=== PATIENT | female | born 1995 | race Caucasian/White ===

== ENCOUNTER 2022-12-23 14:49 | Outpatient (REF) | payer BC, SELFPAY ==
[2022-12-23 15:28] LABS: Internal Control Within Normal Limits; Strep A Antigen Screen Negative
== END 2022-12-23 14:50 | disposition home or self-care (01) ==
LOC: LAB 14:49
PROVIDERS: PCP Family Medicine; Visit Provider Nurse Practitioner Family
DX: J02.9 Acute pharyngitis, unspecified (principal)
CPT/HCPCS: 87070; 87880

== ENCOUNTER 2023-01-12 14:10 | Outpatient (OUT) | payer BC, SELFPAY ==
--- NOTE | 2023-01-12 14:11 | US_ITS ---
[address] [address] Patient Name: PATRICIA FLORES MRN: [id number] date: 1995 Sex: F Assigned Patient Location: [place] Current Patient Location: US Accession/Order Number: [id number] Exam Date: 01/12/2023 14:11 Report Date: 01/12/2023 15:44 At the request of: VIOLETA VILCHIS Procedure: US OB transvaginal EXAMINATION: US OB transvaginal HISTORY: MISSED MENSES COMPARISON: No relevant comparison available. FINDINGS: Devries intrauterine gestation Gestational sac: 3.0 cm, 7 weeks 6 days CRL: 2.2 cm, 9 weeks 4 days Yolk sac: 4.5 mm Heart rate: 182 bpm Cervix: Closed, 4.4 cm The uterus is normal, anteverted, anteflexed The ovaries are normal. Right corpus luteal cyst. Clinical age: 9 weeks 4 days Clinical JORDON: 08/13/2023 Ultrasound age: 9 weeks 4 days Ultrasound JORDON: 08/13/2023 US/US OB transvaginal IMPRESSION: Viable devries intrauterine gestation measuring 9 weeks 4 days Electronically authenticated by: JAMESON MCGUIRE Date: 01/12/2023 15:44
--- OUTSIDE RECORDS SUMMARY | 2023-01-25 03:32 | XMS_ITS | CCD ---
Author Name Unknown Address [address] [place] [address] Organization [facility] Care Team Providers Care Board Hammer Operator Name Role Phone GAYR ZAMORA Attending Unavailjas guo Physician, PCP Unknown Primary Care Unavailab Grecia Abdullahi Primary Care Provider [phone] SUM[address] STEEN Attending Unavailable GRECIA MARROQUIN Primary Care Unavailable GRECIA MARROQUIN Primary Care Unavailable REMBERTO COELHO Attending UnavailREMBERTO Reinoso Attending UnavailREMBERTO Reinoso Referring UnavailGRECIA Goodson Primary Care Unavailable DR GRECIA MARROQUIN Attending Unavailable DR GRECIA MARROQUIN Consulting Unavailable DR GRECIA MARROQUIN Primary Care Unavailable DR GRECIA MARROQUIN Admitting Unavailable GRECIA MARROQUIN Primary Care Unavailable VALENTINA JOHNS Attending Un available Radha Copeland Unavailable VIOLETA VILCHIS Attending Unavailable Allergies Allergy Classification Reported Allergen(s) Allergy Type Date of Onset Reaction(s) Facility diphenhydrAMINE (1 source) diphenhydrAMINE Drug Allergy 4 [facility] Repository (4 sources) diphenhydrAMINE; Translations: [Unknown] Drug Allergy 0 Other (See Comments) [facility] Medications Current Medications Medication Drug Class(es) Dates Sig (Normalized) Sig (Original) benzonatate 100 mg oral capsule (2 sources) Non-narcotic Antitussive Start: 02-15-2019 End: 02-22-2019 take 1 capsule by mouth three times daily as needed for cough benzonatate (TESSALON) 100 MG capsule Indications: Bronchitis Take 1 (one) capsule (100 mg total) by mouth 3 (three) times a day as needed for cough . 20 capsule 0 02/15/2019 02/22/2019 Active brompheniramine maleate 0.4 mg/ml / dextromethorphan hydrobromide 2 mg/ml / pseudoephedrine hydrochloride 6 mg/ml oral solution (1 source) alpha-Adrenergic Agonist, Uncompetitive G-zbkebz-E-aspartat e Receptor Antagonist, Sigma-1 Agonist Start: 02-17-2019 End: 02-27-2019 take 5-10 mL by mouth three times daily as needed brompheniramine- pseudoePHEDrine- DM 2-30-10 mg/5 mL syrup Indications: Cough Take 5-10 mL by mouth 3 (three) times a day as needed . 150 mL 0 02/17/2019 02/27/2019 Active Ethinyl Estradiol / Ferrous fumarate / Norethindrone (2 sources) Estrogen take 1 tablet by mouth once daily, then take 0.05 tablet by mouth once norethindrone-et hinyl estradiol (02/25) 1 mg-20 mcg (21)/75 mg (7) per tablet Take 1 tablet by mouth daily . 0 Active oseltamivir 75 mg oral capsule (1 source) Neuraminidase Inhibitor Start: 02-17-2019 End: 02-22-2019 take 1 capsule by mouth twice daily oseltamivir (Tamiflu) 75 MG capsule Indications: Influenza Take 1 (one) capsule (75 mg total) by mouth 2 (two) times a day for 5 days . 10 capsule 0 02/17/2019 02/22/2019 Active predniSONE 50 mg oral tablet (2 sources) Start: 02-15-2019 End: 02-20-2019 take 1 tablet by mouth once daily predniSONE (DELTASONE) 50 MG tablet Indications: Bronchitis Take 1 (one) tablet (50 mg total) by mouth daily for 5 days . 5 tablet 0 02/15/2019 02/20/2019 Active Problems Active Problems Problem Classification Problem Date Documented Da te Episodic/Chronic Chronic obstructive pulmonary disease and bronchiectasis (1 source) Bronchitis; Translations: [Bronchitis] Episodic Unclassified (2 sources) A74.9 Onset: 05-15-2018 Unclassified (1 source) Past or Other Problems Problem Classification Problem Date Documented Da te Episodic/Chronic Unclassified (1 source) Exposure to COVID-19 virus Z20.822 Onset: 09-30-2021 Resolved: 09-30-2021 Results Test Name Value Interpretation Reference Range Facil ity SARS-CoV-2 (COVID-19) RNA NA A+probe Ql (Resp)on 09-30-2021 SARS-CoV-2 (COVID-19) RNA NA A+probe Ql (Unsp spec) Negative [facility] Other INSULINon 08-11-2020 Insulin 10.7 uIU/mL Normal 2.6-24.9 [facility] Comment on above: Performed By: #### I NSULIN #### [facility] [address] [place], [place] [id number] Maribell Johanna CBC AUTO DIFFon 08-08-2020 BASO # 0.1 103/ul Normal 0.0-0.1 [facility] Comment on above: Performed By: #### C BC #### [facility] [address] [place], [place] [id number] Maribell Johanna Basophils/100 WBC (Bld) 1.1 % Normal 0.2-2.0 [facility] Comment on above: Performed By: #### C BC #### [facility] [address] [place] [address] Maribell Johanna EO # 0.2 103/ul Normal 0.0-0.7 [facility] Comment on above: Performed By: #### C BC #### [facility] [address] [place] [address] Maribell Johanna Eosinophils/100 WBC (Bld) 2.5 % Normal 0.9-7.0 [facility] Comment on above: Performed By: #### C BC #### [facility] [address] [place], [place] [id number] Maribell Johanna Erythrocyte distribution wid th (RBC) [Ratio] 13.6 % Normal 11.0-15.[address] [facility] Comment on above: Performed By: #### C BC #### [facility] [address] [place], [place] [id number] Maribell Johanna Hematocrit (Bld) [Volume fraction] 41.1 % Normal 3 6.0-48.0 [facility] Comment on above: Performed By: #### C BC #### [facility] [address] [id number] Maribell Johanna Hemoglobin (Bld) [Mass/Vol] 13.9 g/dL Normal 12.0-16. 0 [facility] Comment on above: Performed By: #### C BC #### [facility] [address] [id number] Maribell Johanna IG # 0.02 10e3/ul Normal 0.00-0.03 [facility] Comment on above: Performed By: #### C BC #### [facility] [address] [id number] Maribell Johanna IG % 0.3 % Normal 0.0-0.5 [facility] Comment on above: Performed By: #### C BC #### [facility] [address] [place] [address] Maribell Johanna LYMPH # 2.1 103/ul Normal 1.2-3.8 [facility] Comment on above: Performed By: #### C BC #### [facility] [address] [place], [place] [id number] Maribell Johanna Lymphocytes/100 WBC (Bld) 32.4 % Normal 20.5-60.0 [facility] Comment on above: Performed By: #### C BC #### [facility] [address] [place], [place] [id number] Maribell Johanna MANUAL DIFF REQ NO Normal [facility] Comment on above: Performed By: #### C BC #### [facility] [address] [place], [place] [id number] Maribell Johanna MCH (RBC) [Entitic mass] 29.5 pg Normal 26.7-34.0 [facility] Comment on above: Performed By: #### C BC #### [facility] [address] [place], [place] [id number] Maribell Johanna MCHC (RBC) [Mass/Vol] 33.8 g/dL Normal 29.9-35.2 [facility] Comment on above: Performed By: #### C BC #### [facility] [address] [place], [place] [id number] Maribell Johanna MCV (RBC) [Entitic vol] 87.3 fL Normal 81.0-99.0 [facility] Comment on above: Performed By: #### C BC #### [facility] [address] [place], [place] [address] Maribellkhadijah Spencer MONO # 0.4 103/ul Normal 0.3-0.8 [facility] Comment on above: Performed By: #### C BC #### [facility] [address] [place] [address] Maribellkhadijah Millsen Monocytes/100 WBC (Bld) 6.9 % Normal 1.7-12.0 [facility] Comment on above: Performed By: #### C BC #### [facility] [address] [place] [address] Maribellkhadijah Millsen NEUT # 3.6 103/ul Normal 1.4-6.5 [facility] Comment on above: Performed By: #### C BC #### [facility] [address] [place] [address] Maribell Spencer Neutrophils/100 WBC (Bld) 56.8 % Normal 43.0-75.0 [facility] Comment on above: Performed By: #### C BC #### [facility] [address] [place], [place] [id number] Maribellkhadijah Spencer Platelet mean volume (Bld) [Entitic vol] 9.9 fL Normal 9.5-13.5 [facility] Comment on above: Performed By: #### C BC #### [facility] [address] [place] [address] Maribell Johanna PLT 180 103/ul Normal 150-450 [facility] Comment on above: Performed By: #### C BC #### [facility] [address] [place], [place] [address] Maribell Johanna RBC 4.71 106/ul Normal 4.20-5.40 [facility] Comment on above: Performed By: #### C BC #### [facility] [address] [place] [address] Maribell Johanna WBC 6.4 103/ul Normal 4.0-11.0 [facility] Comment on above: Performed By: #### C BC #### [facility] [address] [place], [place] [id number] Maribell Spencer FREE THYROXINE INDEX T7on FTI 3.39 Normal [facility] Comment on above: Performed By: #### L IPID, CMP, T7, TSH #### [facility] [address] [place], [place] [address] Maribell Spencer T3U 28.0 % Normal 23.5-40.5 [facility] Comment on above: Performed By: #### L IPID, CMP, T7, TSH #### [facility] [address] [place] [address] Maribellkhadijah Spencer T4 [Mass/Vol] 12.10 ug/dL Critically high 5.53-11.00 [facility] Comment on above: Performed By: #### L IPID, CMP, T7, TSH #### [facility] [address] [place], [place] [address] Maribell Spencer GLYCOHEMOGLOBIN A1Con 2020 ADA RECOMMENDATION ADA THERAPEUTIC TARG ET 6.0 - 7.0 ACTION SUGGESTED > 7.0 Normal [facility] Comment on above: Performed By: #### A 1C #### [facility] [address] [place], [place] [address] Maribell Johanna Glucose [Mass/Vol] 123 mg/dL Normal [facility] Comment on above: Performed By: #### A 1C #### [facility] [address] [place], [place] [id number] Maribell Spencer HbA1c (Bld) [Mass fraction] 5.9 % Normal <=6.0 [facility] Comment on above: Performed By: #### A 1C #### [facility] [address] [place], [place] [address] Maribell Johanna IRONon 08-08-2020 Iron [Mass/Vol] 66.0 ug/dL Normal 37.0-170.0 [facility] Comment on above: Performed By: #### I DUNIA #### [facility] [address] [place], [place] [address] Maribell Johanna LIPID PROFILEon 08-08-2020 CHOL-HDL RATIO NORM SEE BELOW Normal [facility] Comment on above: Result Comment: 3.3 - 4.4 LOW RISK 4.4 - 7.1 AVERAGE RISK 7.1 - 11.0 MODERATE RISK >11.0 HIGH RISK Performed By: #### L IPID, CMP, T7, TSH #### [facility] [address] [place], [place] [address] Maribell Johanna Cholesterol [Mass/Vol] 215 mg/dL Critically high <=200 [facility] Comment on above: Performed By: #### L IPID, CMP, T7, TSH #### [facility] [address] [id number] Maribell Johanna Cholesterol in HDL [Mass/Vol] 37 mg/dL Normal [facility] Comment on above: Performed By: #### L IPID, CMP, T7, TSH #### [facility] [address] [id number] Maribell Johanna Cholesterol in LDL [Mass/Vol] 142.4 mg/dL Normal [facility] Comment on above: Performed By: #### L IPID, CMP, T7, TSH #### [facility] [address] [place], [place] [address] Maribell Johanna Cholesterol.total/Cholestero l in HDL [Mass ratio] 5.8 {ratio} Normal The [facility] Comment on above: Performed By: #### L IPID, CMP, T7, TSH #### [facility] [address] [place], [place] [address] Maribell Johanna HDL NORMAL > or = 60 mg/dl - LO W CARDIOVASCULAR RISK <40 mg/dl - HIGH CARDIOVASCULAR RISK Normal [facility] Comment on above: Performed By: #### L IPID, CMP, T7, TSH #### [facility] [address] [place], [place] [address] Maribell Johanna LDL CALC NORMAL SEE BELOW Normal [facility] Comment on above: Result Comment: <100 mg/dl OPTIMAL 100 - 129 mg/dl NEAR OR ABOVE OPTIMAL 130 - 159 mg/dl BORDERLINE HIGH 160 - 189 mg/dl HIGH >190 mg/dl VERY HIGH Performed By: #### L IPID, CMP, T7, TSH #### [facility] [address] [id number] Maribell Johanna Triglyceride [Mass/Vol] 178 mg/dL Critically high <=150 [facility] Comment on above: Performed By: #### L IPID, CMP, T7, TSH #### [facility] [address] [id number] Maribell Johanna VLDL CALC 35.6 mg/dL Normal [facility] Comment on above: Performed By: #### L IPID, CMP, T7, TSH #### [facility] [address] [place], [place] [address] Maribell Spencer PROF 14(COMP METB)on 021 Albumin [Mass/Vol] 3.5 g/dL Normal 3.5-5.0 [facility] Comment on above: Performed By: #### L IPID, CMP, T7, TSH #### [facility] [address] [place], [place] [address] Maribell Johanna Albumin/Globulin [Mass ratio] 0.8 {ratio} Normal [facility] Comment on above: Performed By: #### L IPID, CMP, T7, TSH #### [facility] [address] [place], [place] [address] Maribell Johanna ALP [Catalytic activity/Vol] 62 U/L Normal 38-126 [facility] Comment on above: Performed By: #### L IPID, CMP, T7, TSH #### [facility] [address] [place] [address] Maribell Johanna ALT [Catalytic activity/Vol] 50 U/L Normal 9-52 [facility] Comment on above: Performed By: #### L IPID, CMP, T7, TSH #### [facility] [address] [place], [place] [address] Maribell Johanna Anion gap [Moles/Vol] 14.5 mmol/L Normal [facility] Comment on above: Performed By: #### L IPID, CMP, T7, TSH #### [facility] [address] [address] Maribell Johanna AST [Catalytic activity/Vol] 36 U/L Normal 14-36 [facility] Comment on above: Performed By: #### L IPID, CMP, T7, TSH #### [facility] [address] [address] Maribell Johanna Bilirubin [Mass/Vol] 0.5 mg/dL Normal 0.2-1.3 [facility] Comment on above: Performed By: #### L IPID, CMP, T7, TSH #### [facility] [address] [address] Maribell Johanna Calcium [Mass/Vol] 9.0 mg/dL Normal 8.4-10.2 [facility] Comment on above: Performed By: #### L IPID, CMP, T7, TSH #### [facility] [address] [place] [address] Maribell Johanna Chloride [Moles/Vol] 103 mmol/L Normal 98-107 [facility] Comment on above: Performed By: #### L IPID, CMP, T7, TSH #### [facility] [address] [place] [address] Maribell Johanna CO2 [Moles/Vol] 25.6 mmol/L Normal 22.0-30.0 [facility] Comment on above: Performed By: #### L IPID, CMP, T7, TSH #### [facility] [address] [address] Maribell Johanna Creatinine [Mass/Vol] 0.80 mg/dL Normal 0.52-1.04 [facility] Comment on above: Performed By: #### L IPID, CMP, T7, TSH #### [facility] [address] [place] [address] Maribell Johanna EGFR-AF EAST [place] >60 Normal >=60 [facility] Comment on above: Performed By: #### L IPID, CMP, T7, TSH #### [facility] [address] [id number] Maribell Johanna EGFR-NON AF EAST [place] >60 Normal >=60 [facility] Comment on above: Performed By: #### L IPID, CMP, T7, TSH #### [facility] [address] [address] Maribell Johanna Globulin (S) [Mass/Vol] 4.6 g/dL Normal [facility] Comment on above: Performed By: #### L IPID, CMP, T7, TSH #### [facility] [address] [place] [address] Maribell Johanna Glucose [Mass/Vol] 115 mg/dL Critically high 74-106 [facility] Comment on above: Performed By: #### L IPID, CMP, T7, TSH #### [facility] [address] [place] [address] Maribell Johanna Potassium [Moles/Vol] 4.1 mmol/L Normal 3.4-5.0 [facility] Comment on above: Performed By: #### L IPID, CMP, T7, TSH #### [facility] [address] [place] [address] Maribell Johanna Protein [Mass/Vol] 8.1 g/dL Normal 6.1-8.2 [facility] Comment on above: Performed By: #### L IPID, CMP, T7, TSH #### [facility] [address] [place] [address] Maribell Johanna Sodium [Moles/Vol] 139 mmol/L Normal 137-145 [facility] Comment on above: Performed By: #### L IPID, CMP, T7, TSH #### [facility] [address] [place] [address] Maribell Johanna Urea nitrogen [Mass/Vol] 9.0 mg/dL Normal 7.0-17.0 [facility] Comment on above: Performed By: #### L IPID, CMP, T7, TSH #### [facility] [address] [place] [address] Maribell Johanna Urea nitrogen/Creatinine [Mass ratio] 11.2 mg/mg Normal [facility] Comment on above: Performed By: #### L IPID, CMP, T7, TSH #### [facility] [address] [place], [place] [address] Maribell Spencer TSHon 08-08-2020 TSH 1.632 uIU/mL Normal 0.470-4.680 [facility] Comment on above: Performed By: #### L IPID, CMP, T7, TSH #### [facility] [address] [place], [place] [address] Maribell Spencer TSH RANGE SEE BELOW Normal [facility] Comment on above: Result Comment: <0.3 4 UIU/ml HYPERTHYROID 0.34-5.60 UIU/ml EUTHYROID >5.60 UIU/ml HYPOTHYROID Performed By: #### L IPID, CMP, T7, TSH #### [facility] [address] [place], [place] [address] Maribell Spencer XR CHEST AP/PA AND LATon XR CHEST AP/PA AND LAT EXAMINATION: XR CHEST AP/PA AND LAT 02/17/2019 9:47 AM HISTORY: ORDERING SYSTEM PROVIDED HISTORY: h/o pneumonia/cough/fever, TECHNOLOGIST PROVIDED HISTORY: Illness/Other Reason for exam: cough Cancer History: no Surgery, RadiationHistory: unk Encounter Type: Initial Additional signs and symptoms: Treated for pneumonia around [place]. Started having cough, fever again about 2 days ago. ORDERING SYSTEM PROVIDED DIAGNOSIS CODES: R05 Cough COMPARISON: None. FINDINGS: Cardiomediastinal silhouette is within normal limits. Lungs are clear. No significant pleural or osseous abnormalities are identified. IMPRESSION: No acute process identified. MA/trw Workstation ID: [id number] Dictated by: ISHMAEL KEYS on MonFeb 17, 2019 10:05:42 AM EST Transcribed by: LEXII HUTCHINSON on MonFeb 17, 2019 10:06:52 AM EST Finalized by: ISHMAEL KEYS on MonFeb 17, 2019 10:59:38 AM EST Normal [facility] Comment on above: Order Comment: Injur y/Trauma or Illness?:Illness/Other How long have you had these symptoms (acute/chronic)?:Acute Reason for exam?:cough History of cancer?:no Surgeries, chemotherapy, or radiation?:unk Type of Exam?:Initial Additional signs and symptoms?:Treated for pneumonia around [place]. Started having cough, fever again about 2 days ago. No acute process identified. [employer] Workstation ID: [id number] [facility] EXAMINATION: XR CHES T AP/PA AND LAT 02/17/2019 9:47 AM HISTORY: ORDERING SYSTEM PROVIDED HISTORY: h/o pneumonia/cough/fever, TECHNOLOGIST PROVIDED HISTORY: Illness/Other Reason for exam: cough Cancer History: no Surgery, RadiationHistory: unk Encounter Type: Initial Additional signs and symptoms: Treated for pneumonia around [place]. Started having cough, fever again about 2 days ago. ORDERING SYSTEM PROVIDED DIAGNOSIS CODES: R05 Cough COMPARISON: None. FINDINGS: Cardiomediastinal silhouette is within normal limits. Lungs are clear. No significant pleural or osseous abnormalities are identified. [facility] Interface, Rad In Fu ji Speechq - 02/17/2019 11:02 AM EST EXAMINATION: XR CHEST AP/PA AND LAT 02/17/2019 9:47 AM HISTORY: ORDERING SYSTEM PROVIDED HISTORY: h/o pneumonia/cough/fever, TECHNOLOGIST PROVIDED HISTORY: Illness/Other Reason for exam: cough Cancer History: no Surgery, RadiationHistory: unk Encounter Type: Initial Additional signs and symptoms: Treated for pneumonia around [place]. Started having cough, fever again about 2 days ago. ORDERING SYSTEM PROVIDED DIAGNOSIS CODES: R05 Cough COMPARISON: None. FINDINGS: Cardiomediastinal silhouette is within normal limits. Lungs are clear. No significant pleural or osseous abnormalities are identified. IMPRESSION: No acute process identified. [employer] Workstation ID: [id number] [facility] Chlamydia Detection by NAATo yannick 05-15-2018 Protein mass conc [facility] Microbiology PROCEDURE: Chlamydia Detection by NAAT SOURCE: Vagina BODY SITE: COLLECTED DATE/TIME: 05/15/2018 09:43 EDT RECEIVED DATE/TIME: 05/15/2018 09:43 EDT START DATE/TIME: 05/15/2018 09:43 EDT FREE TEXT SOURCE: VAGINA-VAG INTERFACED REPORTS Final Report [] Verified Date/Time/Personnel: 05/16/2018 14:04 EDT CONTRIBUTOR_SYSTEM, CO_PN NEGATIVE * C TRACHOMATIS NUCLEIC ACID NOT DETECTED CONTACT LABORATORY FOR RECOMMENDED ADDITIONAL TESTING IF RESULTS ARE INCONSISTENT WITH CLINICAL FINDINGS Normal [facility] Comment on above: Performed By: #### C [id number] #### [facility] [address] [place], [place] Vital Signs Date Time Vital Sign Value Performing Clinician Tana lara 02-15-2019 13:17-0500 BMI (Body Mass Index) 27.25 kg/m2 [facility] 02-15-2019 13:17-0500 Body Temperature 99.61 [degF] [facility] 02-15-2019 13:17-0500 Body weight 81.28 kg [facility] 02-15-2019 13:17-0500 BP Diastolic 82 mm[Hg] [facility] 02-15-2019 13:17-0500 BP Systolic 131 mm[Hg] [facility] 02-15-2019 13:170500 Height 172.7 cm [facility] 02-15-2019 13:17-0500 Pulse (Heart Rate) 89 /min [facility] 02-15-2019 13:17-0500 Pulse Oximetry 96 % [facility] 02-15-2019 13:17-0500 Respiratory Rate 16 /min [facility] Encounters Encounter Date Encounter Type Care Provider Facility Start: 01-12-2023 End: 01-12-2023 ambulatory VIOLETA VILCHIS Not Available Start: 09-30-2021 End: 09-30-2021 ambulatory Radha Copeland Other [facility] Other Start: 09-30-2021 Nursing evaluation o f patient and report Radha Copeland [facility] Start: 09-21-2020 End: 09-25-2020 ambulatory GRECIA MARROQUIN [facility] Start: 08-18-2020 Encounter for genera l adult medical examination without abnormal findings DR GRECIA MARROQUIN [facility] Start: 08-08-2020 End: 08-09-[address] GRECIA MARROQUIN Facility:[facility] Start: 08-08-2020 End: 08-09-2020 Encounter for general adult medical examination without abnormal findings DR GRECIA MARROQUIN Facility:[facility] Start: 02-17-2019 End: 02-18-2019 Patient encounter procedure REMBERTO COELHO [facility] Start: 02-17-2019 End: 02-17-2019 Subsequent hospital visit by physician Remberto Coelho Work Phone: [facility]gent [facility] Comment on above: Arrived Start: 02-15-2019 End: 02-15-2019 Patient encounter procedure SUMMER MICHELLE STEEN [facility] Start: 02-15-2019 End: 02-15-2019 Office outpatient visit 15 minutes Summer Steen Work Phone: [facility] [place] Comment on above: Bronchitis (Primary Dx) Start: 05-16-2018 End: 05-16-2018 Patient encounter procedure GARY ZAMORA Facility:[facility] Procedures Date Procedure Procedure Detail Performing Clinician Start: 02-17-2019 Standard chest X-ray An john Coelho Work Phone: Start: 04-20-2018 Microscopic observat ion [Identifier] in Cervix by Cyto stain Remberto Coelho Start: 03-24-2016 Microscopic observat ion [Identifier] in Cervix by Cyto stain Summer Steen Plan of Treatment Date Care Activity Detail Author Start: 04-20-2021 Screening for malign ant neoplasm of cervix PAP SMEAR [facility] Start: 04-21-2019 Screening for Chlamy luis fernando trachomatis Chlamydia Screening [facility] Start: 03-24-2019 Screening for malign ant neoplasm of cervix PAP SMEAR [facility] Start: 10-07-2018 Influenza vaccination given SE QUENTIAL INFLUENZA VACCINE (#1) [facility] Start: 2006 Vaccination for sharri n papillomavirus HPV VACCINES (1 - Female 2-dose series) [facility] Start: 1998 History and physical examination, annual for health maintenance Wellness Visit [facility] Start: 1995 Screening for Chlamy luis fernando trachomatis Chlamydia Screening [facility] Start: 1995 Tetanus vaccination TETANUS EVERY 10 YR [facility] Payers Date Payer Category Payer Unknown [id number] 2018 Unknown NADYA HOWARD/SANTIAGO/HMO/PPO xxxxxxxxxxxx 2018-Present [id number] 1995 Unknown [id number] 1995 Unknown [id number] 1995 Unknown [id number] 1995 Unknown [id number] 1995 Unknown [id number] 1995 Unknown [id number] 9 1959 Unknown [id number] Social History Date Type Detail Facility Start: 02-15-2019 End: 02-17-2019 Tobacco smoking status NHIS Never smoker [facility] on file [facility] Other Evaluation note 09-30-2021 Note Date & Type Note Facility 09-30-2021 Evaluation note Encounter Date Diagnosis Assessment Notes Sep, Exposure to COVID-19 virus (ICD-10 - Z20.822) [facility] Other Summary Purpose Family History No Family History Records FoundNo Family History Records FoundNo Family History Records FoundNo Family History Records FoundNo Family History Records Found Advance Directives No Advanced Directives Records FoundDocuments on File Type Date Recorded Patient Certified Nursing Assistant Expl anation Advance Directives and Living Will Instructions * Patient Instructions* Summer Steen, - 02/15/2019 1:39 PM EST Symptoms are likely viral in nature with bronchitis. Discussed with patient. No need for antibiotics at this time. Start Tessalon Perles for cough as needed. Take prednisone as scheduled. Return for new, worsening or changing symptoms. Bronchitis: Care Instructions Your Care Instructions Bronchitis is inflammation of the bronchial tubes, which carry air to the lungs. The tubes swell and produce mucus, or phlegm. The mucus and inflamed bronchial tubes make you cough. You may have trouble breathing. Most cases of bronchitis are caused by viruses like those that cause colds. Antibiotics usually do not help and they may be harmful. Bronchitis usually develops rapidly and lasts about 2 to 3 weeks in otherwise healthy people. Follow-up care is a ramirez part of your treatment and safety. Be sure to make and go to all appointments, and call your doctor if you are having problems. It's also a good idea to know your test resultsand keep a list of the medicines you take. How can you care for yourself at home? Take all medicines exactly as prescribed. Call your doctor if you think you are having a problem with your medicine. Get some extra rest. Take an bjgm-xlp-ukotalh pain medicine, such as acetaminophen (Tylenol), ibuprofen (Advil, Motrin),or naproxen (Aleve) to reduce fever and relieve body aches. Read and follow all instructions on thelabel. Do not take two or more pain medicines at the same time unless the doctor told you to. Many pain medicines have acetaminophen, which is Tylenol. Too much acetaminophen (Tylenol) can be harmful. Take an acpz-kob-wyllszq cough medicine that contains dextromethorphan to help quiet a dry, hackingcough so that you can sleep. Avoid cough medicines that have more than one active ingredient. Read and follow all instructions on the label. Breathe moist air from a humidifier, hot shower, or sink filled with hot water. The heat and moisture will thin mucus so you can cough it out. Do not smoke. Smoking can make bronchitis worse. If you need help quitting, talk to your doctor about stop-smoking programs and medicines. These can increase your chances of quitting for good. When should you call for help? Call 911 anytime you think you may need emergency care. For example, call if: You have severe trouble breathing. Call your doctor now or seek immediate medical care if: You have new or worse trouble breathing. You cough up dark brown or bloody mucus (sputum). You have a new or higher fever. You have a new rash. Watch closely for changes in your health, and be sure to contact your doctor if: You cough more deeply or more often, especially if you notice more mucus or a change in the color of your mucus. You are not getting better as expected. Where can you learn more? Log into your personal health record on [email or web address] and enter H333 in the Education box to learn more about Bronchitis: Care Instructions. Current as of: July 15, 2018 Content Version: 12.3 [employer]. Care instructions adapted under license by your healthcare professional. If you have questions about a medical condition or this instruction, always ask your healthcare professional. [employer] disclaims any warranty or liability for your use of this information. documented in this encounter History of Present Illness * Summer Steen DO - 02/15/2019 1:22 PM EST PATIENT NAME: Meron Darling [facility] [address] [place] [address] : 1995 DATE OF VISIT: 02/15/2019 SS#: [id number] PROVIDER: Summer Steen DO Chief Complaint Patient presents with Shortness of Breath Started againthis morning. Pt was treated for pneumonia around 01/30/2019 and finished tx however today she feelslike it is coming back SUBJECTIVE 24 y.o. female presents Shortness of Breath (Started againthis morning. Pt was treated for pneumonia around 01/30/2019 and finished tx however today she feelslike it is coming back ) Patient is a 24-year-old female who presents with a nonproductive cough that started yesterday slightly. Patient states that a week before Jhonathan, approximately 2 to 3 weeks ago patient was treated with an antibiotic. She said he took it for 10 days and twice a day. Likely Augmentin but patient does not remember. Symptoms resolved. Patient is concerned she is got pneumonia again. [place] warm butno objective fevers. Took Tylenol prior to arrival. States she feels fine now but wanted to get evaluated for potential pneumonia. Patient is not short of breath at this moment. Does complain of somechest congestion. Does not take an inhaler usually. MEDICAL ISSUES History reviewed. No pertinent past medical history. There is no problem list on file for this patient. SOCIAL HISTORY Social History Socioeconomic History Marital status: Single Spouse name: Not on file Number of children: Not on file Years of education: Not on file Highest education level: Not on file Occupational History Not on file Social Needs Financial resource strain: Not on file Food insecurity Worry: Not on file Inability: Not on file Transportation needs Medical: Not on file Non-medical: Not on file Tobacco Use Smoking status: Never Smoker Smokeless tobacco: Never Used Substance and Sexual Activity Alcohol use: Not on file Drug use: Not on file Sexual activity: Not on file Lifestyle Physical activity Days per week: Not on file Minutes per session: Not on file Stress: Not on file Relationships Social connections Talks on phone: Not on file Gets together: Not on file Attends confucianism service: Not on file Active member of club or organization: Not on file Attends meetings of clubs or organizations: Not on file Relationship status: Not on file Other Topics Concern Not on file Social History Narrative Not on file FAMILY HISTORY No family history on file. REVIEW OF SYSTEMS Review of Systems Constitutional: Positive for fatigue. Negative for activity change, appetite change, chills, diaphoresis, fever and unexpected weight change. HENT: Negative for congestion, ear pain, mouth sores, postnasal drip, rhinorrhea, sinus pressure and sneezing. Eyes: Negative. Respiratory: Positive for cough, chest tightness and wheezing. Negative for choking. Cardiovascular: Negative. Gastrointestinal: Negative. All other systems reviewed and are negative. MEDICATIONS PRIOR TO VISIT Current Outpatient Medications on File Prior to Visit Medication Sig Dispense Refill norethindrone-ethinyl estradiol (02/25) 1 mg-20 mcg (21)/75 mg (7) per tablet Take 1 tabletby mouth daily . No current facility-administered medications on file prior to visit. ALLERGIES/INTOLERANCES Allergies Allergen Reactions Benadryl [Diphenhydramine Hcl] Other (See Comments) Agitated OBJECTIVE BP 131/82 Pulse 89 Temp 99.6 F (37.6 C) (Tympanic) Resp 16 Ht 5' 8 Wt 81.3 kg (179 lb 3.2 oz) SpO2 96% BMI 27.25 kg/m Physical Exam Constitutional: She is oriented to person, place, and time. She appears well- developed and well-nourished. HENT: Head: Normocephalic and atraumatic. Right Ear: External ear normal. Left Ear: External ear normal. Nose: Nose normal. Mouth/Throat: Oropharynx is clear and moist. Eyes: Pupils are equal, round, and reactive to light. Conjunctivae and EOM are normal. Right eye exhibits no discharge. Left eye exhibits no discharge. Neck: Normal range of motion. Neck supple. No JVD present. No thyromegaly present. Cardiovascular: Normal rate, regular rhythm, normal heart sounds and intact distal pulses. Exam reveals no gallop and no friction rub. No murmur heard. Pulmonary/Chest: Effort normal. No stridor. No respiratory distress. She has wheezes. She has no rales. She exhibits no tenderness. Musculoskeletal: Normal range of motion. Lymphadenopathy: She has no cervical adenopathy. Neurological: She is alert and oriented to person, place, and time. No cranial nerve deficit. Skin: Skin is warm and dry. Psychiatric: She has a normal mood and affect. Her behavior is normal. Nursing note and vitals reviewed. PROCEDURE Procedures Results No results found for this or any previous visit (from the past 168 hour(s)). ASSESSMENT/PLAN (expressed as patient instructions): 1. Bronchitis predniSONE (DELTASONE) 50 MG tablet benzonatate (TESSALON) 100 MG capsule No follow-ups on file. MDM Section ORDERS PLACED THIS VISIT No orders of the defined types were placed in this encounter. MEDICATION LIST AT END OF VISIT Current Outpatient Medications Medication Sig Dispense Refill norethindrone-ethinyl estradiol (02/25) 1 mg-20 mcg (21)/75 mg (7) per tablet Take 1 tabletby mouth daily . benzonatate (TESSALON) 100 MG capsule Take 1 (one) capsule (100 mg total) by mouth 3 (three) times a day as needed for cough . 20 capsule 0 predniSONE (DELTASONE) 50 MG tablet Take 1 (one) tablet (50 mg total) by mouth daily for 5 days . 5tablet 0 No current facility-administered medications for this visit. documented in this encounter Assessments Diagnosis Bronchitis Bronchitis, not specified as acute or chronic Additional Source Comments INFORMATION SOURCE (unrecogn ized section and content) DATE CREATED AUTHOR 05/17/2018 [facility] DATE CREATED AUTHOR 'S CHANDRAKANT ATBRANDO 02/17/[address] [facility] DATE CREATED AUTHOR AUTHOR'S ORGANIZ ATION 08/19/[address] [facility] DATE CREATED AUTHOR AUTHOR'S ORGANIZ ATION 10/04/2020 [facility] DATE CREATED AUTHOR AUTHOR'S ORGANIZ ATION 01/15/2023 [facility] EPIC Reason for Visit (unrecogniz ed section and content) Reason Comments Shortness of Breath Started againtrevor aguero. Pt was treated for pneumonia around 01/30/2019 and finished tx however today she feelslike it is coming back FOR RECORDS PERTAINING TO PATIENTS WHO ARE OR HAVE BEEN ENROLLED IN A CHEMICAL DEPENDENCY/SUBSTANCEABUSE PROGRAM, SOME INFORMATION MAY BE OMITTED. This clinical summary was aggregated from multiple sources. Caution should be exercised in using it in the provision of clinical care. This summary normalizes information from multiple sources, and as a consequence, information in this document may materially change the coding, format and clinical context of patient data. In addition, data may be omitted in some cases. CLINICAL DECISIONS SHOULD BE BASED ON THE PRIMARY CLINICAL RECORDS. [facility] [employer] [facility]. provides no warranty or guarantee of the accuracy or completeness of information in this document.
== END 2023-01-12 14:11 | disposition home or self-care (01) ==
LOC: US 14:10
PROVIDERS: PCP Family Medicine; Visit Provider Obstetrics & Gynecology
DX: Z34.91 Encounter for supervision of normal pregnancy, unspecified, first trimester (principal); Z3A.09 9 weeks gestation of pregnancy; N92.6 Irregular menstruation, unspecified
CPT/HCPCS: 76817

== ENCOUNTER 2023-01-16 07:34 | Outpatient (OUT) | payer BC, SELFPAY ==
[2023-01-16 07:53] LABS: Basophils Percent Auto 0.5 % (0.2-2.0); Eosinophils Absolute Auto 0.1 10^3/uL (0.0-0.7); Eosinophils Percent Auto 1.6 % (0.9-7.0); Hematocrit 38.5 % (36.0-48.0); Immature Granulocytes Abs Auto 0.01 10^3/uL (0.00-0.03); Immature Granulocytes Pct Auto 0.2 % (0.0-0.5); Lymphocytes Absolute Auto 2.2 10^3/uL (1.2-3.8); Mean Corpuscular HGB Conc 33.8 g/dL (29.9-35.2); Mean Corpuscular Hemoglobin 30.5 pg (26.7-34.0); Mean Corpuscular Volume 90.4 fL (81.0-99.0); Mean Platelet Volume 9.8 fL (9.5-13.5); Monocytes Absolute Auto 0.5 10^3/uL (0.3-0.8); Monocytes Percent Auto 7.4 % (1.7-12.0); Neutrophils Absolute Auto 3.6 10^3/uL (1.4-6.5); Neutrophils Percent Auto 56.3 % (43.0-75.0); Platelet Count 237 10^3/uL (150-450); Red Blood Count 4.26 10^6/uL (4.20-5.40); Red Cell Distribution Width 12.5 % (11.0-15.0); White Blood Count 6.4 10^3/uL (4.0-11.0)
[2023-01-16 08:07] LABS: Estimated Average Glucose 111 mg/dL; Glycohemoglobin A1C 5.5 % (4.5-6.2)
[2023-01-16 08:30] LABS: BOX Test Sent Out Y
[2023-01-16 08:57] LABS: Thyroid Stimulating Hormone 0.818 uIU/mL (0.358-3.740)
[2023-01-17 08:13] LABS: HBsAg Screen Negative (Negative); HCV Ab Non Reactive (Non Reactive); HIV Ab/p24 Ag Screen Non Reactive (Non Reactive)
[2023-01-17 13:08] LABS: Rapid Plasma Reagin, Quant Non Reactive titer (NonRea<1:1)
== END 2023-01-16 07:35 | disposition home or self-care (01) ==
LOC: LAB 07:34
PROVIDERS: PCP Family Medicine; Visit Provider Obstetrics & Gynecology
DX: N92.6 Irregular menstruation, unspecified (principal); Z36.0 Encounter for antenatal screening for chromosomal anomalies
CPT/HCPCS: 36415; 83036; 84443; 85025; 86592; 86762; 86803; 86850; 86900; 86901; 87086; 87340; 87389

== ENCOUNTER 2023-02-21 08:02 | Outpatient (OUT) | payer BC, SELFPAY ==
--- OUTSIDE RECORDS SUMMARY | 2023-02-21 08:06 | XMS_ITS | CCD ---
Author Name Unknown Address [facility] [place] [address] Organization [facility] Care Team Providers Care Wax Pot Tender Name Role Phone GARY ZAMORA Attending Unavailjas guo Physician, PCP Unknown Primary Care Unavailab Grecia Abdullahi Primary Care Provider SUMMER STEEN Attending Unavailable GRECIA MARROQUIN Primary Care Unavailable GRECIA MARROQUIN Primary Care Unavailable REMBERTO COELHO Attending UnavailREMBERTO Reinoso Attending UnavailREMBERTO Reinoso Referring UnavailGRECIA Goodson Primary Care Unavailable DR GRECIA MARROQUIN Attending Unavailable DR GRECIA MARROQUIN Consulting Unavailable DR GRECIA MARROQUIN Primary Care Unavailable DR GRECIA MARROQUIN Admitting Unavailable GRECIA MARROQUIN Primary Care Unavailable VALENTINA JOHNS Attending Un available Radha Copeland Unavailable NONE, NONE Primary Care Unavailable RADHAMES VICTORIA Referring Unavailable RADHAMES VICTORIA Referring Unavailable NONE, NONE Primary Care Unavailable VIOLETA VILCHIS Attending Unavailable VIOLETA VILCHIS Attending Unavailable Allergies Allergy Classification Reported Allergen(s) Allergy Type Date of Onset Reaction(s) Facility diphenhydrAMINE (1 source) diphenhydrAMINE Drug Allergy 4 [facility] Repository (4 sources) diphenhydrAMINE; Translations: [Unknown] Drug Allergy 0 Other (See Comments) [facility] Medications Current Medications Medication Drug Class(es) [...] oral solution (1 source) alpha-Adrenergic Agonist, Uncompetitive K-pitulf-G-aspartat e Receptor Antagonist, Sigma-1 Agonist Start: 02-17-2019 [...] bronchiectasis (1 source) Bronchitis; Translations: [Bronchitis] Episodic Other complications of (2 sources) Supervision of other high risk pregnancies, second trimester; Translations: [Supervision of other high risk pregnancies, second trimester] Onset: 02-08-2023 Episodic Other screening for suspected conditions (not mental disorders or infectious disease) (4 sources) Encounter for screening for nuchal translucency; Translations: [Encounter for screening, unspecified] Onset: 02-02-2023 Episodic Residual codes; unclassified (2 sources) Genetic carrier of other disease; Translations: [Genetic carrier of other disease] Onset: 02-08-2023 Episodic Unclassified (2 sources) A74.9 Onset: 05-15-2018 Unclassified (1 source) Past or Other Problems Problem Classification Problem Date Documented Da te Episodic/Chronic Unclassified (1 source) Exposure to COVID-19 virus Z20.822 Onset: 09-30-2021 Resolved: 09-30-2021 Results Test Name Value Interpretation Reference Range Facility [facility] 02-09-2023 Send Out Report FORWARD TO [facility] Comment on above: Result Comment: [id number] Performed By: #### C MIS #### [address] [address] Statistical Reporting Analyst: Isidro Aguirre MD [facility] 02-08-2023 Test Name [facility] Comment on above: Performed By: #### C MIS #### [address] [address] Statistical Reporting Analyst: Isidro Aguirre MD Maternal Ser 1st [place] 02-03 Cr Rump Lngt, Twin B Not Applicable [facility] Comment on above: Performed By: #### A MSFT #### [address] [address] Statistical Reporting Analyst: Isidro Aguirre MD [facility] [employer] [address] [place] [address] Statistical Reporting Analyst: Rojas Simpson MD [place] Rump Length 57.2 mm [facility] Comment on above: Performed By: #### A MSFT #### [address] [address] Statistical Reporting Analyst: Isidro Aguirre MD [facility] [employer] [address] [place] [address] Statistical Reporting Analyst: Rojas Simpson MD Gestat Age (exact) 12 wks, 1 days Normal [facility] Comment on above: Performed By: #### A MSFT #### [address] [address] Statistical Reporting Analyst: Isidro Aguirre MD [address] [phone] Statistical Reporting Analyst: Rojas Simpson MD Hx Aneuploidy Unknown Normal [facility] Comment on above: Performed By: #### A MSFT #### [address] [address] Statistical Reporting Analyst: Isidro Aguirre MD [address] [phone] Statistical Reporting Analyst: Rojas Simpson MD Interpretation Screen Neg Normal [facility] Comment on above: Result Comment: (NOT E) INTERPRETATION: SCREEN NEGATIVE for Down Syndrome and Trisomy 18 Down syndrome (DS) Negative Trisomy 18 (T18) Negative Pre-Test Post-Test Cutoff Down Syndrome Risks 1:649 1:2070 1:230 Trisomy 18 Risks 1:3190 1:6950 1:100 Comments: The risk of Down syndrome is less than the screening cut-off. The risk of trisomy 18 is less than the screening cut-off. This test was developed and its performance characteristics determined by [employer]. It has not been cleared or approved by the [place] Food and Drug Administration. This test was performed in a CLIA certified laboratory and is intended for clinical purposes. Performed By: #### A MSFT #### [address] [address] Statistical Reporting Analyst: Isidro Aguirre MD [address] [phone] Statistical Reporting Analyst: Rojas Simpson MD [age] [facility] Comment on above: Performed By: #### A MSFT #### [address] [address] Statistical Reporting Analyst: Isidro Aguirre MD [facility] [employer] [address] [place] [phone] Statistical Reporting Analyst: Rojas Simpson MD Maternal Race Nonblack [facility] Comment on above: Performed By: #### A MSFT #### [address] [address] Statistical Reporting Analyst: Isidro Aguirre MD [address] [phone] Statistical Reporting Analyst: Rojas Simpson MD Maternal Screen, EER See Note [facility] Comment on above: Result Comment: (NOT E) Authorized individuals can access the [facility] Enhanced Report using the following link: [email or web address] Performed By: [employer] [address] [place] [address] Configurator: Rex Moreau MD, PhD CLIA Number: [id number] Performed By: #### A MSFT #### [address] [address] Statistical Reporting Analyst: Isidro Aguirre MD [address] [phone] Statistical Reporting Analyst: Rojas Simpson MD Maternal Weight 191.0 lbs. [facility] Comment on above: Performed By: #### A MSFT #### [address] [address] Statistical Reporting Analyst: Isidro Aguirre MD [facility] [employer] [address] [place] [id number] Statistical Reporting Analyst: Rojas Simpson MD MoM for HCG 0.70 [facility] Comment on above: Performed By: #### A MSFT #### [address] [address] Statistical Reporting Analyst: Isidro Aguirre MD [facility] [address] [place] [address] Statistical Reporting Analyst: Rojas Simpson MD MoM for NT 1.60 Normal [facility] Comment on above: Performed By: #### A MSFT #### [address] [address] Statistical Reporting Analyst: Isidro Aguirre MD [address] [address] Statistical Reporting Analyst: Rojas Simpson MD MoM for [place], Twin B Not Applicable [facility] Comment on above: Performed By: #### A MSFT #### [address] [address] Statistical Reporting Analyst: Isidro Aguirre MD [address] [address] Statistical Reporting Analyst: Rojas Simpson MD MoM for SHONDA-A 0.82 [facility] Comment on above: Performed By: #### A MSFT #### [address] [address] Statistical Reporting Analyst: Isidro Aguirre MD [address] [address] Statistical Reporting Analyst: Rojas Simpson MD Nuchal Trans, Twin B Not Applicable [facility] Comment on above: Performed By: #### A MSFT #### [address] [address] Statistical Reporting Analyst: Isidro Aguirre MD [facility] [address] [place] [address] Statistical Reporting Analyst: Rojas Simpson MD Nuchal Translucency 2.30 mm [facility] Comment on above: Performed By: #### A MSFT #### [address] [address] Statistical Reporting Analyst: Isidro Aguirre MD [address] [address] Statistical Reporting Analyst: Rojas Simpson MD Number of Fetuses [place] Normal [facility] Comment on above: Performed By: #### A MSFT #### [address] [address] Statistical Reporting Analyst: Isidro Aguirre MD [address] [address] Statistical Reporting Analyst: Rojas Simpson MD SHONDA-A Maternal 479.0 ng/mL [facility] Comment on above: Result Comment: (NOT E) This test was developed and its performance characteristics determined by [employer]. It has not been cleared or approved by the [place] Food and Drug Administration. This test was performed in a CLIA certified laboratory and is intended for clinical purposes. Performed By: #### A MSFT #### [address] [address] Statistical Reporting Analyst: Isidro Aguirre MD [address] [address] Statistical Reporting Analyst: Rojas Simpson MD Patient's HCG 40616 IU/L [facility] Comment on above: Performed By: #### A MSFT #### [address] [address] Statistical Reporting Analyst: Isidro Aguirre MD [address] [phone] Statistical Reporting Analyst: Rojas Simpson MD Smoking Unknown [facility] Comment on above: Performed By: #### A MSFT #### [address] [address] Statistical Reporting Analyst: Isidro Aguirre MD [address] [address] Statistical Reporting Analyst: Rojas Simpson MD Sales Clerk Food Cert No [id number] [facility] Comment on above: Performed By: #### A MSFT #### [address] [address] Statistical Reporting Analyst: Isidro Aguirre MD [facility] [address] [place], [place] [phone] Statistical Reporting Analyst: Rojas Simpson MD Sales Clerk Food [facility]isha [facility] Comment on above: Performed By: #### A MSFT #### [address] [address] Statistical Reporting Analyst: Isidro Aguirre MD [address] [address] Statistical Reporting Analyst: Rojas Simpson MD Specimen See Note [facility] Comment on above: Result Comment: Init ial sample Performed By: #### A MSFT #### [address] [address] Statistical Reporting Analyst: Isidro Aguirre MD [address] [address] Statistical Reporting Analyst: Rojas Simpson MD Ultrasound Date SEE NOTE [facility] Comment on above: Result Comment: Resu lts for Ultrasound Date: 02 02 23 Performed By: #### A MSFT #### [address] [address] Statistical Reporting Analyst: Isidro Aguirre MD [address] [phone] Statistical Reporting Analyst: Rojas Simpson MD Maternal Ser 1st [place] 02-02 [place] Rump Length 57.2 [facility] Comment on above: Performed By: #### A MSFT #### [address] [address] Statistical Reporting Analyst: Isidro Aguirre MD [facility] [address] [place], [place] [phone] Statistical Reporting Analyst: Rojas Simpson MD Current Smoking INFORMATION NOT PROVIDED [facility] Comment on above: Performed By: #### A MSFT #### [address] [address] Statistical Reporting Analyst: Isidro Aguirre MD [facility] [address] [place] [address] Statistical Reporting Analyst: Rojas Simpson MD Date of Ultrasound [id number] [facility] Comment on above: Performed By: #### A MSFT #### [address] [address] Statistical Reporting Analyst: Isidro Aguirre MD [address] [address] Statistical Reporting Analyst: Rojas Simpson MD Donor Egg INFORMATION NOT PROVIDED [facility] Comment on above: Performed By: #### A MSFT #### [address] [address] Statistical Reporting Analyst: Isidro Aguirre MD [facility] [address] [place] [address] Statistical Reporting Analyst: Rojas Simpson MD In Vitro Fertalizat INFORMATION NOT PROVIDED [facility] Comment on above: Performed By: #### A MSFT #### [address] [address] Statistical Reporting Analyst: Isidro Aguirre MD [facility] [address] [place] [address] Statistical Reporting Analyst: Rojas Simpson MD Maternal date [phone] [facility] Comment on above: Performed By: #### A MSFT #### [address] [address] Statistical Reporting Analyst: Isidro Aguirre MD [facility] [address] [place] [address] Statistical Reporting Analyst: Rojas Simpson MD Maternal Weight 191 [facility] Comment on above: Performed By: #### A MSFT #### [address] [address] Statistical Reporting Analyst: Isidro Aguirre MD [address] [address] Statistical Reporting Analyst: Rojas Simpson MD Monochorionic Twins INFORMATION NOT PROVIDED [facility] Comment on above: Performed By: #### A MSFT #### [address] [address] Statistical Reporting Analyst: Isidro Aguirre MD [address] [address] Statistical Reporting Analyst: Rojas Simpson MD Nuchal Transluc (NT) 2.3 [facility] Comment on above: Performed By: #### A MSFT #### [address] [address] Statistical Reporting Analyst: Isidro Aguirre MD [address] [address] Statistical Reporting Analyst: Rojas Simpson MD Number of fetuses 1 Normal [facility] Comment on above: Performed By: #### A MSFT #### [address] [address] Statistical Reporting Analyst: Isidro Aguirre MD [address] [address] Statistical Reporting Analyst: Rojas Simpson MD Patient Weight Units LB [facility] Comment on above: Performed By: #### A MSFT #### [address] [address] Statistical Reporting Analyst: Isidro Aguirre MD [address] [address] Statistical Reporting Analyst: Rojas Simpson MD Prev Trisomy Preg INFORMATION NOT PROVIDED [facility] Comment on above: Performed By: #### A MSFT #### [address] [address] Statistical Reporting Analyst: Isidro Aguirre MD [facility] [address] [place] [address] Statistical Reporting Analyst: Rojas Simpson MD Race (Maternal) WHITE [facility] Comment on above: Performed By: #### A MSFT #### [address] [address] Statistical Reporting Analyst: Isidro Aguirre MD [facility] [address] [place] [address] Statistical Reporting Analyst: MD Shayne Siddiqui [place] Cert Num [id number] [facility] Comment on above: Performed By: #### A MSFT #### [address] [address] Statistical Reporting Analyst: Isidro Aguirre MD [address] [address] Statistical Reporting Analyst: MD Shayne Siddiqui MDBERYL VICTORIA [facility] Comment on above: Performed By: #### A MSFT #### [address] [address] Statistical Reporting Analyst: Isidro Aguirre MD [address] [address] Statistical Reporting Analyst: Rojas Simpson MD Repeat Specimen INFORMATION NOT PROVIDED [facility] Comment on above: Performed By: #### A MSFT #### [address] [address] Statistical Reporting Analyst: Isidro Aguirre MD [facility] [address] [place] [address] Statistical Reporting Analyst: Rojas Simpson MD Sonograph Cert Num [id number] [facility] Comment on above: Performed By: #### A MSFT #### [address] [address] Statistical Reporting Analyst: Isidro Aguirre MD [facility] [address] [place] [address] Statistical Reporting Analyst: Rojas Simpson MD Sales Clerk Food Name CINDY Shultz [facility] Comment on above: Performed By: #### A MS #### [address] [place] [address] Statistical Reporting Analyst: Isidro Aguirre MD [facility] [address] [place] [address] Statistical Reporting Analyst: Rojas Simpson MD SARS-CoV-2 (COVID-19) RNA NA A+probe Ql (Resp)on 09-30-2021 SARS-CoV-2 (COVID-19) RNA CRISTIAN+probe Ql (Unsp spec) Negative [employer] Other INSULINon 08-11-2020 Insulin 10.7 uIU/mL Normal 2.6-24.9 [facility] Comment on above: Performed By: #### I NSULIN #### [facility] [address] [place] [address] Maribell Johanna CBC AUTO DIFFon 08-08-2020 BASO # 0.1 103/ul Normal 0.0-0.1 [facility] Comment on above: Performed By: #### C BC #### [facility] [address] [place] [address] Maribell Johanna Basophils/100 WBC (Bld) 1.1 % Normal 0.2-2.0 [facility] Comment on above: Performed By: #### C BC #### [facility] [address] [place] [address] Maribell Johanna EO # 0.2 103/ul Normal 0.0-0.7 [facility] Comment on above: Performed By: #### C BC #### [facility] [address] [place] [address] Maribell Johanna Eosinophils/100 WBC (Bld) 2.5 % Normal 0.9-7.0 [facility] Comment on above: Performed By: #### C BC #### [facility] [address] [place] [address] Maribell Johanna Erythrocyte distribution width (RBC) [Ratio] 13.6 % Normal 11.0-15.0 [facility] Comment on above: Performed By: #### C BC #### [facility] [address] [place] [address] Maribell Johanna Hematocrit (Bld) [Volume fraction] 41.1 % Normal 36.0-48.0 [facility] Comment on above: Performed By: #### C BC #### [facility] [address] [place] [address] Maribell Johanna Hemoglobin (Bld) [Mass/Vol] 13.9 g/dL Normal 12.0-16.0 [facility] Comment on above: Performed By: #### C BC #### [facility] [address] [place] [address] Maribell Johanna IG # 0.02 10e3/ul Normal 0.00-0.03 [facility] Comment on above: Performed By: #### C BC #### [facility] [address] [place] [address] Maribell Johanna IG % 0.3 % Normal 0.0-0.5 [facility] Comment on above: Performed By: #### C BC #### [facility] [address] [place] [address] Maribell Johanna LYMPH # 2.1 103/ul Normal 1.2-3.8 [facility] Comment on above: Performed By: #### C BC #### [facility] [address] [place], [place] [phone] Maribell Johanna Lymphocytes/100 WBC (Bld) 32.4 % Normal 20.5-60.0 [facility] Comment on above: Performed By: #### C BC #### [facility] [address] [place], [place] [phone] Maribell Johanna MANUAL DIFF REQ NO Normal [facility] Comment on above: Performed By: #### C BC #### [facility] [address] [place] [address] Maribell Johanna MCH (RBC) [Entitic mass] 29.5 pg Normal 26.7-34.0 [facility] Comment on above: Performed By: #### C BC #### [facility] [address] [place], [place] [phone] Maribellkhadijah Spencer MCHC (RBC) [Mass/Vol] 33.8 g/dL Normal 29.9-35.2 [facility] Comment on above: Performed By: #### C BC #### [facility] [address] [place] [address] Maribellkhadijah Spencer MCV (RBC) [Entitic vol] 87.3 fL Normal 81.0-99.0 [facility] Comment on above: Performed By: #### C BC #### [facility] [address] [place] [address] Maribell Millsen MONO # 0.4 103/ul Normal 0.3-0.8 [facility] Comment on above: Performed By: #### C BC #### [facility] [address] [place] [address] Maribell Johanna Monocytes/100 WBC (Bld) 6.9 % Normal 1.7-12.0 [facility] Comment on above: Performed By: #### C BC #### [facility] [address] [place] [address] Maribellkhadijah Millsen NEUT # 3.6 103/ul Normal 1.4-6.5 [facility] Comment on above: Performed By: #### C BC #### [facility] [address] [place] [address] Maribell Johanna Neutrophils/100 WBC (Bld) 56.8 % Normal 43.0-75.0 [facility] Comment on above: Performed By: #### C BC #### [facility] [address] [place], [place] [phone] Maribell Johanna Platelet mean volume (Bld) [Entitic vol] 9.9 fL Normal 9.5-13.5 [facility] Comment on above: Performed By: #### C BC #### [facility] [address] [place], [place] [phone] Maribell Johanna PLT 180 103/ul Normal 150-450 [facility] Comment on above: Performed By: #### C BC #### [facility] [address] [place] [address] Maribellkhadijah Millsen RBC 4.71 106/ul Normal 4.20-5.40 [facility] Comment on above: Performed By: #### C BC #### [facility] [address] [phone] Maribellkhadijah Millsen WBC 6.4 103/ul Normal 4.0-11.0 [facility] Comment on above: Performed By: #### C BC #### [facility] [address] [place], [place] [phone] Maribell Spencer FREE THYROXINE INDEX T7on FTI 3.39 Normal [facility] Comment on above: Performed By: #### L IPID, CMP, T7, TSH #### [facility] [address] [place] [address] Maribell Spencer T3U 28.0 % Normal 23.5-40.5 [facility] Comment on above: Performed By: #### L IPID, CMP, T7, TSH #### [facility] [address] [place], [place] [phone] Maribellkhadijah Spencer T4 [Mass/Vol] 12.10 ug/dL Critically high 5.53-11.00 [facility] Comment on above: Performed By: #### L IPID, CMP, T7, TSH #### [facility] [address] [place], [place] [phone] Maribell Spencer GLYCOHEMOGLOBIN A1Con 2020 ADA RECOMMENDATION ADA THERAPEUTIC TARGET 6.0 - 7.0 ACTION SUGGESTED > 7.0 Normal [facility] Comment on above: Performed By: #### A 1C #### [facility] [address] [place], [place] [phone] Maribell Johanna Glucose [Mass/Vol] 123 mg/dL Normal [facility] Comment on above: Performed By: #### A 1C #### [facility] [address] [place], [place] [phone] Maribell Johanna HbA1c (Bld) [Mass fraction] 5.9 % Normal <=6.0 [facility] Comment on above: Performed By: #### A 1C #### [facility] [address] [place], [place] [address] Maribell Spencer IRONon 08-08-2020 Iron [Mass/Vol] 66.0 ug/dL Normal 37.0-170.0 [facility] Comment on above: Performed By: #### I DUNIA #### [facility] [facility] [address], [place] [address] Maribell Spencer LIPID PROFILEon 08-08-2020 CHOL-HDL RATIO NORM SEE BELOW Normal [facility] Comment on above: Result Comment: 3.3 - 4.4 LOW RISK 4.4 - 7.1 AVERAGE RISK 7.1 - 11.0 MODERATE RISK >11.0 HIGH RISK Performed By: #### L IPID, CMP, T7, TSH #### [facility] [address], [place] [address] Maribell Johanna Cholesterol [Mass/Vol] 215 mg/dL Critically high <=200 [facility] Comment on above: Performed By: #### L IPID, CMP, T7, TSH #### [facility] [address], [place] [address] Maribell Johanna Cholesterol in HDL [Mass/Vol] 37 mg/dL Normal [facility] Comment on above: Performed By: #### L IPID, CMP, T7, TSH #### [facility] [address], [place] [address] Maribell Johanna Cholesterol in LDL [Mass/Vol] 142.4 mg/dL Normal [facility] Comment on above: Performed By: #### L IPID, CMP, T7, TSH #### [facility] [address], [place] [address] Maribell Johanna Cholesterol.total/C holesterol in HDL [Mass ratio] 5.8 {ratio} Normal [facility] Comment on above: Performed By: #### L IPID, CMP, T7, TSH #### [facility] [address], [place] [address] Maribell Johanna HDL NORMAL > or = 60 mg/dl - LO W CARDIOVASCULAR RISK <40 mg/dl - HIGH CARDIOVASCULAR RISK Normal [facility] Comment on above: Performed By: #### L IPID, CMP, T7, TSH #### [facility] [address] [phone] Maribell Johanna LDL CALC NORMAL SEE BELOW Normal [facility] Comment on above: Result Comment: <100 mg/dl OPTIMAL 100 - 129 mg/dl NEAR OR ABOVE OPTIMAL 130 - 159 mg/dl BORDERLINE HIGH 160 - 189 mg/dl HIGH >190 mg/dl VERY HIGH Performed By: #### L IPID, CMP, T7, TSH #### [facility] [address] [phone] Maribell Johanna Triglyceride [Mass/Vol] 178 mg/dL Critically high <=150 [facility] Comment on above: Performed By: #### L IPID, CMP, T7, TSH #### [facility] [address] [phone] Maribell Johanna VLDL CALC 35.6 mg/dL Normal [facility] Comment on above: Performed By: #### L IPID, CMP, T7, TSH #### [facility] [address] [phone] Maribell Spencer PROF 14(COMP METB)on 021 Albumin [Mass/Vol] 3.5 g/dL Normal 3.5-5.0 [facility] Comment on above: Performed By: #### L IPID, CMP, T7, TSH #### [facility] [address] [phone] Maribell Johanna Albumin/Globulin [Mass ratio] 0.8 {ratio} Normal [facility] Comment on above: Performed By: #### L IPID, CMP, T7, TSH #### [facility] [address] [phone] Maribell Johanna ALP [Catalytic activity/Vol] 62 U/L Normal 38-126 [facility] Comment on above: Performed By: #### L IPID, CMP, T7, TSH #### [facility] [address] [phone] Maribell Johanna ALT [Catalytic activity/Vol] 50 U/L Normal 9-52 [facility] Comment on above: Performed By: #### L IPID, CMP, T7, TSH #### [facility] [address] [address] Maribell Johanna Anion gap [Moles/Vol] 14.5 mmol/L Normal [facility] Comment on above: Performed By: #### L IPID, CMP, T7, TSH #### [facility] [address] [address] Maribell Johanna AST [Catalytic activity/Vol] 36 U/L Normal 14-36 [facility] Comment on above: Performed By: #### L IPID, CMP, T7, TSH #### [facility] [address] [place] [address] Maribell Johanna Bilirubin [Mass/Vol] 0.5 mg/dL Normal 0.2-1.3 [facility] Comment on above: Performed By: #### L IPID, CMP, T7, TSH #### [facility] [address] [place] [address] Maribell Johanna Calcium [Mass/Vol] 9.0 mg/dL Normal 8.4-10.2 [facility] Comment on above: Performed By: #### L IPID, CMP, T7, TSH #### [facility] [address] [place] [address] Maribell Johanna Chloride [Moles/Vol] 103 mmol/L Normal 98-107 [facility] Comment on above: Performed By: #### L IPID, CMP, T7, TSH #### [facility] [address] [place] [address] Maribell Johanna CO2 [Moles/Vol] 25.6 mmol/L Normal 22.0-30.0 [facility] Comment on above: Performed By: #### L IPID, CMP, T7, TSH #### [facility] [address] [place] [address] Maribell Johanna Creatinine [Mass/Vol] 0.80 mg/dL Normal 0.52-1.04 [facility] Comment on above: Performed By: #### L IPID, CMP, T7, TSH #### [facility] [address], [place] [address] Maribell Johanna EGFR-AF MALDIVIAN >60 Normal >=60 [facility] Comment on above: Performed By: #### L IPID, CMP, T7, TSH #### [facility] [address] [phone] Maribell Johanna EGFR-NON AF MALDIVIAN >60 Normal >=60 [facility] Comment on above: Performed By: #### L IPID, CMP, T7, TSH #### [facility] [address] [phone] Maribell Johanna Globulin (S) [Mass/Vol] 4.6 g/dL Normal [facility] Comment on above: Performed By: #### L IPID, CMP, T7, TSH #### [facility] [address] [address] Maribell Johanna Glucose [Mass/Vol] 115 mg/dL Critically high 74-106 [facility] Comment on above: Performed By: #### L IPID, CMP, T7, TSH #### [facility] [address] [address] Maribell Johanna Potassium [Moles/Vol] 4.1 mmol/L Normal 3.4-5.0 [facility] Comment on above: Performed By: #### L IPID, CMP, T7, TSH #### [facility] [address] [phone] Maribell Johanna Protein [Mass/Vol] 8.1 g/dL Normal 6.1-8.2 [facility] Comment on above: Performed By: #### L IPID, CMP, T7, TSH #### [facility] [address] [phone] Maribell Johanna Sodium [Moles/Vol] 139 mmol/L Normal 137-145 [facility] Comment on above: Performed By: #### L IPID, CMP, T7, TSH #### [facility] [address] [phone] Maribell Johanna Urea nitrogen [Mass/Vol] 9.0 mg/dL Normal 7.0-17.0 [facility] Comment on above: Performed By: #### L IPID, CMP, T7, TSH #### [facility] [address] [address] Maribell Spencer Urea nitrogen/Creatinine [Mass ratio] 11.2 mg/mg Normal [facility] Comment on above: Performed By: #### L IPID, CMP, T7, TSH #### [facility] [address] [address] Maribell Spencer TSHon 08-08-2020 TSH 1.632 uIU/mL Normal 0.470-4.680 [facility] Comment on above: Performed By: #### L IPID, CMP, T7, TSH #### [facility] [address] [place] [address] Maribell Spencer TSH RANGE SEE BELOW Normal [facility] Comment on above: Result Comment: <0.3 4 UIU/ml HYPERTHYROID 0.34-5.60 UIU/ml EUTHYROID >5.60 UIU/ml HYPOTHYROID Performed By: #### L IPID, CMP, T7, TSH #### [facility] [address] [place] [address] Maribell Spencer XR CHEST AP/PA AND LATon XR CHEST AP/PA AND LAT EXAMINATION: XR CHEST AP/PA AND LAT 02/17/2019 9:47 AM HISTORY: ORDERING SYSTEM PROVIDED HISTORY: h/o pneumonia/cough/fever , TECHNOLOGIST PROVIDED HISTORY: Illness/Other Reason for exam: cough Cancer History: no Surgery, RadiationHistory: unk Encounter Type: Initial Additional signs and symptoms: Treated for pneumonia around [place]. Started having cough, fever again about 2 days ago. ORDERING SYSTEM PROVIDED DIAGNOSIS CODES: R05 Cough COMPARISON: None. FINDINGS: Cardiomediastinal silhouette is within normal limits. Lungs are clear. No significant pleural or osseous abnormalities are identified. IMPRESSION: No acute process identified. MA/kaitlinw Workstation ID: [id number] Dictated by: ISHMAEL KEYS on MonFeb 17, 2019 10:05:42 AM EST Transcribed by: LEXII HUTCHINSON on MonFeb 17, 2019 10:06:52 AM EST Finalized by: ISHMAEL KEYS on Sun Feb 17, 2019 10:59:38 AM EST Normal [facility] Comment on above: Order Comment: Injur y/Trauma or Illness?:Illness/Other How long have you had these symptoms (acute/chronic)?:Acute Reason for exam?:cough History of cancer?:no Surgeries, chemotherapy, or radiation?:unk Type of Exam?:Initial Additional signs and symptoms?:Treated for pneumonia around [place]. Started having cough, fever again about 2 days ago. No acute process identified. MA/trw Workstation ID: [id number] [facility] EXAMINATION: XR CHES T AP/PA AND LAT 02/17/2019 9:47 AM HISTORY: ORDERING SYSTEM PROVIDED HISTORY: h/o pneumonia/cough/fever , TECHNOLOGIST PROVIDED HISTORY: Illness/Other Reason for exam: cough Cancer History: no Surgery, RadiationHistory: unk Encounter Type: Initial Additional signs and symptoms: Treated for pneumonia around [place]. Started having cough, fever again about 2 days ago. ORDERING SYSTEM PROVIDED DIAGNOSIS CODES: R05 Cough COMPARISON: None. FINDINGS: Cardiomediastinal silhouette is within normal limits. Lungs are clear. No significant pleural or osseous abnormalities are identified. [facility] Interface, Rad In Fuji Speechq - 02/17/2019 11:02 AM EST EXAMINATION: XR CHEST AP/PA AND LAT 02/17/2019 9:47 AM HISTORY: ORDERING SYSTEM PROVIDED HISTORY: h/o pneumonia/cough/fever , TECHNOLOGIST PROVIDED HISTORY: Illness/Other Reason for exam: cough Cancer History: no Surgery, RadiationHistory: unk Encounter Type: Initial Additional signs and symptoms: Treated for pneumonia around [place]. Started having cough, fever again about 2 days ago. ORDERING SYSTEM PROVIDED DIAGNOSIS CODES: R05 Cough COMPARISON: None. FINDINGS: Cardiomediastinal silhouette is within normal limits. Lungs are clear. No significant pleural or osseous abnormalities are identified. IMPRESSION: No acute process identified. MA/trXtraice Workstation ID: [id number] [facility] Chlamydia Detection by NAATo yannick 05-15-2018 Protein mass conc [facility] PROCEDURE: Chlamydia Detection by NAAT SOURCE: Vagina BODY SITE: COLLECTED DATE/TIME: 05/15/2018 09:43 EDT RECEIVED DATE/TIME: 05/15/2018 09:43 EDT START DATE/TIME: 05/15/2018 09:43 EDT FREE TEXT SOURCE: VAGINA-VAG INTERFACED REPORTS Final Report [] Verified Date/Time/Personnel: 05/16/2018 14:04 EDT CONTRIBUTOR_SYSTEM, CO_PN NEGATIVE * C TRACHOMATIS NUCLEIC ACID NOT DETECTED CONTACT LABORATORY FOR RECOMMENDED ADDITIONAL TESTING IF RESULTS ARE INCONSISTENT WITH CLINICAL FINDINGS Normal [facility] Comment on above: Performed By: #### C [id number] #### [facility] [address], [place] Vital Signs Date Time Vital Sign Value Performing Clinician Tana [facility] 02-15-2019 13:17-0500 BMI (Body Mass Index) 27.25 kg/m2 [facility] 02-15-2019 13:17-0500 Body Temperature 99.61 [degF] [facility] 02-15-2019 13:17-0500 Body weight 81.28 kg [facility] 02-15-2019 13:17-0500 BP Diastolic 82 mm[Hg] [facility] 02-15-2019 13:17-0500 BP Systolic 131 mm[Hg] [facility] 02-15-2019 13:17-0500 Height 172.7 cm [facility] 02-15-2019 13:17-0500 Pulse (Heart Rate) 89 /min [facility] 02-15-2019 13:17-0500 Pulse Oximetry 96 % [facility] 02-15-2019 13:17-0500 Respiratory Rate 16 /min [facility] Encounters Encounter Date Encounter Type Care Provider Facility Start: 02-14-2023 End: 02-14-2023 ambulatory VIOLETA MAME Not Available Start: 02-08-2023 End: 02-09-2023 ambulatory RADHAMES C JUAN ANI [facility] Start: 02-02-2023 End: 2023 ambulatory NONE NONE [facility] Start: 01-12-2023 End: 01-12-2023 ambulatory VIOLETA MAME Not Available Start: 09-30-2021 End: 09-30-2021 ambulatory Radha Copeland Other [employer] Other Start: 09-30-2021 Nursing evaluation o f patient and report Radha Copeland [facility] Start: 09-21-2020 End: 09-25-2020 ambulatory GRECIA MARROQUIN [facility] Start: 08-18-2020 Encounter for genera l adult medical examination without abnormal findings DR GRECIA MARROQUIN [facility] Start: 08-08-2020 End: 08-09-[address] GRECIA MARROQUIN Facility:[facility] Start: 08-08-2020 End: 08-09-2020 Encounter for general adult medical examination without abnormal findings DR GRECIA MARROQUIN Facility:[facility] Start: 02-17-2019 End: 02-18-2019 Patient encounter procedure REMBERTO COELHO [facility] Start: 02-17-2019 End: 02-17-2019 Subsequent hospital visit by physician Remberto Coelho Work Phone: [facility] Comment on above: Arrived Start: 02-15-2019 End: 02-15-2019 Patient encounter procedure SUMMER STEEN [facility] Start: 02-15-2019 End: 02-15-2019 Office outpatient visit 15 minutes Summer Steen Work Phone: [facility] Comment on above: Bronchitis (Primary Dx) Start: 05-16-2018 End: 05-16-2018 Patient encounter procedure GARY ZAMORA Facility:[facility] Procedures Date Procedure Procedure Detail Performing Clinician Start: 02-17-2019 Standard chest X-ray An john Coelho Work Phone: Start: 04-20-2018 Microscopic observat ion [Identifier] in Cervix by Cyto stain Remberto Coelho Start: 03-24-2016 Microscopic observat ion [Identifier] in Cervix by Cyto stain Summer Steen Plan of Treatment Date Care Activity Detail Author Start: 04-20-2021 Screening for malign ant neoplasm of cervix PAP SMEAR [facility] Start: 04-21-2019 Screening for Chlamy luis fernando trachomatis Chlamydia Screening [facility] Start: 03-24-2019 Screening for malign ant neoplasm of cervix PAP SMEAR [facility] Start: 10-07-2018 Influenza vaccination given SE QUENTIAL INFLUENZA VACCINE (#1) [facility] Start: 2006 Vaccination for sharri n papillomavirus HPV VACCINES (1 - Female 2-dose series) [facility] Start: 1998 History and physical examination, annual for health maintenance Wellness Visit [facility] Start: 1995 Screening for Chlamy luis fernando trachomatis Chlamydia Screening [facility] Start: 1995 Tetanus vaccination TETANUS EVERY 10 YR [facility] Payers Date Payer Category Payer Unknown [id number] 2018 Unknown NADYA HOWARD/PREF/HMO/PPO xxxxxxxxxxxx 2018-Present xxxxxxxxxxxx [id number] 1995 Unknown [id number] 1995 Unknown [id number] 1995 Unknown [id number] 1995 Unknown [id number] 1995 Unknown [id number] 1995 Unknown [id number] 1995 Unknown [id number] 1995 Unknown [id number] 9 1995 Unknown [id number] 9 1959 Unknown [id number] Social History Date Type Detail Facility Start: 02-15-2019 End: 02-17-2019 Tobacco smoking status NMIS Never smoker [facility] Sex Assigned At Not on file [facility] Sex Assigned At Sex Assigned At [facility] [employer] Other Evaluation note 09-30-2021 Note Date & Type Note Facility 09-30-2021 Evaluation note Encounter Date Diagnosis Assessment Notes Sep, Exposure to COVID-19 virus (ICD-10 - Z20.822) [employer] Other Summary Purpose Family History No Family History Records FoundNo Family History Records FoundNo Family History Records FoundNo Family History Records FoundNo Family History Records FoundNo Family History Records Found Advance Directives No Advanced Directives Records FoundDocuments on File Type Date Recorded Patient Cook Jelly Expl anation Advance Directives and Living Will Instructions * Patient Instructions* KillianSummern, DO - 02/15/2019 1:39 PM EST Symptoms are [...] medicine. Get some extra rest. Take an rbbt-ecb-lisuzki pain medicine, such as acetaminophen (Tylenol), ibuprofen (Advil, Motrin),or naproxen (Aleve) to reduce fever and relieve body aches. Read and follow all instructions on thelabel. Do not take two or more pain medicines at the same time unless the doctor told you to. Many pain medicines have acetaminophen, which is Tylenol. Too much acetaminophen (Tylenol) can be harmful. Take an ybli-hrg-flktrdk cough medicine that contains dextromethorphan to help [...] Log into your personal health record on [email or web address] and enter H333 in the Education box to learn more about Bronchitis: Care Instructions. Current as of: July 15, 2018 Content Version: 12.3 8044-2636 [employer]. Care instructions adapted under license by your healthcare professional. If you have questions about a medical condition or this instruction, always ask your healthcare professional. [employer] disclaims any warranty or liability for your use of this information. documented in this encounter History of Present Illness * Summer Steen DO - 02/15/2019 1:22 PM EST PATIENT NAME: Meron Darling [facility] [address] [place] [address] [address] [facility] [id number] : 1995 DATE OF VISIT: 02/15/2019 #: [id number] PROVIDER: Summer Steen DO Chief Complaint [...] slightly. Patient states that a week before [place], approximately 2 to 3 weeks ago patient was treated with an antibiotic. She said he took it for 10 days and twice a day. Likely Augmentin but patient does not remember. Symptoms resolved. Patient is concerned she is got pneumonia again. [place] warm butno objective fevers. Took Tylenol prior [...] file Gets together: Not on file Attends cheondoism service: Not on file Active member of [...] section and content) DATE CREATED AUTHOR 05/17/2018 [facility] DATE CREATED AUTHOR AUTHOR'S ORGANIZ ATION 02/17/2019 [facility] DATE CREATED AUTHOR AUTHOR'S ORGANIZ ATION 08/19/2020 [facility] DATE CREATED AUTHOR AUTHOR'S ORGANIZ ATION 10/04/2020 [facility] DATE CREATED AUTHOR AUTHOR'S ORGANIZ ATION 02/09/2023 [facility] DATE CREATED AUTHOR AUTHOR'S ORGANIZ ATION 02/15/2023 [facility] Reason for Visit (unrecogniz ed section and content) Reason Comments Shortness of Breath Started againtrevor jenkins rning. Pt was treated for pneumonia around 01/30/2019 [...] BE BASED ON THE PRIMARY CLINICAL RECORDS. [facility], [facility]. provides no warranty or guarantee of the accuracy or completeness of information in this document.
--- NOTE | 2023-02-21 08:08 | US_ITS ---
[address] [address] Patient Name: PATRICIA FLORES MRN: [id number] date: 1995 Sex: F Assigned Patient Location: US Current Patient Location: Accession/Order Number: [id number] Exam Date: 02/21/2023 08:08 Report Date: 02/21/2023 08:49 At the request of: VIOLETA VILCHIS Procedure: US OB cervical length EXAMINATION: US OB cervical length HISTORY: HISTORY OF LEEP COMPARISON: 01/12/2023 FINDINGS: Heart rate: 154 bpm Cervix: 5.8 cm, closed Clinical age: 15 weeks 2 days US/US OB cervical length IMPRESSION: Closed cervix measuring 5.8 cm in length Electronically authenticated by: JAMESON MCGUIRE Date: 02/21/2023 08:49
== END 2023-02-21 08:03 | disposition home or self-care (01) ==
LOC: US 08:03
PROVIDERS: PCP Family Medicine; Visit Provider Obstetrics & Gynecology
DX: Z36.86 Encounter for antenatal screening for cervical length (principal); Z3A.15 15 weeks gestation of pregnancy
CPT/HCPCS: 76817

== ENCOUNTER 2023-04-13 07:59 | Outpatient (OUT) | payer BC, SELFPAY ==
--- OUTSIDE RECORDS SUMMARY | 2023-04-13 08:02 | XMS_ITS | CCD ---
Author Name Unknown Address [id number] [place] [address] Organization [facility] Care Team Providers [employer] Specialist Name Role Phone GARY ZAMORA Attending Unavailjas guo Physician, PCP Unknown Primary Care Unavailab Grecia Abdullahi Primary Care Provider [phone] [address] Attending Unavailable GRECIA ARRIAZA Primary Care Unavailable GRECIA ARRIAZA Primary Care Unavailable REMBERTO COELHO Attending UnavailREMBERTO Reinoso Attending UnavailREMBERTO Reinoso Referring UnavailGRECIA Goodson Primary Care Unavailable DR GRECIA ARRIAZA Attending Unavailable DR GRECIA ARRIAZA Consulting Unavailable DR GRECIA ARRIAZA Primary Care Unavailable DR GRECIA ARRIAZA Admitting Unavailable GRECIA ARRIAZA Primary Care Unavailable VALENTINA JOHNS Attending Un available Radha Copeland Unavailable Grecia Arriaza MD Primary Care Provider VIOLETA VILCHIS Attending Unavailable MEREDITH VASQUEZ Attending Unavailable VIOLETA VILCHIS Attending Unavailable RADHAMES VICTORIA Referring Unavailable NONE, NONE Primary Care Unavailable RADHAMES VICTORIA Referring Unavailable NONE, NONE Primary Care Unavailable Allergies Allergy Classification Reported Allergen(s) Allergy Type Date of Onset Reaction(s) Facility diphenhydrAMINE (1 source) diphenhydrAMINE Drug Allergy 4 [facility] Repository (5 sources) diphenhydrAMINE; Translations: [Unknown] Drug Allergy 0 Other (See Comments) [facility] (1 source) Sulfonamides (Antibiotic) Drug Allergy 4 [facility] Medications Current Medications Medication Drug Class(es) Dates [...] oral solution (1 source) alpha-Adrenergic Agonist, Uncompetitive F-ujgkaz-N-aspartat e Receptor Antagonist, Sigma-1 Agonist Start: 02-17-2019 End: 02-27-2019 take 5-10 mL by mouth three times daily as needed brompheniramine- pseudoePHEDrine- DM 2-30-10 mg/5 mL syrup Indications: Cough Take 5-10 mL by mouth 3 (three) times a day as needed . 150 mL 0 02/17/2019 02/27/2019 Active Choline (1 source) take 1 dose by mouth in the morning CHOLINE PO Take 1 each by mouth in the morning. 0 Active Ethinyl Estradiol / Ferrous fumarate / [...] . 5 tablet 0 02/15/2019 02/20/2019 Active MV-Min-Fe Fum-FA-DHA ( 1 PO) (1 source) MV-Min-Fe Fum-FA-DHA ( 1 PO) Take 1 each by mouth in the morning. 0 Active Problems Active Problems Problem Classification Problem [...] sources) A74.9 Onset: 05-15-2018 Unclassified (1 source) Unclassified (1 source) OB Reminders Onset: 01-16-2023 01-16-2023 Past or Other Problems Problem Classification Problem Date Documented Da te Episodic/Chronic Unclassified (1 source) Exposure to COVID-19 virus Z20.822 Onset: 09-30-2021 Resolved: 09-30-2021 Results Test Name Value Interpretation Reference Range Facility Miscellaneouson 02-09-2023 Send Out Report FORWARD TO [facility] Comment on above: Result Comment: [id number] Performed By: #### C MIS #### [employer] [facility] [address] [place], [place] [id number] Graphite Disk Assembler: Isidro Aguirre MD [facility] 02-08-2023 Test Name [facility] Comment on above: Performed By: #### C MIS #### [employer] [facility] [address] [place], [place] [id number] Graphite Disk Assembler: Isidro Aguirre MD Maternal Ser 1st [place] 02-03 Cr Rump Lngt, Twin B Not Applicable [facility] Comment on above: Performed By: #### A MSFT #### [address] [address] Graphite Disk Assembler: Isidro Aguirre MD [address] [address] Graphite Disk Assembler: Rojas Simpson MD [place] Rump Length 57.2 mm Normal [facility] Comment on above: Performed By: #### A MSFT #### [address] [address] Graphite Disk Assembler: Isidro Aguirre MD [address] [address] Graphite Disk Assembler: Rojas Simpson MD Gestat Age (exact) 12 wks, 1 days Normal [facility] Comment on above: Performed By: #### A MSFT #### [address] [address] Graphite Disk Assembler: Isidro Aguirre MD [address] [address] Graphite Disk Assembler: Rojas Simpson MD Hx Aneuploidy Unknown Normal [facility] Comment on above: Performed By: #### A MSFT #### [address] [address] Graphite Disk Assembler: Isidro Aguirre MD [address] [address] Graphite Disk Assembler: Rojas Simpson MD Interpretation Screen Neg Normal [facility] Comment on above: Result Comment: [...] developed and its performance characteristics determined by [employer]. It has not been cleared or approved by the US Food and Drug Administration. This test was performed in a CLIA certified laboratory and is intended for clinical purposes. Performed By: #### A MSFT #### [address] [address] Graphite Disk Assembler: Isidro Aguirre MD [address] [phone] Graphite Disk Assembler: Rojas Simpson MD [age] [facility] Comment on above: Performed By: #### A MSFT #### [address] [address] Graphite Disk Assembler: Isidro Aguirre MD [address] [address] Graphite Disk Assembler: Rojas Simpson MD Maternal Race Nonblack [facility] Comment on above: Performed By: #### A MSFT #### [address] [address] Graphite Disk Assembler: Isidro Aguirre MD [address] [id number] Graphite Disk Assembler: Rojas Simpson MD Maternal Screen, EER See Note [facility] Comment on above: Result Comment: (NOT E) Authorized individuals can access the [facility] Enhanced Report using the following link: [email or web address] Performed By: [employer] [address] [place] [address] Railroad Maintenance Clerk: Rex Moreau MD, PhD CLIA Number: [id number] Performed By: #### A MSFT #### [address] [address] Graphite Disk Assembler: Isidro Aguirre MD [address] [id number] Graphite Disk Assembler: Rojas Simpson MD Maternal Weight 191.0 lbs. Normal [facility] Comment on above: Performed By: #### A MSFT #### [address] [address] Graphite Disk Assembler: Isidro Aguirre MD [facility] [address] [place] [address] Graphite Disk Assembler: Rojas Simpson MD MoM for HCG 0.70 [facility] Comment on above: Performed By: #### A MSFT #### [address] [address] Graphite Disk Assembler: Isidro Aguirre MD [facility] [address] [place] [id number] Graphite Disk Assembler: Rojas Simpson MD MoM for NT 1.60 [facility] Comment on above: Performed By: #### A MSFT #### [address] [address] Graphite Disk Assembler: Isidro Aguirre MD [address] [address] Graphite Disk Assembler: Rojas Simpson MD MoM for [place], Twin B Not Applicable [facility] Comment on above: Performed By: #### A MSFT #### [address] [address] Graphite Disk Assembler: Isidro Aguirre MD [facility] [address] [place] [address] Graphite Disk Assembler: Rojas Simpson MD MoM for SHONDA-A 0.82 [facility] Comment on above: Performed By: #### A MSFT #### [address] [address] Graphite Disk Assembler: sIidro Aguirre MD [facility] [address] [place] [address] Graphite Disk Assembler: Rojas Simpson MD Nuchal Trans, Twin B Not Applicable [facility] Comment on above: Performed By: #### A MSFT #### [address] [address] Graphite Disk Assembler: Isidro Aguirre MD [address] [id number] Graphite Disk Assembler: Rojas Simpson MD Nuchal Translucency 2.30 mm Normal [facility] Comment on above: Performed By: #### A MSFT #### [address] [address] Graphite Disk Assembler: Isidro Aguirre MD [address] [address] Graphite Disk Assembler: Rojas Simpson MD Number of Fetuses Burton Normal [facility] Comment on above: Performed By: #### A MSFT #### [address] [address] Graphite Disk Assembler: Isidro Aguirre MD [address] [id number] Graphite Disk Assembler: Rojas Simpson MD SHONDA-A Maternal 479.0 ng/mL Normal [facility] Comment on above: Result Comment: (NOT E) This test was developed and its performance characteristics determined by [employer]. It has not been cleared or approved by the US Food and Drug Administration. This test was performed in a CLIA certified laboratory and is intended for clinical purposes. Performed By: #### A MSFT #### [address] [address] Graphite Disk Assembler: Isidro Aguirre MD [address] [address] Graphite Disk Assembler: Rojas Simpson MD Patient's HCG [address] IU/L Normal [facility] Comment on above: Performed By: #### A MSFT #### [address] [address] Graphite Disk Assembler: Isidro Aguirre MD [facility] [address] [place] [address] Graphite Disk Assembler: Rojas Simpson MD Smoking [facility] Comment on above: Performed By: #### A MSFT #### [address] [address] Graphite Disk Assembler: Isidro Aguirre MD [facility] [address] [place] [address] Graphite Disk Assembler: Rojas Simpson MD Business Liaison Officer Cert No [id number] [facility] Comment on above: Performed By: #### A MSFT #### [address] [address] Graphite Disk Assembler: Isidro Aguirre MD [address] [address] Graphite Disk Assembler: Rojas Simpson MD Business Liaison Officer Name [facility] Comment on above: Performed By: #### A MSFT #### [address] [address] Graphite Disk Assembler: Isidro Aguirre MD [address] [id number] Graphite Disk Assembler: Rojas Simpson MD Specimen See Note [facility] Comment on above: Result Comment: Init ial sample Performed By: #### A MSFT #### [address] [address] Graphite Disk Assembler: Isidro Aguirre MD [address] [id number] Graphite Disk Assembler: Rojas Simpson MD Ultrasound Date SEE NOTE [facility] Comment on above: Result Comment: Resu lts for Ultrasound Date: 02 02 23 Performed By: #### A MSFT #### [address] [address] Graphite Disk Assembler: Isidro Aguirre MD [facility] [address] [place] [address] Graphite Disk Assembler: Rojas Simpson MD Maternal Ser 1st [place] 02-02 [place] Rump Length 57.2 [facility] Comment on above: Performed By: #### A MSFT #### [address] [address] Graphite Disk Assembler: Isidro Aguirre MD [facility] [address] [place] [address] Graphite Disk Assembler: Rojas Simpson MD Current Smoking INFORMATION NOT PROVIDED [facility] Comment on above: Performed By: #### A MSFT #### [address] [address] Graphite Disk Assembler: Isidro Aguirre MD [address] [id number] Graphite Disk Assembler: Rojas Simpson MD Date of Ultrasound [id number] [facility] Comment on above: Performed By: #### A MSFT #### [address] [address] Graphite Disk Assembler: Isidro Aguirre MD [address] [phone] Graphite Disk Assembler: Rojas Simpson MD Donor Egg INFORMATION NOT PROVIDED [facility] Comment on above: Performed By: #### A MSFT #### [address] [address] Graphite Disk Assembler: Isidro Aguirre MD [facility] [address] [place] [id number] Graphite Disk Assembler: oRjas Simpson MD In Vitro Fertalizat INFORMATION NOT PROVIDED [facility] Comment on above: Performed By: #### A MSFT #### [address] [address] Graphite Disk Assembler: Isidro Aguirre MD [facility] [address] [place] [address] Graphite Disk Assembler: Rojas Simpson MD Maternal date [id number] [facility] Comment on above: Performed By: #### A MSFT #### [address] [address] Graphite Disk Assembler: Isidro Aguirre MD [facility] [address] [place] [address] Graphite Disk Assembler: Rojas Simpson MD Maternal Weight 191 [facility] Comment on above: Performed By: #### A MSFT #### [address] [address] Graphite Disk Assembler: Isidro gAuirre MD [address] [address] Graphite Disk Assembler: Rojas Simpson MD Monochorionic Twins INFORMATION NOT PROVIDED [facility] Comment on above: Performed By: #### A MSFT #### [address] [address] Graphite Disk Assembler: Isidro Aguirre MD [facility] [address] [place] [address] Graphite Disk Assembler: Rojas Simpson MD Nuchal Transluc (NT) 2.3 [facility] Comment on above: Performed By: #### A MSFT #### [address] [address] Graphite Disk Assembler: Isidro Aguirre MD [facility] [address] [place] [address] Graphite Disk Assembler: Rojas Simpson MD Number of fetuses 1 Normal [facility] Comment on above: Performed By: #### A MSFT #### [address] [address] Graphite Disk Assembler: Isidro Aguirre MD [facility] [address] [place] [address] Graphite Disk Assembler: Rojas Simpson MD Patient Weight Units LB [facility] Comment on above: Performed By: #### A MSFT #### [address] [address] Graphite Disk Assembler: Isidro Aguirre MD [facility] [address] [place] [address] Graphite Disk Assembler: Rojas Simpson MD Prev Trisomy Preg INFORMATION NOT PROVIDED [facility] Comment on above: Performed By: #### A MSFT #### [address] [address] Graphite Disk Assembler: Isidro Aguirre MD [address] [address] Graphite Disk Assembler: Rojas Simpson MD Race (Maternal) WHITE [facility] Comment on above: Performed By: #### A MSFT #### [address] [address] Graphite Disk Assembler: Isidro Aguirre MD [address] [address] Graphite Disk Assembler: MD Shayne Siddiqui MD [facility] [address] [facility] Comment on above: Performed By: #### A MSFT #### [address] [address] Graphite Disk Assembler: Isidro Aguirre MD [facility] [address] [place] [address] Graphite Disk Assembler: MD Shayne Siddiqui MD Name RADHAMES VICTORIA [facility] Comment on above: Performed By: #### A MSFT #### [address] [address] Graphite Disk Assembler: Isidro Aguirre MD [facility] [address] [place] [address] Graphite Disk Assembler: Rojas Simpson MD Repeat Specimen INFORMATION NOT PROVIDED [facility] Comment on above: Performed By: #### A MSFT #### [address] [address] Graphite Disk Assembler: Isidro Aguirre MD [address] [id number] Graphite Disk Assembler: Rojas Simpson MD Sonograph Cert Num [id number] [facility] Comment on above: Performed By: #### A MSFT #### [address] [address] Graphite Disk Assembler: Isidro Aguirre MD [address] [address] Graphite Disk Assembler: Rojas Simpson MD Business Liaison Officer Name [facility] Comment on above: Performed By: #### A MSFT #### [address] [address] Graphite Disk Assembler: Isidro Aguirre MD [address] [address] Graphite Disk Assembler: Rojas Simpson MD SARS-CoV-2 (COVID-19) RNA NA A+probe Ql (Resp)on 09-30-2021 SARS-CoV-2 (COVID-19) RNA CRISTIAN+probe Ql (Unsp spec) Negative [employer] Other INSULINon 08-11-2020 Insulin 10.7 uIU/mL Normal 2.6-24.9 [facility] Comment on above: Performed By: #### I NSULIN #### [facility] [address] [place] [address] Maribell Spencer CBC AUTO DIFFon 08-08-2020 BASO # 0.1 103/ul Normal 0.0-0.1 [facility] Comment on above: Performed By: #### C BC #### [facility] [address] [place] [address] Maribell Johanna Basophils/100 WBC (Bld) 1.1 % Normal 0.2-2.0 [facility] Comment on above: Performed By: #### C BC #### [facility] [address] [place], [place] [address] Maribell Johanna EO # 0.2 103/ul Normal 0.0-0.7 [facility] Comment on above: Performed By: #### C BC #### [facility] [address] [place], [place] [address] Maribell Johanna Eosinophils/100 WBC (Bld) 2.5 % Normal 0.9-7.0 [facility] Comment on above: Performed By: #### C BC #### [facility] [address] [place] [address] Maribell Johanna Erythrocyte distribution width (RBC) [Ratio] 13.6 % Normal 11.0-15.0 [facility] Comment on above: Performed By: #### C BC #### [facility] [address] [place] [address] Maribell Johanna Hematocrit (Bld) [Volume fraction] 41.1 % Normal 36.0-48.0 [facility] Comment on above: Performed By: #### C BC #### [facility] [address] [place], [place] [id number] Maribell Johanna Hemoglobin (Bld) [Mass/Vol] 13.9 g/dL Normal 12.0-16.0 [facility] Comment on above: Performed By: #### C BC #### [facility] [address] [place] [address] Maribell Johanna IG # 0.02 10e3/ul Normal 0.00-0.03 [facility] Comment on above: Performed By: #### C BC #### [facility] [address] [place] [address] Maribell Johanna IG % 0.3 % Normal 0.0-0.5 [facility] Comment on above: Performed By: #### C BC #### [facility] [address] [place] [address] Maribell Johanna LYMPH # 2.1 103/ul Normal 1.2-3.8 [facility] Comment on above: Performed By: #### C BC #### [facility] [address] [place], [place] [id number] Maribell Johanna Lymphocytes/100 WBC (Bld) 32.4 % Normal 20.5-60.0 [facility] Comment on above: Performed By: #### C BC #### [facility] [address] [place], [place] [address] Maribell Johanna MANUAL DIFF REQ NO Normal [facility] Comment on above: Performed By: #### C BC #### [facility] [address] [place], [place] [address] Maribell Johanna MCH (RBC) [Entitic mass] 29.5 pg Normal 26.7-34.0 [facility] Comment on above: Performed By: #### C BC #### [facility] [address] [place] [address] Maribell Johanna MCHC (RBC) [Mass/Vol] 33.8 g/dL Normal 29.9-35.2 [facility] Comment on above: Performed By: #### C BC #### [facility] [address] [place], [place] [address] Maribell Johanna MCV (RBC) [Entitic vol] 87.3 fL Normal 81.0-99.0 [facility] Comment on above: Performed By: #### C BC #### [facility] [address] [place], [place] [address] Maribell Johanna MONO # 0.4 103/ul Normal 0.3-0.8 [facility] Comment on above: Performed By: #### C BC #### [facility] [address] [place], [place] [address] Maribell Johanna Monocytes/100 WBC (Bld) 6.9 % Normal 1.7-12.0 [facility] Comment on above: Performed By: #### C BC #### [facility] [address] [place], [place] [address] Maribell Johanna NEUT # 3.6 103/ul Normal 1.4-6.5 [facility] Comment on above: Performed By: #### C BC #### [facility] [address] [place], [place] [address] Maribell Spencer Neutrophils/100 WBC (Bld) 56.8 % Normal 43.0-75.0 [facility] Comment on above: Performed By: #### C BC #### [facility] [address] [place] [address] Maribellkhadijah Spencer Platelet mean volume (Bld) [Entitic vol] 9.9 fL Normal 9.5-13.5 [facility] Comment on above: Performed By: #### C BC #### [facility] [address] [place], [place] [address] Maribell Johanna PLT 180 103/ul Normal 150-450 [facility] Comment on above: Performed By: #### C BC #### [facility] [address] [place] [address] Maribell Johanna RBC 4.71 106/ul Normal 4.20-5.40 [facility] Comment on above: Performed By: #### C BC #### [facility] [address] [place] [address] Maribell Johanna WBC 6.4 103/ul Normal 4.0-11.0 [facility] Comment on above: Performed By: #### C BC #### [facility] [address] [place], [place] [address] Maribell Spencer FREE THYROXINE INDEX T7on FTI 3.39 Normal [facility] Comment on above: Performed By: #### L IPID, CMP, T7, TSH #### [facility] [address] [place], [place] [address] Maribell Spenecr T3U 28.0 % Normal 23.5-40.5 [facility] Comment on above: Performed By: #### L IPID, CMP, T7, TSH #### [facility] [address] [place], [place] [address] Maribell Johanna T4 [Mass/Vol] 12.10 ug/dL Critically high 5.53-11.00 [facility] Comment on above: Performed By: #### L IPID, CMP, T7, TSH #### [facility] [address] [place], [place] [address] Maribell Johanna GLYCOHEMOGLOBIN A1Con 2020 ADA RECOMMENDATION ADA THERAPEUTIC TARGET 6.0 - 7.0 ACTION SUGGESTED > 7.0 Normal [facility] Comment on above: Performed By: #### A 1C #### [facility] [address] [place], [place] [address] Maribell Johanna Glucose [Mass/Vol] 123 mg/dL Normal [facility] Comment on above: Performed By: #### A 1C #### [facility] [address] [place] [phone] Maribell Johanna HbA1c (Bld) [Mass fraction] 5.9 % Normal <=6.0 [facility] Comment on above: Performed By: #### A 1C #### [facility] [address] [place] [address] Maribell Johanna IRONon 08-08-2020 Iron [Mass/Vol] 66.0 ug/dL Normal 37.0-170.0 [facility] Comment on above: Performed By: #### I DUNIA #### [facility] [address] [place] [address] Maribell Johanna LIPID PROFILEon 08-08-2020 CHOL-HDL RATIO NORM SEE BELOW Normal [facility] Comment on above: Result Comment: 3.3 - 4.4 LOW RISK 4.4 - 7.1 AVERAGE RISK 7.1 - 11.0 MODERATE RISK >11.0 HIGH RISK Performed By: #### L IPID, CMP, T7, TSH #### [facility] [address] [place] [id number] Maribell Johanna Cholesterol [Mass/Vol] 215 mg/dL Critically high <=200 [facility] Comment on above: Performed By: #### L IPID, CMP, T7, TSH #### [facility] [address] [place] [phone] Maribell Johanna Cholesterol in HDL [Mass/Vol] 37 mg/dL Normal [facility] Comment on above: Performed By: #### L IPID, CMP, T7, TSH #### [facility] [address] [place] [address] Maribellkhadijah Millsen Cholesterol in LDL [Mass/Vol] 142.4 mg/dL Normal [facility] Comment on above: Performed By: #### L IPID, CMP, T7, TSH #### [facility] [address] [place] [phone] Maribell Johanna Cholesterol.total/C holesterol in HDL [Mass ratio] 5.8 {ratio} Normal [facility] Comment on above: Performed By: #### L IPID, CMP, T7, TSH #### [facility] [address] [place] [phone] Maribell Johanna HDL NORMAL > or = 60 mg/dl - LO W CARDIOVASCULAR RISK <40 mg/dl - HIGH CARDIOVASCULAR RISK Normal [facility] [facility] Comment on above: Performed By: #### L IPID, CMP, T7, TSH #### [facility] [address] [address] Maribell Johanna LDL CALC NORMAL SEE BELOW Normal [facility] Comment on above: Result Comment: <100 mg/dl OPTIMAL 100 - 129 mg/dl NEAR OR ABOVE OPTIMAL 130 - 159 mg/dl BORDERLINE HIGH 160 - 189 mg/dl HIGH >190 mg/dl VERY HIGH Performed By: #### L IPID, CMP, T7, TSH #### [facility] [address] [address] Maribell Johanna Triglyceride [Mass/Vol] 178 mg/dL Critically high <=150 [facility] Comment on above: Performed By: #### L IPID, CMP, T7, TSH #### [facility] [address] [id number] Maribell Johanna VLDL CALC 35.6 mg/dL Normal [facility] Comment on above: Performed By: #### L IPID, CMP, T7, TSH #### [facility] [address] [id number] Maribellkhadijah Millsen PROF 14(COMP METB)on 021 Albumin [Mass/Vol] 3.5 g/dL Normal 3.5-5.0 [facility] Comment on above: Performed By: #### L IPID, CMP, T7, TSH #### [facility] [address] [place], [place] [id number] Maribell Johanna Albumin/Globulin [Mass ratio] 0.8 {ratio} Normal [facility] Comment on above: Performed By: #### L IPID, CMP, T7, TSH #### [facility] [address] [address] Maribell Johanna ALP [Catalytic activity/Vol] 62 U/L Normal 38-126 [facility] Comment on above: Performed By: #### L IPID, CMP, T7, TSH #### [facility] [address] [place] [address] Maribell Johanna ALT [Catalytic activity/Vol] 50 U/L Normal 9-52 [facility] Comment on above: Performed By: #### L IPID, CMP, T7, TSH #### [facility] [address] [place] [address] Maribell Johanna Anion gap [Moles/Vol] 14.5 mmol/L Normal [facility] Comment on above: Performed By: #### L IPID, CMP, T7, TSH #### [facility] [address] [place] [address] Maribell Johanna AST [Catalytic activity/Vol] 36 U/L Normal 14-36 [facility] Comment on above: Performed By: #### L IPID, CMP, T7, TSH #### [facility] [address] [place] [address] Maribell Johanna Bilirubin [Mass/Vol] 0.5 mg/dL Normal 0.2-1.3 [facility] Comment on above: Performed By: #### L IPID, CMP, T7, TSH #### [facility] [address] [place] [address] Maribell Johanna Calcium [Mass/Vol] 9.0 mg/dL Normal 8.4-10.2 [facility] Comment on above: Performed By: #### L IPID, CMP, T7, TSH #### [facility] [address] [place] [address] Maribell Johanna Chloride [Moles/Vol] 103 mmol/L Normal 98-107 [facility] Comment on above: Performed By: #### L IPID, CMP, T7, TSH #### [facility] [address] [address] Maribell Johanna CO2 [Moles/Vol] 25.6 mmol/L Normal 22.0-30.0 [facility] Comment on above: Performed By: #### L IPID, CMP, T7, TSH #### [facility] [address] [place] [address] Maribell Johanna Creatinine [Mass/Vol] 0.80 mg/dL Normal 0.52-1.04 [facility] Comment on above: Performed By: #### L IPID, CMP, T7, TSH #### [facility] [address] [place] [address] Maribell Johanna EGFR-AF ECUADOREAN >60 Normal >=60 [facility] Comment on above: Performed By: #### L IPID, CMP, T7, TSH #### [facility] [address] [place] [address] Maribell Johanna EGFR-NON AF ECUADOREAN >60 Normal >=60 [facility] Comment on above: Performed By: #### L IPID, CMP, T7, TSH #### [facility] [address] [place] [address] Maribell Johanna Globulin (S) [Mass/Vol] 4.6 g/dL Normal [facility] Comment on above: Performed By: #### L IPID, CMP, T7, TSH #### [facility] [address] [place] [address] Maribell Johanna Glucose [Mass/Vol] 115 mg/dL Critically high 74-106 [facility] [place] Comment on above: Performed By: #### L IPID, CMP, T7, TSH #### [facility] [address] [place] [address] Maribell Johanna Potassium [Moles/Vol] 4.1 mmol/L Normal 3.4-5.0 [facility] Comment on above: Performed By: #### L IPID, CMP, T7, TSH #### [facility] [address] [place] [address] Maribell Johanna Protein [Mass/Vol] 8.1 g/dL Normal 6.1-8.2 [facility] Comment on above: Performed By: #### L IPID, CMP, T7, TSH #### [facility] [address] [place] [address] Maribell Johanna Sodium [Moles/Vol] 139 mmol/L Normal 137-145 [facility] Comment on above: Performed By: #### L IPID, CMP, T7, TSH #### [facility] [address] [place] [address] Maribell Johanna Urea nitrogen [Mass/Vol] 9.0 mg/dL Normal 7.0-17.0 [facility] Comment on above: Performed By: #### L IPID, CMP, T7, TSH #### [facility] [address] [place] [address] Maribell Johanna Urea nitrogen/Creatinine [Mass ratio] 11.2 mg/mg Normal [facility] Comment on above: Performed By: #### L IPID, CMP, T7, TSH #### [facility] [address] [place] [address] Maribell Johanna TSHon 08-08-2020 TSH 1.632 uIU/mL Normal 0.470-4.680 [facility] Comment on above: Performed By: #### L IPID, CMP, T7, TSH #### [facility] [address] [place] [address] Maribell Johanna TSH RANGE SEE BELOW Normal [facility] Comment on above: Result Comment: <0.3 4 UIU/ml HYPERTHYROID 0.34-5.60 UIU/ml EUTHYROID >5.60 UIU/ml HYPOTHYROID Performed By: #### L IPID, CMP, T7, TSH #### [facility] [address] [place], [place] [id number] Maribell Johanna XR CHEST AP/PA AND LATon XR CHEST [...] are identified. IMPRESSION: No acute process identified. [employer] Workstation ID: [id number] Dictated by: ISHMAEL KEYS on [place] Feb 17, 2019 10:05:42 AM EST Transcribed by: LEXII HUTCHINSON on [place] Feb 17, 2019 10:06:52 AM EST Finalized by: ISHMAEL KEYS on [place] Feb 17, 2019 10:59:38 AM EST Normal [facility] Comment on above: Order Comment: Injur y/Trauma or Illness?:Illness/Other How long have you had these symptoms (acute/chronic)?:Acute Reason for exam?:cough History of cancer?:no Surgeries, chemotherapy, or radiation?:unk Type of Exam?:Initial Additional signs and symptoms?:Treated for pneumonia around [place]. Started having cough, fever again about 2 days ago. No acute process identified. [employer] Workstation ID: [id number] [facility] EXAMINATION: XR CHES T AP/PA [...] significant pleural or osseous abnormalities are identified. [facility] Interface, Rad In Fuji Speechq - [...] acute process identified. MA/[employer]w Workstation ID: [id number] [facility] Chlamydia Detection by NAATo n 05-15-2018 Protein mass conc [facility] Microbiology PROCEDURE: Chlamydia Detection by NAAT SOURCE: Vagina BODY SITE: COLLECTED DATE/TIME: 05/15/2018 09:43 EDT RECEIVED DATE/TIME: 05/15/2018 09:43 EDT START DATE/TIME: 05/15/2018 09:43 EDT FREE TEXT SOURCE: VAGINA-VAG INTERFACED REPORTS Final Report [] Verified Date/Time/Personnel: 05/16/2018 14:04 EDT CONTRIBUTOR_SYSTEM, CO_PN NEGATIVE * C TRACHOMATIS NUCLEIC ACID NOT DETECTED CONTACT LABORATORY FOR RECOMMENDED ADDITIONAL TESTING IF RESULTS ARE INCONSISTENT WITH CLINICAL FINDINGS Normal [facility] Comment on above: Performed By: #### C [id number] #### [facility] [address], [place] Vital Signs Date Time Vital Sign Value Performing Clinician Tana lara 02-15-2019 13:17-0500 BMI (Body Mass Index) 27.25 kg/m2 [facility] 02-15-2019 13:17-0500 Body Temperature 99.61 [degF] [facility] 02-15-2019 13:17-0500 Body weight 81.28 kg [facility] 02-15-2019 13:17-0500 BP Diastolic 82 mm[Hg] [facility] 02-15-2019 13:17-0500 BP Systolic 131 mm[Hg] [facility] 02-15-2019 13:17-0500 Height 172.7 cm [facility] 02-15-2019 13:17-0500 Pulse (Heart Rate) 89 /min [facility] 02-15-2019 13:17-0500 Pulse Oximetry 96 % [facility] 02-15-2019 13:17-0500 Respiratory Rate 16 /min [facility] Encounters Encounter Date Encounter Type Care Provider Facility Start: 03-14-2023 End: 03-14-2023 ambulatory MEREDITH VASQUEZ Not Available Start: 03-10-2023 Chart abstracting Meredith VINCENT Work Phone: [facility] Start: 02-14-2023 End: 02-14-2023 ambulatory VIOLETA MAME Not Available Start: 02-08-2023 End: 02-09-2023 ambulatory [facility] Start: 02-02-2023 End: 2023 ambulatory RADHAMES C [facility] Start: 01-12-2023 End: 01-12-2023 ambulatory VIOLETA MAME Not Available Start: 09-30-2021 End: 09-30-2021 ambulatory Radha Copeland Other [facility] Start: 09-30-2021 Nursing evaluation o f patient and report Radha Copeland [facility] Start: 09-21-2020 End: 09-25-2020 ambulatory GRECIA ARRIAZA [facility] Start: 08-18-2020 Encounter for genera l adult medical examination without abnormal findings DR GRECIA ARRIAZA [facility] Start: 08-08-2020 End: 08-09-[address] GRECIA ARRIAZA Facility:[facility] Start: 08-08-2020 End: 08-09-2020 Encounter for general adult medical examination without abnormal findings DR GRECIA ARRIAZA Facility:[facility] Start: 02-17-2019 End: 02-18-2019 Patient encounter procedure REMBERTO COELHO [facility] Start: 02-17-2019 End: 02-17-2019 Subsequent hospital visit by physician Remberto Coelho Work Phone: [facility] Comment on above: Arrived Start: 02-15-2019 End: 02-15-2019 Patient encounter procedure SUMMER STEEN [facility] Start: 02-15-2019 End: 02-15-2019 Office outpatient visit 15 minutes Summer Steen Work Phone: [facility] Comment on above: Bronchitis (Primary Dx) Start: 05-16-2018 End: 05-16-2018 Patient encounter procedure GARY ZAMORA Facility:[facility] Procedures Date Procedure Procedure Detail Performing Clinician Start: 02-17-2019 Standard chest X-ray An johnkingsley Coelho Work Phone: Start: 04-20-2018 Microscopic observat ion [Identifier] in Cervix by Cyto stain Remberto Coelho Start: 03-24-2016 Microscopic observat ion [Identifier] in Cervix by Cyto stain Summer Steen Plan of Treatment Date Care Activity Detail Author Start: 05-23-2023 End: 05-23-2023 Patient encounter procedure 05/23/2023 9:00 AM EDT Office Visit [facility] [address] [place] [address] Meron Muniz MD [address] [place] [address] [facility] Start: 03-14-2023 End: 03-14-2023 Patient encounter procedure 03/14/2023 8:30 AM EST Routine [facility] [address] [place] [id number] Meredith Vasquez PA [address] [place], [place] [id number] Second trimester [facility] Comment on above: Second trimester pre gnancy Start: 04-20-2021 Screening for malign ant neoplasm of cervix PAP SMEAR [facility] Start: 04-21-2019 Screening for Chlamy luis fernando trachomatis Chlamydia Screening [facility] Start: 03-24-2019 Screening for malign ant neoplasm of cervix PAP SMEAR [facility] Start: 10-07-2018 Influenza vaccination given SE QUENTIAL INFLUENZA VACCINE (#1) [facility] Start: 2006 Vaccination for sharri n papillomavirus HPV VACCINES (1 - Female 2-dose series) [facility] Start: 1998 History and physical examination, annual for health maintenance Wellness [facility] Start: 1995 Screening for Chlamy luis fernando trachomatis Chlamydia Screening [facility] Start: 1995 Tetanus vaccination TETANUS EVERY 10 YR [facility] Payers Date Payer Category Payer Unknown BCBS BCBS xxxxxx [id number] 2022-Present [phone] [address] [place] [address] [id number] 2022 Unknown [id number] 2018 Unknown ANTHEM ANTHEM BLUE/PREF/HMO/PPO xxxxxxxxxxxx 2018-Present xxxxxxxxxxxx [id number] 1995 Unknown [id number] 1995 Unknown [id number] 1995 Unknown [id number] 1995 Unknown [id number] 1995 Unknown [id number] 1995 Unknown [id number] 9 1995 Unknown [id number] 9 1995 Unknown [id number] 9 1995 Unknown [id number] 1995 Unknown [id number] 1959 Unknown [id number] Social History Date Type Detail Facility Start: 02-15-2019 End: 01-19-2023 Tobacco smoking status NHIS Never smoker [facility] Sex Assigned At Not on file Malaika luz Start: 01-19-2023 Sex Assigned At [facility] Start: 03-10-2023 Alcohol intake Current drinker of alcohol (finding) [facility] Start: 01-19-2023 History of Social function [facility] How often to you hav e a drink containing alcohol? Monthly or less [facility] How many standard drinks containing alcohol do you have on a typical day? 3 or 4 [facility] Frequency of Binge Drinking Not on file [facility] Start: 01-19-2023 Alcohol Comment caffeine: 1-2 cups per day [facility] Start: 11-20-2022 [facility] Start: 1995 Sex Assigned At Female [facility] Start: 01-05-2023 Gender identity Identifies as female gender (finding) [facility] Start: 01-05-2023 Sexual orientation Heterosexual (finding) [facility] Goals Date Patient Goal Desired Activity /State Personal health goal Evaluation note 09-30-2021 Note Date & Type Note Facility 09-30-2021 Evaluation note Encounter Date Diagnosis Assessment Notes Sep, Exposure to COVID-19 virus (ICD-10 - Z20.822) [facility] Other Summary Purpose Family History No Family History Records FoundNo Family History Records FoundNo Family History Records FoundNo Family History Records FoundNo Family History Records FoundNo Family History Records Found Advance Directives No Advanced Directives Records FoundDocuments on File Type Date Recorded Patient Project Planner Expl anation Advance Directives and Living Will [...] medicine. Get some extra rest. Take an bcxp-lqa-nrjuvaw pain medicine, such as acetaminophen (Tylenol), ibuprofen (Advil, Motrin),or naproxen (Aleve) to reduce fever and relieve body aches. Read and follow all instructions on thelabel. Do not take two or more pain medicines at the same time unless the doctor told you to. Many pain medicines have acetaminophen, which is Tylenol. Too much acetaminophen (Tylenol) can be harmful. Take an xhgq-mkw-jxvivla cough medicine that contains dextromethorphan to help [...] Log into your personal health record on [email or web address] and enter H333 in the Education box to learn more about Bronchitis: Care Instructions. Current as of: July 15, 2018 Content Version: 12.3 [employer]. Care instructions adapted under license by your healthcare professional. If you have questions about a medical condition or this instruction, always ask your healthcare professional. [employer] disclaims any warranty or liability for your use of this information. documented in this encounter History of Present Illness * Summer Steen DO - 02/15/2019 1:22 PM EST PATIENT NAME: Meron Darling [facility] [address] [place] [address] : 1995 DATE OF VISIT: 02/15/2019 SS#: [...] slightly. Patient states that a week before [place], approximately 2 to 3 weeks ago patient was treated with an antibiotic. She said he took it for 10 days and twice a day. Likely Augmentin but patient does not remember. Symptoms resolved. Patient is concerned she is got pneumonia again. [facility] warm butno objective fevers. Took Tylenol prior [...] file Gets together: Not on file Attends [employer] service: Not on file Active member of [...] section and content) DATE CREATED AUTHOR 05/17/2018 [facility] DATE CREATED AUTHOR AUTHOR'S ORGANIZ ATION 02/17/2019 [facility] DATE CREATED AUTHOR AUTHOR'S ORGANIZ ATION 08/19/2020 [facility] DATE CREATED AUTHOR AUTHOR'S ORGANIZ ATION 10/04/2020 [facility] DATE CREATED AUTHOR AUTHOR'S ORGANIZ ATION 03/14/2023 [facility] DATE CREATED AUTHOR AUTHOR'S ORGANIZ ATION 04/07/2023 [facility] Reason for Visit (unrecogniz ed section and content) Reason Comments Shortness of Breath Started againthis gregory abrahaming. Pt was treated for pneumonia around 01/30/2019 and finished tx however today she feelslike it is coming back Care Teams (unrecognized sec tion and content) [employer] Specialist Relationship Specialty Start Date End Date Grecia Arriaza MD [address] [place] [address] PCP - General Family Medicine 01/12/23 FOR RECORDS PERTAINING TO PATIENTS WHO ARE [...] BE BASED ON THE PRIMARY CLINICAL RECORDS. [employer] provides no warranty or guarantee of the accuracy or completeness of information in this document.
[2023-04-15 04:00] LABS: AFP Value 42.4 ng/mL (.); Gest. Age on Collection Date 22.6 weeks (.); Gestat. Age Based On Ultrasound (.); Insulin Dep Diabetes No (.); Maternal Age At EDD 28.5 yr (.); OSBR Risk 1 IN 10000 (.); Results Report (.)
== END 2023-04-13 08:00 | disposition home or self-care (01) ==
LOC: LAB 08:00
PROVIDERS: PCP Family Medicine; Visit Provider Obstetrics & Gynecology
DX: Z34.92 Encounter for supervision of normal pregnancy, unspecified, second trimester (principal)
CPT/HCPCS: 36415; 82105

== ENCOUNTER 2023-04-29 08:22 | Outpatient (OUT) | payer BC, SELFPAY ==
--- OUTSIDE RECORDS SUMMARY | 2023-04-29 08:24 | XMS_ITS | CCD ---
Author Organization [facility] Care Team Providers Care Communications Engineer Name Role Phone GARY ZAMORA Attending Unavailabl e Physician, PCP Unknown Primary Care Unavailab Grecia Abdullahi Primary Care Provider SUMMER STEEN Attending Unavailable GRECIA ARRIAZA Primary Care Unavailable GRECIA ARRIAZA Primary Care Unavailable REMBERTO COELHO Attending Unavailabl e REMBERTO COELHO Attending UnavailREMBERTO Reinoso Referring UnavailGRECIA Goodson Primary Care Unavailable LOPEZ, DR PAIGE Attending Unavailable LOPEZ, DR PAIGE Consulting Unavailable DR GRECIA ARRIAZA Primary Care Unavailable DR GRECIA ARRIAZA Admitting Unavailable GRECIA ARRIAZA Primary Care Unavailable VALENTINA JOHNS Attending Un available Radha Copeland Unavailable Grecia Arriaza MD Primary Care Provider [phone] VIOLETA VILCHIS Attending Unavailable MEREDITH VASQUEZ Attending Unavailable VIOLETA VILCHIS Attending Unavailable VIOLETA VILCHIS Attending Unavailable RADHAMES VICTORIA Referring Unavailable NONE, NONE Primary Care Unavailable RADHAMES VICTORIA Referring Unavailable NONE, NONE Primary Care Unavailable Allergies Allergy Classification Reported Allergen(s) Allergy Type Date of Onset Reaction(s) Facility diphenhydrAMINE (1 source) diphenhydrAMINE Drug Allergy 4 [facility] (5 sources) diphenhydrAMINE; Translations: [Unknown] Drug Allergy 0 Other (See Comments) [facility] (1 source) Sulfonamides (Antibiotic) Drug Allergy 4 [...] oral solution (1 source) alpha-Adrenergic Agonist, Uncompetitive U-jbmgla-Y-aspartat e Receptor Antagonist, Sigma-1 Agonist Start: 02-17-2019 [...] tablet by mouth once norethindrone-et hinyl estradiol (JUNEL FE 02/25) 1 mg-20 mcg (21)/75 mg (7) per [...] Miscellaneouson 02-09-2023 Send Out Report FORWARD TO [facility] Comment on above: Result Comment: [phone] Performed By: #### C MIS #### [facility] [address] [place] [address] [phone] [employer] Administrator: Isidro Aguirre MD Miscellaneouson 02-08-2023 Test Name [facility] Comment on above: Performed By: #### C MIS #### [facility] [address] [place] [address] [phone] [employer] Administrator: Isidro Aguirre MD Maternal Ser 1st [place] 02-03 Cr Rump Lngt, Twin B Not Applicable [facility] Comment on above: Performed By: #### A MSFT #### [address] [address] [employer] Administrator: Isidro Aguirre MD [address] [address] [employer] Administrator: Rojas Simpson MD Cobalt Rump Length 57.2 mm Normal [facility] Comment on above: Performed By: #### A MSFT #### [address] [address] [employer] Administrator: Isidro Aguirre MD [address] [address] [employer] Administrator: Rojas Simpson MD Gestat Age (exact) 12 wks, 1 days Normal [facility] Comment on above: Performed By: #### A MSFT #### [address] [address] [employer] Administrator: Isidro Aguirre MD [address] [address] [employer] Administrator: Rojas Simpson MD Hx Aneuploidy Unknown Normal [facility] Comment on above: Performed By: #### A MSFT #### [address] [address] [employer] Administrator: Isidro Aguirre MD [address] [address] [employer] Administrator: Rojsa Simpson MD Interpretation Screen Neg Normal [facility] Comment on above: Result Comment: (NOT [...] developed and its performance characteristics determined by [facility]. It has not been cleared or approved by the [place] Food and Drug Administration. This test was performed in a CLIA certified laboratory and is intended for clinical purposes. Performed By: #### A MSFT #### [address] [address] [employer] Administrator: Isidro Aguirre MD [address] [phone] [employer] Administrator: Rojas Simpson MD [age] [facility] Comment on above: Performed By: #### A MSFT #### [address] [address] [employer] Administrator: Isidro Aguirre MD [address] [phone] [employer] Administrator: Rojas Simpson MD Maternal Race Nonblack [facility] Comment on above: Performed By: #### A MSFT #### [address] [address] [employer] Administrator: Isidro Aguirre MD [address] [phone] [employer] Administrator: Rojas Simpson MD Maternal Screen, EER See Note [facility] Comment on above: Result Comment: (NOT E) Authorized individuals can access the [facility] Enhanced Report using the following link: [email or web address] Performed By: [facility] [address] [place] [id number] Order Entry Clerk: Rex Moreau MD, PhD CLIA Number: [id number] Performed By: #### A MSFT #### [address] [address] [employer] Administrator: Isidro Aguirre MD [address] [phone] [employer] Administrator: Rojas Simpson MD Maternal Weight 191.0 lbs. [facility] Comment on above: Performed By: #### A MSFT #### [address] [address] [employer] Administrator: Isidro Aguirre MD [facility] [address] [place] [address] [employer] Administrator: Rojas Simpson MD MoM for HCG 0.70 [facility] Comment on above: Performed By: #### A MSFT #### [address] [address] [employer] Administrator: Isidro Aguirre MD [facility] [address] [place] [address] [employer] Administrator: Rojas Simpson MD MoM for NT 1.60 Normal [facility] Comment on above: Performed By: #### A MSFT #### [address] [address] [employer] Administrator: Isidro Aguirre MD [address] [address] [employer] Administrator: Rojas Simpson MD MoM for [place], Twin B Not Applicable [facility] Comment on above: Performed By: #### A MSFT #### [address] [address] [employer] Administrator: Isidro Aguirre MD [address] [address] [employer] Administrator: Rojas Simpson MD MoM for SHONDA-A 0.82 Normal [facility] Comment on above: Performed By: #### A MSFT #### [address] [address] [employer] Administrator: Isidro Aguirre MD [facility] [address] [place] [address] [employer] Administrator: Rojas Simpson MD Nuchal Trans, Twin B Not Applicable [facility] Comment on above: Performed By: #### A MSFT #### [address] [address] [employer] Administrator: Isidro Aguirre MD [address] [phone] [employer] Administrator: Rojas Simpson MD Nuchal Translucency 2.30 mm Normal [facility] Comment on above: Performed By: #### A MSFT #### [address] [address] [employer] Administrator: Isidro Aguirre MD [address] [phone] [employer] Administrator: Rojas Simpson MD Number of Fetuses Burton Normal [facility] Comment on above: Performed By: #### A MSFT #### [address] [address] [employer] Administrator: Isidro Aguirre MD [address] [phone] [employer] Administrator: Rojas Simpson MD SHONDA-A Maternal 479.0 ng/mL [facility] Comment on above: Result Comment: (NOT E) This test was developed and its performance characteristics determined by [employer]. It has not been cleared or approved by the US Food and Drug Administration. This test was performed in a CLIA certified laboratory and is intended for clinical purposes. Performed By: #### A MSFT #### [address] [address] [employer] Administrator: Isidro Aguirre MD [address] [phone] [employer] Administrator: Rojas Simpson MD Patient's HCG 20907 IU/L Normal [facility] Comment on above: Performed By: #### A MSFT #### [address] [address] [employer] Administrator: Isidro Aguirre MD [address] [address] [employer] Administrator: Rojas Simpson MD Smoking Unknown [facility] Comment on above: Performed By: #### A MSFT #### [address] [address] [employer] Administrator: Isidro Aguirre MD [facility] [address] [place] [address] [employer] Administrator: Rojas Simpson MD Coat Cutter Cert No [id number] [facility] Comment on above: Performed By: #### A MSFT #### [address] [address] [employer] Administrator: Isidro Aguirre MD [address] [phone] [employer] Administrator: Rojas Simpson MD Coat Cutter Name Trisha Saleh [facility] Comment on above: Performed By: #### A MSFT #### [address] [address] [employer] Administrator: Isidro Aguirre MD [address] [phone] [employer] Administrator: Rojas Simpson MD Specimen See Note [facility] Comment on above: Result Comment: Init ial sample Performed By: #### A MSFT #### [address] [address] [employer] Administrator: Isidro Aguirre MD [address] [address] [employer] Administrator: Rojas Simpson MD Ultrasound Date SEE NOTE [facility] Comment on above: Result Comment: Resu lts for Ultrasound Date: 02 02 23 Performed By: #### A MSFT #### [address] [address] [employer] Administrator: Isidro Aguirre MD [address] [address] [employer] Administrator: Rojas Simpson MD Maternal Ser 1st [place] 02-02 Cobalt Rump Length 57.2 [facility] Comment on above: Performed By: #### A MSFT #### [address] [address] [employer] Administrator: Isidro Aguirre MD [address] [address] [employer] Administrator: Rojas Simpson MD Current Smoking INFORMATION NOT PROVIDED [facility] Comment on above: Performed By: #### A MSFT #### [address] [address] [employer] Administrator: Isidro Aguirre MD [address] [phone] [employer] Administrator: Rojas Simpson MD Date of Ultrasound [id number] [facility] Comment on above: Performed By: #### A MSFT #### [address] [address] [employer] Administrator: Isidro Aguirre MD [address] [phone] [employer] Administrator: Rojas Simpson MD Donor Egg INFORMATION NOT PROVIDED [facility] Comment on above: Performed By: #### A MSFT #### [address] [address] [employer] Administrator: Isidro Aguirre MD [address] [phone] [employer] Administrator: Rojas Simpson MD In Vitro Fertalizat INFORMATION NOT PROVIDED [facility] Comment on above: Performed By: #### A MSFT #### [address] [address] [employer] Administrator: Isidro Aguirre MD [address] [address] [employer] Administrator: Rojas Simpson MD Maternal date [id number] [facility] Comment on above: Performed By: #### A MSFT #### [address] [address] [employer] Administrator: Isidro Aguirre MD [facility] [address] [place] [address] [employer] Administrator: Rojas Simpson MD Maternal Weight 191 [facility] Comment on above: Performed By: #### A MSFT #### [address] [address] [employer] Administrator: Isidro Aguirre MD [facility] [address] [place] [address] [employer] Administrator: Rojas Simpson MD Monochorionic Twins INFORMATION NOT PROVIDED [facility] Comment on above: Performed By: #### A MSFT #### [address] [address] [employer] Administrator: Isidro Aguirre MD [facility] [address] [place] [address] [employer] Administrator: Rojas Simpson MD Nuchal Transluc (NT) 2.3 [facility] Comment on above: Performed By: #### A MSFT #### [address] [address] [employer] Administrator: Isidro Aguirre MD [facility] [address] [place] [address] [employer] Administrator: Rojas Simpson MD Number of fetuses 1 Normal [facility] Comment on above: Performed By: #### A MSFT #### [address] [address] [employer] Administrator: Isidro Aguirre MD [facility] [address] [place] [address] [employer] Administrator: Rojas Simpson MD Patient Weight Units LB [facility] Comment on above: Performed By: #### A MSFT #### [address] [address] [employer] Administrator: Isidro Aguirre MD [facility] [address] [place] [address] [employer] Administrator: Rojas Simpson MD Prev Trisomy Preg INFORMATION NOT PROVIDED [facility] Comment on above: Performed By: #### A MSFT #### [address] [address] [employer] Administrator: Isidro Aguirre MD [address] [phone] [employer] Administrator: Rojas Simpson MD Race (Maternal) WHITE [facility] Comment on above: Performed By: #### A MSFT #### [address] [address] [employer] Administrator: Isidro Aguirre MD [address] [phone] [employer] Administrator: MD Shayne Siddiqui MD [facility] [address] [facility] Comment on above: Performed By: #### A MSFT #### [address] [address] [employer] Administrator: Isidro Aguirre MD [facility] [address] [place] [address] [employer] Administrator: MD Shayne Siddiqui MD Name RADHAMESBERYL VICTORIA [facility] Comment on above: Performed By: #### A MSFT #### [address] [address] [employer] Administrator: Isidro Aguirre MD [facility] [address] [place] [address] [employer] Administrator: Rojas Simpson MD Repeat Specimen INFORMATION NOT PROVIDED [facility] Comment on above: Performed By: #### A MSFT #### [address] [address] [employer] Administrator: Isidro Aguirre MD [address] [phone] [employer] Administrator: Rojas Simpson MD Sonograph Cert Num [id number] [facility] Comment on above: Performed By: #### A MSFT #### [address] [address] [employer] Administrator: Isidro Aguirre MD [address] [address] [employer] Administrator: Rojas Simpson MD Coat Cutter Name [facility] Comment on above: Performed By: #### A MSFT #### [address] [address] [employer] Administrator: Isidro Aguirre MD [address] [phone] [employer] Administrator: Rojas Simpson MD SARS-CoV-2 (COVID-19) RNA NA A+probe Ql (Resp)on 09-30-2021 SARS-CoV-2 (COVID-19) RNA CRISTIAN+probe Ql (Unsp spec) Negative [employer] Other INSULINon 08-11-2020 Insulin 10.7 uIU/mL Normal 2.6-24.9 [facility] Comment on above: Performed By: #### I NSULIN #### [facility] [address] [place], [place] [address] Maribell Spencer CBC AUTO DIFFon 08-08-2020 BASO # 0.1 103/ul Normal 0.0-0.1 [facility] Comment on above: Performed By: #### C BC #### [facility] [address] [place], [place] [address] Maribell Spencer Basophils/100 WBC (Bld) 1.1 % Normal 0.2-2.0 [facility] Comment on above: Performed By: #### C BC #### [facility] [address] [place] [address] Maribell Johanna EO # 0.2 103/ul Normal 0.0-0.7 [facility] Comment on above: Performed By: #### C BC #### [facility] [address] [place], [place] [address] Maribell Johanna Eosinophils/100 WBC (Bld) 2.5 % Normal 0.9-7.0 [facility] Comment on above: Performed By: #### C BC #### [facility] [address] [place] [address] Maribell Johanna Erythrocyte distribution width (RBC) [Ratio] 13.6 % Normal 11.0-15.0 [facility] Comment on above: Performed By: #### C BC #### [facility] [address] [place] [address] Maribell Johanna Hematocrit (Bld) [Volume fraction] 41.1 % Normal 36.0-48.0 [facility] Comment on above: Performed By: #### C BC #### [facility] [address] [place] [address] Maribell Johanna Hemoglobin (Bld) [Mass/Vol] 13.9 g/dL Normal 12.0-16.0 [facility] Comment on above: Performed By: #### C BC #### [facility] [address] [place] [address] Marbiell Johanna IG # 0.02 10e3/ul Normal 0.00-0.03 [facility] Comment on above: Performed By: #### C BC #### [facility] [address] [place] [address] Maribell Johanna IG % 0.3 % Normal 0.0-0.5 [facility] Comment on above: Performed By: #### C BC #### [facility] [address] [place] [address] Maribell Johanna LYMPH # 2.1 103/ul Normal 1.2-3.8 [facility] Comment on above: Performed By: #### C BC #### [facility] [address] [place] [address] Maribell Johanna Lymphocytes/100 WBC (Bld) 32.4 % Normal 20.5-60.0 [facility] Comment on above: Performed By: #### C BC #### [facility] [address] [place] [address] Maribell Johanna MANUAL DIFF REQ NO Normal [facility] Comment on above: Performed By: #### C BC #### [facility] [address] [place], [place] [address] Maribell Johanna MCH (RBC) [Entitic mass] 29.5 pg Normal 26.7-34.0 [facility] Comment on above: Performed By: #### C BC #### [facility] [address] [place], [place] [address] Maribell Johanna MCHC (RBC) [Mass/Vol] 33.8 g/dL Normal 29.9-35.2 [facility] Comment on above: Performed By: #### C BC #### [facility] [address] [place], [place] [address] Maribell Johanna MCV (RBC) [Entitic vol] 87.3 fL Normal 81.0-99.0 [facility] Comment on above: Performed By: #### C BC #### [facility] [address] [place], [place] [address] Maribell Johanna MONO # 0.4 103/ul Normal 0.3-0.8 [facility] Comment on above: Performed By: #### C BC #### [facility] [address] [place], [place] [address] Maribell Johanna Monocytes/100 WBC (Bld) 6.9 % Normal 1.7-12.0 [facility] Comment on above: Performed By: #### C BC #### [facility] [address] [place], [place] [address] Maribell Johanna NEUT # 3.6 103/ul Normal 1.4-6.5 [facility] Comment on above: Performed By: #### C BC #### [facility] [address] [place] [address] Maribell Spencer Neutrophils/100 WBC (Bld) 56.8 % Normal 43.0-75.0 [facility] Comment on above: Performed By: #### C BC #### [facility] [address] [place], [place] [address] Maribell Spencer Platelet mean volume (Bld) [Entitic vol] 9.9 fL Normal 9.5-13.5 [facility] Comment on above: Performed By: #### C BC #### [facility] [address] [place], [place] [address] Maribell Spencer PLT 180 103/ul Normal 150-450 [facility] Comment on above: Performed By: #### C BC #### [facility] [address] [place] [address] Maribell Spencer RBC 4.71 106/ul Normal 4.20-5.40 [facility] Comment on above: Performed By: #### C BC #### [facility] [address] [place] [address] Maribell Spencer WBC 6.4 103/ul Normal 4.0-11.0 [facility] Comment on above: Performed By: #### C BC #### [facility] [address] [place], [place] [address] Maribell pSencer FREE THYROXINE INDEX T7on FTI 3.39 Normal [facility] Comment on above: Performed By: #### L IPID, CMP, T7, TSH #### [facility] [address] [place], [place] [address] Maribell Spencer T3U 28.0 % Normal 23.5-40.5 [facility] Comment on above: Performed By: #### L IPID, CMP, T7, TSH #### [facility] [address] [place], [place] [address] Maribell Spencer T4 [Mass/Vol] 12.10 ug/dL Critically high 5.53-11.00 [facility] Comment on above: Performed By: #### L IPID, CMP, T7, TSH #### [facility] [address] [place], [place] [address] Maribell Johanna GLYCOHEMOGLOBIN A1Con 2020 ADA RECOMMENDATION ADA THERAPEUTIC TARGET 6.0 - 7.0 ACTION SUGGESTED > 7.0 Normal [facility] Comment on above: Performed By: #### A 1C #### [facility] [address] [place], [place] [address] Maribell Johanna Glucose [Mass/Vol] 123 mg/dL Normal [facility] Comment on above: Performed By: #### A 1C #### [facility] [address] [place], [place] [address] Maribell Johanna HbA1c (Bld) [Mass fraction] 5.9 % Normal <=6.0 [facility] Comment on above: Performed By: #### A 1C #### [facility] [address] [place] [address] Maribell Johanna IRONon 08-08-2020 Iron [Mass/Vol] 66.0 ug/dL Normal 37.0-170.0 [facility] Comment on above: Performed By: #### I DUNIA #### [facility] [address] [place], [place] [address] Maribell Johanna LIPID PROFILEon 08-08-2020 CHOL-HDL RATIO NORM SEE BELOW Normal [facility] Comment on above: Result Comment: 3.3 - 4.4 LOW RISK 4.4 - 7.1 AVERAGE RISK 7.1 - 11.0 MODERATE RISK >11.0 HIGH RISK Performed By: #### L IPID, CMP, T7, TSH #### [facility] [address] [place], [place] [address] Maribell Johanna Cholesterol [Mass/Vol] 215 mg/dL Critically high <=200 [facility] Comment on above: Performed By: #### L IPID, CMP, T7, TSH #### [facility] [address] [place], [place] [address] Maribell Johanna Cholesterol in HDL [Mass/Vol] 37 mg/dL Normal [facility] Comment on above: Performed By: #### L IPID, CMP, T7, TSH #### [facility] [address] [place], [place] [address] Maribell Johanna Cholesterol in LDL [Mass/Vol] 142.4 mg/dL Normal [facility] Comment on above: Performed By: #### L IPID, CMP, T7, TSH #### [facility] [address] [place] [phone] Maribell Johanna Cholesterol.total/C holesterol in HDL [Mass ratio] 5.8 {ratio} Normal [facility] Comment on above: Performed By: #### L IPID, CMP, T7, TSH #### [facility] [address] [place] [phone] Maribell Johanna HDL NORMAL > or = 60 mg/dl - LO W CARDIOVASCULAR RISK <40 mg/dl - HIGH CARDIOVASCULAR RISK Normal [facility] Comment on above: Performed By: #### L IPID, CMP, T7, TSH #### [facility] [address] [place] [address] Maribell Johanna LDL CALC NORMAL SEE BELOW Normal [facility] Comment on above: Result Comment: <100 mg/dl OPTIMAL 100 - 129 mg/dl NEAR OR ABOVE OPTIMAL 130 - 159 mg/dl BORDERLINE HIGH 160 - 189 mg/dl HIGH >190 mg/dl VERY HIGH Performed By: #### L IPID, CMP, T7, TSH #### [facility] [address] [place] [address] Maribell Johanna Triglyceride [Mass/Vol] 178 mg/dL Critically high <=150 [facility] Comment on above: Performed By: #### L IPID, CMP, T7, TSH #### [facility] [address] [place] [phone] Maribell Johanna VLDL CALC 35.6 mg/dL Normal [facility] Comment on above: Performed By: #### L IPID, CMP, T7, TSH #### [facility] [address] [place] [phone] Maribellkhadijah Spencer PROF 14(COMP METB)on 021 Albumin [Mass/Vol] 3.5 g/dL Normal 3.5-5.0 [facility] Comment on above: Performed By: #### L IPID, CMP, T7, TSH #### [facility] [address] [place] [phone] Maribell Johanna Albumin/Globulin [Mass ratio] 0.8 {ratio} Normal [facility] Comment on above: Performed By: #### L IPID, CMP, T7, TSH #### [facility] [address] [place] [address] Maribell Johanna ALP [Catalytic activity/Vol] 62 U/L Normal 38-126 [facility] Comment on above: Performed By: #### L IPID, CMP, T7, TSH #### [facility] [address] [place] [address] Maribell Johanna ALT [Catalytic activity/Vol] 50 U/L Normal 9-52 [facility] Comment on above: Performed By: #### L IPID, CMP, T7, TSH #### [facility] [address] [place] [address] Maribell Johanna Anion gap [Moles/Vol] 14.5 mmol/L Normal [facility] Comment on above: Performed By: #### L IPID, CMP, T7, TSH #### [facility] [address] [place] [address] Maribell Johanna AST [Catalytic activity/Vol] 36 U/L Normal 14-36 [facility] Comment on above: Performed By: #### L IPID, CMP, T7, TSH #### [facility] [address] [place] [address] Maribell Johanna Bilirubin [Mass/Vol] 0.5 mg/dL Normal 0.2-1.3 [facility] Comment on above: Performed By: #### L IPID, CMP, T7, TSH #### [facility] [address] [place] [address] Maribell Johanna Calcium [Mass/Vol] 9.0 mg/dL Normal 8.4-10.2 [facility] Comment on above: Performed By: #### L IPID, CMP, T7, TSH #### [facility] [address] [place] [address] Maribell Johanna Chloride [Moles/Vol] 103 mmol/L Normal 98-107 [facility] Comment on above: Performed By: #### L IPID, CMP, T7, TSH #### [facility] [address] [place], [place] [address] Maribell Johanna CO2 [Moles/Vol] 25.6 mmol/L Normal 22.0-30.0 [facility] Comment on above: Performed By: #### L IPID, CMP, T7, TSH #### [facility] [address] [place] [address] Maribell Johanna Creatinine [Mass/Vol] 0.80 mg/dL Normal 0.52-1.04 [facility] Comment on above: Performed By: #### L IPID, CMP, T7, TSH #### [facility] [address] [place] [id number] Maribell Johanna EGFR-AF UKRAINIAN >60 Normal >=60 [facility] Comment on above: Performed By: #### L IPID, CMP, T7, TSH #### [facility] [address] [place] [address] Maribell Johanna EGFR-NON AF UKRAINIAN >60 Normal >=60 [facility] Comment on above: Performed By: #### L IPID, CMP, T7, TSH #### [facility] [address] [place] [id number] Maribell Johanna Globulin (S) [Mass/Vol] 4.6 g/dL Normal [facility] Comment on above: Performed By: #### L IPID, CMP, T7, TSH #### [facility] [address] [place] [id number] Maribell Johanna Glucose [Mass/Vol] 115 mg/dL Critically high 74-106 T [facility] Comment on above: Performed By: #### L IPID, CMP, T7, TSH #### [facility] [address] [place] [id number] Maribell Johanna Potassium [Moles/Vol] 4.1 mmol/L Normal 3.4-5.0 [facility] Comment on above: Performed By: #### L IPID, CMP, T7, TSH #### [facility] [address] [place] [id number] Maribell Johanna Protein [Mass/Vol] 8.1 g/dL Normal 6.1-8.2 [facility] Comment on above: Performed By: #### L IPID, CMP, T7, TSH #### [facility] [address] [place] [id number] Maribell Johanna Sodium [Moles/Vol] 139 mmol/L Normal 137-145 The [facility] Comment on above: Performed By: #### L IPID, CMP, T7, TSH #### [facility] [address] [place], [place] [id number] Maribell Johanna Urea nitrogen [Mass/Vol] 9.0 mg/dL Normal 7.0-17.0 [facility] Comment on above: Performed By: #### L IPID, CMP, T7, TSH #### [facility] [address] [place] [address] Maribell Johanna Urea nitrogen/Creatinine [Mass ratio] 11.2 mg/mg Normal [facility] Comment on above: Performed By: #### L IPID, CMP, T7, TSH #### [facility] [address] [place] [address] Maribell Johanna TSHon 08-08-2020 TSH 1.632 uIU/mL Normal 0.470-4.680 [facility] Comment on above: Performed By: #### L IPID, CMP, T7, TSH #### [facility] [address] [place], [place] [id number] Maribell Johanna TSH RANGE SEE BELOW Normal [facility] Comment on above: Result Comment: <0.3 4 UIU/ml HYPERTHYROID 0.34-5.60 UIU/ml EUTHYROID >5.60 UIU/ml HYPOTHYROID Performed By: #### L IPID, CMP, T7, TSH #### [facility] [address] [place] [id number] Maribell Johanna XR CHEST AP/PA AND LATon [...] are identified. IMPRESSION: No acute process identified. [employer] Workstation ID: [id number] Dictated by: ISHMAEL KEYS on [place] Feb 17, 2019 10:05:42 AM EST Transcribed by: LEXII HUTCHINSON on MonFeb 17, 2019 10:06:52 AM EST Finalized by: ISHMAEL KEYS on [employer] Feb 17, 2019 10:59:38 AM EST Normal [facility] Comment on above: Order Comment: Injur y/Trauma or Illness?:Illness/Other How long have you had these symptoms (acute/chronic)?:Acute Reason for exam?:cough History of cancer?:no Surgeries, chemotherapy, or radiation?:unk Type of Exam?:Initial Additional signs and symptoms?:Treated for pneumonia around [place]. Started having cough, fever again about 2 days ago. No acute process identified. [employer] Workstation ID: [id number] [facility] EXAMINATION: XR CHES T AP/PA AND LAT 02/17/2019 9:47 AM HISTORY: ORDERING SYSTEM PROVIDED HISTORY: h/o pneumonia/cough/fever , TECHNOLOGIST PROVIDED HISTORY: Illness/Other Reason for exam: cough Cancer History: no Surgery, RadiationHistory: unk Encounter Type: Initial Additional signs and symptoms: Treated for pneumonia around [place]. Started having cough, fever again about 2 days ago. ORDERING SYSTEM PROVIDED DIAGNOSIS CODES: R05 Cough COMPARISON: None. FINDINGS: Cardiomediastinal silhouette is within normal limits. Lungs are clear. No significant pleural or osseous abnormalities are identified. [facility] Interface, Rad In Fuji Speechq - 02/17/2019 11:02 AM EST EXAMINATION: XR CHEST AP/PA AND LAT 02/17/2019 9:47 AM HISTORY: ORDERING SYSTEM PROVIDED HISTORY: h/o pneumonia/cough/fever , TECHNOLOGIST PROVIDED HISTORY: Illness/Other Reason for exam: cough Cancer History: no Surgery, RadiationHistory: unk Encounter Type: Initial Additional signs and symptoms: Treated for pneumonia around [place]. Started having cough, fever again about 2 days ago. ORDERING SYSTEM PROVIDED DIAGNOSIS CODES: R05 Cough COMPARISON: None. FINDINGS: Cardiomediastinal silhouette is within normal limits. Lungs are clear. No significant pleural or osseous abnormalities are identified. IMPRESSION: No acute process identified. MA/trw Workstation ID: [id number] [facility] Chlamydia Detection by NAAGonzalo lanier 05-15-2018 Protein mass conc [facility] Microbiology PROCEDURE: Chlamydia Detection by NAAT [...] RESULTS ARE INCONSISTENT WITH CLINICAL FINDINGS Normal [facility] Comment on above: Performed By: #### C [id number] #### [facility] [address], [place] Vital Signs Date Time Vital Sign Value Performing Clinician Faci lity 02-15-2019 13:17-0500 BMI (Body Mass Index) 27.25 kg/m2 [facility] 02-15-2019 13:17-0500 Body Temperature 99.61 [degF] [facility] 02-15-2019 13:17-0500 Body weight 81.28 kg [facility] 02-15-2019 13:17-0500 BP Diastolic 82 mm[Hg] [facility] 02-15-2019 13:17-0500 BP Systolic 131 mm[Hg] [facility] 02-15-2019 13:17-0500 Height 172.7 cm [facility] 02-15-2019 13:17-0500 Pulse (Heart Rate) 89 /min [facility] 02-15-2019 13:17-0500 Pulse Oximetry 96 % [facility] 02-15-2019 13:17-0500 Respiratory Rate 16 /min [facility] Encounters Encounter Date Encounter Type Care Provider Facility Start: 04-13-2023 End: 04-13-2023 ambulatory VIOLETA MAME Not Available Start: 03-14-2023 End: 03-14-2023 ambulatory MEREDITH VASQUEZ Not Available Start: 03-10-2023 Chart abstracting Meredith VINCENT Work Phone: [facility] Start: 02-14-2023 End: 02-14-2023 ambulatory VIOLETA MAME Not Available Start: 02-08-2023 End: 02-09-2023 ambulatory [facility] Start: 02-02-2023 End: 2023 ambulatory RADHAMES C [facility] Start: 01-12-2023 End: 01-12-2023 ambulatory VIOLETA MAME Not Available Start: 09-30-2021 End: 09-30-2021 ambulatory Radha Copeland Other [facility] Other Start: 09-30-2021 Nursing evaluation o f patient and report Radha Copeland [facility] Start: 09-21-2020 End: 09-25-2020 ambulatory GRECIA ARRIAZA [facility] Start: 08-18-2020 Encounter for genera l adult medical examination without abnormal findings DR GRECIA ARRIAZA [facility] Start: 08-08-2020 End: 08-09-[address] GRECIA ARRIAZA Facility:[facility] Start: 08-08-2020 End: 08-09-2020 Encounter for general adult medical examination without abnormal findings DR GRECIA ARRIAZA Facility:[facility] Start: 02-17-2019 End: 02-18-2019 Patient encounter procedure REMBERTO COELHO [facility] Start: 02-17-2019 End: 02-17-2019 Subsequent hospital visit by physician Remberto Coelho Work Phone: [facility] Comment on above: Arrived Start: 02-15-2019 End: 02-15-2019 Patient encounter procedure SUMMER STEEN [facility] Start: 02-15-2019 End: 02-15-2019 Office outpatient visit 15 minutes Summer Steen Work Phone: [facility] Comment on above: Bronchitis (Primary Dx) Start: 05-16-2018 End: 05-16-2018 Patient encounter procedure GARY ZAMORA Facility:[facility] Procedures Date Procedure Procedure Detail Performing Clinician Start: 02-17-2019 Standard chest X-ray An johnkingsley Darnell Laquita Work Phone: Start: 04-20-2018 Microscopic observat ion [Identifier] in Cervix by Cyto stain Remberto Laquita Start: 03-24-2016 Microscopic observat ion [Identifier] in Cervix by Cyto stain Summer Steen Plan of Treatment Date Care Activity Detail Author Start: 05-23-2023 End: 05-23-2023 Patient encounter procedure 05/23/2023 9:00 AM EDT Office Visit [facility] [address] [place] [id number] Meron Muniz MD [address] [place] [address] [facility] Start: 03-14-2023 End: 03-14-2023 Patient encounter procedure 03/14/2023 8:30 AM EST Routine [facility] [address] [place] [id number] Meredith Vasquez PA [address] [place] [address] Second trimester [facility] Comment on above: Second trimester pre gnancy Start: 04-20-2021 Screening for malign ant neoplasm of cervix PAP SMEAR [facility] Start: 04-21-2019 Screening for Chlamy luis fernando trachomatis Chlamydia Screening [facility] Start: 03-24-2019 Screening for malign ant neoplasm of cervix PAP SMEAR [facility] Start: 10-07-2018 Influenza vaccination given SE QUENTIAL INFLUENZA VACCINE (#1) [facility] Start: 2006 Vaccination for sharri n papillomavirus HPV VACCINES (1 - Female 2-dose series) [facility] Start: 1998 History and physical examination, annual for health maintenance Wellness Visit [facility] Start: 1995 Screening for Chlamy luis fernando trachomatis Chlamydia Screening [facility] Start: 1995 Tetanus vaccination TETANUS EVERY 10 YR [facility] Payers Date Payer Category Payer Unknown BCBS BCBS xxxxxx [id number] 2022-Present [phone] [address] [place] [address] [id number] 2022 Unknown [id number] 2018 Unknown ANTHEM ANTHEM BLUE/PREF/HMO/PPO xxxxxxxxxxxx 2018-Present xxxxxxxxxxxx [id number] 1995 Unknown [id number] 1995 Unknown [id number] [id number] 1995 Unknown [id number] [id number] 1995 Unknown [id number] [id number] 1995 Unknown [id number] [id number] 1995 Unknown [id number] [id number] 9 1995 Unknown [id number] [id number] 9 1995 Unknown [id number] [id number] 9 1995 Unknown [id number] [id number] 9 1995 Unknown [id number] [id number] 1995 Unknown [id number] 1959 Unknown [id number] Social History Date Type Detail Facility Start: 02-15-2019 End: 01-19-2023 Tobacco smoking status NHIS Never smoker [facility] Sex Assigned At Not on file Malaika luz Start: 01-19-2023 Sex Assigned At Chef Other Start: 03-10-2023 Alcohol intake Current drinker [...] Exposure to COVID-19 virus (ICD-10 - Z20.822) [facility] Other Summary Purpose Family History No Family History Records FoundNo Family History Records FoundNo Family History Records FoundNo Family History Records FoundNo Family History Records FoundNo Family History Records Found Advance Directives No Advanced Directives Records FoundDocuments on File Type Date Recorded 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 Get some extra rest. Take an xkmf-nwm-isuregu pain medicine, such as acetaminophen (Tylenol), ibuprofen (Advil, Motrin),or naproxen (Aleve) to reduce fever and relieve body aches. Read and follow all instructions on thelabel. Do not take two or more pain medicines at the same time unless the doctor told you to. Many pain medicines have acetaminophen, which is Tylenol. Too much acetaminophen (Tylenol) can be harmful. Take an vnxn-hge-hrvrwfu cough medicine that contains dextromethorphan to help [...] Log into your personal health record on [email or web address] and enter H333 in the Education box to learn more about Bronchitis: Care Instructions. Current as of: July 15, 2018 Content Version: 12.3 [employer]. Care instructions adapted under license by your healthcare professional. If you have questions about a medical condition or this instruction, always ask your healthcare professional. [employer] disclaims any warranty or liability for your use of this information. documented in this encounter History of Present Illness * Summer Steen DO - 02/15/2019 1:22 PM EST PATIENT NAME: Meron Darling [facility] [address] [facility] [id number] : 1995 DATE OF VISIT: 02/15/2019 SS#: [...] is concerned she is got pneumonia again. [place] warm butno objective fevers. Took Tylenol prior [...] file Gets together: Not on file Attends tenriism service: Not on file Active member of [...] section and content) DATE CREATED AUTHOR 05/17/2018 [facility] DATE CREATED AUTHOR AUTHOR'S PAXTONIZ ATION 02/17/2019 [facility] DATE CREATED AUTHOR AUTHOR'S ORGANIZ ATION 08/19/2020 [facility] DATE CREATED AUTHOR AUTHOR'S ORGANIZ ATION 10/04/2020 [facility] DATE CREATED AUTHOR AUTHOR'S ORGANIZ ATION 04/14/2023 [facility] EPIC DATE CREATED AUTHOR AUTHOR'S ORGANIZ ATION 04/17/2023 [facility] Reason for Visit (unrecogniz ed section and content) Reason Comments Shortness of Breath Started againthis gregory rning. Pt was treated for pneumonia around 01/30/2019 and finished tx however today she feelslike it is coming back Care Teams (unrecognized sec tion and content) Communications Engineer Relationship Specialty Start Date End Date Grecia Arriaza MD [address] [place] [address] PCP - General Family Medicine 01/12/23 FOR [...] BE BASED ON THE PRIMARY CLINICAL RECORDS. [email or web address] provides no warranty or guarantee of the accuracy or completeness of information in this document.
[2023-04-29 09:20] LABS: Basophils Percent Auto 0.4 % (0.2-2.0); Eosinophils Absolute Auto 0.1 10^3/uL (0.0-0.7); Eosinophils Percent Auto 1.5 % (0.9-7.0); Hematocrit 36.7 % (36.0-48.0); Immature Granulocytes Abs Auto 0.03 10^3/uL (0.00-0.03); Immature Granulocytes Pct Auto 0.4 % (0.0-0.5); Lymphocytes Absolute Auto 1.5 10^3/uL (1.2-3.8); Lymphocytes Percent Auto 18.4 % (20.5-60.0); Mean Corpuscular HGB Conc 32.7 g/dL (29.9-35.2); Mean Corpuscular Hemoglobin 30.2 pg (26.7-34.0); Mean Corpuscular Volume 92.4 fL (81.0-99.0); Monocytes Absolute Auto 0.4 10^3/uL (0.3-0.8); Neutrophils Absolute Auto 6.1 10^3/uL (1.4-6.5); Neutrophils Percent Auto 74.3 % (43.0-75.0); Platelet Count 239 10^3/uL (150-450); Red Blood Count 3.97 10^6/uL (4.20-5.40); Red Cell Distribution Width 13.3 % (11.0-15.0); White Blood Count 8.2 10^3/uL (4.0-11.0)
[2023-04-29 10:06] LABS: Glucose 1 Hour 142 mg/dL (<130)
== END 2023-04-29 08:23 | disposition home or self-care (01) ==
LOC: LAB 08:22
PROVIDERS: PCP Family Medicine; Visit Provider Obstetrics & Gynecology
DX: Z13.1 Encounter for screening for diabetes mellitus (principal)
CPT/HCPCS: 36415; 82950; 85025

== ENCOUNTER 2023-05-06 07:28 | Outpatient (OUT) | payer BC, SELFPAY ==
--- OUTSIDE RECORDS SUMMARY | 2023-05-06 07:31 | XMS_ITS | CCD ---
Author Organization [facility] Care Team Providers Care Clinical Pharmacy Specialist Name Role Phone GARY ZAMORA Attending Unavailabl e Physician, PCP Unknown Primary Care Unavailab Grecia Abdullahi Primary Care Provider SUMMER STEEN Attending Unavailable GRECIA ARRIAZA Primary Care Unavailable GRECIA ARRIAZA Primary Care Unavailable REMBERTO COELHO Attending Unavailabl e REMBERTO COELHO Attending Unavailabl REMBERTO Stauffer Referring UnavailGRECIA Goodson Primary Care Unavailable LOPEZ, [...] (1 source) diphenhydrAMINE Drug Allergy [address] [facility] Repository (5 sources) diphenhydrAMINE; Translations: [Unknown] Drug Allergy 0 Other (See Comments) [facility] (1 source) Sulfonamides (Antibiotic) Drug Allergy [...] oral solution (1 source) alpha-Adrenergic Agonist, Uncompetitive B-ownsir-P-aspartat e Receptor Antagonist, Sigma-1 Agonist Start: 02-17-2019 [...] Miscellaneouson 02-09-2023 Send Out Report FORWARD TO [facility] Comment on above: Result Comment: [phone] Performed By: #### C MIS #### [facility] [address] [place] [address] [phone] Complaint Adjuster: Isidro Aguirre MD Miscellaneouson 02-08-2023 Test Name [facility] Comment on above: Performed By: #### C MIS #### [facility] [address] [place] [address] [phone] Complaint Adjuster: Isidro Aguirre MD Maternal Ser 1st Epes 02-03 Cr Rump Lngt, Twin B Not Applicable [facility] Comment on above: Performed By: #### A MSFT #### [address] [address] Complaint Adjuster: Isidro Aguirre MD [address] [address] Complaint Adjuster: Rojas Simpson MD [place] Rump Length 57.2 mm Normal [facility] Comment on above: Performed By: #### A MSFT #### [address] [address] Complaint Adjuster: Isidro Aguirre MD [address] [address] Complaint Adjuster: Rojas Simpson MD Gestat Age (exact) 12 wks, 1 days Normal [facility] Comment on above: Performed By: #### A MSFT #### [address] [address] Complaint Adjuster: Isidro Aguirre MD [address] [address] Complaint Adjuster: Rojas Simpson MD Hx Aneuploidy Unknown Normal [facility] Comment on above: Performed By: #### A MSFT #### [address] [address] Complaint Adjuster: Isidro Aguirre MD [address] [address] Complaint Adjuster: Rojas Simpson MD Interpretation Screen Neg Normal [facility] Comment on above: Result Comment: (NOT [...] developed and its performance characteristics determined by [facility]. It has not been cleared or approved by the [place] Food and Drug Administration. This test was performed in a CLIA certified laboratory and is intended for clinical purposes. Performed By: #### A MSFT #### [address] [address] Complaint Adjuster: Isidro Aguirre MD [address] [phone] Complaint Adjuster: Rojas Simpson MD [age] [facility] Comment on above: Performed By: #### A MSFT #### [address] [address] Complaint Adjuster: Isidro Aguirre MD [address] [phone] Complaint Adjuster: Rojas Simpson MD Maternal Race Nonblack [facility] Comment on above: Performed By: #### A MSFT #### [address] [address] Complaint Adjuster: Isidro Aguirre MD [address] [phone] Complaint Adjuster: Rojas Simpson MD Maternal Screen, EER See Note [facility] Comment on above: Result Comment: (NOT E) Authorized individuals can access the [facility] Enhanced Report using the following link: [email or web address] Performed By: [facility] [address] [place] [id number] Clinical Laboratory Scientist: Rex Moreau MD, PhD CLIA Number: [id number] Performed By: #### A MSFT #### [address] [address] Complaint Adjuster: Isidro Aguirre MD [address] [phone] Complaint Adjuster: Rojas Simpson MD Maternal Weight 191.0 lbs. [facility] Comment on above: Performed By: #### A MSFT #### [address] [address] Complaint Adjuster: Isidro Aguirre MD [facility] [address] [place] [address] Complaint Adjuster: Rojas Simpson MD MoM for HCG 0.70 [facility] Comment on above: Performed By: #### A MSFT #### [address] [address] Complaint Adjuster: Isidro Aguirre MD [facility] [address] [place] [address] Complaint Adjuster: Rojas Simpson MD MoM for NT 1.60 Normal [facility] Comment on above: Performed By: #### A MSFT #### [address] [address] Complaint Adjuster: Isidro Aguirre MD [address] [address] Complaint Adjuster: Rojas Simpson MD MoM for [place], Twin B Not Applicable [facility] Comment on above: Performed By: #### A MSFT #### [address] [address] Complaint Adjuster: Isidro Aguirre MD [address] [address] Complaint Adjuster: Rojas Simpson MD MoM for SHONDA-A 0.82 Normal [facility] Comment on above: Performed By: #### A MSFT #### [address] [address] Complaint Adjuster: Isidro Aguirre MD [facility] [address] [place] [address] Complaint Adjuster: Rojas Simpson MD Nuchal Trans, Twin B Not Applicable [facility] Comment on above: Performed By: #### A MSFT #### [address] [address] Complaint Adjuster: Isidro Aguirre MD [address] [phone] Complaint Adjuster: Rojas Simpson MD Nuchal Translucency 2.30 mm Normal [facility] Comment on above: Performed By: #### A MSFT #### [address] [address] Complaint Adjuster: Isidro Aguirre MD [address] [phone] Complaint Adjuster: Rojas Simpson MD Number of Fetuses Burton Normal [facility] Comment on above: Performed By: #### A MSFT #### [address] [address] Complaint Adjuster: Isidro Aguirre MD [address] [phone] Complaint Adjuster: Rojas Simpson MD SHONDA-A Maternal 479.0 ng/mL [facility] Comment on above: Result Comment: (NOT E) This test was developed and its performance characteristics determined by [facility]. It has not been cleared or approved by the [place] Food and Drug Administration. This test was performed in a CLIA certified laboratory and is intended for clinical purposes. Performed By: #### A MSFT #### [address] [address] Complaint Adjuster: Isidro Aguirre MD [address] [phone] Complaint Adjuster: Rojas Simpson MD Patient's HCG 02439 IU/L Normal [facility] Comment on above: Performed By: #### A MSFT #### [address] [address] Complaint Adjuster: Isidro Aguirre MD [address] [address] Complaint Adjuster: Rojas Simpson MD Smoking Unknown [facility] Comment on above: Performed By: #### A MSFT #### [address] [address] Complaint Adjuster: Isidro Aguirre MD [facility] [address] [place] [address] Complaint Adjuster: Rojas Simpson MD Fur Polisher Cert No [id number] [facility] Comment on above: Performed By: #### A MSFT #### [address] [address] Complaint Adjuster: Isidro Aguirre MD [address] [phone] Complaint Adjuster: Rojas Simpson MD Fur Polisher Name Trisha Saleh [facility] Comment on above: Performed By: #### A MSFT #### [address] [address] Complaint Adjuster: Isidro Aguirre MD [address] [phone] Complaint Adjuster: Rojas Simpson MD Specimen See Note [facility] Comment on above: Result Comment: Init ial sample Performed By: #### A MSFT #### [address] [address] Complaint Adjuster: Isidro Aguirre MD [address] [address] Complaint Adjuster: Rojas Simpson MD Ultrasound Date SEE NOTE [facility] Comment on above: Result Comment: Resu lts for Ultrasound Date: 02 02 23 Performed By: #### A MSFT #### [address] [address] Complaint Adjuster: Isidro Aguirre MD [address] [address] Complaint Adjuster: Rojas Simpson MD Maternal Ser 1st Epes 02-02 [place] Rump Length 57.2 [facility] Comment on above: Performed By: #### A MSFT #### [address] [address] Complaint Adjuster: Isidro Aguirre MD [address] [address] Complaint Adjuster: Rojas Simpson MD Current Smoking INFORMATION NOT PROVIDED [facility] Comment on above: Performed By: #### A MSFT #### [address] [address] Complaint Adjuster: Isidro Aguirre MD [address] [phone] Complaint Adjuster: Rojas Simpson MD Date of Ultrasound [id number] [facility] Comment on above: Performed By: #### A MSFT #### [address] [address] Complaint Adjuster: Isidro Aguirre MD [address] [phone] Complaint Adjuster: Rojas Simpson MD Donor Egg INFORMATION NOT PROVIDED [facility] Comment on above: Performed By: #### A MSFT #### [address] [address] Complaint Adjuster: Isidro Aguirre MD [address] [phone] Complaint Adjuster: Rojas Simpson MD In Vitro Fertalizat INFORMATION NOT PROVIDED [facility] Comment on above: Performed By: #### A MSFT #### [address] [address] Complaint Adjuster: Isidro Aguirre MD [address] [address] Complaint Adjuster: Rojas Simpson MD Maternal date [id number] [facility] Comment on above: Performed By: #### A MSFT #### [address] [address] Complaint Adjuster: Isidro Aguirre MD [facility] [address] [place] [address] Complaint Adjuster: Rojas Simpson MD Maternal Weight 191 [facility] Comment on above: Performed By: #### A MSFT #### [address] [address] Complaint Adjuster: Isidro Aguirre MD [facility] [address] [place] [address] Complaint Adjuster: Rojas Simpson MD Monochorionic Twins INFORMATION NOT PROVIDED [facility] Comment on above: Performed By: #### A MSFT #### [address] [address] Complaint Adjuster: Isidro Aguirre MD [facility] [address] [place] [address] Complaint Adjuster: Rojas Simpson MD Nuchal Transluc (NT) 2.3 [facility] Comment on above: Performed By: #### A MSFT #### [address] [address] Complaint Adjuster: Isidro Aguirre MD [facility] [address] [place] [address] Complaint Adjuster: Rojas Simpson MD Number of fetuses 1 Normal [facility] Comment on above: Performed By: #### A MSFT #### [address] [address] Complaint Adjuster: Isidro Aguirre MD [facility] [address] [place] [address] Complaint Adjuster: Rojas Simpson MD Patient Weight Units LB [facility] Comment on above: Performed By: #### A MSFT #### [address] [address] Complaint Adjuster: Isidro Aguirre MD [facility] [address] [place] [address] Complaint Adjuster: Rojas Simpson MD Prev Trisomy Preg INFORMATION NOT PROVIDED [facility] Comment on above: Performed By: #### A MSFT #### [address] [address] Complaint Adjuster: Isidro Aguirre MD [address] [phone] Complaint Adjuster: Rojas Simpson MD Race (Maternal) WHITE [facility] Comment on above: Performed By: #### A MSFT #### [address] [address] Complaint Adjuster: Isidro Aguirre MD [address] [phone] Complaint Adjuster: MD Shayne Siddiqui MD [facility] [address] [facility] Comment on above: Performed By: #### A MSFT #### [address] [address] Complaint Adjuster: Isidro Aguirre MD [facility] [address] [place] [address] Complaint Adjuster: MD Shayne Siddiqui MD Name RADHAMESBERYL VICTORIA [facility] Comment on above: Performed By: #### A MSFT #### [address] [address] Complaint Adjuster: Isidro Aguirre MD [facility] [address] [place] [address] Complaint Adjuster: Rojas Simpson MD Repeat Specimen INFORMATION NOT PROVIDED [facility] Comment on above: Performed By: #### A MSFT #### [address] [address] Complaint Adjuster: Isirdo Aguirre MD [address] [phone] Complaint Adjuster: Rojas Simpson MD Sonograph Cert Num [id number] [facility] Comment on above: Performed By: #### A MSFT #### [address] [address] Complaint Adjuster: Isidro Aguirre MD [address] [address] Complaint Adjuster: Rojas Simpson MD Fur Polisher Name [facility] Comment on above: Performed By: #### A MSFT #### [address] [address] Complaint Adjuster: Isidro Aguirre MD [address] [phone] Complaint Adjuster: Rojas Simpson MD SARS-CoV-2 (COVID-19) RNA NA A+probe Ql (Resp)on 09-30-2021 SARS-CoV-2 (COVID-19) RNA CRISTIAN+probe Ql (Unsp spec) Negative [employer] Other INSULINon 08-11-2020 Insulin 10.7 uIU/mL Normal 2.6-24.9 [facility] Comment on above: Performed By: #### I NSULIN #### [facility] [address] [place], [place] [address] Maribell Spencer CBC AUTO DIFFon 08-08-2020 BASO # 0.1 103/ul Normal 0.0-0.1 [facility] Comment on above: Performed By: #### C BC #### [facility] [address] [place], [place] [address] Maribell Spencer Basophils/100 WBC (Bld) 1.1 % Normal 0.2-2.0 [facility] Comment on above: Performed By: #### C BC #### [facility] [address] [place] [address] Maribell Johanna EO # 0.2 103/ul Normal 0.0-0.7 [facility] Comment on above: Performed By: #### C BC #### [facility] [address] [place], [place] [address] Maribell Johanna Eosinophils/100 WBC (Bld) 2.5 % Normal 0.9-7.0 [facility] Comment on above: Performed By: #### C BC #### [facility] [address] [place] [address] Maribell Johanna Erythrocyte distribution width (RBC) [Ratio] 13.6 % Normal 11.0-15.0 [facility] Comment on above: Performed By: #### C BC #### [facility] [address] [place] [address] Maribell Johanna Hematocrit (Bld) [Volume fraction] 41.1 % Normal 36.0-48.0 [facility] Comment on above: Performed By: #### C BC #### [facility] [address] [place] [address] Maribell Johanna Hemoglobin (Bld) [Mass/Vol] 13.9 g/dL Normal 12.0-16.0 [facility] Comment on above: Performed By: #### C BC #### [facility] [address] [place] [address] Maribell Johanna IG # 0.02 10e3/ul Normal 0.00-0.03 [facility] Comment on above: Performed By: #### C BC #### [facility] [address] [place] [address] Maribell Johanna IG % 0.3 % Normal 0.0-0.[address] [facility] Comment on above: Performed By: #### C BC #### [facility] [address] [place] [address] Maribell Johanna LYMPH # 2.1 103/ul Normal 1.2-3.[address] [facility] Comment on above: Performed By: #### C BC #### [facility] [address] [place] [address] Maribell Johanna Lymphocytes/100 WBC (Bld) 32.4 % Normal 20.5-60.[address] [facility] Comment on above: Performed By: #### C BC #### [facility] [address] [place] [address] Maribell Johanna MANUAL DIFF REQ NO Normal [facility] Comment on above: Performed By: #### C BC #### [facility] [address] [place], [place] [address] Maribell Johanna MCH (RBC) [Entitic mass] 29.5 pg Normal 26.7-34.[address] [facility] Comment on above: Performed By: #### C BC #### [facility] [address] [place], [place] [address] Maribell Johanna MCHC (RBC) [Mass/Vol] 33.8 g/dL Normal 29.9-35.[address] [facility] Comment on above: Performed By: #### C BC #### [facility] [address] [place], [place] [address] Maribell Johanna MCV (RBC) [Entitic vol] 87.3 fL Normal 81.0-99.[address] [facility] Comment on above: Performed By: #### C BC #### [facility] [address] [place], [place] [address] Maribell Johanna MONO # 0.4 103/ul Normal 0.3-0.[address] [facility] Comment on above: Performed By: #### C BC #### [facility] [address] [place], [place] [address] Maribell Johanna Monocytes/100 WBC (Bld) 6.9 % Normal 1.7-12.[address] [facility] Comment on above: Performed By: #### C BC #### [facility] [address] [place], [place] [address] Maribell Johanna NEUT # 3.6 103/ul Normal 1.4-6.[address] [facility] Comment on above: Performed By: #### C BC #### [facility] [address] [place] [address] Maribell Spencer Neutrophils/100 WBC (Bld) 56.8 % Normal 43.0-75.0 [facility] Comment on above: Performed By: #### C BC #### [facility] [address] [place], [place] [address] Maribell Spencer Platelet mean volume (Bld) [Entitic vol] 9.9 fL Normal 9.5-13.[address] [facility] Comment on above: Performed By: #### C BC #### [facility] [address] [place], [place] [address] Maribell Spencer PLT 180 103/ul Normal 150-[address] [facility] Comment on above: Performed By: #### C BC #### [facility] [address] [place] [address] Maribell Spencer RBC 4.71 106/ul Normal 4.20-5.40 [facility] Comment on above: Performed By: #### C BC #### [facility] [address] [place] [address] Maribell Spencer WBC 6.4 103/ul Normal 4.0-11.0 [facility] Comment on above: Performed By: #### C BC #### [facility] [address] [place], [place] [address] Maribell Spencer FREE THYROXINE INDEX T7on FTI 3.39 Normal [facility] Comment on above: Performed By: #### L IPID, CMP, T7, TSH #### [facility] [address] [place], [place] [address] Maribell Spencer T3U 28.0 % Normal 23.5-40.5 [facility] Comment on above: Performed By: #### L IPID, CMP, T7, TSH #### [facility] [address] [place], [place] [address] Maribell Spencer T4 [Mass/Vol] 12.10 ug/dL Critically high 5.53-11.00 [facility] Comment on above: Performed By: #### L IPID, CMP, T7, TSH #### [facility] [address] [place], [place] [address] Maribell Johanna GLYCOHEMOGLOBIN A1Con 2020 ADA RECOMMENDATION ADA THERAPEUTIC TARGET 6.0 - 7.0 ACTION SUGGESTED > 7.0 Normal [facility] Comment on above: Performed By: #### A 1C #### [facility] [address] [place], [place] [address] Maribell Johanna Glucose [Mass/Vol] 123 mg/dL Normal [facility] Comment on above: Performed By: #### A 1C #### [facility] [address] [place], [place] [address] Maribell Johanna HbA1c (Bld) [Mass fraction] 5.9 % Normal <=6.[address] [facility] Comment on above: Performed By: #### A 1C #### [facility] [address] [place] [address] Maribell Johanna IRONon 08-08-2020 Iron [Mass/Vol] 66.0 ug/dL Normal 37.0-170.0 [facility] Comment on above: Performed By: #### I DUNIA #### [facility] [address] [place], [place] [address] Maribell Johanna LIPID PROFILEon 08-08-2020 CHOL-HDL RATIO NORM SEE BELOW Normal [facility] Comment on above: Result Comment: 3.3 - 4.4 LOW RISK 4.4 - 7.1 AVERAGE RISK 7.1 - 11.0 MODERATE RISK >11.0 HIGH RISK Performed By: #### L IPID, CMP, T7, TSH #### [facility] [address] [place], [place] [address] Maribell Johanna Cholesterol [Mass/Vol] 215 mg/dL Critically high <=[address] [facility] Comment on above: Performed By: #### L IPID, CMP, T7, TSH #### [facility] [address] [place], [place] [address] Maribell Johanna Cholesterol in HDL [Mass/Vol] 37 mg/dL Normal [facility] Comment on above: Performed By: #### L IPID, CMP, T7, TSH #### [facility] [address] [place], [place] [address] Maribell Johanna Cholesterol in LDL [Mass/Vol] 142.4 mg/dL Normal [facility] Comment on above: Performed By: #### L IPID, CMP, T7, TSH #### [facility] [address] [place] [phone] Maribell Johanna Cholesterol.total/C holesterol in HDL [Mass ratio] 5.8 {ratio} Normal [facility] Comment on above: Performed By: #### L IPID, CMP, T7, TSH #### [facility] [address] [place] [phone] Maribell Johanna HDL NORMAL > or = 60 mg/dl - LO W CARDIOVASCULAR RISK <40 mg/dl - HIGH CARDIOVASCULAR RISK Normal [facility] Comment on above: Performed By: #### L IPID, CMP, T7, TSH #### [facility] [address] [place] [address] Maribell Johanna LDL CALC NORMAL SEE BELOW Normal [facility] Comment on above: Result Comment: <100 mg/dl OPTIMAL 100 - 129 mg/dl NEAR OR ABOVE OPTIMAL 130 - 159 mg/dl BORDERLINE HIGH 160 - 189 mg/dl HIGH >190 mg/dl VERY HIGH Performed By: #### L IPID, CMP, T7, TSH #### [facility] [address] [place] [address] Maribell Johanna Triglyceride [Mass/Vol] 178 mg/dL Critically high <=[address] [facility] Comment on above: Performed By: #### L IPID, CMP, T7, TSH #### [facility] [address] [place] [id number] Maribell Johanna VLDL CALC 35.6 mg/dL Normal [facility] Comment on above: Performed By: #### L IPID, CMP, T7, TSH #### [facility] [address] [place] [phone] Maribellkhadijah Spencer PROF 14(COMP METB)on 021 Albumin [Mass/Vol] 3.5 g/dL Normal 3.5-5.0 [facility] Comment on above: Performed By: #### L IPID, CMP, T7, TSH #### [facility] [address] [place] [id number] Maribell Johanna Albumin/Globulin [Mass ratio] 0.8 {ratio} Normal [facility] Comment on above: Performed By: #### L IPID, CMP, T7, TSH #### [facility] [address] [place] [address] Maribell Johanna ALP [Catalytic activity/Vol] 62 U/L Normal 38-126 [facility] Comment on above: Performed By: #### L IPID, CMP, T7, TSH #### [facility] [address] [place] [address] Maribell Johanna ALT [Catalytic activity/Vol] 50 U/L Normal 9-[address] [facility] Comment on above: Performed By: #### L IPID, CMP, T7, TSH #### [facility] [address] [place] [address] Maribell Johanna Anion gap [Moles/Vol] 14.5 mmol/L Normal [facility] Comment on above: Performed By: #### L IPID, CMP, T7, TSH #### [facility] [address] [place] [address] Maribell Johanna AST [Catalytic activity/Vol] 36 U/L Normal 14-36 [facility] Comment on above: Performed By: #### L IPID, CMP, T7, TSH #### [facility] [address] [place] [address] Maribell Johanna Bilirubin [Mass/Vol] 0.5 mg/dL Normal 0.2-1.3 [facility] Comment on above: Performed By: #### L IPID, CMP, T7, TSH #### [facility] [address] [place] [address] Maribell Johanna Calcium [Mass/Vol] 9.0 mg/dL Normal 8.4-10.2 [facility] Comment on above: Performed By: #### L IPID, CMP, T7, TSH #### [facility] [address] [place] [address] Maribell Johanna Chloride [Moles/Vol] 103 mmol/L Normal 98-[address] [facility] Comment on above: Performed By: #### L IPID, CMP, T7, TSH #### [facility] [address] [place], [place] [address] Maribell Johanna CO2 [Moles/Vol] 25.6 mmol/L Normal 22.0-30.[address] [facility] Comment on above: Performed By: #### L IPID, CMP, T7, TSH #### [facility] [address] [place] [address] Maribell Johanna Creatinine [Mass/Vol] 0.80 mg/dL Normal 0.52-1.[address] [facility] Comment on above: Performed By: #### L IPID, CMP, T7, TSH #### [facility] [address] [place] [id number] Maribell Johanna EGFR-AF HONG KONGER >60 Normal >=[address] [facility] Comment on above: Performed By: #### L IPID, CMP, T7, TSH #### [facility] [address] [place] [address] Maribell Johanna EGFR-NON AF [place]ONG KONGER >60 Normal >=[address] [facility] Comment on above: Performed By: #### L IPID, CMP, T7, TSH #### [facility] [address] [place] [id number] Maribell Johanna Globulin (S) [Mass/Vol] 4.6 g/dL Normal [facility] Comment on above: Performed By: #### L IPID, CMP, T7, TSH #### [facility] [address] [place] [id number] Maribell Johanna Glucose [Mass/Vol] 115 mg/dL Critically high 74-106 T [facility] Comment on above: Performed By: #### L IPID, CMP, T7, TSH #### [facility] [address] [place] [id number] Maribell Johanna Potassium [Moles/Vol] 4.1 mmol/L Normal 3.4-5.[address] [facility] Comment on above: Performed By: #### L IPID, CMP, T7, TSH #### [facility] [address] [place] [id number] Maribell Johanna Protein [Mass/Vol] 8.1 g/dL Normal 6.1-8.2 [facility] Comment on above: Performed By: #### L IPID, CMP, T7, TSH #### [facility] [address] [place] [id number] Maribell Johanna Sodium [Moles/Vol] 139 mmol/L Normal 137-145 The [facility] Comment on above: Performed By: #### L IPID, CMP, T7, TSH #### [facility] [address] [place], [place] [id number] Maribell Johanna Urea nitrogen [Mass/Vol] 9.0 mg/dL Normal 7.0-17.0 [facility] Comment on above: Performed By: #### L IPID, CMP, T7, TSH #### [facility] [address] [place] [address] Maribell Johanna Urea nitrogen/Creatinine [Mass ratio] 11.2 mg/mg Normal [facility] Comment on above: Performed By: #### L IPID, CMP, T7, TSH #### [facility] [address] [place] [address] Maribell Johanna TSHon 08-08-2020 TSH 1.632 uIU/mL Normal 0.470-4.680 The [facility] Comment on above: Performed By: #### L IPID, CMP, T7, TSH #### [facility] [address] [place], [place] [id number] Maribell Johanna TSH RANGE SEE BELOW Normal [facility] Comment on above: Result Comment: <0.3 4 UIU/ml HYPERTHYROID 0.34-5.60 UIU/ml EUTHYROID >5.60 UIU/ml HYPOTHYROID Performed By: #### L IPID, CMP, T7, TSH #### [facility] [address] [place] [id number] Maribell Johanna XR CHEST AP/PA AND LATon [...] are identified. IMPRESSION: No acute process identified. [employer] Workstation ID: [id number] Dictated by: ISHMAEL KEYS on [place] Feb 17, 2019 10:05:42 AM EST Transcribed by: LEXII HUTCHINSON on MonFeb 17, 2019 10:06:52 AM EST Finalized by: ISHMAEL KEYS on [place] Feb 17, 2019 10:59:38 AM EST Normal [facility] Comment on above: Order Comment: Injur y/Trauma or Illness?:Illness/Other How long have you had these symptoms (acute/chronic)?:Acute Reason for exam?:cough History of cancer?:no Surgeries, chemotherapy, or radiation?:unk Type of Exam?:Initial Additional signs and symptoms?:Treated for pneumonia around Jhonathan. Started having cough, fever again about 2 days ago. No acute process identified. [employer] Workstation ID: [id number] [facility] EXAMINATION: XR CHES T AP/PA AND LAT 02/17/2019 9:47 AM HISTORY: ORDERING SYSTEM PROVIDED HISTORY: h/o pneumonia/cough/fever , TECHNOLOGIST PROVIDED HISTORY: Illness/Other Reason for exam: cough Cancer History: no Surgery, RadiationHistory: unk Encounter Type: Initial Additional signs and symptoms: Treated for pneumonia around Victor. Started having cough, fever again about 2 days ago. ORDERING SYSTEM PROVIDED DIAGNOSIS CODES: R05 Cough COMPARISON: None. FINDINGS: Cardiomediastinal silhouette is within normal limits. Lungs are clear. No significant pleural or osseous abnormalities are identified. [facility] Interface, Rad In [employer] Speech[employer] - 02/17/2019 11:02 AM EST EXAMINATION: XR CHEST AP/PA AND LAT 02/17/2019 9:47 AM HISTORY: ORDERING SYSTEM PROVIDED HISTORY: h/o pneumonia/cough/fever , TECHNOLOGIST PROVIDED HISTORY: Illness/Other Reason for exam: cough Cancer History: no Surgery, RadiationHistory: unk Encounter Type: Initial Additional signs and symptoms: Treated for pneumonia around Victor. Started having cough, fever again about 2 days ago. ORDERING SYSTEM PROVIDED DIAGNOSIS CODES: R05 Cough COMPARISON: None. FINDINGS: Cardiomediastinal silhouette is within normal limits. Lungs are clear. No significant pleural or osseous abnormalities are identified. IMPRESSION: No acute process identified. MA/trw Workstation ID: [id number] [facility] Chlamydia Detection by NAAGonzalo lanier 05-15-2018 Protein mass conc [facility] Micro[facility] PROCEDURE: Chlamydia Detection by NAAT [...] RESULTS ARE INCONSISTENT WITH CLINICAL FINDINGS Normal [facility] Comment on above: Performed By: #### C [id number] #### [facility] [address] [place], [place] Vital Signs Date Time Vital Sign Value Performing Clinician Faci lity 02-15-2019 13:17-0500 BMI (Body Mass Index) 27.25 kg/m2 [facility] 02-15-2019 13:17-0500 Body Temperature 99.61 [degF] [facility] 02-15-2019 13:17-0500 Body weight 81.28 kg [facility] 02-15-2019 13:17-0500 BP Diastolic 82 mm[Hg] [facility] 02-15-2019 13:17-0500 BP Systolic 131 mm[Hg] [facility] 02-15-2019 13:17-0500 Height 172.7 cm [facility] 02-15-2019 13:17-0500 Pulse (Heart Rate) 89 /min [facility] 02-15-2019 13:17-0500 Pulse Oximetry 96 % [facility] 02-15-2019 13:17-0500 Respiratory Rate 16 /min [facility] Encounters Encounter Date Encounter Type Care Provider Facility Start: 04-13-2023 End: 04-13-2023 ambulatory VIOLETA MAME Not Available Start: 03-14-2023 End: 03-14-2023 ambulatory MEREDITH VASQUEZ Not Available Start: 03-10-2023 Chart abstracting Meredith VINECNT Work Phone: [facility] Start: 02-14-2023 End: 02-14-2023 ambulatory VIOLETA MAME Not Available Start: 02-08-2023 End: 02-09-2023 ambulatory [facility] Start: 02-02-2023 End: 2023 ambulatory RADHAMES C [facility] Start: 01-12-2023 End: 01-12-2023 ambulatory VIOLETA MAME Not Available Start: 09-30-2021 End: 09-30-2021 ambulatory Radha Copeland Other [facility] Other Start: 09-30-2021 Nursing evaluation o f patient and report Radha Copeland [facility] Start: 09-21-2020 End: 09-25-2020 ambulatory GRECIA ARRIAZA [facility] Start: 08-18-2020 Encounter for genera l adult medical examination without abnormal findings DR GRECIA ARRIAZA [facility] Start: 08-08-2020 End: 08-09-[address] GRECIA ARRIAZA Facility:[facility] Start: 08-08-2020 End: 08-09-2020 Encounter for general adult medical examination without abnormal findings DR GRECIA ARRIAZA Facility:[facility] Start: 02-17-2019 End: 02-18-2019 Patient encounter procedure REMBERTO COELHO [facility] Start: 02-17-2019 End: 02-17-2019 Subsequent hospital visit by physician Remberto Coelho Work Phone: [facility] Comment on above: Arrived Start: 02-15-2019 End: 02-15-2019 Patient encounter procedure SUMMER STEEN [facility] Start: 02-15-2019 End: 02-15-2019 Office outpatient visit 15 minutes Summer Steen Work Phone: [facility] Comment on above: Bronchitis (Primary Dx) Start: 05-16-2018 End: 05-16-2018 Patient encounter procedure GARY ZAMORA Facility:[facility] Procedures Date Procedure Procedure Detail Performing [...] DERM [address] [place] [id number] Meron Muniz MD [address] [place] [address] [facility] Start: 03-14-2023 End: 03-14-2023 Patient encounter procedure 03/14/2023 8:30 AM EST Routine [facility] [address] [place] [id number] Meredith Vasquez PA [address] [place] [address] Second trimester [facility] Comment on above: Second trimester pre gnancy Start: 04-20-2021 Screening for malign ant neoplasm of cervix PAP SMEAR [facility] Start: 04-21-2019 Screening for Chlamy luis fernando trachomatis Chlamydia Screening [facility] Start: 03-24-2019 Screening for malign ant neoplasm of cervix PAP SMEAR [facility] Start: 10-07-2018 Influenza vaccination given SE QUENTIAL INFLUENZA VACCINE (#1) [facility] Start: 2006 Vaccination for sharri n papillomavirus HPV VACCINES (1 - Female 2-dose series) [facility] Start: 1998 History and physical examination, annual for health maintenance Wellness Visit [facility] Start: 1995 Screening for Chlamy luis fernando trachomatis Chlamydia Screening [facility] Start: 1995 Tetanus vaccination TETANUS EVERY 10 YR [facility] Payers Date Payer Category Payer Unknown BCBS BCBS xxxxxx [id number] 2022-Present [phone] [address] [place] [address] [id number] 2022 Unknown [id number] 2018 Unknown ANTHEM ANTHEM BLUE/PREF/HMO/PPO xxxxxxxxxxxx 2018-Present xxxxxxxxxxxx [id number] 1995 Unknown [id number] 1995 Unknown [id number] [id number] 1995 Unknown [id number] [id number] 1995 Unknown [id number] 1995 Unknown [id number] [id number] 1995 Unknown [id number] [id number] 9 1995 Unknown [id number] [id number] 9 1995 Unknown [id number] [id number] 9 1995 Unknown [id number] [id number] 9 1995 Unknown [id number] [id number] 1995 Unknown [id number] 1959 Unknown [id number] Social History Date Type Detail Facility Start: 02-15-2019 End: 01-19-2023 Tobacco smoking status NHIS Never smoker [facility] Sex Assigned At Not on file Malaika luz Start: 01-19-2023 Sex Assigned At [facility] Other Start: 03-10-2023 Alcohol intake Current drinker [...] Exposure to COVID-19 virus (ICD-10 - Z20.822) [facility] Other Summary Purpose Family History No Family History Records FoundNo Family History Records FoundNo Family History Records FoundNo Family History Records FoundNo Family History Records FoundNo Family History Records Found Advance Directives No Advanced Directives Records FoundDocuments on File Type Date Recorded Patient Marketing 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 Get some extra rest. Take an bdps-fal-cpoirke pain medicine, such as acetaminophen (Tylenol), ibuprofen (Advil, Motrin),or naproxen (Aleve) to reduce fever and relieve body aches. Read and follow all instructions on thelabel. Do not take two or more pain medicines at the same time unless the doctor told you to. Many pain medicines have acetaminophen, which is Tylenol. Too much acetaminophen (Tylenol) can be harmful. Take an kqwz-flg-bktxosr cough medicine that contains dextromethorphan to help [...] Log into your personal health record on [email or web address]://[employer]t.[facility] and enter H333 in the Education box to learn more about Bronchitis: Care Instructions. Current as of: July 15, 2018 Content Version: 12.3 [employer]. Care instructions adapted under license by your healthcare professional. If you have questions about a medical condition or this instruction, always ask your healthcare professional. [employer] disclaims any warranty or liability for your use of this information. documented in this encounter History of Present Illness * Summer Steen DO - 02/15/2019 1:22 PM EST PATIENT NAME: Meron Darling [facility] [address] [facility] [address] : 1995 DATE OF VISIT: 02/15/2019 SS#: [...] is concerned she is got pneumonia again. [place] warm butno objective fevers. Took Tylenol prior [...] file Gets together: Not on file Attends mormonism service: Not on file Active member of [...] section and content) DATE CREATED AUTHOR 05/17/2018 [facility] DATE CREATED AUTHOR AUTHOR'S PAXTONIZ ATION 02/17/2019 [facility] DATE CREATED AUTHOR AUTHOR'S ORGANIZ ATION 08/19/2020 [facility] DATE CREATED AUTHOR AUTHOR'S ORGANIZ ATION 10/04/2020 [facility] DATE CREATED AUTHOR AUTHOR'S ORGANIZ ATION 04/14/2023 [facility] DATE CREATED AUTHOR AUTHOR'S ORGANIZ ATION 04/17/2023 [facility] Reason for Visit (unrecogniz ed section and content) Reason Comments Shortness of Breath Started againthis gregory rning. Pt was treated for pneumonia around 01/30/2019 and finished tx however today she feelslike it is coming back Care Teams (unrecognized sec tion and content) Clinical Pharmacy Specialist Relationship Specialty Start Date End Date Grecia Arriaza MD [address] [place] [address] PCP - General Family Medicine 01/12/23 FOR [...] BE BASED ON THE PRIMARY CLINICAL RECORDS. [employer] provides no warranty or guarantee of the accuracy or completeness of information in this document.
[2023-05-06 07:59] LABS: Glucose Fasting 86 mg/dL (<95)
[2023-05-06 10:57] LABS: Glucose 1 Hour 183 mg/dL (<180)
[2023-05-06 10:58] LABS: Glucose 2 Hour 121 mg/dL (<155)
[2023-05-06 11:04] LABS: Glucose 3 Hour 67 mg/dL (<140)
== END 2023-05-06 07:29 | disposition home or self-care (01) ==
LOC: LAB 07:29
PROVIDERS: PCP Family Medicine; Visit Provider Obstetrics & Gynecology
DX: R73.09 Other abnormal glucose (principal)
CPT/HCPCS: 36415; 82951; 82952

== ENCOUNTER 2023-05-26 07:32 | Outpatient (RCR) | payer BC, SELFPAY ==
[2023-05-26 08:00] VITALS: BP 122/74; PULSE 83; TEMP 36.6; O2SAT 98
[2023-05-26] MEDS: RHO(D) IMMUNE GLOBULIN 1,500 UNIT SYRINGE 1500 UNIT IM (08:23)
--- NOTE | 2023-05-26 08:28 | PC.NURSE ---
Patient is here for Rhogam, she had her blood work yesterday, Vitals obtained and stable. I provided education about Rhogam and all questions were answered, she tolerated injection well. Patient was observed after and states she felt good, she was discharged home ambulatory.
== END 2023-06-06 23:59 | disposition home or self-care (01) ==
LOC: INF 07:32
PROVIDERS: PCP Family Medicine; Visit Provider Obstetrics & Gynecology
DX: O26.893 Other specified pregnancy related conditions, third trimester (principal); Z67.91 Unspecified blood type, Rh negative; Z3A.00 Weeks of gestation of pregnancy not specified
CPT/HCPCS: 36415; 86850; 86900; 86901; 96372; J2790

== ENCOUNTER 2023-07-18 19:17 | Outpatient (REF) | payer BC, SELFPAY ==
--- OUTSIDE RECORDS SUMMARY | 2023-07-18 19:21 | XMS_ITS | CCD ---
Author Organization [facility] Inform ion Partnership [facility] Care Team Providers Care Entry Level Project Coordinator Name Role Phone GARY ZAMORA Attending Unavailabl e Physician, PCP Unknown Primary Care Unavailab Grecia Abdullahi Primary Care Provider [phone] [address]EN Attending Unavailable GRECIA ARRIAZA Primary Care Unavailable GRECIA ARRIAZA Primary Care Unavailable REMBERTO COELHO Attending Unavailabl REMBERTO Stauffer Attending UnavailREMBERTO Reinoso Referring UnavailGRECIA Goodson Primary Care Unavailable DR GRECIA ARRIAZA Attending Unavailable LOPEZ, DR PAIGE Consulting Unavailable DR GRECIA ARRIAZA Primary Care Unavailable DR GRECIA ARRIAZA Admitting Unavailable GRECIA ARRIAZA Primary Care Unavailable VALENTINA JOHNS Attending Un available Radha Copeland Unavailable Grecia Arriaza MD Primary Care Provider NONE, NONE Primary Care Unavailable PERNI, RADHAMES C Referring Unavailable PERNI, RADHAMES C Referring Unavailable NONE, NONE Primary Care Unavailable VIOLETA VILCHIS Attending Unavailable MEREDITH VASQUEZ Attending Unavailable MAMEVIOLETA SKY Attending Unavailable MEREDITH VASQUEZ Attending Unavailable MAMEVIOLETA Attending Unavailable MEREDITH VASQUEZ Attending Unavailable MAMEGALAY Attending Unavailable MAMEGALAY Attending Unavailable MAMEVIOLETA SKY Attending Unavailable Allergies Allergy Classification Reported Allergen(s) Allergy Type Date of Onset Reaction(s) Facility diphenhydrAMINE (1 source) diphenhydrAMINE Drug Allergy 4 [facility] (5 sources) diphenhydrAMINE; Translations: [Unknown] Drug Allergy 0 Other (See Comments) [facility] (1 source) Sulfonamides (Antibiotic) Drug Allergy [...] oral solution (1 source) alpha-Adrenergic Agonist, Uncompetitive D-yebrln-F-aspartat e Receptor Antagonist, Sigma-1 Agonist Start: 02-17-2019 [...] Classification Problem Date Documented Da te Episodic/Chronic Other complications of (2 sources) Supervision of [...] of other disease] Onset: 02-08-2023 Episodic Unclassified (1 source) Exposure to COVID-19 virus Z20.822 Onset: 09-30-2021 Resolved: 09-30-2021 Results Test Name Value Interpretation Reference Range [facility] Send Out Report FOR[facility] TO [facility] Comment on above: Result Comment: [phone] Performed By: #### C MIS #### [facility] [address] [place], [place] [address] Registered Clinical Dietitian: MD [facility] 02-08-2023 Test Name [facility] Comment on above: Performed By: #### C MIS #### [facility] [address] [place], [place] [id number] Registered Clinical Dietitian: Isidro Aguirre MD Maternal Ser 1st [place] 02-03 Cr Rump Lngt, Twin B Not Applicable Normal [facility] Comment on above: Performed By: #### A MSFT #### [address] [address] Registered Clinical Dietitian: Isidro Aguirre MD [address] [address] Registered Clinical Dietitian: Rojas Simpson MD [place] Rump Length 57.2 mm Normal [facility] Comment on above: Performed By: #### A MSFT #### [address] [address] Registered Clinical Dietitian: Isidro Aguirre MD [address] [phone] Registered Clinical Dietitian: Rojas Simpson MD Gestat Age (exact) 12 wks, 1 days [address] [facility] Comment on above: Performed By: #### A MSFT #### [address] [address] Registered Clinical Dietitian: Isidro Aguirre MD [address] [phone] Registered Clinical Dietitian: Rojas Simpson MD Hx Aneuploidy Unknown [facility] Comment on above: Performed By: #### A MSFT #### [address] [address] Registered Clinical Dietitian: Isidro Aguirre MD [address] [address] Registered Clinical Dietitian: Rojas Simpson MD Interpretation Screen Neg Normal [facility] Comment on above: Result Comment: (NOT [...] developed and its performance characteristics determined by [employer]. It has not been cleared or approved by the [place] Food and Drug Administration. This test was performed in a CLIA certified laboratory and is intended for clinical purposes. Performed By: #### A MSFT #### [address] [address] Registered Clinical Dietitian: Isidro Aguirre MD [address] [address] Registered Clinical Dietitian: Rojas Simpson MD [age] [facility] Comment on above: Performed By: #### A MSFT #### [address] [address] Registered Clinical Dietitian: Isidro Aguirre MD [address] [address] Registered Clinical Dietitian: Rojas Simpson MD Maternal Race Nonblack [facility] Comment on above: Performed By: #### A MSFT #### [address] [address] Registered Clinical Dietitian: Isidro Aguirre MD [address] [address] Registered Clinical Dietitian: Rojas Simpson MD Maternal Screen, EER See Note [facility] Comment on above: Result Comment: (NOT E) Authorized individuals can access the [facility] Enhanced Report using the following link: [email or web address] Performed By: [employer] [address] [place] [address] Light Bulb Tester: Rex Moreau MD, PhD CLIA Number: [id number] Performed By: #### A MSFT #### [address] [address] Registered Clinical Dietitian: Isidro Aguirre MD [address] [address] Registered Clinical Dietitian: Rojas Simpson MD Maternal Weight 191.0 lbs. [facility] Comment on above: Performed By: #### A MSFT #### [address] [address] Registered Clinical Dietitian: Isidro Aguirre MD [facility] [address] [place] [address] Registered Clinical Dietitian: Rojas Simpson MD MoM for HCG 0.70 [facility] Comment on above: Performed By: #### A MSFT #### [address] [address] Registered Clinical Dietitian: Isidro Aguirre MD [address] [phone] Registered Clinical Dietitian: Rojas Simpson MD MoM for NT 1.60 [facility] Comment on above: Performed By: #### A MSFT #### [address] [address] Registered Clinical Dietitian: Isidro Aguirre MD [address] [phone] Registered Clinical Dietitian: Rojas Simpson MD MoM for [place], Twin B Not Applicable Normal [facility] Comment on above: Performed By: #### A MSFT #### [address] [address] Registered Clinical Dietitian: Isidro Aguirre MD [facility] [address] [place] [address] Registered Clinical Dietitian: Rojas Simpson MD MoM for SHONDA-A 0.82 [facility] Comment on above: Performed By: #### A MSFT #### [address] [address] Registered Clinical Dietitian: Isidro Aguirre MD [facility] [address] [place] [address] Registered Clinical Dietitian: Rojas Simpson MD Nuchal Trans, Twin B Not Applicable [facility] Comment on above: Performed By: #### A MSFT #### [address] [address] Registered Clinical Dietitian: Isidro Aguirre MD [address] [phone] Registered Clinical Dietitian: Rojas Simpson MD Nuchal Translucency 2.30 mm [facility] Comment on above: Performed By: #### A MSFT #### [address] [address] Registered Clinical Dietitian: Isidro Aguirre MD [address] [phone] Registered Clinical Dietitian: Rojas Simpson MD Number of Fetuses [place] Normal [facility] Comment on above: Performed By: #### A MSFT #### [address] [address] Registered Clinical Dietitian: Isidro Aguirre MD [address] [phone] Registered Clinical Dietitian: Rojas Simpson MD SHONDA-A Maternal 479.0 ng/mL [facility] Comment on above: Result Comment: (NOT E) This test was developed and its performance characteristics determined by [employer]. It has not been cleared or approved by the [place] Food and Drug Administration. This test was performed in a CLIA certified laboratory and is intended for clinical purposes. Performed By: #### A MSFT #### [address] [address] Registered Clinical Dietitian: Isidro Aguirre MD [address] [phone] Registered Clinical Dietitian: Rojas Simpson MD Patient's HCG [address] IU/L [facility] Comment on above: Performed By: #### A MSFT #### [address] [address] Registered Clinical Dietitian: Isidro Aguirre MD [address] [phone] Registered Clinical Dietitian: Rojas Simpson MD Smoking [facility] Comment on above: Performed By: #### A MSFT #### [address] [address] Registered Clinical Dietitian: Isidro Aguirre MD [address] [address] Registered Clinical Dietitian: Rojas Simpson MD Credit Risk Associate Cert No [id number] [facility] Comment on above: Performed By: #### A MSFT #### [address] [address] Registered Clinical Dietitian: Isidro Aguirre MD [address] [phone] Registered Clinical Dietitian: Rojas Simpson MD Credit Risk Associate Name Trisha Saleh [facility] Comment on above: Performed By: #### A MSFT #### [address] [address] Registered Clinical Dietitian: Isidro Aguirre MD [address] [phone] Registered Clinical Dietitian: Rojas Simpson MD Specimen See Note [facility] Comment on above: Result Comment: Init ial sample Performed By: #### A MSFT #### [address] [address] Registered Clinical Dietitian: Isidro Aguirre MD [address] [address] Registered Clinical Dietitian: Rojas Simpson MD Ultrasound Date SEE NOTE [facility] Comment on above: Result Comment: Resu lts for Ultrasound Date: 02 02 23 Performed By: #### A MSFT #### [address] [address] Registered Clinical Dietitian: Isidro Aguirre MD [address] [phone] Registered Clinical Dietitian: Rojas Simpson MD Maternal Ser 1st [place] 02-02 [place] Rump Length 57.2 Normal [facility] Comment on above: Performed By: #### A MSFT #### [address] [address] Registered Clinical Dietitian: Isidro Aguirre MD [address] [phone] Registered Clinical Dietitian: Rojas Simpson MD Current Smoking INFORMATION NOT PROVIDED [facility] Comment on above: Performed By: #### A MSFT #### [address] [address] Registered Clinical Dietitian: Isidro Aguirre MD [address] [phone] Registered Clinical Dietitian: Rojas Simpson MD Date of Ultrasound [phone] [facility] Comment on above: Performed By: #### A MSFT #### [address] [address] Registered Clinical Dietitian: Isidro Aguirre MD [address] [phone] Registered Clinical Dietitian: Rojas Simpson MD Donor Egg INFORMATION NOT PROVIDED [facility] Comment on above: Performed By: #### A MSFT #### [address] [address] Registered Clinical Dietitian: Isidro Aguirre MD [address] [address] Registered Clinical Dietitian: Rojas Simpson MD In Vitro Fertalizat INFORMATION NOT PROVIDED [facility] Comment on above: Performed By: #### A MSFT #### [address] [address] Registered Clinical Dietitian: Isidro Aguirre MD [facility] [address] [place] [address] Registered Clinical Dietitian: Rojas Simpson MD Maternal date [phone] [facility] Comment on above: Performed By: #### A MSFT #### [address] [address] Registered Clinical Dietitian: Isidro Aguirre MD [address] [address] Registered Clinical Dietitian: Rojas Simpson MD Maternal Weight 191 [facility] Comment on above: Performed By: #### A MSFT #### [address] [address] Registered Clinical Dietitian: Isidro Aguirre MD [address] [address] Registered Clinical Dietitian: Rojas Simpson MD Monochorionic Twins INFORMATION NOT PROVIDED [facility] Comment on above: Performed By: #### A MSFT #### [address] [address] Registered Clinical Dietitian: Isidro Aguirre MD [address] [address] Registered Clinical Dietitian: Rojas Simpson MD Nuchal Transluc (NT) 2.3 [facility] Comment on above: Performed By: #### A MSFT #### [address] [address] Registered Clinical Dietitian: Isidro Aguirre MD [facility] [address] [place] [address] Registered Clinical Dietitian: Rojas Simpson MD Number of fetuses 1 Normal [facility] Comment on above: Performed By: #### A MSFT #### [address] [address] Registered Clinical Dietitian: Isidro Aguirre MD [address] [address] Registered Clinical Dietitian: Rojas Simpson MD Patient Weight Units LB [facility] Comment on above: Performed By: #### A MSFT #### [address] [address] Registered Clinical Dietitian: Isidro Aguirre MD [facility] [address] [place] [address] Registered Clinical Dietitian: Rojas Simpson MD Prev Trisomy Preg INFORMATION NOT PROVIDED [facility] Comment on above: Performed By: #### A MSFT #### [address] [address] Registered Clinical Dietitian: Isidro Aguirre MD [address] [address] Registered Clinical Dietitian: Rojas Simpson MD Race (Maternal) WHITE [facility] Comment on above: Performed By: #### A MSFT #### [address] [address] Registered Clinical Dietitian: Isidro Aguirre MD [address] [address] Registered Clinical Dietitian: MD Shayne Siddiqui MD [facility] [address] [facility] Comment on above: Performed By: #### A MSFT #### [address] [address] Registered Clinical Dietitian: Isidro Aguirre MD [facility] [address] [place] [address] Registered Clinical Dietitian: MD Shayne Siddiqui MD Name RADHAMES VICTORIA [facility] Comment on above: Performed By: #### A MSFT #### [address] [address] Registered Clinical Dietitian: Isidro Aguirre MD [facility] [address] [place] [address] Registered Clinical Dietitian: Rojas Simpson MD Repeat Specimen INFORMATION NOT PROVIDED [facility] Comment on above: Performed By: #### A MSFT #### [address] [address] Registered Clinical Dietitian: Isidro Aguirre MD [address] [address] Registered Clinical Dietitian: Rojas Simpson MD Sonograph Cert Num [id number] [facility] Comment on above: Performed By: #### A MSFT #### [address] [address] Registered Clinical Dietitian: Isidro Aguirre MD [address] [address] Registered Clinical Dietitian: Rojas Simpson MD Credit Risk Associate Name [facility] Comment on above: Performed By: #### A MSFT #### [address] [address] Registered Clinical Dietitian: Isidro Aguirre MD [address] [address] Registered Clinical Dietitian: Rojas Simpson MD SARS-CoV-2 (COVID-19) RNA NA A+probe Ql (Resp)on 09-30-2021 SARS-CoV-2 (COVID-19) RNA CRISTIAN+probe Ql (Unsp spec) Negative [facility] Other INSULINon 08-11-2020 Insulin 10.7 uIU/mL Normal 2.6-24.9 [facility] Comment on above: Performed By: #### I NSULIN #### [facility] [address] [address] Maribell Spencer CBC AUTO DIFFon 08-08-2020 BASO # 0.1 103/ul Normal 0.0-0.1 [facility] Comment on above: Performed By: #### C BC #### [facility] [address] [phone] Maribell Johanna Basophils/100 WBC (Bld) 1.1 % Normal 0.2-2.0 [facility] Comment on above: Performed By: #### C BC #### [facility] [address] [place] [address] Maribell Johanna EO # 0.2 103/ul Normal 0.0-0.7 [facility] Comment on above: Performed By: #### C BC #### [facility] [address] [place] [address] Maribell Johanna Eosinophils/100 WBC (Bld) 2.5 % Normal 0.9-7.0 [facility] Comment on above: Performed By: #### C BC #### [facility] [address] [place] [address] Maribell Johanna Erythrocyte distribution width (RBC) [Ratio] 13.6 % Normal 11.0-15.0 [facility] Comment on above: Performed By: #### C BC #### [facility] [address] [place] [address] Maribell Johanna Hematocrit (Bld) [Volume fraction] 41.1 % Normal 36.0-48.0 [facility] Comment on above: Performed By: #### C BC #### [facility] [address] [place], [place] [phone] Maribell Johanna Hemoglobin (Bld) [Mass/Vol] 13.9 g/dL Normal 12.0-16.0 [facility] Comment on above: Performed By: #### C BC #### [facility] [address] [place] [address] Maribell Johanna IG # 0.02 10e3/ul Normal 0.00-0.03 [facility] Comment on above: Performed By: #### C BC #### [facility] [address] [place] [address] Maribell Johanna IG % 0.3 % Normal 0.0-0.5 [facility] Comment on above: Performed By: #### C BC #### [facility] [address] [place], [place] [phone] Maribell Johanna LYMPH # 2.1 103/ul Normal 1.2-3.8 [facility] Comment on above: Performed By: #### C BC #### [facility] [address] [place], [place] [phone] Maribell Johanna Lymphocytes/100 WBC (Bld) 32.4 % Normal 20.5-60.0 [facility] Comment on above: Performed By: #### C BC #### [facility] [address] [place], [place] [phone] Maribell Johanna MANUAL DIFF REQ NO Normal [facility] Comment on above: Performed By: #### C BC #### [facility] [address] [place], [place] [phone] Maribell Johanna MCH (RBC) [Entitic mass] 29.5 pg Normal 26.7-34.0 [facility] Comment on above: Performed By: #### C BC #### [facility] [address] [place] [address] Maribell Johanna MCHC (RBC) [Mass/Vol] 33.8 g/dL Normal 29.9-35.2 [facility] Comment on above: Performed By: #### C BC #### [facility] [address] [place] [address] Maribell Johanna MCV (RBC) [Entitic vol] 87.3 fL Normal 81.0-99.0 [facility] Comment on above: Performed By: #### C BC #### [facility] [address] [place] [address] Maribell Johanna MONO # 0.4 103/ul Normal 0.3-0.8 [facility] Comment on above: Performed By: #### C BC #### [facility] [address] [place] [address] Maribell Johanna Monocytes/100 WBC (Bld) 6.9 % Normal 1.7-12.0 [facility] Comment on above: Performed By: #### C BC #### [facility] [address] [place] [address] Maribell Johanna NEUT # 3.6 103/ul Normal 1.4-6.5 [facility] Comment on above: Performed By: #### C BC #### [facility] [address] [place], [place] [phone] Maribell Spencer Neutrophils/100 WBC (Bld) 56.8 % Normal 43.0-75.0 [facility] Comment on above: Performed By: #### C BC #### [facility] [address] [place], [place] [phone] Maribell Spencer Platelet mean volume (Bld) [Entitic vol] 9.9 fL Normal 9.5-13.5 [facility] Comment on above: Performed By: #### C BC #### [facility] [address] [place], [place] [address] Maribell Spencer PLT 180 103/ul Normal 150-450 [facility] Comment on above: Performed By: #### C BC #### [facility] [address] [place] [address] Maribell Spencer RBC 4.71 106/ul Normal 4.20-5.40 [facility] Comment on above: Performed By: #### C BC #### [facility] [address] [place], [place] [phone] Maribell Spencer WBC 6.4 103/ul Normal 4.0-11.0 [facility] Comment on above: Performed By: #### C BC #### [facility] [address] [place], [place] [address] Maribell Spencer FREE THYROXINE INDEX T7on FTI 3.39 Normal [facility] Comment on above: Performed By: #### L IPID, CMP, T7, TSH #### [facility] [address] [place], [place] [address] Maribell Spencer T3U 28.0 % Normal 23.5-40.5 [facility] Comment on above: Performed By: #### L IPID, CMP, T7, TSH #### [facility] [address] [place], [place] [address] Maribellkhadijah Spencer T4 [Mass/Vol] 12.10 ug/dL Critically high 5.53-11.00 [facility] Comment on above: Performed By: #### L IPID, CMP, T7, TSH #### [facility] [address] [phone] Maribell Spencer GLYCOHEMOGLOBIN A1Con 2020 ADA RECOMMENDATION ADA THERAPEUTIC TARGET 6.0 - 7.0 ACTION SUGGESTED > 7.[address] [facility] Comment on above: Performed By: #### A 1C #### [facility] [address] [phone] Maribell Johanna Glucose [Mass/Vol] 123 mg/dL Normal [facility] Comment on above: Performed By: #### A 1C #### [facility] [address] [place], [place] [phone] Maribell Johanna HbA1c (Bld) [Mass fraction] 5.9 % Normal <=6.0 [facility] Comment on above: Performed By: #### A 1C #### [facility] [address] [place], [place] [address] Maribell Spencer IRONon 08-08-2020 Iron [Mass/Vol] 66.0 ug/dL Normal 37.0-170.0 [facility] Comment on above: Performed By: #### I DUNIA #### [facility] [address] [place], [place] [address] Maribell Spencer LIPID PROFILEon 08-08-2020 CHOL-HDL RATIO NORM SEE BELOW Normal [facility] Comment on above: Result Comment: 3.3 - 4.4 LOW RISK 4.4 - 7.1 AVERAGE RISK 7.1 - 11.0 MODERATE RISK >11.0 HIGH RISK Performed By: #### L IPID, CMP, T7, TSH #### [facility] [address] [place], [place] [phone] Maribell Johanna Cholesterol [Mass/Vol] 215 mg/dL Critically high <=200 [facility] Comment on above: Performed By: #### L IPID, CMP, T7, TSH #### [facility] [address] [place], [place] [address] Maribell Johanna Cholesterol in HDL [Mass/Vol] 37 mg/dL Normal [facility] Comment on above: Performed By: #### L IPID, CMP, T7, TSH #### [facility] [address] [place], [place] [address] Maribell Johanna Cholesterol in LDL [Mass/Vol] 142.4 mg/dL Normal [facility] Comment on above: Performed By: #### L IPID, CMP, T7, TSH #### [facility] [address] [place], [place] [address] Maribell Johanna Cholesterol.total/C holesterol in HDL [Mass ratio] 5.8 {ratio} Normal [facility] Comment on above: Performed By: #### L IPID, CMP, T7, TSH #### [facility] [address] [place], [place] [address] Maribell Johanna HDL NORMAL > or = 60 mg/dl - LO W CARDIOVASCULAR RISK <40 mg/dl - HIGH CARDIOVASCULAR RISK Normal [facility] Comment on above: Performed By: #### L IPID, CMP, T7, TSH #### [facility] [address] [phone] Maribell Johanna LDL CALC NORMAL SEE BELOW Normal [facility] Comment on above: Result Comment: <100 mg/dl OPTIMAL 100 - 129 mg/dl NEAR OR ABOVE OPTIMAL 130 - 159 mg/dl BORDERLINE HIGH 160 - 189 mg/dl HIGH >190 mg/dl VERY HIGH Performed By: #### L IPID, CMP, T7, TSH #### [facility] [address] [place], [place] [address] Maribell Johanna Triglyceride [Mass/Vol] 178 mg/dL Critically high <=150 [facility] Comment on above: Performed By: #### L IPID, CMP, T7, TSH #### [facility] [address] [place], [place] [address] Maribell Johanna VLDL CALC 35.6 mg/dL Normal [facility] Comment on above: Performed By: #### L IPID, CMP, T7, TSH #### [facility] [address] [place], [place] [address] Maribell Johanna PROF 14(COMP METB)on 021 Albumin [Mass/Vol] 3.5 g/dL Normal 3.5-5.0 [facility] Comment on above: Performed By: #### L IPID, CMP, T7, TSH #### [facility] [address] [address] Maribell Johanna Albumin/Globulin [Mass ratio] 0.8 {ratio} Normal [facility] Comment on above: Performed By: #### L IPID, CMP, T7, TSH #### [facility] [address] [address] Maribell Johanna ALP [Catalytic activity/Vol] 62 U/L Normal 38-126 [facility] Comment on above: Performed By: #### L IPID, CMP, T7, TSH #### [facility] [address] [place] [address] Maribell Johanna ALT [Catalytic activity/Vol] 50 U/L Normal 9-52 [facility] Comment on above: Performed By: #### L IPID, CMP, T7, TSH #### [facility] [address] [place] [address] Maribell Johanna Anion gap [Moles/Vol] 14.5 mmol/L Normal [facility] Comment on above: Performed By: #### L IPID, CMP, T7, TSH #### [facility] [address] [place] [address] Maribell Johanna AST [Catalytic activity/Vol] 36 U/L Normal 14-36 [facility] Comment on above: Performed By: #### L IPID, CMP, T7, TSH #### [facility] [address] [place] [address] Maribell Johanna Bilirubin [Mass/Vol] 0.5 mg/dL Normal 0.2-1.3 [facility] Comment on above: Performed By: #### L IPID, CMP, T7, TSH #### [facility] [address] [place] [address] Maribell Johanna Calcium [Mass/Vol] 9.0 mg/dL Normal 8.4-10.2 [facility] Comment on above: Performed By: #### L IPID, CMP, T7, TSH #### [facility] [address] [place] [address] Maribell Johanna Chloride [Moles/Vol] 103 mmol/L Normal 98-107 [facility] Comment on above: Performed By: #### L IPID, CMP, T7, TSH #### [facility] [address] [address] Maribell Johanna CO2 [Moles/Vol] 25.6 mmol/L Normal 22.0-30.0 [facility] Comment on above: Performed By: #### L IPID, CMP, T7, TSH #### [facility] [address] [address] Maribell Johanna Creatinine [Mass/Vol] 0.80 mg/dL Normal 0.52-1.04 [facility] Comment on above: Performed By: #### L IPID, CMP, T7, TSH #### [facility] [address] [place] [address] Maribell Johanna EGFR-AF CITIZEN OF [place] >60 Normal >=60 [facility] Comment on above: Performed By: #### L IPID, CMP, T7, TSH #### [facility] [address] [place] [address] Maribell Johanna EGFR-NON AF CITIZEN OF [place] >60 Normal >=60 [facility] Comment on above: Performed By: #### L IPID, CMP, T7, TSH #### [facility] [address] [place] [address] Maribell Johanna Globulin (S) [Mass/Vol] 4.6 g/dL Normal [facility] Comment on above: Performed By: #### L IPID, CMP, T7, TSH #### [facility] [address] [address] Maribell Johanna Glucose [Mass/Vol] 115 mg/dL Critically high 74-106 T [facility] Comment on above: Performed By: #### L IPID, CMP, T7, TSH #### [facility] [address] [address] Maribell Johanna Potassium [Moles/Vol] 4.1 mmol/L Normal 3.4-5.0 [facility] Comment on above: Performed By: #### L IPID, CMP, T7, TSH #### [facility] [address] [place] [address] Maribell Johanna Protein [Mass/Vol] 8.1 g/dL Normal 6.1-8.2 [facility] Comment on above: Performed By: #### L IPID, CMP, T7, TSH #### [facility] [address] [place] [address] Maribell Johanna Sodium [Moles/Vol] 139 mmol/L Normal 137-145 [facility] Comment on above: Performed By: #### L IPID, CMP, T7, TSH #### [facility] [address] [place] [address] Maribell Johanna Urea nitrogen [Mass/Vol] 9.0 mg/dL Normal 7.0-17.0 [facility] Comment on above: Performed By: #### L IPID, CMP, T7, TSH #### [facility] [address] [place] [address] Maribell Johanna Urea nitrogen/Creatinine [Mass ratio] 11.2 mg/mg Normal [facility] Comment on above: Performed By: #### L IPID, CMP, T7, TSH #### [facility] [address] [place] [address] Maribell Johanna TSHon 08-08-2020 TSH 1.632 uIU/mL Normal 0.470-4.680 [facility] Comment on above: Performed By: #### L IPID, CMP, T7, TSH #### [facility] [address] [place], [place] [id number] Maribell Johanna TSH RANGE SEE BELOW Normal [facility] Comment on above: Result Comment: <0.3 4 UIU/ml HYPERTHYROID 0.34-5.60 UIU/ml EUTHYROID >5.60 UIU/ml HYPOTHYROID Performed By: #### L IPID, CMP, T7, TSH #### [facility] [address] [place], [place] [id number] Maribell Johanna XR CHEST AP/PA AND LATon XR CHEST AP/PA AND LAT EXAMINATION: XR CHEST AP/PA AND LAT 02/17/2019 9:47 AM HISTORY: ORDERING SYSTEM PROVIDED HISTORY: h/o pneumonia/cough/fever , TECHNOLOGIST PROVIDED HISTORY: Illness/Other Reason for exam: cough Cancer History: no Surgery, RadiationHistory: unk Encounter Type: Initial Additional signs and symptoms: Treated for pneumonia around [place]. Started having cough, fever again about 2 days ago. ORDERING SYSTEM PROVIDED DIAGNOSIS CODES: R05 Cough COMPARISON: None. FINDINGS: Cardiomediastinal silhouette is within normal limits. Lungs are clear. No significant pleural or osseous abnormalities are identified. IMPRESSION: No acute process identified. [place] [employer] Workstation ID: [id number] Dictated by: ISHMAEL KEYS on [place] Feb 17, 2019 10:05:42 AM EST Transcribed by: LEXII HUTCHINSON on [place] Feb 17, 2019 10:06:52 AM EST Finalized by: ISHMAEL KEYS on [place] Feb 17, 2019 10:59:38 AM EST Normal [facility] Comment on above: Order Comment: Injur y/Trauma or Illness?:Illness/Other How long have you had these symptoms (acute/chronic)?:Acute Reason for exam?:cough History of cancer?:no Surgeries, chemotherapy, or radiation?:unk Type of Exam?:Initial Additional signs and symptoms?:Treated for pneumonia around [place]. Started having cough, fever again about 2 days ago. No acute process identified. [place] Workstation ID: [id number] [facility] EXAMINATION: XR CHES T AP/PA AND LAT 02/17/2019 9:47 AM HISTORY: ORDERING SYSTEM PROVIDED HISTORY: h/o pneumonia/cough/fever , TECHNOLOGIST PROVIDED HISTORY: Illness/Other Reason for exam: cough Cancer History: no Surgery, RadiationHistory: unk Encounter Type: Initial Additional signs and symptoms: Treated for pneumonia around [place]. Started having cough, fever again about 2 days ago. ORDERING SYSTEM PROVIDED DIAGNOSIS CODES: R05 Cough COMPARISON: None. FINDINGS: Cardiomediastinal silhouette is within normal limits. Lungs are clear. No significant pleural or osseous abnormalities are identified. [facility] Interface, Justino In [employer] - 02/17/2019 11:02 AM EST EXAMINATION: XR CHEST AP/PA AND LAT 02/17/2019 9:47 AM HISTORY: ORDERING SYSTEM PROVIDED HISTORY: h/o pneumonia/cough/fever , TECHNOLOGIST PROVIDED HISTORY: Illness/Other Reason for exam: cough Cancer History: no Surgery, RadiationHistory: unk Encounter Type: Initial Additional signs and symptoms: Treated for pneumonia around [place]. Started having cough, fever again about 2 days ago. ORDERING SYSTEM PROVIDED DIAGNOSIS CODES: R05 Cough COMPARISON: None. FINDINGS: Cardiomediastinal silhouette is within normal limits. Lungs are clear. No significant pleural or osseous abnormalities are identified. IMPRESSION: No acute process identified. MA/trw Workstation ID: [id number] [facility] Chlamydia Detection by NAATo n 05-15-2018 Protein mass conc [facility] Microbiology PROCEDURE: Chlamydia Detection by NAAT [...] RESULTS ARE INCONSISTENT WITH CLINICAL FINDINGS Normal [facility] Comment on above: Performed By: #### C [id number] #### [facility] [address] [place], [place] Vital Signs Date Time Vital Sign Value Performing Clinician Tana lara 02-15-2019 13:17-0500 BMI (Body Mass Index) 27.25 kg/m2 [facility] 02-15-2019 13:17-0500 Body Temperature 99.61 [degF] [facility] 02-15-2019 13:17-0500 Body weight 81.28 kg [facility] 02-15-2019 13:17-0500 BP Diastolic 82 mm[Hg] [facility] 02-15-2019 13:17-0500 BP Systolic 131 mm[Hg] [facility] 02-15-2019 13:17-0500 Height 172.7 cm [facility] 02-15-2019 13:17-0500 Pulse (Heart Rate) 89 /min [facility] 02-15-2019 13:17-0500 Pulse Oximetry 96 % [facility] 02-15-2019 13:17-0500 Respiratory Rate 16 /min Summer Steen [facility] Encounters Encounter Date Encounter Type Care Provider Facility Start: 07-18-2023 End: 07-18-2023 ambulatory VIOLETA MAME Not Available Start: 07-06-2023 End: 07-06-2023 ambulatory VIOLETA MAME Not Available Start: 06-21-2023 End: 06-21-2023 ambulatory MEREDITH PEDRO Not Available Start: 06-06-2023 End: 06-06-2023 ambulatory VIOLETA MAME Not Available Start: 05-11-2023 End: 05-11-2023 ambulatory MEREDITH PEDRO Not Available Start: 04-13-2023 End: 04-13-2023 ambulatory VIOLETA MAME Not Available Start: 03-14-2023 End: 03-14-2023 ambulatory MEREDITH PEDRO Not Available Start: 03-10-2023 Chart abstracting Meredith Vasquez PA Work Phone: [facility] Start: 02-14-2023 End: 02-14-2023 ambulatory VIOLETA MAME Not Available Start: 02-08-2023 End: 02-09-2023 ambulatory RADHAMES C JUAN ANI [facility] Start: 02-02-2023 End: 2023 ambulatory NONE NONE [facility] Start: 01-12-2023 End: 01-12-2023 ambulatory VIOLETA MAME Not Available Start: 09-30-2021 End: 09-30-2021 ambulatory Radha Copeland Other [facility] Start: 09-30-2021 Nursing evaluation o f patient and report Radha Copeland [facility] Start: 09-21-2020 End: 09-25-2020 ambulatory GRECIA ARRIAZA [facility] Start: 08-18-2020 Encounter for genera l adult medical examination without abnormal findings DR GRECIA ARRIAZA [facility] Start: 08-08-2020 End: 08-09-[address] GRECIA ARRIAZA Facility:[facility] Start: 08-08-2020 End: 08-09-2020 Encounter for general adult medical examination without abnormal findings DR GRECIA ARRIAZA Facility:[facility] Start: 02-17-2019 End: 02-18-2019 Patient encounter procedure REMBERTO COELHO [facility] Start: 02-17-2019 End: 02-17-2019 Subsequent hospital visit by physician Remberto Coelho Work Phone: [facility] Comment on above: Arrived Start: 02-15-2019 End: 02-15-2019 Patient encounter procedure SUMMER STEEN [facility] Start: 02-15-2019 End: 02-15-2019 Office outpatient visit 15 minutes Summer Steen Work Phone: [facility] Comment on above: Bronchitis (Primary Dx) Start: 05-16-2018 End: 05-16-2018 Patient encounter procedure GARY ZAMORA Facility:[facility] Procedures Date Procedure Procedure Detail Performing Clinician [...] DERM [address] [place] [id number] Meron Muniz MD [address] [place] [address] [facility] Start: 03-14-2023 End: 03-14-2023 Patient encounter procedure 03/14/2023 8:30 AM EST Routine [facility] [address] [place] [id number] Meredith Vasquez PA [address] [place] [address] Second trimester [facility] Comment on above: Second trimester pre gnancy Start: 04-20-2021 Screening for malign ant neoplasm of cervix PAP SMEAR [facility] Start: 04-21-2019 Screening for Chlamy luis fernando trachomatis Chlamydia Screening [facility] Start: 03-24-2019 Screening for malign ant neoplasm of cervix PAP SMEAR [facility] Start: 10-07-2018 Influenza vaccination given SE QUENTIAL INFLUENZA VACCINE (#1) [facility] Start: 2006 Vaccination for sharri n papillomavirus HPV VACCINES (1 - Female 2-dose series) [facility] Start: 1998 History and physical examination, annual for health maintenance Wellness Visit [facility] Start: 1995 Screening for Chlamy luis fernando trachomatis Chlamydia Screening [facility] Start: 1995 Tetanus vaccination TETANUS EVERY 10 YR [facility] Payers Date Payer Category Payer Unknown BCBS BCBS xxxxxx [id number] 2022-Present [phone] [address] [place] [address] [id number] 2022 Unknown [id number] 2018 Unknown NADYA HOWARD/PREF/HMO/PPO xxxxxxxxxxxx 2018-Present xxxxxxxxxxxx [id number] 1995 Unknown [id number] [id number] 1995 Unknown [id number] 2.16.840.1.459911.3.579.2.903 1995 Unknown [id number] 2.16.840.1.975885.3.579.2.903 1995 Unknown [id number] 2.16.840.1.522284.3.579.2.593 1995 Unknown [id number] 2.16.840.1.074143.3.579.2.900 1995 Unknown [id number] 2.16.840.1.281200.3.579.2.175 1995 Unknown [id number] 2.16.840.1.767613.3.579.2.175 1995 Unknown [id number] 2.16.840.1.199955.3.579.2.125 9 1995 Unknown [id number] 2.16.840.1.618161.3.579.2.125 9 1995 Unknown [id number] 2.16.840.1.903483.3.579.2.125 9 1995 Unknown [id number] 2.16.840.1.872789.3.579.2.125 9 1995 Unknown [id number] 2.16.840.1.864184.3.579.2.125 9 1995 Unknown [id number] 2.16.840.1.039159.3.579.2.125 9 1995 Unknown [id number] 2.16.840.1.898331.3.579.2.125 9 1995 Unknown [id number] 2.16.840.1.293960.3.579.2.125 9 1995 Unknown [id number] 2.16.840.1.166764.3.579.2.125 9 1959 Unknown [id number] Social History Date Type Detail Facility Start: 02-15-2019 End: 01-19-2023 Tobacco smoking status [facility] Never smoker [facility] Sex Assigned At Not on file [facility] Start: 01-19-2023 Sex Assigned At [facility] Start: 03-10-2023 Alcohol intake Current drinker [...] Healthcare Start: 1995 Sex Assigned At Female [facility] Start: 01-05-2023 Gender identity Identifies as female gender (finding) [facility] Start: 01-05-2023 Sexual orientation Heterosexual (finding) [facility] Healthcare Goals Date Patient Goal Desired Activity /State Personal health goal Evaluation note 09-30-2021 Note Date & Type Note Facility 09-30-2021 Evaluation note Encounter Date Diagnosis Assessment Notes Sep, Exposure to COVID-19 virus (ICD-10 - Z20.822) [facility] Summary Purpose Family History No Family History Records FoundNo Family History Records FoundNo Family History Records FoundNo Family History Records FoundNo Family History Records FoundNo Family History Records Found Advance Directives No Advanced Directives Records FoundDocuments on File Type Date Recorded 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 Get some extra rest. Take an ylea-vat-hvdrdbm pain medicine, such as acetaminophen (Tylenol), ibuprofen (Advil, Motrin),or naproxen (Aleve) to reduce fever and relieve body aches. Read and follow all instructions on thelabel. Do not take two or more pain medicines at the same time unless the doctor told you to. Many pain medicines have acetaminophen, which is Tylenol. Too much acetaminophen (Tylenol) can be harmful. Take an ffau-aom-smbsvrn cough medicine that contains dextromethorphan to help [...] Log into your personal health record on [email or web address] and enter H333 in the Education box to learn more about Bronchitis: Care Instructions. Current as of: July 15, 2018 Content Version: 12.3 1028-2607 [employer]. Care instructions adapted under license by your healthcare professional. If you have questions about a medical condition or this instruction, always ask your healthcare professional. [employer] disclaims any warranty or liability for your use of this information. documented in this encounter History of Present Illness * Summer Steen DO - 02/15/2019 1:22 PM EST PATIENT NAME: Meron Darling [facility] [address] [facility] [address] : 1995 DATE OF VISIT: 02/15/2019 #: [...] is concerned she is got pneumonia again. [place] warm butno objective fevers. Took Tylenol prior [...] file Gets together: Not on file Attends islam service: Not on file Active member of [...] section and content) DATE CREATED AUTHOR 05/17/2018 [facility] DATE CREATED AUTHOR AUTHOR'S ORGANIZ ATION 02/17/2019 [facility] DATE CREATED AUTHOR AUTHOR'S ORGANIZ ATION 08/19/2020 [facility] DATE CREATED AUTHOR AUTHOR'S ORGANIZ ATION 10/04/2020 [facility] DATE CREATED AUTHOR AUTHOR'S ORGANIZ ATION 06/27/2023 [facility] DATE CREATED AUTHOR AUTHOR'S ORGANIZ ATION 07/18/2023 [facility] EPIC Reason for Visit (unrecogniz ed section and content) Reason Comments Shortness of Breath Started againthis gregory abrahaming. Pt was treated for pneumonia around 01/30/2019 and finished tx however today she feelslike it is coming back Care Teams (unrecognized sec tion and content) Entry Level Project Coordinator Relationship Specialty Start Date End Date Grecia Arriaza MD [address] [place] [address] PCP - General Family Medicine 01/12/23 FOR [...] BE BASED ON THE PRIMARY CLINICAL RECORDS. [facility] [email or web address] [facility]. provides no warranty or guarantee of the accuracy or completeness of information in this document.
== END 2023-07-18 19:18 | disposition home or self-care (01) ==
LOC: LAB 19:17
PROVIDERS: PCP Family Medicine; Visit Provider Obstetrics & Gynecology
DX: Z34.93 Encounter for supervision of normal pregnancy, unspecified, third trimester (principal)
CPT/HCPCS: 87081

== ENCOUNTER 2023-08-05 22:06 | Observation (INO) | payer BC, SELFPAY ==
--- OUTSIDE RECORDS SUMMARY | 2023-08-05 22:10 | XMS_ITS | CCD ---
Author Organization [facility] Care Team Providers Care Supervisor Winding Department Name Role Phone GARY ZAMORA Attending Unavailabl e Physician, PCP Unknown Primary Care Unavailab Grecia Abdullahi Primary Care Provider SUMMER STEEN Attending Unavailable MARYAMY GRECIA Primary Care Unavailable HOY GRECIA Primary Care Unavailable REMBERTO COELHO Attending Unavailabl e BRANDONREMBERTO Attending Unavailabl e REMBERTO COELHO Referring Unavailabl e LOPEZ GRECIA Primary Care Unavailable LOPEZ, DR PAIGE Attending Unavailable LOPEZ, DR PAIGE Consulting Unavailable HOY, DR PAIGE Primary Care Unavailable HOY, DR PAIGE Admitting Unavailable HOY, GRECIA Primary Care Unavailable VALENTINA JOHNS Attending Un available Radha Copeland Unavailable Grecia Arriaza MD Primary Care Provider RADHAMES VICTORIA Referring Unavailable NONE, NONE Primary Care Unavailable RADHAMES VICTORIA Referring Unavailable NONE, NONE Primary Care Unavailable MAME VIOLETA Attending Unavailable PEDRO, MEREDITH Attending Unavailable MAME, VIOLETA Attending Unavailable PEDRO, MEREDITH Attending Unavailable MAME, VIOLETA Attending Unavailable PEDRO, MEREDITH Attending Unavailable MAME, VIOLETA Attending Unavailable MAME, VIOLETA Attending Unavailable MAME, VIOLETA Attending Unavailable MAME, VIOLETA Attending Unavailable MAME, VIOLETA Attending Unavailable Allergies Allergy Classification Reported Allergen(s) Allergy Type Date of Onset Reaction(s) Facility diphenhydrAMINE (1 source) diphenhydrAMINE Drug Allergy 4 [facility] (5 sources) diphenhydrAMINE; Translations: [Unknown] Drug Allergy 0 Other (See Comments) [facility] (1 source) Sulfonamides (Antibiotic) Drug Allergy 4 [...] oral solution (1 source) alpha-Adrenergic Agonist, Uncompetitive P-qyalkd-O-aspartat e Receptor Antagonist, Sigma-1 Agonist Start: 02-17-2019 [...] Test Name Value Interpretation Reference Range Facility [facility] 02-09-2023 Send Out Report FORWARD TO [facility] Comment on above: Result Comment: [id number] Performed By: #### C MIS #### [facility] [address] [place], [place] [id number] Driver Engineer: MD Maico Whitehead 02-08-2023 Test Name [facility] Comment on above: Performed By: #### C MIS #### [facility] [address] [place], [place] [id number] Driver Engineer: Isidro Aguirre MD Maternal Ser 1st [place] 02-03 Cr Rump Lngt, Twin B Not Applicable Normal [facility] Comment on above: Performed By: #### A MSFT #### [address] [address] Driver Engineer: Isidro Aguirre MD [address] [address] Driver Engineer: Rojas Simpson MD [place] Rump Length 57.2 mm [facility] Comment on above: Performed By: #### A MSFT #### [address] [address] Driver Engineer: Isidro Aguirre MD [address] [phone] Driver Engineer: Rojas Simpson MD Gestat Age (exact) 12 wks, 1 days Normal [facility] Comment on above: Performed By: #### A MSFT #### [address] [address] Driver Engineer: Isidro Aguirre MD [address] [phone] Driver Engineer: Rojas Simpson MD Hx Aneuploidy Unknown [facility] Comment on above: Performed By: #### A MSFT #### [address] [address] Driver Engineer: Isidro Aguirre MD [address] [address] Driver Engineer: Rojas Simpson MD Interpretation Screen Neg Normal [facility] Comment on above: Result Comment: (NOT [...] developed and its performance characteristics determined by [facility]. It has not been cleared or approved by the [place] Food and Drug Administration. This test was performed in a CLIA certified laboratory and is intended for clinical purposes. Performed By: #### A MSFT #### [address] [address] Driver Engineer: Isidro Aguirre MD [address] [address] Driver Engineer: Rojas Simpson MD [age] [facility] Comment on above: Performed By: #### A MSFT #### [address] [address] Driver Engineer: Isidro Aguirre MD [address] [phone] Driver Engineer: Rojas Simpson MD Maternal Race Nonblack [facility] Comment on above: Performed By: #### A MSFT #### [address] [address] Driver Engineer: Isidro Aguirre MD [address] [phone] Driver Engineer: Rojas Simpson MD Maternal Screen, EER See Note [facility] Comment on above: Result Comment: (NOT E) Authorized individuals can access the [facility] Enhanced Report using the following link: [email or web address] Performed By: [facility] [address] [place] [id number] [employer] Administrator: Rex Moreau MD, PhD CLIA Number: [id number] Performed By: #### A MSFT #### [address] [address] Driver Engineer: Isidro Aguirre MD [facility] [employer] [address] [place] [address] Driver Engineer: Rojas Simpson MD Maternal Weight 191.0 lbs. [facility] Comment on above: Performed By: #### A MSFT #### [address] [address] Driver Engineer: Isidro Aguirre MD [address] [address] Driver Engineer: Rojas Simpson MD MoM for HCG 0.70 [facility] Comment on above: Performed By: #### A MSFT #### [address] [address] Driver Engineer: Isidro Aguirre MD [address] [address] Driver Engineer: Rojas Simpson MD MoM for NT 1.60 [facility] Comment on above: Performed By: #### A MSFT #### [address] [address] Driver Engineer: Isidro Aguirre MD [address] [phone] Driver Engineer: Rojas Simpson MD MoM for [place], Twin B Not Applicable Normal [facility] Comment on above: Performed By: #### A MSFT #### [address] [address] Driver Engineer: Isidro Aguirre MD [facility] [address] [place] [address] Driver Engineer: Rojas Simpson MD MoM for SHONDA-A 0.82 [facility] Comment on above: Performed By: #### A MSFT #### [address] [address] Driver Engineer: Isidro Aguirre MD [facility] [address] [place] [address] Driver Engineer: Rojas Simpson MD Nuchal Trans, Twin B Not Applicable [facility] Comment on above: Performed By: #### A MSFT #### [address] [address] Driver Engineer: Isidro Aguirre MD [address] [address] Driver Engineer: Rojas Simpson MD Nuchal Translucency 2.30 mm [facility] Comment on above: Performed By: #### A MSFT #### [address] [address] Driver Engineer: Isidro Aguirre MD [address] [phone] Driver Engineer: Rojas Simpson MD Number of Fetuses Burton Normal [facility] Comment on above: Performed By: #### A MSFT #### [address] [address] Driver Engineer: Isidro Aguirre MD [address] [phone] Driver Engineer: Rojas Simpson MD SHONDA-A Maternal 479.0 ng/mL [facility] Comment on above: Result Comment: (NOT E) This test was developed and its performance characteristics determined by [facility]. It has not been cleared or approved by the [place] Food and Drug Administration. This test was performed in a CLIA certified laboratory and is intended for clinical purposes. Performed By: #### A MSFT #### [address] [address] Driver Engineer: Isidro Aguirre MD [address] [address] Driver Engineer: Rojas Simpson MD Patient's HCG 35543 IU/L [facility] Comment on above: Performed By: #### A MSFT #### [address] [address] Driver Engineer: Isidro Aguirre MD [address] [address] Driver Engineer: Rojas Simpson MD Smoking Unknown [facility] Comment on above: Performed By: #### A MSFT #### [address] [address] Driver Engineer: Isidro Aguirre MD [address] [address] Driver Engineer: Rojas Simpson MD Salt Lifter Cert No [id number] [facility] Comment on above: Performed By: #### A MSFT #### [address] [address] Driver Engineer: Isidro gAuirre MD [address] [phone] Driver Engineer: Rojas Simpson MD Salt Lifter Name Trisha Saleh [facility] Comment on above: Performed By: #### A MSFT #### [address] [address] Driver Engineer: Isidro Aguirre MD [address] [phone] Driver Engineer: Rojas Simpson MD Specimen See Note [facility] Comment on above: Result Comment: Init ial sample Performed By: #### A MSFT #### [address] [address] Driver Engineer: Isidro Aguirre MD [address] [address] Driver Engineer: Rojas Simpson MD Ultrasound Date SEE NOTE [facility] Comment on above: Result Comment: Resu lts for Ultrasound Date: 02 02 23 Performed By: #### A MSFT #### [address] [address] Driver Engineer: Isidro Aguirre MD [address] [phone] Driver Engineer: Rojas Simpson MD Maternal Ser 1st [place] 02-02 [place] Rump Length 57.2 Normal [facility] Comment on above: Performed By: #### A MSFT #### [address] [address] Driver Engineer: Isidro Aguirre MD [address] [phone] Driver Engineer: Rojas Simpson MD Current Smoking INFORMATION NOT PROVIDED [facility] Comment on above: Performed By: #### A MSFT #### [address] [address] Driver Engineer: Isidro Aguirre MD [address] [phone] Driver Engineer: Rojas Simpson MD Date of Ultrasound [id number] [facility] Comment on above: Performed By: #### A MSFT #### [address] [address] Driver Engineer: Isidro Aguirre MD [address] [phone] Driver Engineer: Rojas Simpson MD Donor Egg INFORMATION NOT PROVIDED [facility] Comment on above: Performed By: #### A MSFT #### [address] [address] Driver Engineer: Isidro Aguirre MD [address] [address] Driver Engineer: Rojas Simpson MD In Vitro Fertalizat INFORMATION NOT PROVIDED [facility] Comment on above: Performed By: #### A MSFT #### [address] [address] Driver Engineer: Isidro Aguirre MD [facility] [address] [place] [address] Driver Engineer: Rojas Simspon MD Maternal date [id number] [facility] Comment on above: Performed By: #### A MSFT #### [address] [address] Driver Engineer: Isidro Aguirre MD [address] [address] Driver Engineer: Rojas Simpson MD Maternal Weight 191 [facility] Comment on above: Performed By: #### A MSFT #### [address] [address] Driver Engineer: Isidro Aguirre MD [address] [address] Driver Engineer: Rojas Simpson MD Monochorionic Twins INFORMATION NOT PROVIDED [facility] Comment on above: Performed By: #### A MSFT #### [address] [address] Driver Engineer: Isidro Aguirre MD [address] [address] Driver Engineer: Rojas Simpson MD Nuchal Transluc (NT) 2.3 [facility] Comment on above: Performed By: #### A MSFT #### [address] [address] Driver Engineer: Isidro Aguirre MD [facility] [address] [place] [address] Driver Engineer: Rojas Simpson MD Number of fetuses 1 Normal [facility] Comment on above: Performed By: #### A MSFT #### [address] [address] Driver Engineer: Isidro Aguirre MD [facility] [address] [place] [address] Driver Engineer: Rojas Simpson MD Patient Weight Units LB [facility] Comment on above: Performed By: #### A MSFT #### [address] [address] Driver Engineer: Isidro Aguirre MD [facility] [address] [place] [address] Driver Engineer: Rojas Simpson MD Prev Trisomy Preg INFORMATION NOT PROVIDED [facility] Comment on above: Performed By: #### A MSFT #### [address] [address] Driver Engineer: Isidro Aguirre MD [address] [address] Driver Engineer: Rojas Simpson MD Race (Maternal) WHITE [facility] Comment on above: Performed By: #### A MSFT #### [address] [address] Driver Engineer: Isidro Aguirre MD [address] [address] Driver Engineer: MD Shayne Siddiqui MD [facility] [address] [facility] Comment on above: Performed By: #### A MSFT #### [address] [address] Driver Engineer: Isidro Aguirre MD [address] [address] Driver Engineer: MD Shayne Siddiqui MD Name RADHAMESBERYL VICTORIA [facility] Comment on above: Performed By: #### A MSFT #### [address] [address] Driver Engineer: Isidro Aguirre MD [facility] [address] [place] [address] Driver Engineer: Rojas Simpson MD Repeat Specimen INFORMATION NOT PROVIDED [facility] Comment on above: Performed By: #### A MSFT #### [address] [address] Driver Engineer: Isidro Aguirre MD [address] [address] Driver Engineer: Rojas Simpson MD Sonograph Cert Num [id number] [facility] Comment on above: Performed By: #### A MSFT #### [address] [address] Driver Engineer: Isidro Aguirre MD [address] [phone] Driver Engineer: Rojas Simpson MD Salt Lifter Name [facility] Comment on above: Performed By: #### A MSFT #### [address] [address] Driver Engineer: Isidro Aguirre MD [address] [address] Driver Engineer: Rojas Simpson MD SARS-CoV-2 (COVID-19) RNA NA A+probe Ql (Resp)on 09-30-2021 SARS-CoV-2 (COVID-19) RNA CRISTIAN+probe Ql (Unsp spec) Negative [employer] Other INSULINon 08-11-2020 Insulin 10.7 uIU/mL Normal 2.6-24.9 [facility] Comment on above: Performed By: #### I NSULIN #### [facility] [address] [place] [address] Maribell Spencer CBC AUTO DIFFon 08-08-2020 BASO # 0.1 103/ul Normal 0.0-0.1 [facility] Comment on above: Performed By: #### C BC #### [facility] [address] [place] [phone] Maribell Johanna Basophils/100 WBC (Bld) 1.1 % Normal 0.2-2.0 [facility] Comment on above: Performed By: #### C BC #### [facility] [address] [place], [place] [address] Maribell Johanna EO # 0.2 103/ul Normal 0.0-0.7 [facility] Comment on above: Performed By: #### C BC #### [facility] [address] [phone] Maribell Johanna Eosinophils/100 WBC (Bld) 2.5 % Normal 0.9-7.0 [facility] Comment on above: Performed By: #### C BC #### [facility] [address] [place] [address] Maribell Johanna Erythrocyte distribution width (RBC) [Ratio] 13.6 % Normal 11.0-15.0 [facility] Comment on above: Performed By: #### C BC #### [facility] [address] [place], [place] [address] Maribell Johanna Hematocrit (Bld) [Volume fraction] 41.1 % Normal 36.0-48.0 [facility] Comment on above: Performed By: #### C BC #### [facility] [address] [place], [place] [id number] Maribell Johanna Hemoglobin (Bld) [Mass/Vol] 13.9 g/dL Normal 12.0-16.0 [facility] Comment on above: Performed By: #### C BC #### [facility] [address] [place] [address] Maribell Johanna IG # 0.02 10e3/ul Normal 0.00-0.03 [facility] Comment on above: Performed By: #### C BC #### [facility] [address] [place], [place] [address] Maribell Johanna IG % 0.3 % Normal 0.0-0.5 [facility] Comment on above: Performed By: #### C BC #### [facility] [address] [place], [place] [address] Maribell Johanna LYMPH # 2.1 103/ul Normal 1.2-3.8 [facility] Comment on above: Performed By: #### C BC #### [facility] [address] [place], [place] [id number] Maribell Johanna Lymphocytes/100 WBC (Bld) 32.4 % Normal 20.5-60.0 [facility] Comment on above: Performed By: #### C BC #### [facility] [address] [place], [place] [address] Maribell Johanna MANUAL DIFF REQ NO Normal [facility] Comment on above: Performed By: #### C BC #### [facility] [address] [place], [place] [address] Maribell Johanna MCH (RBC) [Entitic mass] 29.5 pg Normal 26.7-34.0 [facility] Comment on above: Performed By: #### C BC #### [facility] [address] [place] [address] Maribell Johanna MCHC (RBC) [Mass/Vol] 33.8 g/dL Normal 29.9-35.2 [facility] Comment on above: Performed By: #### C BC #### [facility] [address] [place], [place] [address] Maribell Johanna MCV (RBC) [Entitic vol] 87.3 fL Normal 81.0-99.0 [facility] Comment on above: Performed By: #### C BC #### [facility] [address] [place] [address] Maribell Johanna MONO # 0.4 103/ul Normal 0.3-0.8 [facility] Comment on above: Performed By: #### C BC #### [facility] [address] [place], [place] [address] Maribell Johanna Monocytes/100 WBC (Bld) 6.9 % Normal 1.7-12.0 [facility] Comment on above: Performed By: #### C BC #### [facility] [address] [place] [address] Maribell Johanna NEUT # 3.6 103/ul Normal 1.4-6.5 [facility] Comment on above: Performed By: #### C BC #### [facility] [address] [place], [place] [address] Maribell Spencer Neutrophils/100 WBC (Bld) 56.8 % Normal 43.0-75.0 [facility] Comment on above: Performed By: #### C BC #### [facility] [address] [place] [address] Maribell Spencer Platelet mean volume (Bld) [Entitic vol] 9.9 fL Normal 9.5-13.5 [facility] Comment on above: Performed By: #### C BC #### [facility] [address] [place] [address] Maribell Spencer PLT 180 103/ul Normal 150-450 [facility] Comment on above: Performed By: #### C BC #### [facility] [address] [place] [address] Maribell Spencer RBC 4.71 106/ul Normal 4.20-5.40 [facility] Comment on above: Performed By: #### C BC #### [facility] [address] [place] [address] Maribell Spencer WBC 6.4 103/ul Normal 4.0-11.0 [facility] Comment on above: Performed By: #### C BC #### [facility] [address] [place], [place] [address] Maribell Spencer FREE THYROXINE INDEX T7on FTI 3.39 Normal [facility] Comment on above: Performed By: #### L IPID, CMP, T7, TSH #### [facility] [address] [place], [place] [address] Maribell Spencer T3U 28.0 % Normal 23.5-40.5 [facility] Comment on above: Performed By: #### L IPID, CMP, T7, TSH #### [facility] [address] [place], [place] [address] Maribell Spencer T4 [Mass/Vol] 12.10 ug/dL Critically high 5.53-11.00 [facility] Comment on above: Performed By: #### L IPID, CMP, T7, TSH #### [facility] [address] [id number] Maribell Spencer GLYCOHEMOGLOBIN A1Con 2020 ADA RECOMMENDATION ADA THERAPEUTIC TARGET 6.0 - 7.0 ACTION SUGGESTED > 7.0 Normal [facility] Comment on above: Performed By: #### A 1C #### [facility] [address] [id number] Maribell Johanna Glucose [Mass/Vol] 123 mg/dL Normal [facility] Comment on above: Performed By: #### A 1C #### [facility] [address] [place], [place] [address] Maribell Johanna HbA1c (Bld) [Mass fraction] 5.9 % Normal <=6.0 [facility] Comment on above: Performed By: #### A 1C #### [facility] [address] [place], [place] [address] Maribell Millsen IRONon 08-08-2020 Iron [Mass/Vol] 66.0 ug/dL Normal 37.0-170.0 [facility] Comment on above: Performed By: #### I DUNIA #### [facility] [address] [place], [place] [address] Maribellkhadijah Spencer LIPID PROFILEon 08-08-2020 CHOL-HDL RATIO NORM SEE BELOW Normal [facility] Comment on above: Result Comment: 3.3 - 4.4 LOW RISK 4.4 - 7.1 AVERAGE RISK 7.1 - 11.0 MODERATE RISK >11.0 HIGH RISK Performed By: #### L IPID, CMP, T7, TSH #### [facility] [address] [place], [place] [address] Maribell Johanna Cholesterol [Mass/Vol] 215 mg/dL Critically high <=200 [facility] Comment on above: Performed By: #### L IPID, CMP, T7, TSH #### [facility] [address] [place], [place] [address] Maribell Johanna Cholesterol in HDL [Mass/Vol] 37 mg/dL Normal [facility] Comment on above: Performed By: #### L IPID, CMP, T7, TSH #### [facility] [address] [place], [place] [address] Maribell Johanna Cholesterol in LDL [Mass/Vol] 142.4 mg/dL Normal [facility] Comment on above: Performed By: #### L IPID, CMP, T7, TSH #### [facility] [address] [place], [place] [address] Maribell Johanna Cholesterol.total/C holesterol in HDL [Mass ratio] 5.8 {ratio} Normal [facility] Comment on above: Performed By: #### L IPID, CMP, T7, TSH #### [facility] [address] [place], [place] [address] Maribell Johanna HDL NORMAL > or = 60 mg/dl - LO W CARDIOVASCULAR RISK <40 mg/dl - HIGH CARDIOVASCULAR RISK Normal [facility] Comment on above: Performed By: #### L IPID, CMP, T7, TSH #### [facility] [address] [id number] Maribell Johanna LDL CALC NORMAL SEE BELOW Normal [facility] Comment on above: Result Comment: <100 mg/dl OPTIMAL 100 - 129 mg/dl NEAR OR ABOVE OPTIMAL 130 - 159 mg/dl BORDERLINE HIGH 160 - 189 mg/dl HIGH >190 mg/dl VERY HIGH Performed By: #### L IPID, CMP, T7, TSH #### [facility] [address] [place], [place] [address] Maribell Johanna Triglyceride [Mass/Vol] 178 mg/dL Critically high <=150 [facility] Comment on above: Performed By: #### L IPID, CMP, T7, TSH #### [facility] [address] [place], [place] [address] Maribell Johanna VLDL CALC 35.6 mg/dL Normal [facility] Comment on above: Performed By: #### L IPID, CMP, T7, TSH #### [facility] [address] [place], [place] [address] Maribellkhadijah Millsen PROF 14(COMP METB)on 021 Albumin [Mass/Vol] 3.5 g/dL Normal 3.5-5.0 [facility] Comment on above: Performed By: #### L IPID, CMP, T7, TSH #### [facility] [address] [address] Maribell Johanna Albumin/Globulin [Mass ratio] 0.8 {ratio} Normal [facility] Comment on above: Performed By: #### L IPID, CMP, T7, TSH #### [facility] [address] [place] [address] Maribell Johanna ALP [Catalytic activity/Vol] 62 U/L Normal 38-126 [facility] Comment on above: Performed By: #### L IPID, CMP, T7, TSH #### [facility] [address] [place] [address] Maribell Johanna ALT [Catalytic activity/Vol] 50 U/L Normal 9-52 [facility] Comment on above: Performed By: #### L IPID, CMP, T7, TSH #### [facility] [address] [place] [address] Maribell Johanna Anion gap [Moles/Vol] 14.5 mmol/L Normal [facility] Comment on above: Performed By: #### L IPID, CMP, T7, TSH #### [facility] [address] [place] [address] Maribell Johanna AST [Catalytic activity/Vol] 36 U/L Normal 14-36 [facility] Comment on above: Performed By: #### L IPID, CMP, T7, TSH #### [facility] [address] [place] [address] Maribell Johanna Bilirubin [Mass/Vol] 0.5 mg/dL Normal 0.2-1.3 [facility] Comment on above: Performed By: #### L IPID, CMP, T7, TSH #### [facility] [address] [place] [address] Maribell Johanna Calcium [Mass/Vol] 9.0 mg/dL Normal 8.4-10.2 [facility] Comment on above: Performed By: #### L IPID, CMP, T7, TSH #### [facility] [address] [place] [address] Maribell Johanna Chloride [Moles/Vol] 103 mmol/L Normal 98-107 [facility] Comment on above: Performed By: #### L IPID, CMP, T7, TSH #### [facility] [address] [address] Maribell Johanna CO2 [Moles/Vol] 25.6 mmol/L Normal 22.0-30.0 [facility] Comment on above: Performed By: #### L IPID, CMP, T7, TSH #### [facility] [address] [address] Maribell Johanna Creatinine [Mass/Vol] 0.80 mg/dL Normal 0.52-1.04 [facility] Comment on above: Performed By: #### L IPID, CMP, T7, TSH #### [facility] [address] [address] Maribell Johanna EGFR-AF MONTENEGRIN >60 Normal >=60 [facility] Comment on above: Performed By: #### L IPID, CMP, T7, TSH #### [facility] [address] [address] Maribell Johanna EGFR-NON AF MONTENEGRIN >60 Normal >=60 [facility] Comment on above: Performed By: #### L IPID, CMP, T7, TSH #### [facility] [address] [address] Maribell Johanna Globulin (S) [Mass/Vol] 4.6 g/dL Normal [facility] Comment on above: Performed By: #### L IPID, CMP, T7, TSH #### [facility] [address] [address] Maribell Johanna Glucose [Mass/Vol] 115 mg/dL Critically high 74-106 [facility] Comment on above: Performed By: #### L IPID, CMP, T7, TSH #### [facility] [address] [address] Maribell Johanna Potassium [Moles/Vol] 4.1 mmol/L Normal 3.4-5.0 [facility] Comment on above: Performed By: #### L IPID, CMP, T7, TSH #### [facility] [address] [place] [address] Maribell Johanna Protein [Mass/Vol] 8.1 g/dL Normal 6.1-8.2 [facility] Comment on above: Performed By: #### L IPID, CMP, T7, TSH #### [facility] [address] [place] [address] Maribell Johanna Sodium [Moles/Vol] 139 mmol/L Normal 137-145 [facility] Comment on above: Performed By: #### L IPID, CMP, T7, TSH #### [facility] [address] [place] [address] Maribell Johanna Urea nitrogen [Mass/Vol] 9.0 mg/dL Normal 7.0-17.0 [facility] Comment on above: Performed By: #### L IPID, CMP, T7, TSH #### [facility] [address] [place] [address] Maribell Johanna Urea nitrogen/Creatinine [Mass ratio] 11.2 mg/mg Normal [facility] Comment on above: Performed By: #### L IPID, CMP, T7, TSH #### [facility] [address] [place] [address] Maribell Johanna TSHon 08-08-2020 TSH 1.632 uIU/mL Normal 0.470-4.680 [facility] Comment on above: Performed By: #### L IPID, CMP, T7, TSH #### [facility] [address] [place] [address] Maribell Johanna TSH RANGE SEE BELOW Normal [facility] Comment on above: Result Comment: <0.3 4 UIU/ml HYPERTHYROID 0.34-5.60 UIU/ml EUTHYROID >5.60 UIU/ml HYPOTHYROID Performed By: #### L IPID, CMP, T7, TSH #### [facility] [address] [place], [place] [id number] Maribell Johanna XR CHEST AP/PA AND LATon [...] are identified. IMPRESSION: No acute process identified. [employer] Workstation ID: [id number] Dictated by: ISHMAEL KEYS on [place] Feb 17, 2019 10:05:42 AM EST Transcribed by: LEXII HUTCHINSON on [place] Feb 17, 2019 10:06:52 AM EST Finalized by: ISHMAEL KEYS on [place] Feb 17, 2019 10:59:38 AM EST Normal [facility] Comment on above: Order Comment: Injur y/Trauma or Illness?:Illness/Other How long have you had these symptoms (acute/chronic)?:Acute Reason for exam?:cough History of cancer?:no Surgeries, chemotherapy, or radiation?:unk Type of Exam?:Initial Additional signs and symptoms?:Treated for pneumonia around [place]. Started having cough, fever again about 2 days ago. No acute process identified. 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 Started having cough, fever again about 2 days ago. ORDERING SYSTEM PROVIDED DIAGNOSIS CODES: R05 Cough COMPARISON: None. FINDINGS: Cardiomediastinal silhouette is within normal limits. Lungs are clear. No significant pleural or osseous abnormalities are identified. [facility] Interface, Rad In [employer] Speech[employer] - 02/17/2019 [...] acute process identified. MA/trw Workstation ID: [id number] [facility] Chlamydia Detection by NAATo n 05-15-2018 Protein mass conc [facility] Microbiology PROCEDURE: Chlamydia Detection by [...] INCONSISTENT WITH CLINICAL FINDINGS Normal [facility] Comment on above: Performed By: #### C D:[id number] #### [facility] [address] [place], [place] Vital Signs Date Time Vital Sign Value Performing Clinician Tana lara 02-15-2019 13:170500 BMI (Body Mass Index) 27.25 kg/m2 [facility] 02-15-2019 13:17-0500 Body Temperature 99.61 [degF] [facility] 02-15-2019 13:17-0500 Body weight 81.28 kg [facility] 02-15-2019 13:17-0500 BP Diastolic 82 mm[Hg] [facility] 02-15-2019 13:17-0500 BP Systolic 131 mm[Hg] [facility] 02-15-2019 13:17-0500 Height 172.7 cm [facility] 02-15-2019 13:17-0500 Pulse (Heart Rate) 89 /min [facility] 02-15-2019 13:17-0500 Pulse Oximetry 96 % [facility] 02-15-2019 13:17-0500 Respiratory Rate 16 /min Summer Steen [facility] Encounters Encounter Date Encounter Type Care Provider Facility Start: 08-03-2023 End: 08-03-2023 ambulatory VIOLETA MAME Not Available Start: 07-27-2023 End: 07-27-2023 ambulatory VIOLETA MAME Not Available Start: 07-18-2023 End: 07-18-2023 ambulatory VIOLETA MAME [...] Not Available Start: 03-10-2023 Chart abstracting Meredith Keane PA Work Phone: [facility] Start: 02-14-2023 End: 02-14-2023 ambulatory VIOLETA MAME Not Available Start: 02-08-2023 End: 02-08-2023 ambulatory [facility] Start: 02-02-2023 End: 02-02-2023 ambulatory [facility] Start: 01-12-2023 End: 01-12-2023 ambulatory VIOLETA MAME Not Available Start: 09-30-2021 End: 09-30-2021 ambulatory Radha Copeland Other [facility] Other Start: 09-30-2021 Nursing evaluation o f patient and report Radha Copeland [facility] Start: 09-21-2020 End: 09-25-2020 ambulatory GRECIA HOY [facility] Start: 08-18-2020 Encounter for genera l adult medical examination without abnormal findings DR GRECIA ARRIAZA [facility] Start: 08-08-2020 End: 08-09-[address] GRECIA ARRIAZA Facility:[facility] Start: 08-08-2020 End: 08-09-2020 Encounter for general adult medical examination without abnormal findings DR GRECIA ARRIAZA Facility:[facility] Start: 02-17-2019 End: 02-18-2019 Patient encounter procedure REMBERTO COELHO [facility] Start: 02-17-2019 End: 02-17-2019 Subsequent hospital visit by physician Remberto Coelho Work Phone: [facility] Comment on above: Arrived Start: 02-15-2019 End: 02-15-2019 Patient encounter procedure SUMMER STEEN [facility] Start: 02-15-2019 End: 02-15-2019 Office outpatient visit 15 minutes Summerelina Abarcayannick Steen Work Phone: [facility] Comment on above: Bronchitis (Primary Dx) Start: 05-16-2018 End: 05-16-2018 Patient encounter procedure GARY ZAMORA Facility:[facility] Procedures Date Procedure Procedure Detail Performing [...] DERM [address] [place] [id number] Meron Muniz MD [address] [place] [address] [facility] Start: 03-14-2023 End: 03-14-2023 Patient encounter procedure 03/14/2023 8:30 AM EST Routine [facility] [address] [place] [id number] Meredith Keane PA [address] [place] [address] [place] [address] Second trimester [facility] Comment on above: Second trimester pre gnancy Start: 04-20-2021 Screening for malign ant neoplasm [facility]ix [facility] Start: 04-21-2019 Screening for Chlamy luis fernando [...] 1995 Tetanus vaccination TETANUS EVERY 10 YR [facility] Payers Date Payer Category Payer Unknown BCBS BCBS xxxxxx [id number] 2022-Present [phone] [address] [place] [address] [id number] 2022 Unknown [id number] 2018 Unknown NADYA HOWARD/SANTIAGO/HMO/PPO xxxxxxxxxxxx 2018-Present xxxxxxxxxxxx [id number] .[id number] 1995 Unknown [id number] 2.16.840.1.064387.3.579.2.903 1995 Unknown [id number] 2.16.840.1.831623.3.579.2.903 1995 Unknown [id number] 2.16.840.1.687630.3.579.2.903 1995 Unknown [id number] 2.16.840.1.979146.3.579.2.593 1995 Unknown [id number] 2.16.840.1.485130.3.579.2.900 1995 Unknown [id number] 2.16.840.1.209073.3.579.2.175 1995 Unknown [id number] 2.16.840.1.218052.3.579.2.175 1995 Unknown [id number] 2.16.840.1.307675.3.579.2.125 9 1995 Unknown [id number] 2.16.840.1.238051.3.579.2.125 9 1995 Unknown [id number] 2.16.840.1.762272.3.579.2.125 9 1995 Unknown [id number] 2.16.840.1.710593.3.579.2.125 9 1995 Unknown [id number] 2.16.840.1.552515.3.579.2.125 9 1995 Unknown [id number] 2.16.840.1.391345.3.579.2.125 9 1995 Unknown [id number] 2.16.840.1.548109.3.579.2.125 9 1995 Unknown [id number] 2.16.840.1.080593.3.579.2.125 9 1995 Unknown [id number] 2.16.840.1.365955.3.579.2.125 9 1995 Unknown [id number] 2.16.840.1.621633.3.579.2.125 9 1995 Unknown [id number] 2.16.840.1.343817.3.579.2.125 9 1959 Unknown [id number] Social History Date Type Detail Facility Start: 02-15-2019 End: 01-19-2023 Tobacco smoking status [facility] Never smoker [facility] Sex Assigned At Not on file [facility] Start: 01-19-2023 Sex Assigned At [facility] Other Start: 03-10-2023 Alcohol intake Current drinker [...] Exposure to COVID-19 virus (ICD-10 - Z20.822) [facility] Other Summary Purpose Family History No Family History Records FoundNo Family History Records FoundNo Family History Records FoundNo Family History Records FoundNo Family History Records FoundNo Family History Records Found Advance Directives No Advanced Directives Records FoundDocuments on File Type Date 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 Get some extra rest. Take an ejyj-dve-wvwvdsb pain medicine, such as acetaminophen (Tylenol), ibuprofen (Advil, Motrin),or naproxen (Aleve) to reduce fever and relieve body aches. Read and follow all instructions on thelabel. Do not take two or more pain medicines at the same time unless the doctor told you to. Many pain medicines have acetaminophen, which is Tylenol. Too much acetaminophen (Tylenol) can be harmful. Take an cgkg-nos-xudbzkh cough medicine that contains dextromethorphan to help [...] Log into your personal health record on [email or web address] and enter H333 in the Education box to learn more about Bronchitis: Care Instructions. Current as of: July 15, 2018 Content Version: 12.3 2924-7910 [employer]. Care instructions adapted under license by your healthcare professional. If you have questions about a medical condition or this instruction, always ask your healthcare professional. [employer] disclaims any warranty or liability for your use of this information. documented in this encounter History of Present Illness * Summer Steen DO - 02/15/2019 1:22 PM EST PATIENT NAME: Meron Darling [facility] [address] [facility] [id number] : 1995 DATE OF VISIT: 02/15/2019 SS#: [...] slightly. Patient states that a week before [place], approximately 2 to 3 weeks ago patient was treated with an antibiotic. She said he took it for 10 days and twice a day. Likely Augmentin but patient does not remember. Symptoms resolved. Patient is concerned she is got pneumonia again. [place] warm butno objective fevers. Took Tylenol prior [...] file Gets together: Not on file Attends judaism service: Not on file Active member of [...] Visit Medication Sig Dispense Refill norethindrone-ethinyl estradiol (JUNE02/25) 1 mg-20 mcg (21)/75 mg (7) per [...] Medications Medication Sig Dispense Refill norethindrone-ethinyl estradiol (JUNEL 02/25) 1 mg-20 mcg (21)/75 mg (7) [...] section and content) DATE CREATED AUTHOR 05/17/2018 [facility] DATE CREATED AUTHOR AUTHOR'S ORGANIZ ATION 02/17/2019 [facility] DATE CREATED AUTHOR AUTHOR'S ORGANIZ ATION 08/19/[address] [facility] DATE CREATED AUTHOR AUTHOR'S ORGANIZ ATION 10/04/2020 [facility] DATE CREATED AUTHOR AUTHOR'S ORGANIZ ATION 07/24/2023 [facility] DATE CREATED AUTHOR AUTHOR'S ORGANLINDY ATION 08/04/2023 [facility] d[facility] Specialists EPIC Reason for Visit (unrecogniz ed section and content) Reason Comments Shortness of Breath Started againaces gregory aguero. Pt was treated for pneumonia around 01/30/2019 and finished tx however today she feelslike it is coming back Care Teams (unrecognized sec tion and content) Supervisor Winding Department Relationship Specialty Start Date End Date Grecia Arriaza MD [address] [place] [address] PCP - General Family Medicine 01/12/23 FOR [...] BE BASED ON THE PRIMARY CLINICAL RECORDS. [employer] provides no warranty or guarantee of the accuracy or completeness of information in this document.
[2023-08-05 22:23] VITALS: BP 139/88; PULSE 70; TEMP 36.1
[2023-08-05 22:48] LABS: Bilirubin Urine NEGATIVE (NEGATIVE); Blood Urine NEGATIVE (NEGATIVE); Clarity Urine CLEAR (CLEAR); Color Urine LT. YELLOW (YELLOW); Glucose Urine UA NEGATIVE (NEGATIVE); Ketones Urine NEGATIVE (NEGATIVE); Leukocyte Esterase Urine NEGATIVE (NEGATIVE); Nitrite Urine NEGATIVE (NEGATIVE); Protein Urine NEGATIVE (NEG/TRACE); Specific Gravity Urine 1.015 (1.005-1.025); Urobilinogen Urine 0.2 EU/dL (0.2-1.0); pH Urine 6.5 (5.0-9.0)
[2023-08-05 22:50] LABS: Urine Microscopic Indicated NO
[2023-08-05 22:56] LABS: Amnisure NEGATIVE (NEGATIVE); Internal Control Within Normal Limits
== END 2023-08-06 00:30 | disposition home or self-care (01) ==
PROVIDERS: Admitting Provider Obstetrics & Gynecology Gynecology; PCP Family Medicine; Visit Provider Obstetrics & Gynecology Gynecology
DX: O47.1 False labor at or after 37 completed weeks of gestation (principal); Z3A.38 38 weeks gestation of pregnancy
CPT/HCPCS: 59025; 81003; 84112

== ENCOUNTER 2023-08-06 03:04 | Inpatient (IN) | payer BC, SELFPAY ==
[2023-08-06] VITALS (40 sets, daily range): BP systolic 112–161; BP diastolic 58–92; PULSE 70–123; TEMP 35.9–36.2
--- OUTSIDE RECORDS SUMMARY | 2023-08-06 03:09 | XMS_ITS | CCD ---
Author Organization [facility] Care Team Providers Care Tax Director Name Role Phone GARY ZAMORA Attending Unavailabl [...] (1 source) diphenhydrAMINE Drug Allergy 4 [facility] Repository (5 sources) diphenhydrAMINE; Translations: [Unknown] Drug Allergy 0 Other (See Comments) [facility] (1 source) Sulfonamides (Antibiotic) Drug Allergy [...] oral solution (1 source) alpha-Adrenergic Agonist, Uncompetitive F-ygnpls-E-aspartat e Receptor Antagonist, Sigma-1 Agonist Start: 02-17-2019 [...] Test Name Value Interpretation Reference Range Facility [facility] 02-09-2023 Send Out Report FORWARD TO [facility] Comment on above: Result Comment: [id number] Performed By: #### C MIS #### [employer] [address] [place], [place] [id number] Toy Consultant: MD Maico Whitehead 02-08-2023 Test Name [facility] Comment on above: Performed By: #### C MIS #### [employer] [address] [place], [place] [id number] Toy Consultant: Isidro Aguirre MD Maternal Ser 1st [place] 02-03 Cr Rump Lngt, Twin B Not Applicable Normal [facility] Comment on above: Performed By: #### A MSFT #### [address] [address] Toy Consultant: Isidro Aguirre MD [address] [address] Toy Consultant: Rojas Simpson MD [place] Rump Length 57.2 mm [facility] Comment on above: Performed By: #### A MSFT #### [address] [address] Toy Consultant: Isidro Aguirre MD [address] [phone] Toy Consultant: Rojas Simpson MD Gestat Age (exact) 12 wks, 1 days Normal [facility] Comment on above: Performed By: #### A MSFT #### [address] [address] Toy Consultant: Isidro Aguirre MD [address] [phone] Toy Consultant: Rojas Simpson MD Hx Aneuploidy Unknown [facility] Comment on above: Performed By: #### A MSFT #### [address] [address] Toy Consultant: Isidro Aguirre MD [address] [address] Toy Consultant: Rojas Simpson MD Interpretation Screen Neg Normal [facility] Comment on above: Result Comment: (NOT [...] developed and its performance characteristics determined by [employer]. It has not been cleared or approved by the [place] Food and Drug Administration. This test was performed in a CLIA certified laboratory and is intended for clinical purposes. Performed By: #### A MSFT #### [address] [address] Toy Consultant: Isidro Aguirre MD [address] [address] Toy Consultant: Rojas Simpson MD [age] [facility] Comment on above: Performed By: #### A MSFT #### [address] [address] Toy Consultant: Isidro Aguirre MD [address] [phone] Toy Consultant: Rojas Simpson MD Maternal Race Nonblack [facility] Comment on above: Performed By: #### A MSFT #### [address] [address] Toy Consultant: Isidro Aguirre MD [address] [phone] Toy Consultant: Rojas Simpson MD Maternal Screen, EER See Note [facility] Comment on above: Result Comment: (NOT E) Authorized individuals can access the [facility] Enhanced Report using the following link: [email or web address] Performed By: [employer] [address] [place] [id number] [employer] Channeler: Rex Moreau MD, PhD CLIA Number: [id number] Performed By: #### A MSFT #### [address] [address] Toy Consultant: Isidro Aguirre MD [facility] [employer] [address] [place] [address] Toy Consultant: Rojas Simpson MD Maternal Weight 191.0 lbs. [facility] Comment on above: Performed By: #### A MSFT #### [address] [address] Toy Consultant: Isidro Aguirre MD [address] [address] Toy Consultant: Rojas Simpson MD MoM for HCG 0.70 [facility] Comment on above: Performed By: #### A MSFT #### [address] [address] Toy Consultant: Isidro Aguirre MD [address] [address] Toy Consultant: Rojas Simpson MD MoM for NT 1.60 [facility] Comment on above: Performed By: #### A MSFT #### [address] [address] Toy Consultant: Isidro Aguirre MD [address] [phone] Toy Consultant: Rojas Simpson MD MoM for [place], Twin B Not Applicable Normal [facility] Comment on above: Performed By: #### A MSFT #### [address] [address] Toy Consultant: Isidro Aguirre MD [facility] [address] [place] [address] Toy Consultant: Rojas Simpson MD MoM for SHONDA-A 0.82 [facility] Comment on above: Performed By: #### A MSFT #### [address] [address] Toy Consultant: Isidro Aguirre MD [facility] [address] [place] [address] Toy Consultant: Rojas Simpson MD Nuchal Trans, Twin B Not Applicable [facility] Comment on above: Performed By: #### A MSFT #### [address] [address] Toy Consultant: Isidro Aguirre MD [address] [address] Toy Consultant: Rojas Simpson MD Nuchal Translucency 2.30 mm [facility] Comment on above: Performed By: #### A MSFT #### [address] [address] Toy Consultant: Isidro Aguirre MD [address] [phone] Toy Consultant: Rojas Simpson MD Number of Fetuses Burton Normal [facility] Comment on above: Performed By: #### A MSFT #### [address] [address] Toy Consultant: Isidro Aguirre MD [address] [phone] Toy Consultant: Rojas Simpson MD SHONDA-A Maternal 479.0 ng/mL [facility] Comment on above: Result Comment: (NOT E) This test was developed and its performance characteristics determined by [employer]. It has not been cleared or approved by the [place] Food and Drug Administration. This test was performed in a CLIA certified laboratory and is intended for clinical purposes. Performed By: #### A MSFT #### [address] [address] Toy Consultant: Isidro Aguirre MD [address] [address] Toy Consultant: Rojas Simpson MD Patient's HCG [address] IU/L [facility] Comment on above: Performed By: #### A MSFT #### [address] [address] Toy Consultant: Isidro Aguirre MD [address] [address] Toy Consultant: Rojas Simpson MD Smoking Unknown [facility] Comment on above: Performed By: #### A MSFT #### [address] [address] Toy Consultant: Isidro Aguirre MD [address] [address] Toy Consultant: Rojas Simpson MD Microarray Specialist Cert No [id number] [facility] Comment on above: Performed By: #### A MSFT #### [address] [address] Toy Consultant: Isidro Aguirre MD [address] [phone] Toy Consultant: Rojas Simpson MD Microarray Specialist Name Trisha Saleh [facility] Comment on above: Performed By: #### A MSFT #### [address] [address] Toy Consultant: Isidro Aguirre MD [address] [phone] Toy Consultant: Rojas Simpson MD Specimen See Note [facility] Comment on above: Result Comment: Init ial sample Performed By: #### A MSFT #### [address] [address] Toy Consultant: Isidro Aguirre MD [address] [address] Toy Consultant: Rojas Simpson MD Ultrasound Date SEE NOTE [facility] Comment on above: Result Comment: Resu lts for Ultrasound Date: 02 02 23 Performed By: #### A MSFT #### [address] [address] Toy Consultant: Isidro Aguirre MD [address] [phone] Toy Consultant: Rojas Simpson MD Maternal Ser 1st [place] 02-02 [place] Rump Length 57.2 Normal [facility] Comment on above: Performed By: #### A MSFT #### [address] [address] Toy Consultant: Isidro Aguirre MD [address] [phone] Toy Consultant: Rojas Simpson MD Current Smoking INFORMATION NOT PROVIDED [facility] Comment on above: Performed By: #### A MSFT #### [address] [address] Toy Consultant: Isidro Aguirre MD [address] [phone] Toy Consultant: Rojas Simpson MD Date of Ultrasound [phone] [facility] Comment on above: Performed By: #### A MSFT #### [address] [address] Toy Consultant: Isidro Aguirre MD [address] [phone] Toy Consultant: Rojas Simpson MD Donor Egg INFORMATION NOT PROVIDED [facility] Comment on above: Performed By: #### A MSFT #### [address] [address] Toy Consultant: Isidro Aguirre MD [address] [address] Toy Consultant: Rojas Simpson MD In Vitro Fertalizat INFORMATION NOT PROVIDED [facility] Comment on above: Performed By: #### A MSFT #### [address] [address] Toy Consultant: Isidro Aguirre MD [facility] [address] [place] [address] Toy Consultant: Rojas Simpson MD Maternal date [phone] [facility] Comment on above: Performed By: #### A MSFT #### [address] [address] Toy Consultant: Isidro Aguirre MD [address] [address] Toy Consultant: Rojas Simpson MD Maternal Weight 191 [facility] Comment on above: Performed By: #### A MSFT #### [address] [address] Toy Consultant: Isidro Aguirre MD [address] [address] Toy Consultant: Rojas Simpson MD Monochorionic Twins INFORMATION NOT PROVIDED [facility] Comment on above: Performed By: #### A MSFT #### [address] [address] Toy Consultant: Isidro Aguirre MD [address] [address] Toy Consultant: Rojas Simpson MD Nuchal Transluc (NT) 2.3 [facility] Comment on above: Performed By: #### A MSFT #### [address] [address] Toy Consultant: Isidro Aguirre MD [facility] [address] [place] [address] Toy Consultant: Rojas Simpson MD Number of fetuses 1 Normal [facility] Comment on above: Performed By: #### A MSFT #### [address] [address] Toy Consultant: Isidro Aguirre MD [facility] [address] [place] [address] Toy Consultant: Rojas Simpson MD Patient Weight Units LB [facility] Comment on above: Performed By: #### A MSFT #### [address] [address] Toy Consultant: Isidro Aguirre MD [facility] [address] [place] [address] Toy Consultant: Rojas Simpson MD Prev Trisomy Preg INFORMATION NOT PROVIDED [facility] Comment on above: Performed By: #### A MSFT #### [address] [address] Toy Consultant: Isidro Aguirre MD [address] [address] Toy Consultant: Rojas Simpson MD Race (Maternal) WHITE [facility] Comment on above: Performed By: #### A MSFT #### [address] [address] Toy Consultant: Isidro Aguirre MD [address] [address] Toy Consultant: MD Shayne Siddiqui MD [facility] [address] [facility] Comment on above: Performed By: #### A MSFT #### [address] [address] Toy Consultant: Isidro Aguirre MD [address] [address] Toy Consultant: MD Shayne Siddiqui MD Name RADHAMESBERYL VICTORIA [facility] Comment on above: Performed By: #### A MSFT #### [address] [address] Toy Consultant: Isidro Aguirre MD [facility] [address] [place] [address] Toy Consultant: Rojas Simpson MD Repeat Specimen INFORMATION NOT PROVIDED [facility] Comment on above: Performed By: #### A MSFT #### [address] [address] Toy Consultant: Isidro Aguirre MD [address] [address] Toy Consultant: Rojas Simpson MD Sonograph Cert Num [id number] [facility] Comment on above: Performed By: #### A MSFT #### [address] [address] Toy Consultant: Isidro Aguirre MD [address] [phone] Toy Consultant: Rojas Simpson MD Microarray Specialist Name [facility] Comment on above: Performed By: #### A MSFT #### [address] [address] Toy Consultant: Isidro Aguirre MD [address] [address] Toy Consultant: Rojas Simpson MD SARS-CoV-2 (COVID-19) RNA NA A+probe Ql (Resp)on 09-30-2021 SARS-CoV-2 (COVID-19) RNA CRISTIAN+probe Ql (Unsp spec) Negative Simple Other INSULINon 08-11-2020 Insulin 10.7 uIU/mL Normal 2.6-24.9 [facility] Comment on above: Performed By: #### I NSULIN #### [facility] [address] [place] [address] Maribell Spencer CBC AUTO DIFFon 08-08-2020 BASO # 0.1 103/ul Normal 0.0-0.1 [facility] Comment on above: Performed By: #### C BC #### [facility] [address] [place] [phone] Maribell Johanna Basophils/100 WBC (Bld) 1.1 % Normal 0.2-2.0 [facility] Comment on above: Performed By: #### C BC #### [facility] [address] [place], [place] [address] Maribell Johanna EO # 0.2 103/ul Normal 0.0-0.7 [facility] Comment on above: Performed By: #### C BC #### [facility] [address] [place] [phone] Maribell Johanna Eosinophils/100 WBC (Bld) 2.5 % Normal 0.9-7.0 [facility] Comment on above: Performed By: #### C BC #### [facility] [address] [place] [address] Maribell Johanna Erythrocyte distribution width (RBC) [Ratio] 13.6 % Normal 11.0-15.0 [facility] Comment on above: Performed By: #### C BC #### [facility] [address] [place], [place] [address] Maribell Johanna Hematocrit (Bld) [Volume fraction] 41.1 % Normal 36.0-48.0 [facility] Comment on above: Performed By: #### C BC #### [facility] [address] [place], [place] [address] Maribell Johanna Hemoglobin (Bld) [Mass/Vol] 13.9 g/dL Normal 12.0-16.0 [facility] Comment on above: Performed By: #### C BC #### [facility] [address] [place] [address] Maribell Johanna IG # 0.02 10e3/ul Normal 0.00-0.03 [facility] Comment on above: Performed By: #### C BC #### [facility] [address] [place], [place] [address] Maribell Johanna IG % 0.3 % Normal 0.0-0.5 [facility] Comment on above: Performed By: #### C BC #### [facility] [address] [place], [place] [address] Maribell Johanna LYMPH # 2.1 103/ul Normal 1.2-3.8 [facility] Comment on above: Performed By: #### C BC #### [facility] [address] [place], [place] [address] Maribell Johanna Lymphocytes/100 WBC (Bld) 32.4 % Normal 20.5-60.0 [facility] Comment on above: Performed By: #### C BC #### [facility] [address] [place], [place] [address] Maribell Jhoanna MANUAL DIFF REQ NO Normal [facility] Comment on above: Performed By: #### C BC #### [facility] [address] [place], [place] [address] Maribell Johanna MCH (RBC) [Entitic mass] 29.5 pg Normal 26.7-34.0 [facility] Comment on above: Performed By: #### C BC #### [facility] [address] [place] [address] Maribell Johanna MCHC (RBC) [Mass/Vol] 33.8 g/dL Normal 29.9-35.2 [facility] Comment on above: Performed By: #### C BC #### [facility] [address] [place], [place] [address] Maribell Johanna MCV (RBC) [Entitic vol] 87.3 fL Normal 81.0-99.0 [facility] Comment on above: Performed By: #### C BC #### [facility] [address] [place] [address] Maribell Johanna MONO # 0.4 103/ul Normal 0.3-0.8 [facility] Comment on above: Performed By: #### C BC #### [facility] [address] [place], [place] [address] Maribell Johanna Monocytes/100 WBC (Bld) 6.9 % Normal 1.7-12.0 [facility] Comment on above: Performed By: #### C BC #### [facility] [address] [place] [address] Maribell Johanna NEUT # 3.6 103/ul Normal 1.4-6.5 [facility] Comment on above: Performed By: #### C BC #### [facility] [address] [place], [place] [address] Maribell Spencer Neutrophils/100 WBC (Bld) 56.8 % Normal 43.0-75.0 [facility] Comment on above: Performed By: #### C BC #### [facility] [address] [place] [address] Maribell Spencer Platelet mean volume (Bld) [Entitic vol] 9.9 fL Normal 9.5-13.5 [facility] Comment on above: Performed By: #### C BC #### [facility] [address] [place] [address] Maribell Spencer PLT 180 103/ul Normal 150-450 [facility] Comment on above: Performed By: #### C BC #### [facility] [address] [place] [address] Maribell Spencer RBC 4.71 106/ul Normal 4.20-5.40 [facility] Comment on above: Performed By: #### C BC #### [facility] [address] [place] [address] Maribell Spencer WBC 6.4 103/ul Normal 4.0-11.0 [facility] Comment on above: Performed By: #### C BC #### [facility] [address] [place], [place] [address] Maribell Spencer FREE THYROXINE INDEX T7on FTI 3.39 Normal [facility] Comment on above: Performed By: #### L IPID, CMP, T7, TSH #### [facility] [address] [place], [place] [address] Maribell Spencer T3U 28.0 % Normal 23.5-40.5 [facility] Comment on above: Performed By: #### L IPID, CMP, T7, TSH #### [facility] [address] [place], [place] [address] Maribell Spencer T4 [Mass/Vol] 12.10 ug/dL Critically high 5.53-11.00 [facility] Comment on above: Performed By: #### L IPID, CMP, T7, TSH #### [facility] [address] [place] [phone] Maribell Spencer GLYCOHEMOGLOBIN A1Con 2020 ADA RECOMMENDATION ADA THERAPEUTIC TARGET 6.0 - 7.0 ACTION SUGGESTED > 7.0 Normal [facility] Comment on above: Performed By: #### A 1C #### [facility] [address] [place] [phone] Maribell Johanna Glucose [Mass/Vol] 123 mg/dL Normal [facility] Comment on above: Performed By: #### A 1C #### [facility] [address] [place], [place] [address] Maribell Johanna HbA1c (Bld) [Mass fraction] 5.9 % Normal <=6.0 [facility] Comment on above: Performed By: #### A 1C #### [facility] [address] [place], [place] [address] Maribell Millsen IRONon 08-08-2020 Iron [Mass/Vol] 66.0 ug/dL Normal 37.0-170.0 [facility] Comment on above: Performed By: #### I DUNIA #### [facility] [address] [place], [place] [address] Maribellkhadijah Spencer LIPID PROFILEon 08-08-2020 CHOL-HDL RATIO NORM SEE BELOW Normal [facility] Comment on above: Result Comment: 3.3 - 4.4 LOW RISK 4.4 - 7.1 AVERAGE RISK 7.1 - 11.0 MODERATE RISK >11.0 HIGH RISK Performed By: #### L IPID, CMP, T7, TSH #### [facility] [address] [place], [place] [address] Maribell Johanna Cholesterol [Mass/Vol] 215 mg/dL Critically high <=200 [facility] Comment on above: Performed By: #### L IPID, CMP, T7, TSH #### [facility] [address] [place], [place] [address] Maribell Johanna Cholesterol in HDL [Mass/Vol] 37 mg/dL Normal [facility] Comment on above: Performed By: #### L IPID, CMP, T7, TSH #### [facility] [address] [place], [place] [address] Maribell Johanna Cholesterol in LDL [Mass/Vol] 142.4 mg/dL Normal [facility] Comment on above: Performed By: #### L IPID, CMP, T7, TSH #### [facility] [address] [place], [place] [address] Maribell Johanna Cholesterol.total/C holesterol in HDL [Mass ratio] 5.8 {ratio} Normal [facility] Comment on above: Performed By: #### L IPID, CMP, T7, TSH #### [facility] [address] [place], [place] [address] Maribell Johanna HDL NORMAL > or = 60 mg/dl - LO W CARDIOVASCULAR RISK <40 mg/dl - HIGH CARDIOVASCULAR RISK Normal [facility] Comment on above: Performed By: #### L IPID, CMP, T7, TSH #### [facility] [address] [place] [id number] Maribell Johanna LDL CALC NORMAL SEE BELOW Normal [facility] Comment on above: Result Comment: <100 mg/dl OPTIMAL 100 - 129 mg/dl NEAR OR ABOVE OPTIMAL 130 - 159 mg/dl BORDERLINE HIGH 160 - 189 mg/dl HIGH >190 mg/dl VERY HIGH Performed By: #### L IPID, CMP, T7, TSH #### [facility] [address] [place], [place] [address] Maribell Johanna Triglyceride [Mass/Vol] 178 mg/dL Critically high <=150 [facility] Comment on above: Performed By: #### L IPID, CMP, T7, TSH #### [facility] [address] [place], [place] [address] Maribell Johanna VLDL CALC 35.6 mg/dL Normal [facility] Comment on above: Performed By: #### L IPID, CMP, T7, TSH #### [facility] [address] [place], [place] [address] Maribellkhadijah Millsen PROF 14(COMP METB)on 021 Albumin [Mass/Vol] 3.5 g/dL Normal 3.5-5.0 [facility] Comment on above: Performed By: #### L IPID, CMP, T7, TSH #### [facility] [address] [address] Maribell Johanna Albumin/Globulin [Mass ratio] 0.8 {ratio} Normal [facility] Comment on above: Performed By: #### L IPID, CMP, T7, TSH #### [facility] [address] [place] [address] Maribell Johanna ALP [Catalytic activity/Vol] 62 U/L Normal 38-126 [facility] Comment on above: Performed By: #### L IPID, CMP, T7, TSH #### [facility] [address] [place] [address] Maribell Johanna ALT [Catalytic activity/Vol] 50 U/L Normal 9-52 [facility] Comment on above: Performed By: #### L IPID, CMP, T7, TSH #### [facility] [address] [place] [address] Maribell Johanna Anion gap [Moles/Vol] 14.5 mmol/L Normal [facility] Comment on above: Performed By: #### L IPID, CMP, T7, TSH #### [facility] [address] [place] [address] Maribell Johanna AST [Catalytic activity/Vol] 36 U/L Normal 14-36 [facility] Comment on above: Performed By: #### L IPID, CMP, T7, TSH #### [facility] [address] [place] [address] Maribell Johanna Bilirubin [Mass/Vol] 0.5 mg/dL Normal 0.2-1.3 [facility] Comment on above: Performed By: #### L IPID, CMP, T7, TSH #### [facility] [address] [place] [address] Maribell Johanna Calcium [Mass/Vol] 9.0 mg/dL Normal 8.4-10.2 [facility] Comment on above: Performed By: #### L IPID, CMP, T7, TSH #### [facility] [address] [place] [address] Maribell Johanna Chloride [Moles/Vol] 103 mmol/L Normal 98-107 [facility] Comment on above: Performed By: #### L IPID, CMP, T7, TSH #### [facility] Laboratory [address] [address] Maribell Johanna CO2 [Moles/Vol] 25.6 mmol/L Normal 22.0-30.0 [facility] Comment on above: Performed By: #### L IPID, CMP, T7, TSH #### [facility] Laboratory [address] [address] Maribell Johanna Creatinine [Mass/Vol] 0.80 mg/dL Normal 0.52-1.04 [facility] Comment on above: Performed By: #### L IPID, CMP, T7, TSH #### [facility] Laboratory [address] [address] Maribell Johanna EGFR-AF SLOVAK >60 Normal >=60 [facility] Comment on above: Performed By: #### L IPID, CMP, T7, TSH #### [facility] Laboratory [address] [address] Maribell Johanna EGFR-NON AF SLOVAK >60 Normal >=60 [facility] Comment on above: Performed By: #### L IPID, CMP, T7, TSH #### [facility] Laboratory [address] [address] Maribell Johanna Globulin (S) [Mass/Vol] 4.6 g/dL Normal [facility] Comment on above: Performed By: #### L IPID, CMP, T7, TSH #### [facility] Laboratory [address] [address] Maribell Johanna Glucose [Mass/Vol] 115 mg/dL Critically high 74-106 T [facility] Comment on above: Performed By: #### L IPID, CMP, T7, TSH #### [facility] Laboratory [address] [address] Maribell Johanna Potassium [Moles/Vol] 4.1 mmol/L Normal 3.4-5.0 [facility] Comment on above: Performed By: #### L IPID, CMP, T7, TSH #### [facility] Laboratory [address] [place] [address] Maribell Johanna Protein [Mass/Vol] 8.1 g/dL Normal 6.1-8.2 The [facility] Comment on above: Performed By: #### L IPID, CMP, T7, TSH #### [facility] Laboratory [address] [place] [address] Maribell Johanna Sodium [Moles/Vol] 139 mmol/L Normal 137-145 [facility] Comment on above: Performed By: #### L IPID, CMP, T7, TSH #### [facility] Laboratory [address] [place] [address] Maribell Johanna Urea nitrogen [Mass/Vol] 9.0 mg/dL Normal 7.0-17.0 [facility] Comment on above: Performed By: #### L IPID, CMP, T7, TSH #### [facility] Laboratory [address] [place] [address] Maribell Johanna Urea nitrogen/Creatinine [Mass ratio] 11.2 mg/mg Normal [facility] Comment on above: Performed By: #### L IPID, CMP, T7, TSH #### [facility] Laboratory [address] [place] [address] Maribell Johanna TSHon 08-08-2020 TSH 1.632 uIU/mL Normal 0.470-4.680 [facility] Comment on above: Performed By: #### L IPID, CMP, T7, TSH #### [facility] Laboratory [address] [place] [address] Maribell Johanna TSH RANGE SEE BELOW Normal [facility] Comment on above: Result Comment: <0.3 4 UIU/ml HYPERTHYROID 0.34-5.60 UIU/ml EUTHYROID >5.60 UIU/ml HYPOTHYROID Performed By: #### L IPID, CMP, T7, TSH #### [facility] Laboratory [address] [place], [place] [id number] Maribell Johanna XR CHEST AP/PA AND LATon [...] are identified. IMPRESSION: No acute process identified. [employer]/Clinked Workstation ID: [id number] Dictated by: ISHMAEL KEYS on [place] Feb 17, 2019 10:05:42 AM EST Transcribed by: LEXII HUTCHINSON on [place] Feb 17, 2019 10:06:52 AM EST Finalized by: ISHMAEL KEYS on [place] Feb 17, 2019 10:59:38 AM EST Normal [facility] Comment on above: Order Comment: Injur y/Trauma or Illness?:Illness/Other How long have you had these symptoms (acute/chronic)?:Acute Reason for exam?:cough History of cancer?:no Surgeries, chemotherapy, or radiation?:unk Type of Exam?:Initial Additional signs and symptoms?:Treated for pneumonia around [place]. Started having cough, fever again about 2 days ago. No acute process identified. 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 Started having cough, fever again about 2 days ago. ORDERING SYSTEM PROVIDED DIAGNOSIS CODES: R05 Cough COMPARISON: None. FINDINGS: Cardiomediastinal silhouette is within normal limits. Lungs are clear. No significant pleural or osseous abnormalities are identified. [facility] Interface, Rad In Fuji Speechq - [...] acute process identified. MA/trw Workstation ID: [id number] [facility] Chlamydia Detection by NAATo n 05-15-2018 Protein mass conc [facility] Microbiology PROCEDURE: Chlamydia Detection by NAAT [...] RESULTS ARE INCONSISTENT WITH CLINICAL FINDINGS Normal [facility] Comment on above: Performed By: #### C [id number] #### [facility] [address] [place], [place] Vital Signs Date Time Vital Sign Value Performing Clinician Tana lara 02-15-2019 13:170500 BMI (Body Mass Index) 27.25 kg/m2 [facility] 02-15-2019 13:17-0500 Body Temperature 99.61 [degF] [facility] 02-15-2019 13:17-0500 Body weight 81.28 kg [facility] 02-15-2019 13:17-0500 BP Diastolic 82 mm[Hg] [facility] 02-15-2019 13:17-0500 BP Systolic 131 mm[Hg] [facility] 02-15-2019 13:17-0500 Height 172.7 cm [facility] 02-15-2019 13:17-0500 Pulse (Heart Rate) 89 /min [facility] 02-15-2019 13:17-0500 Pulse Oximetry 96 % [facility] 02-15-2019 13:17-0500 Respiratory Rate 16 /min Summer Steen [facility] Encounters Encounter Date Encounter Type Care [...] Not Available Start: 02-08-2023 End: 02-08-2023 ambulatory [facility] Start: 02-02-2023 End: 02-02-2023 ambulatory [facility] Start: 01-12-2023 End: 01-12-2023 ambulatory VIOLETA MAME Not Available Start: 09-30-2021 End: 09-30-2021 ambulatory Radha Copeland Other [facility] Other Start: 09-30-2021 Nursing evaluation o f patient and report Radha Copeland [facility] Start: 09-21-2020 End: 09-25-2020 ambulatory GRECIA HOY [facility] Start: 08-18-2020 Encounter for genera l adult medical examination without abnormal findings DR GRECIA ARRIAZA [facility] Start: 08-08-2020 End: 08-09-[address] GRECIA ARRIAZA Facility:[facility] Start: 08-08-2020 End: 08-09-2020 Encounter for general adult medical examination without abnormal findings DR GRECIA ARRIAZA Facility:[facility] Start: 02-17-2019 End: 02-18-2019 Patient encounter procedure REMBERTO COELHO [facility] Start: 02-17-2019 End: 02-17-2019 Subsequent hospital visit by physician Remberto Coelho Work Phone: [facility] Comment on above: Arrived Start: 02-15-2019 End: 02-15-2019 Patient encounter procedure SUMMER STEEN [facility] Start: 02-15-2019 End: 02-15-2019 Office outpatient visit 15 minutes Summerelina Abarcayannick Steen Work Phone: [facility] Comment on above: Bronchitis (Primary Dx) Start: 05-16-2018 End: 05-16-2018 Patient encounter procedure GARY ZAMORA Facility:[facility] Procedures Date Procedure Procedure Detail Performing [...] DERM [address] [place] [id number] Meron Muniz MD [address] [place] [address] [facility] Start: 03-14-2023 End: 03-14-2023 Patient encounter procedure 03/14/2023 8:30 AM EST Routine [facility] [address] [place] [phone] Meredith Keane PA [address] [place] [address] [place] [address] Second trimester [facility] Comment on above: Second trimester pre gnancy Start: 04-20-2021 Screening for malign ant neoplasm of cervix PAP SMEAR [facility] Start: 04-21-2019 Screening for Chlamy luis [...] 1995 Tetanus vaccination TETANUS EVERY 10 YR [facility] Payers Date Payer Category Payer Unknown BCBS BCBS xxxxxx [id number] 2022-Present [phone] [address] [place] [address] [id number] 2022 Unknown [id number] 2018 Unknown NADYA HOWARD/SANTIAGO/HMO/PPO xxxxxxxxxxxx 2018-Present xxxxxxxxxxxx [id number] 1995 Unknown [id number] [id number]3 1995 Unknown [id number] 2.16.840.1.654665.3.579.2.903 1995 Unknown [id number] 2.16.840.1.357329.3.579.2.903 1995 Unknown [id number] 2.16.840.1.299852.3.579.2.593 1995 Unknown [id number] 2.16.840.1.288671.3.579.2.900 1995 Unknown [id number] 2.16.840.1.626744.3.579.2.175 1995 Unknown [id number] 2.16.840.1.524992.3.579.2.175 1995 Unknown [id number] 2.16.840.1.346829.3.579.2.125 9 1995 Unknown [id number] 2.16.840.1.690562.3.579.2.125 9 1995 Unknown [id number] 2.16.840.1.585338.3.579.2.125 9 1995 Unknown [id number] 2.16.840.1.702506.3.579.2.125 9 1995 Unknown [id number] 2.16.840.1.851717.3.579.2.125 9 1995 Unknown [id number] 2.16.840.1.332573.3.579.2.125 9 1995 Unknown [id number] 2.16.840.1.697487.3.579.2.125 9 1995 Unknown [id number] 2.16.840.1.752599.3.579.2.125 9 1995 Unknown [id number] 2.16.840.1.668598.3.579.2.125 9 1995 Unknown [id number] 2.16.840.1.575408.3.579.2.125 9 1995 Unknown [id number] 2.16.840.1.246039.3.579.2.125 9 1959 Unknown [id number] Social History Date Type Detail Facility Start: 02-15-2019 End: 01-19-2023 Tobacco smoking status [facility] Never smoker [facility] Sex Assigned At Not on file [facility] Start: 01-19-2023 Sex Assigned At [facility] Start: 03-10-2023 Alcohol intake Current drinker [...] Exposure to COVID-19 virus (ICD-10 - Z20.822) [facility] Other Summary Purpose Family History No Family History Records FoundNo Family History Records FoundNo Family History Records FoundNo Family History Records FoundNo Family History Records FoundNo Family History Records Found Advance Directives No Advanced Directives Records FoundDocuments on File Type Date Recorded Patient Claims Director Expl anation Advance Directives and Living Will [...] medicine. Get some extra rest. Take an dyip-edy-gmqdamx pain medicine, such as acetaminophen (Tylenol), ibuprofen (Advil, Motrin),or naproxen (Aleve) to reduce fever and relieve body aches. Read and follow all instructions on thelabel. Do not take two or more pain medicines at the same time unless the doctor told you to. Many pain medicines have acetaminophen, which is Tylenol. Too much acetaminophen (Tylenol) can be harmful. Take an lnvf-dnk-yvxxqxs cough medicine that contains dextromethorphan to help [...] Log into your personal health record on [email or web address] and enter H333 in the Education box to learn more about Bronchitis: Care Instructions. Current as of: July 15, 2018 Content Version: 12.3 2822-4685 [employer]. Care instructions adapted under license by your healthcare professional. If you have questions about a medical condition or this instruction, always ask your healthcare professional. [employer] disclaims any warranty or liability for your use of this information. documented in this encounter History of Present Illness * Summer Steen DO - 02/15/2019 1:22 PM EST PATIENT NAME: Meron Darling [facility] [address] [facility] [id number] : 1995 DATE OF VISIT: 02/15/2019 SS#: [...] slightly. Patient states that a week before [place], approximately 2 to 3 weeks ago patient was treated with an antibiotic. She said he took it for 10 days and twice a day. Likely Augmentin but patient does not remember. Symptoms resolved. Patient is concerned she is got pneumonia again. [place] warm butno objective fevers. Took Tylenol prior [...] file Gets together: Not on file Attends oriental orthodox service: Not on file Active member of [...] section and content) DATE CREATED AUTHOR 05/17/2018 [facility] DATE CREATED AUTHOR AUTHOR'S ORGANIZ ATION 02/17/2019 [facility] DATE CREATED AUTHOR AUTHOR'S ORGANIZ ATION 08/19/2020 [facility] DATE CREATED AUTHOR AUTHOR'S ORGANIZ ATION 10/04/2020 [facility] DATE CREATED AUTHOR AUTHOR'S ORGANIZ ATION 07/24/2023 [facility] DATE CREATED AUTHOR AUTHOR'S ORGANLINDY ATION 08/04/2023 [facility] EPIC Reason for Visit (unrecogniz ed section and content) Reason Comments Shortness of Breath Started againaces gregory aguero. Pt was treated for pneumonia around 01/30/2019 and finished tx however today she feelslike it is coming back Care Teams (unrecognized sec tion and content) Tax Director Relationship Specialty Start Date End Date Grecia Arriaza MD [address] [place] [address] PCP - General Family Medicine 01/12/23 FOR [...] BE BASED ON THE PRIMARY CLINICAL RECORDS. [employer] provides no warranty or guarantee of the accuracy or completeness of information in this document.
[2023-08-06 03:48] LABS: Hematocrit 40.3 % (36.0-48.0); Hemoglobin 13.6 g/dL (12.0-16.0); Mean Corpuscular HGB Conc 33.7 g/dL (29.9-35.2); Mean Corpuscular Hemoglobin 29.8 pg (26.7-34.0); Mean Corpuscular Volume 88.4 fL (81.0-99.0); Mean Platelet Volume 10.8 fL (9.5-13.5); Platelet Count 226 10^3/uL (150-450); Red Blood Count 4.56 10^6/uL (4.20-5.40); Red Cell Distribution Width 13.9 % (11.0-15.0); White Blood Count 13.3 10^3/uL (4.0-11.0)
[2023-08-06] MEDS: 0.9 % SODIUM CHLORIDE 1,000 ML 125 ML IV (03:49)
[2023-08-06] MEDS: NALBUPHINE HCL 10 MG/ML AMPULE IV (03:53)
[2023-08-06 03:58] LABS: Amphetamine Screen Urine NEGATIVE (NEGATIVE); Barbiturates Screen Urine NEGATIVE (NEGATIVE); Benzodiazepines Screen Urine NEGATIVE (NEGATIVE); Buprenorphine Screen Urine NEGATIVE (NEGATIVE); Cannabinoid Screen Urine NEGATIVE (NEGATIVE); Cocaine Screen Urine NEGATIVE (NEGATIVE); Methadone Screen Urine NEGATIVE (NEGATIVE); Methamphetamines Screen Urine NEGATIVE (NEGATIVE); Opiate Screen Urine NEGATIVE (NEGATIVE); Oxycodone Screen Urine NEGATIVE (NEGATIVE); Phencyclidine Screen Urine NEGATIVE (NEGATIVE); Tricyclic Antidepressant Urine NEGATIVE (NEGATIVE)
[2023-08-06] MEDS: ROPIVACAINE HCL/PF 400 MG/200 ML PREMIX 6 MG EPIDURAL (05:04)
--- NOTE | 2023-08-06 08:29 | PM.OBHP ---
OB - H&P: HPI History of Present Illness Chief complaint: r/o labor : 1 Para: 0 Date of last menstrual period: 11/06/2022 Gestational age based on last menstrual period: 39 weeks Narrative: Patient states contractions started yesterday. She did present to L&D earlier this morning and noted to be in early labor - discharged to home. At home patient's water broke. 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 Labs Blood type: 0 (-) negative Rubella: immune RPR/VDLR: nonreactive GBS status: negative HBsAG: negative Review of Systems ROS Status of ROS: 10 or more systems reviewed and unremarkable except as noted in history and below Meds Home Medications and Allergies Allergies Allergy/AdvReac Type Severity Reaction Status Date / Time diphenhydramine Allergy Unknown Verified 05/26/23 08:18 [From Benadryl] Exam Constitutional Vital Signs, click to edit/add: Last Vital Signs Temp 97.0 F L 08/06/23 04:24 Pulse 80 08/06/23 08:22 BP 112/59 08/06/23 08:22 O2 Del Method Room Air 08/06/23 04:11 Documenting provider has reviewed patient's vital signs: yes Common normals: no apparent distress HENMT Common normals: normocephalic Eye Common normals: PERRL and EOMs intact bilaterally Neck & C-Spine Common normals: full ROM Lymph Lymphatic: no lymphadenopathy noted Chest Common normals: inspection of chest normal Respiratory Common normals: normal respiratory effort Cardio Common normals: regular rate GI Inspection: normal to inspection Other: gravid Bladder/kidney exam: catheter in place Other: 5cm/90, -1=cervix, mid posterior Back & Pelvis Common normals: no CVA tenderness Extremity Common normals: no calf tenderness Neuro Common normals: oriented x3 Psych Common normals: mental status grossly normal and cooperative Results Labs Labs: Short CBC 08/06/23 Range/Units 03:35 WBC 13.3 H (4.0-11.0) 10^3/uL Hgb 13.6 (12.0-16.0) g/dL Hct 40.3 (36.0-48.0) % Plt Count 226 (150-450) 10^3/uL OB - A/P Assessment and Plan (1) Term : Plan Term in labor Dysfunctional labor 4cm at admission - 0450am currently 5cm Epidural given and doing well Additional Plan Plan: other (pitocin augmentation)
[2023-08-06] MEDS: OXYTOCIN/0.9 % SODIUM CHLORIDE 10 UNITS/500 ML PLAST..BAG 6 UNIT IV (08:35)
--- NOTE | 2023-08-06 09:37 | PM.OBPN ---
Exam Constitutional Vital Signs, click to edit/add: Last Vital Signs Temp 97.0 F L 08/06/23 04:24 Pulse 93 H 08/06/23 09:23 BP 145/92 H 08/06/23 09:23 O2 Del Method Room Air 08/06/23 04:11 Results Labs Labs: Short CBC 08/06/23 Range/Units 03:35 WBC 13.3 H (4.0-11.0) 10^3/uL Hgb 13.6 (12.0-16.0) g/dL Hct 40.3 (36.0-48.0) % Plt Count 226 (150-450) 10^3/uL OB - PN: A/P Assessment and Plan (1) Term : Time Spent with Patient Time: Total time spent is greater than 50% in coordination of care (as documented) at patient's floor/unit and/or counseling patient: Total time spent with greater than 50% in coordination of care (as documented) at patient's floor/unit and/or counseling patient: less than 15 minutes
--- NOTE | 2023-08-06 09:38 | PM.OBPNL ---
Pain Control Pain control: tolerating well and epidural Pelvic Exam Dilation (cm): 10 Effacement (%): 100 Comments: pushing Contractions Monitor mode: External Contraction pattern: Regular Contraction intensity: Moderate to Strong station: 0 Amniotic membrane status: Leaking status: Category I Assessment and Plan Pitocin rate (mU/min): 2 Assessment: active labor Plan: continuous present management
--- NOTE | 2023-08-06 10:47 | PM.OBPRCVD ---
Procedure Procedure: Induction method: none Delivery augmentation: pitocin Delivery monitor: external FHT Route of delivery: Episiotomy Description: midline L&D Laceration Description: none Delivery repair: Vicryl Estimated blood loss (mL): 150 Anesthesia type: Epidural Disposition: floor Narrative: viable male infant over midline episiotomy, no extension. JOSAFAT. spontaneous cry at delivery Placenta spontaneously delivered, 3VC - to pathology. midline episiotomy repaired with 3-O vicryl suture. no other tears noted EBL 150cc complications - none Infant Delivery date: 08/06/23 Gender: male presentation: vertex Placental delivery description: Spontaneous and Expressed cord description: 3 Vessels cord description comment: placenta to pathology due to Baby with Asaf's Syndrome
[2023-08-06] MEDS: IBUPROFEN 600 MG TABLET PO (20:23)
[2023-08-06] MEDS: DOCUSATE SODIUM 100 MG CAPSULE PO (20:23)
[2023-08-07 01:54] VITALS: BP 108/58; PULSE 68; TEMP 35.9
[2023-08-07 06:02] LABS: Basophils Absolute Auto 0.1 10^3/uL (0.0-0.1); Basophils Percent Auto 0.4 % (0.2-2.0); Eosinophils Absolute Auto 0.1 10^3/uL (0.0-0.7); Eosinophils Percent Auto 0.7 % (0.9-7.0); Hematocrit 35.9 % (36.0-48.0); Hemoglobin 11.8 g/dL (12.0-16.0); Immature Granulocytes Abs Auto 0.04 10^3/uL (0.00-0.03); Immature Granulocytes Pct Auto 0.3 % (0.0-0.5); Lymphocytes Absolute Auto 2.6 10^3/uL (1.2-3.8); Lymphocytes Percent Auto 21.8 % (20.5-60.0); Mean Corpuscular HGB Conc 32.9 g/dL (29.9-35.2); Mean Corpuscular Hemoglobin 29.7 pg (26.7-34.0); Mean Corpuscular Volume 90.4 fL (81.0-99.0); Mean Platelet Volume 10.4 fL (9.5-13.5); Monocytes Absolute Auto 0.9 10^3/uL (0.3-0.8); Monocytes Percent Auto 7.4 % (1.7-12.0); Neutrophils Absolute Auto 8.2 10^3/uL (1.4-6.5); Neutrophils Percent Auto 69.4 % (43.0-75.0); Platelet Count 179 10^3/uL (150-450); Red Blood Count 3.97 10^6/uL (4.20-5.40); Red Cell Distribution Width 14.2 % (11.0-15.0); White Blood Count 11.8 10^3/uL (4.0-11.0)
--- NOTE | 2023-08-07 08:16 | P.OBPN_ITS ---
OB - PN: Subj Subjective Patient comments: no complaints and pain well controlled [place] status: doing well Exam Constitutional Vital Signs, click to edit/add: Last Vital Signs Temp 96.6 F L 08/07/23 01:54 Pulse 68 08/07/23 01:54 Resp 16 08/07/23 01:45 BP 108/58 08/07/23 01:54 O2 Del Method Room Air 08/07/23 01:45 Documenting provider has reviewed patient's vital signs: yes Common normals: no apparent distress Respiratory Common normals: normal respiratory effort and clear to auscultation bilaterally Cardio Common normals: regular rate and regular rhythm GI Common normals: Normal to inspection, nondistended, normoactive bowel sounds present Extremity Common normals: normal to inspection and no calf tenderness Results Labs Labs: Short CBC 08/07/23 Range/Units 05:57 WBC 11.8 H (4.0-11.0) 10^3/uL Hgb 11.8 L (12.0-16.0) g/dL Hct 35.9 L (36.0-48.0) % Plt Count 179 (150-450) 10^3/uL OB - PN: A/P Assessment and Plan (1) Term : Plan - Vaginal Delivery day: 1 Plan: routine care Time Spent with Patient Time: Total time spent is greater than 50% in coordination of care (as documented) at patient's floor/unit and/or counseling patient: Total time spent with greater than 50% in coordination of care (as documented) at patient's floor/unit and/or counseling patient: less than 15 minutes
[2023-08-07 08:51] VITALS: BP 120/76; PULSE 71
[2023-08-07 09:00] VITALS: BP 120/76; PULSE 71; TEMP 36.8
[2023-08-07] MEDS: IBUPROFEN 600 MG TABLET PO ×2 (11:12→21:10)
[2023-08-07] MEDS: DOCUSATE SODIUM 100 MG CAPSULE PO ×2 (11:12→21:11)
[2023-08-07 16:25] VITALS: BP 133/75; PULSE 60; TEMP 36.7
[2023-08-07 16:28] VITALS: BP 133/75; PULSE 60
--- NOTE | 2023-08-07 19:18 | W.PC.ACHO ---
Registration Status: ADM IN Primary Language: Cuban Preferred Language: Cuban Report on bili & plan of care. Testing is done. Active Medications Generic Name Dose Route Start Last Admin Trade Name Fior PRN Reason Stop Dose Admin Acetaminophen 650 mg 08/06/23 10:52 Acetaminophen 325 Mg Tablet PO Q6H PRN Mild Pain Al Hydroxide/Mg Hydroxide 2,400 mg 08/06/23 10:52 Magnesium Hydroxide 2,400 Mg/10 Ml Oral.Susp PO Q6H PRN Dyspepsia Benzocaine/Menthol 1 applic 08/06/23 10:52 Benzocaine/Menthol 85 Gram [place] Bottle TOPICAL Q2H PRN Pain Carboprost Tromethamine 250 mcg 08/06/23 03:29 Carboprost Tromethamine 250 Mcg/Ml 1 Ml Vial IM 08/08/23 03:29 Q15M PRN Bleeding Diphtheria/Pertussis/Tetanus Vacc 0.5 ml 08/08/23 10:52 Adacel Diph,Pertuss(Acell),Tet Vac/Pf 0.5 Ml Adult Syringe IM 08/08/23 10:53 .ONCE ONE Docusate Sodium 100 mg 08/06/23 21:00 08/07/23 11:12 Docusate Sodium 100 Mg Capsule PO 100 mg BID AMANDA Administration Fentanyl Citrate 100 mcg 08/06/23 03:34 Fentanyl Citrate/Pf 100 Mcg/2 Ml Vial EPIDURAL ONCE PRN epidural Fentanyl Citrate 100 mcg 08/06/23 03:34 Fentanyl Citrate/Pf 100 Mcg/2 Ml Vial EPIDURAL ONCE PRN epidural Sodium Chloride 1,000 mls @ 125 mls/hr 08/06/23 03:30 08/06/23 10:35 Sodium Chloride 0.9% 1,000 Ml IV Infused .Q8H AMANDA Infusion Oxytocin/Sodium Chloride 20 units in 1,000 mls @ 125 mls/hr 08/06/23 03:29 Pitocin 20 Unit/1,000 Ml-Ns IV Q8H PRN POST DELIVERY Ropivacaine/Sodium Chloride 400 mg in 200 mls @ 6 mls/hr 08/06/23 03:45 08/06/23 11:30 Naropin 0.2% 400 Mg/200 Ml Bag EPIDURAL Infused Q24H AMANDA Infusion Oxytocin/Sodium Chloride 10 units in 500 mls @ 6 mls/hr 08/06/23 08:30 08/06/23 08:35 Pitocin 10 Unit/500 Ml-Ns IV 2 milliunit/min CONT AMANDA 6 mls/hr Administration Protocol 2 MILLIUNIT/MIN Ibuprofen 600 mg 08/06/23 10:52 08/07/23 11:12 Ibuprofen 600 Mg Tablet PO 600 mg Q6H PRN Administration Moderate Pain Lidocaine 5 ml 08/06/23 03:29 Lidocaine Viscous 2% 15 Ml Solution TOPICAL ONCE PRN Pain Lidocaine 1 ml 08/06/23 03:29 Lidocaine Hcl 1% 200 Mg/20 Ml Mdv INJ ONCE PRN Pain Methylergonovine Maleate 0.2 mg 08/06/23 03:29 Methylergonovine Maleate 0.2 Mg/Ml Ampule IM 08/08/23 03:29 ONCE PRN Uterine Contractility/Contract Methylergonovine Maleate 0.2 mg 08/06/23 03:29 Methylergonovine Maleate 0.2 Mg Tablet PO 08/08/23 03:29 Q4H PRN Uterine Contractility/Contract Misoprostol 600 mcg 08/06/23 03:29 Misoprostol 100 Mcg Tablet PO 08/08/23 03:29 ONCE PRN Uterine Bleeding Misoprostol 800 mcg 08/06/23 03:29 Misoprostol 100 Mcg Tablet SL 08/08/23 03:29 ONCE PRN Uterine Bleeding Misoprostol 1,000 mcg 08/06/23 03:29 Misoprostol 100 Mcg Tablet NM 08/08/23 03:29 ONCE PRN Uterine Bleeding Nalbuphine HCl 10 mg 08/06/23 03:29 08/06/23 03:53 Nalbuphine Hcl 10 Mg/Ml Ampule IV 10 mg Q3H PRN Administration Pain Naloxone HCl 0.4 mg 08/06/23 10:52 Naloxone Hcl 0.4 Mg/Ml Vial IV ONCE PRN Opiate Reversal Ondansetron HCl 4 mg 08/06/23 03:29 Ondansetron Pf 4 Mg/2 Ml Vial IV Q6H PRN Nausea And Vomiting Ondansetron HCl 4 mg 08/06/23 03:29 Ondansetron 4 Mg Rapdis Tablet SL Q6H PRN Nausea And Vomiting Oxytocin 10 unit 08/06/23 03:29 Oxytocin 10 Unit/Ml Vial IM 08/08/23 03:29 ONCE PRN bleeding Simethicone 80 mg 08/06/23 10:52 Simethicone 80 Mg Tab.Chew PO QID PRN Abdominal Distention Witch Kaylin/Glycerin 1 pad 08/06/23 10:52 Glycerin/Witch Kaylin Pads TOPICAL Q2H PRN Pain Respiratory Oxygen Delivery Method Room Air Oxygen Delivery Method Room Air Oxygen Delivery Method Room Air Cardiology Heart Sounds Strong,Regular Renal Bladder Pattern Continent
--- NOTE | 2023-08-07 19:50 | W.PC.ACHO ---
Registration Status: ADM IN Primary Language: Prydein[place] Preferred Language: Prydeinig Report received from Irasema MARINA. Active Medications Generic Name Dose Route Start Last Admin Trade Name Freq PRN Reason Stop Dose Admin Acetaminophen 650 mg 08/06/23 10:52 Acetaminophen 325 Mg Tablet PO Q6H PRN Mild Pain Al Hydroxide/Mg Hydroxide 2,400 mg 08/06/23 10:52 Magnesium Hydroxide 2,400 Mg/10 Ml Oral.Susp PO Q6H PRN Dyspepsia Benzocaine/Menthol 1 applic 08/06/23 10:52 Benzocaine/Menthol 85 Gram [place] Bottle TOPICAL Q2H PRN Pain Carboprost Tromethamine 250 mcg 08/06/23 03:29 Carboprost Tromethamine 250 Mcg/Ml 1 Ml Vial IM 08/08/23 03:29 Q15M PRN Bleeding Diphtheria/Pertussis/Tetanus Vacc 0.5 ml 08/08/23 10:52 Adacel Diph,Pertuss(Acell),Tet Vac/Pf 0.5 Ml Adult Syringe IM 08/08/23 10:53 .ONCE ONE Docusate Sodium 100 mg 08/06/23 21:00 08/07/23 11:12 Docusate Sodium 100 Mg Capsule PO 100 mg BID AMANDA Administration Fentanyl Citrate 100 mcg 08/06/23 03:34 Fentanyl Citrate/Pf 100 Mcg/2 Ml Vial EPIDURAL ONCE PRN epidural Fentanyl Citrate 100 mcg 08/06/23 03:34 Fentanyl Citrate/Pf 100 Mcg/2 Ml Vial EPIDURAL ONCE PRN epidural Sodium Chloride 1,000 mls @ 125 mls/hr 08/06/23 03:30 08/06/23 10:35 Sodium Chloride 0.9% 1,000 Ml IV Infused .Q8H AMANDA Infusion Oxytocin/Sodium Chloride 20 units in 1,000 mls @ 125 mls/hr 08/06/23 03:29 Pitocin 20 Unit/1,000 Ml-Ns IV Q8H PRN POST DELIVERY Ropivacaine/Sodium Chloride 400 mg in 200 mls @ 6 mls/hr 08/06/23 03:45 08/06/23 11:30 Naropin 0.2% 400 Mg/200 Ml Bag EPIDURAL Infused Q24H AMANDA Infusion Oxytocin/Sodium Chloride 10 units in 500 mls @ 6 mls/hr 08/06/23 08:30 08/06/23 08:35 Pitocin 10 Unit/500 Ml-Ns IV 2 milliunit/min CONT AMANDA 6 mls/hr Administration Protocol 2 MILLIUNIT/MIN Ibuprofen 600 mg 08/06/23 10:52 08/07/23 11:12 Ibuprofen 600 Mg Tablet PO 600 mg Q6H PRN Administration Moderate Pain Lidocaine 5 ml 08/06/23 03:29 Lidocaine Viscous 2% 15 Ml Solution TOPICAL ONCE PRN Pain Lidocaine 1 ml 08/06/23 03:29 Lidocaine Hcl 1% 200 Mg/20 Ml Mdv INJ ONCE PRN Pain Methylergonovine Maleate 0.2 mg 08/06/23 03:29 Methylergonovine Maleate 0.2 Mg/Ml Ampule IM 08/08/23 03:29 ONCE PRN Uterine Contractility/Contract Methylergonovine Maleate 0.2 mg 08/06/23 03:29 Methylergonovine Maleate 0.2 Mg Tablet PO 08/08/23 03:29 Q4H PRN Uterine Contractility/Contract Misoprostol 600 mcg 08/06/23 03:29 Misoprostol 100 Mcg Tablet PO 08/08/23 03:29 ONCE PRN Uterine Bleeding Misoprostol 800 mcg 08/06/23 03:29 Misoprostol 100 Mcg Tablet SL 08/08/23 03:29 ONCE PRN Uterine Bleeding Misoprostol 1,000 mcg 08/06/23 03:29 Misoprostol 100 Mcg Tablet [place] 08/08/23 03:29 ONCE PRN Uterine Bleeding Nalbuphine HCl 10 mg 08/06/23 03:29 08/06/23 03:53 Nalbuphine Hcl 10 Mg/Ml Ampule IV 10 mg Q3H PRN Administration Pain Naloxone HCl 0.4 mg 08/06/23 10:52 Naloxone Hcl 0.4 Mg/Ml Vial IV ONCE PRN Opiate Reversal Ondansetron HCl 4 mg 08/06/23 03:29 Ondansetron Pf 4 Mg/2 Ml Vial IV Q6H PRN Nausea And Vomiting Ondansetron HCl 4 mg 08/06/23 03:29 Ondansetron 4 Mg Rapdis Tablet SL Q6H PRN Nausea And Vomiting Oxytocin 10 unit 08/06/23 03:29 Oxytocin 10 Unit/Ml Vial IM 08/08/23 03:29 ONCE PRN bleeding Simethicone 80 mg 08/06/23 10:52 Simethicone 80 Mg Tab.Chew PO QID PRN Abdominal Distention Witch [place]lin/Glycerin 1 pad 08/06/23 10:52 Glycerin/Witch [place]lin Pads TOPICAL Q2H PRN Pain Respiratory Oxygen Delivery Method Room Air Oxygen Delivery Method Room Air Oxygen Delivery Method Room Air Cardiology Heart Sounds Strong,Regular Renal Bladder Pattern Continent
[2023-08-08 01:04] VITALS: BP 110/67; PULSE 62
--- NOTE | 2023-08-08 01:16 | P.OBPN_ITS ---
OB - PN: Subj Subjective Patient comments: no complaints [place] status: doing well and well feeding status: exclusively Exam Constitutional Vital Signs, click to edit/add: Last Vital Signs Temp 98.0 F 08/07/23 16:25 Pulse 62 08/08/23 01:04 Resp 16 08/07/23 16:25 BP 110/67 08/08/23 01:04 O2 Del Method Room Air 08/07/23 16:25 Common normals: no apparent distress, average body habitus, oriented x3, no limitations, healthy appearing, alert and well nourished General appearance: cooperative Orientation/consciousness: Yes awake, Yes oriented to person, Yes oriented to place and Yes oriented to time HENMT Common normals: normocephalic Eye Common normals: EOMs intact bilaterally Neck & C-Spine Common normals: no lymphadenopathy Lymph Lymphatic: no lymphadenopathy noted Chest Common normals: inspection of chest normal Respiratory Common normals: normal respiratory effort, no retractions, no use of accessory muscles and clear to auscultation bilaterally Effort & inspection: able to speak in complete sentences Auscultation: clear to auscultation bilaterally Cardio Common normals: regular rate and regular rhythm Rate: regular rate Rhythm: regular rhythm GI Common normals: Normal to inspection, nondistended, normoactive bowel sounds present, soft to palpation and non-tender Inspection: normal to inspection Auscultation: normoactive bowel sounds Palpation: soft Back & Pelvis Common normals: no CVA tenderness Extremity Common normals: normal to inspection Neuro Common normals: oriented x3 Sensorium/orientation: awake, alert, oriented to person, oriented to place and oriented to time Psych Common normals: mental status grossly normal, thought process normal and cooperative Results Labs Labs: Short CBC 08/07/23 Range/Units 05:57 WBC 11.8 H (4.0-11.0) 10^3/uL Hgb 11.8 L (12.0-16.0) g/dL Hct 35.9 L (36.0-48.0) % Plt Count 179 (150-450) 10^3/uL OB - PN: A/P Assessment and Plan (1) Term : Plan - Vaginal Delivery day: 2 Plan: discharge home Time Spent with Patient Time: Total time spent is greater than 50% in coordination of care (as documented) at patient's floor/unit and/or counseling patient: Total time spent with greater than 50% in coordination of care (as documented) at patient's floor/unit and/or counseling patient: less than 15 minutes
--- NOTE | 2023-08-08 07:16 | W.PC.ACHO ---
Registration Status: ADM IN Primary Language: Tajik Preferred Language: Tajik Report given to Shelley Kerns RN at 0710. Active Medications Generic Name Dose Route Start Last Admin Trade Name Fior PRN Reason Stop Dose Admin Acetaminophen 650 mg 08/06/23 10:52 Acetaminophen 325 Mg Tablet PO Q6H PRN Mild Pain Al Hydroxide/Mg Hydroxide 2,400 mg 08/06/23 10:52 Magnesium Hydroxide 2,400 Mg/10 Ml Oral.Susp PO Q6H PRN Dyspepsia Benzocaine/Menthol 1 applic 08/06/23 10:52 Benzocaine/Menthol 85 Gram [place] Bottle TOPICAL Q2H PRN Pain Diphtheria/Pertussis/Tetanus Vacc 0.5 ml 08/08/23 10:52 Adacel Diph,Pertuss(Acell),Tet Vac/Pf 0.5 Ml Adult Syringe IM 08/08/23 10:53 .ONCE ONE Docusate Sodium 100 mg 08/06/23 21:00 08/07/23 21:11 Docusate Sodium 100 Mg Capsule PO 100 mg BID AMANDA Administration Fentanyl Citrate 100 mcg 08/06/23 03:34 Fentanyl Citrate/Pf 100 Mcg/2 Ml Vial EPIDURAL ONCE PRN epidural Fentanyl Citrate 100 mcg 08/06/23 03:34 Fentanyl Citrate/Pf 100 Mcg/2 Ml Vial EPIDURAL ONCE PRN epidural Sodium Chloride 1,000 mls @ 125 mls/hr 08/06/23 03:30 08/06/23 10:35 Sodium Chloride 0.9% 1,000 Ml IV Infused .Q8H AMANDA Infusion Oxytocin/Sodium Chloride 20 units in 1,000 mls @ 125 mls/hr 08/06/23 03:29 Pitocin 20 Unit/1,000 Ml-Ns IV Q8H PRN POST DELIVERY Ropivacaine/Sodium Chloride 400 mg in 200 mls @ 6 mls/hr 08/06/23 03:45 08/06/23 11:30 Naropin 0.2% 400 Mg/200 Ml Bag EPIDURAL Infused Q24H AMANDA Infusion Oxytocin/Sodium Chloride 10 units in 500 mls @ 6 mls/hr 08/06/23 08:30 08/06/23 08:35 Pitocin 10 Unit/500 Ml-Ns IV 2 milliunit/min CONT AMANDA 6 mls/hr Administration Protocol 2 MILLIUNIT/MIN Ibuprofen 800 mg 08/08/23 01:25 Ibuprofen 400 Mg Tablet PO Q8H PRN Pain Lidocaine 5 ml 08/06/23 03:29 Lidocaine Viscous 2% 15 Ml Solution TOPICAL ONCE PRN Pain Lidocaine 1 ml 08/06/23 03:29 Lidocaine Hcl 1% 200 Mg/20 Ml Mdv INJ ONCE PRN Pain Nalbuphine HCl 10 mg 08/06/23 03:29 08/06/23 03:53 Nalbuphine Hcl 10 Mg/Ml Ampule IV 10 mg Q3H PRN Administration Pain Naloxone HCl 0.4 mg 08/06/23 10:52 Naloxone Hcl 0.4 Mg/Ml Vial IV ONCE PRN Opiate Reversal Ondansetron HCl 4 mg 08/06/23 03:29 Ondansetron Pf 4 Mg/2 Ml Vial IV Q6H PRN Nausea And Vomiting Ondansetron HCl 4 mg 08/06/23 03:29 Ondansetron 4 Mg Rapdis Tablet SL Q6H PRN Nausea And Vomiting Simethicone 80 mg 08/06/23 10:52 Simethicone 80 Mg Tab.Chew PO QID PRN Abdominal Distention Witch [place]lin/Glycerin 1 pad 08/06/23 10:52 Glycerin/Witch [place] Pads TOPICAL Q2H PRN Pain Respiratory Oxygen Delivery Method Room Air Oxygen Delivery Method Room Air Oxygen Delivery Method Room Air Renal Bladder Pattern Continent
[2023-08-08 08:30] VITALS: BP 128/84; PULSE 64; TEMP 36.8
[2023-08-08] MEDS: GLYCERIN/WITCH HAZEL PADS 1 PAD TOPICAL (08:40)
[2023-08-08] MEDS: DOCUSATE SODIUM 100 MG CAPSULE PO (08:40)
[2023-08-08] MEDS: BENZOCAINE/MENTHOL 85 GRAM SPRAY BOTTLE 1 APPLIC TOPICAL (08:40)
[2023-08-08 09:00] VITALS: BP 128/84; PULSE 65
[2023-08-08 13:08] VITALS: BP 134/85; PULSE 78
== END 2023-08-08 13:42 | disposition home or self-care (01) | DRG 807 ==
PROVIDERS: Admitting Provider Obstetrics & Gynecology Gynecology; PCP Family Medicine; Visit Provider Midwife
DX: O26.893 Other specified pregnancy related conditions, third trimester (principal); Z37.0 Single live birth; Z3A.39 39 weeks gestation of pregnancy; Z67.41 Type O blood, Rh negative; Z14.1 Cystic fibrosis carrier
CPT/HCPCS: 36415; 51702; 59025; 80307; 81003; 84112; 85025; 85027; 86850; 86900; 86901; 96365; 96366; 96375; 96376; J2300; J2590; J2795

== ENCOUNTER 2023-08-25 08:18 | Outpatient (OUT) | payer BC, SELFPAY ==
--- OUTSIDE RECORDS SUMMARY | 2023-08-25 08:24 | XMS_ITS | CCD ---
Author Organization [facility] Care Team Providers Care Cylinder Sander Operator Name Role Phone GARY ZAMORA Attending Unavailabl e Physician, PCP Unknown Primary Care Unavailab Grecia Abdullahi Primary Care Provider [phone] Attending Unavailable MARYAMY GRECIA Primary [...] Unavailable Grecia Arriaza MD Primary Care Provider [phone] RADHAMES VICTORIA Referring Unavailable NONE, NONE Primary [...] (1 source) diphenhydrAMINE Drug Allergy 4 [facility] Repository (5 sources) diphenhydrAMINE; Translations: [Unknown] Drug Allergy 0 Other (See Comments) [facility] (1 source) Sulfonamides (Antibiotic) Drug [...] oral solution (1 source) alpha-Adrenergic Agonist, Uncompetitive D-qartgv-C-aspartat e Receptor Antagonist, Sigma-1 Agonist Start: 02-17-2019 [...] Test Name Value Interpretation Reference Range Facility [facility] 02-09-2023 Send Out Report FORWARD TO [facility] Comment on above: Result Comment: [id number] Performed By: #### C MIS #### [employer] [address], [place] [id number] Photoengraving Proofer Apprentice: MD Maico Whitehead 02-08-2023 Test Name [facility] Comment on above: Performed By: #### C MIS #### [employer] [address], [place] [id number] Photoengra[employer] Proofer Apprentice: Isidro Aguirre MD Maternal Ser 1st Harvey 02-03 Cr Rump Lngt, Twin B Not Applicable Normal [facility] Comment on above: Performed By: #### A MSFT #### [address] [address] [employer]engra[employer] Proofer Apprentice: Isidro Aguirre MD [address] [address] Photoengraving Proofer Apprentice: Rojas Simpson MD [place] Rump Length 57.2 mm [facility] Comment on above: Performed By: #### A MSFT #### [address] [address] Photoengraving Proofer Apprentice: Isidro Aguirre MD [address] [phone] [employer]eng[employer] Proofer Apprentice: Rojas Simpson MD Gestat Age (exact) 12 wks, 1 days Normal [facility] Comment on above: Performed By: #### A MSFT #### [address] [address] Photoengraving Proofer Apprentice: Isidro Aguirre MD [address] [phone] [employer]eng[employer] Proofer Apprentice: Rojas Simpson MD Hx Aneuploidy Unknown [facility] Comment on above: Performed By: #### A MSFT #### [address] [address] [employer]engra[employer] Proofer Apprentice: Isidro Aguirre MD [address] [address] Photoengraving Proofer Apprentice: Rojas Simpson MD Interpretation Screen Neg Normal [facility] Comment on above: Result Comment: (NOT [...] developed and its performance characteristics determined by [employer] It has not been cleared or approved by the [place] Food and Drug Administration. This test was performed in a CLIA certified laboratory and is intended for clinical purposes. Performed By: #### A MSFT #### [address] [address] [employer]engra[employer] Proofer Apprentice: Isidro Aguirre MD [address] [address] [employer]eng[employer] Proofer Apprentice: Rojas Simpson MD [age] [facility] Comment on above: Performed By: #### A MSFT #### [address] [address] [employer]engra[employer] Proofer Apprentice: Isidro Aguirre MD [address] [phone] [employer] Proofer Apprentice: Rojas Simpson MD Maternal Race Nonblack [facility] Comment on above: Performed By: #### A MSFT #### [address] [address] [employer]engra[employer] Proofer Apprentice: Isidro Aguirre MD [address] [phone] [employer] Proofer Apprentice: Rojas Simpson MD Maternal Screen, EER See Note [facility] Comment on above: Result Comment: (NOT E) Authorized individuals can access the [facility] Enhanced Report using the following link: [email or web address] Performed By: [employer] [address] [place] [id number] Singing Telegram Performer: Rex Moreau MD, PhD CLIA Number: [id number] Performed By: #### A MSFT #### [address] [address] [employer] Proofer Apprentice: Isidro Aguirre MD [facility] [employer] [address] [place] [address] [employer]eng[employer] Proofer Apprentice: Rojas Simpson MD Maternal Weight 191.0 lbs. [facility] Comment on above: Performed By: #### A MSFT #### [address] [address] [employer]engra[employer] Proofer Apprentice: Isidro Aguirre MD [address] [address] Photoengra[employer] Proofer Apprentice: Rojas Simpson MD MoM for HCG 0.70 [facility] Comment on above: Performed By: #### A MSFT #### [address] [address] [employer]engra[employer] Proofer Apprentice: Isidro Aguirre MD [address] [address] [employer]engra[employer] Proofer Apprentice: Rojas Simpson MD MoM for NT 1.60 [facility] Comment on above: Performed By: #### A MSFT #### [address] [address] [employer]engra[employer] Proofer Apprentice: Isidro Aguirre MD [address] [phone] [employer] Proofer Apprentice: Rojas Simpson MD MoM for [place], Twin B Not Applicable Normal [facility] Comment on above: Performed By: #### A MSFT #### [address] [address] Photoengra[employer] Proofer Apprentice: Isidro Aguirre MD [facility] [address] [place] [address] [employer]engra[employer] Proofer Apprentice: Rojas Simpson MD MoM for SHONDA-A 0.82 [facility] Comment on above: Performed By: #### A MSFT #### [address] [address] Photoengra[employer] Proofer Apprentice: Isidro Aguirre MD [facility] [address] [place] [address] [employer]eng[employer] Proofer Apprentice: Rojas Simpson MD Nuchal Trans, Twin B Not Applicable [facility] Comment on above: Performed By: #### A MSFT #### [address] [address] [employer]eng[employer] Proofer Apprentice: Isidro Aguirre MD [address] [address] [employer] Proofer Apprentice: Rojas Simpson MD Nuchal Translucency 2.30 mm [facility] Comment on above: Performed By: #### A MSFT #### [address] [address] [employer]eng[employer] Proofer Apprentice: Isidro Aguirre MD [address] [phone] [employer] Proofer Apprentice: Rojas Simpson MD Number of Fetuses Burton Normal [facility] Comment on above: Performed By: #### A MSFT #### [address] [address] [employer]eng[employer] Proofer Apprentice: Isidro Aguirre MD [address] [phone] Photoeng[employer] Proofer Apprentice: Rojas Simpson MD SHONDA-A Maternal 479.0 ng/mL [facility] Comment on above: Result Comment: (NOT E) This test was developed and its performance characteristics determined by [employer] It has not been cleared or approved by the US Food and Drug Administration. This test was performed in a CLIA certified laboratory and is intended for clinical purposes. Performed By: #### A MSFT #### [address] [address] [employer] Proofer Apprentice: Isidro Aguirre MD [address] [address] [employer]eng[employer] Proofer Apprentice: Rojas Simpson MD Patient's HCG 89479 IU/L [facility] Comment on above: Performed By: #### A MSFT #### [address] [address] [employer] Proofer Apprentice: Isidro Aguirre MD [address] [address] [employer]eng[employer] Proofer Apprentice: Rojas Simpson MD Smoking Unknown [facility] Comment on above: Performed By: #### A MSFT #### [address] [address] [employer]engra[employer] Proofer Apprentice: Isidro Aguirre MD [address] [address] [employer] Proofer Apprentice: Rojas Simpson MD Perinatal Instructor Cert No [id number] [facility] Comment on above: Performed By: #### A MSFT #### [address] [address] [employer] Proofer Apprentice: Isidro Aguirre MD [address] [phone] [employer] Proofer Apprentice: Rojas Simpson MD Perinatal Instructor Name Trisha Saleh [facility] Comment on above: Performed By: #### A MSFT #### [address] [address] [employer]engra[employer] Proofer Apprentice: Isidro Aguirre MD [address] [phone] [employer] Proofer Apprentice: Rojas Simpson MD Specimen See Note [facility] Comment on above: Result Comment: Init ial sample Performed By: #### A MSFT #### [address] [address] Photoengra[employer] Proofer Apprentice: Isidro Aguirre MD [address] [address] Photoengraving Proofer Apprentice: Rojas Simpson MD Ultrasound Date SEE NOTE [facility] Comment on above: Result Comment: Resu lts for Ultrasound Date: 02 02 23 Performed By: #### A MSFT #### [address] [address] [employer]eng[employer] Proofer Apprentice: Isidro Aguirre MD [address] [phone] [employer] Proofer Apprentice: Rojas Simpson MD Maternal Ser 1st Harvey 02-02 [place] Rump Length 57.2 Normal [facility] Comment on above: Performed By: #### A MSFT #### [address] [address] [employer] Proofer Apprentice: Isidro Aguirre MD [address] [phone] [employer]eng[employer] Proofer Apprentice: Rojas Simpson MD Current Smoking INFORMATION NOT PROVIDED [facility] Comment on above: Performed By: #### A MSFT #### [address] [address] Photoengra[employer] Proofer Apprentice: Isidro Aguirre MD [address] [phone] Photoeng[employer] Proofer Apprentice: Rojas Simpson MD Date of Ultrasound [id number] [facility] Comment on above: Performed By: #### A MSFT #### [address] [address] Photoengra[employer] Proofer Apprentice: Isidro Aguirre MD [address] [phone] [employer] Proofer Apprentice: Rojas Simpson MD Donor Egg INFORMATION NOT PROVIDED [facility] Comment on above: Performed By: #### A MSFT #### [address] [address] [employer]engra[employer] Proofer Apprentice: Isidro Aguirre MD [address] [address] Photoengraving Proofer Apprentice: Rojas Simpson MD In Vitro Fertalizat INFORMATION NOT PROVIDED [facility] Comment on above: Performed By: #### A MSFT #### [address] [address] Photoengra[employer] Proofer Apprentice: Isidro Aguirre MD [facility] [address] [place] [address] [employer]engra[employer] Proofer Apprentice: Rojas Simpson MD Maternal date [id number] [facility] Comment on above: Performed By: #### A MSFT #### [address] [address] Photoengra[employer] Proofer Apprentice: Isidro Aguirre MD [address] [address] Photoengraving Proofer Apprentice: Rojas Simpson MD Maternal Weight 191 [facility] Comment on above: Performed By: #### A MSFT #### [address] [address] Photoengraving Proofer Apprentice: Isidro Aguirre MD [address] [address] Photoengraving Proofer Apprentice: Rojas Simpson MD Monochorionic Twins INFORMATION NOT PROVIDED [facility] Comment on above: Performed By: #### A MSFT #### [address] [address] Photoengraving Proofer Apprentice: Isidro Aguirre MD [address] [address] Photoengraving Proofer Apprentice: Rojas Simpson MD Nuchal Transluc (NT) 2.3 [facility] Comment on above: Performed By: #### A MSFT #### [address] [address] Photoengraving Proofer Apprentice: Isidro Aguirre MD [facility] [address] [place] [address] Photoengraving Proofer Apprentice: Rojas Simpson MD Number of fetuses 1 Normal [facility] Comment on above: Performed By: #### A MSFT #### [address] [address] Photoengraving Proofer Apprentice: Isidro Aguirre MD [facility] [address] [place] [address] Photoengraving Proofer Apprentice: Rojas Simpson MD Patient Weight Units LB [facility] Comment on above: Performed By: #### A MSFT #### [address] [address] Photoengraving Proofer Apprentice: Isidro Aguirre MD [facility] [address] [place] [address] Photoengra[employer] Proofer Apprentice: Rojas Simpson MD Prev Trisomy Preg INFORMATION NOT PROVIDED [facility] Comment on above: Performed By: #### A MSFT #### [address] [address] Photoengra[employer] Proofer Apprentice: Isidro Aguirre MD [address] [address] Photoengraving Proofer Apprentice: Rojas Simpson MD Race (Maternal) WHITE [facility] Comment on above: Performed By: #### A MSFT #### [address] [address] Photoengraving Proofer Apprentice: Isidro Aguirre MD [address] [address] [employer]engra[employer] Proofer Apprentice: MD Shayne Siddiqui MD [facility] [address] [facility] Comment on above: Performed By: #### A MSFT #### [address] [address] Photoengra[employer] Proofer Apprentice: Isidro Aguirre MD [address] [address] [employer] Proofer Apprentice: MD Shayne Siddiqui MD Name RADHAMESBERYL VICTORIA [facility] Comment on above: Performed By: #### A MSFT #### [address] [address] [employer] Proofer Apprentice: Isidro Aguirre MD [facility] [address] [place] [address] Photoengra[employer] Proofer Apprentice: Rojas Simpson MD Repeat Specimen INFORMATION NOT PROVIDED [facility] Comment on above: Performed By: #### A MSFT #### [address] [address] Photoengra[employer] Proofer Apprentice: Isidro Aguirre MD [address] [address] Photoengraving Proofer Apprentice: Rojas Simpson MD Sonograph Cert Num [id number] [facility] Comment on above: Performed By: #### A MSFT #### [address] [address] Photoengraving Proofer Apprentice: Isidro Aguirre MD [address] [phone] [employer] Proofer Apprentice: Rojas Simpson MD Perinatal Instructor Name [facility] Comment on above: Performed By: #### A MSFT #### [address] [address] Photoengra[employer] Proofer Apprentice: Isidro Aguirre MD [address] [address] Photoengraving Proofer Apprentice: Rojas Simpson MD SARS-CoV-2 (COVID-19) RNA NA A+probe Ql (Resp)on 09-30-2021 SARS-CoV-2 (COVID-19) RNA CRISTIAN+probe Ql (Unsp spec) Negative Footbalistic Other INSULINon 08-11-2020 Insulin 10.7 uIU/mL Normal 2.6-24.9 [facility] Comment on above: Performed By: #### I NSULIN #### [facility] [address] [place] [address] Maribell Spencer CBC AUTO DIFFon 08-08-2020 BASO # 0.1 103/ul Normal 0.0-0.1 [facility] Comment on above: Performed By: #### C BC #### [facility] [address] [id number] Maribell Johanna Basophils/100 WBC (Bld) 1.1 % Normal 0.2-2.0 [facility] Comment on above: Performed By: #### C BC #### [facility] [address] [place], [place] [phone] Maribell Johanna EO # 0.2 103/ul Normal 0.0-0.7 [facility] Comment on above: Performed By: #### C BC #### [facility] [address] [phone] Maribell Johanna Eosinophils/100 WBC (Bld) 2.5 % Normal 0.9-7.0 [facility] Comment on above: Performed By: #### C BC #### [facility] [address] [place] [address] Maribell Johanna Erythrocyte distribution width (RBC) [Ratio] 13.6 % Normal 11.0-15.0 [facility] Comment on above: Performed By: #### C BC #### [facility] [address] [place], [place] [address] Maribell Johanna Hematocrit (Bld) [Volume fraction] 41.1 % Normal 36.0-48.0 [facility] Comment on above: Performed By: #### C BC #### [facility] [address] [place], [place] [phone] Maribell Johanna Hemoglobin (Bld) [Mass/Vol] 13.9 g/dL Normal 12.0-16.0 [facility] Comment on above: Performed By: #### C BC #### [facility] [address] [place] [address] Maribell Johanna IG # 0.02 10e3/ul Normal 0.00-0.03 [facility] Comment on above: Performed By: #### C BC #### [facility] [address] [place], [place] [address] Maribell Johanna IG % 0.3 % Normal 0.0-0.5 [facility] Comment on above: Performed By: #### C BC #### [facility] [address] [place], [place] [address] Maribell Johanna LYMPH # 2.1 103/ul Normal 1.2-3.8 [facility] Comment on above: Performed By: #### C BC #### [facility] [address] [place], [place] [address] Maribell Johanna Lymphocytes/100 WBC (Bld) 32.4 % Normal 20.5-60.0 [facility] Comment on above: Performed By: #### C BC #### [facility] [address] [place], [place] [address] Maribell Johanna MANUAL DIFF REQ NO Normal [facility] Comment on above: Performed By: #### C BC #### [facility] [address] [place], [place] [address] Maribell Johanna MCH (RBC) [Entitic mass] 29.5 pg Normal 26.7-34.0 [facility] Comment on above: Performed By: #### C BC #### [facility] [address] [place] [address] Maribell Johanna MCHC (RBC) [Mass/Vol] 33.8 g/dL Normal 29.9-35.2 [facility] Comment on above: Performed By: #### C BC #### [facility] [address] [place], [place] [address] Maribell Johanna MCV (RBC) [Entitic vol] 87.3 fL Normal 81.0-99.0 [facility] Comment on above: Performed By: #### C BC #### [facility] [address] [place] [address] Maribell Johanna MONO # 0.4 103/ul Normal 0.3-0.8 [facility] Comment on above: Performed By: #### C BC #### [facility] [address] [place], [place] [address] Maribell Johanna Monocytes/100 WBC (Bld) 6.9 % Normal 1.7-12.0 [facility] Comment on above: Performed By: #### C BC #### [facility] [address] [place] [address] Maribell Johanna NEUT # 3.6 103/ul Normal 1.4-6.5 [facility] Comment on above: Performed By: #### C BC #### [facility] [address] [place], [place] [address] Maribell Spencer Neutrophils/100 WBC (Bld) 56.8 % Normal 43.0-75.0 [facility] Comment on above: Performed By: #### C BC #### [facility] [address] [place] [address] Maribell Spencer Platelet mean volume (Bld) [Entitic vol] 9.9 fL Normal 9.5-13.5 [facility] Comment on above: Performed By: #### C BC #### [facility] [address] [place] [address] Maribell Spencer PLT 180 103/ul Normal 150-450 [facility] Comment on above: Performed By: #### C BC #### [facility] [address] [place] [address] Maribell Spencer RBC 4.71 106/ul Normal 4.20-5.40 [facility] Comment on above: Performed By: #### C BC #### [facility] [address] [place] [address] Maribell Spencer WBC 6.4 103/ul Normal 4.0-11.0 [facility] Comment on above: Performed By: #### C BC #### [facility] [address] [place], [place] [address] Maribell Spencer FREE THYROXINE INDEX T7on FTI 3.39 Normal [facility] Comment on above: Performed By: #### L IPID, CMP, T7, TSH #### [facility] [address] [place], [place] [address] Maribell Spencer T3U 28.0 % Normal 23.5-40.5 [facility] Comment on above: Performed By: #### L IPID, CMP, T7, TSH #### [facility] [address] [place], [place] [address] Maribell Spencer T4 [Mass/Vol] 12.10 ug/dL Critically high 5.53-11.00 [facility] Comment on above: Performed By: #### L IPID, CMP, T7, TSH #### [facility] [address] [id number] Maribell Spencer GLYCOHEMOGLOBIN A1Con 2020 ADA RECOMMENDATION ADA THERAPEUTIC TARGET 6.0 - 7.0 ACTION SUGGESTED > 7.0 Normal [facility] Comment on above: Performed By: #### A 1C #### [facility] [address] [phone] Maribell Johanna Glucose [Mass/Vol] 123 mg/dL Normal [facility] Comment on above: Performed By: #### A 1C #### [facility] [address] [place], [place] [address] Maribell Johanna HbA1c (Bld) [Mass fraction] 5.9 % Normal <=6.0 [facility] Comment on above: Performed By: #### A 1C #### [facility] [address] [place], [place] [address] Maribell Millsen IRONon 08-08-2020 Iron [Mass/Vol] 66.0 ug/dL Normal 37.0-170.0 [facility] Comment on above: Performed By: #### I DUNIA #### [facility] [address] [place], [place] [address] Maribellkhadijah Spencer LIPID PROFILEon 08-08-2020 CHOL-HDL RATIO NORM SEE BELOW Normal [facility] Comment on above: Result Comment: 3.3 - 4.4 LOW RISK 4.4 - 7.1 AVERAGE RISK 7.1 - 11.0 MODERATE RISK >11.0 HIGH RISK Performed By: #### L IPID, CMP, T7, TSH #### [facility] [address] [place], [place] [address] Maribell Johanna Cholesterol [Mass/Vol] 215 mg/dL Critically high <=200 [facility] Comment on above: Performed By: #### L IPID, CMP, T7, TSH #### [facility] [address] [place], [place] [address] Maribell Johanna Cholesterol in HDL [Mass/Vol] 37 mg/dL Normal [facility] Comment on above: Performed By: #### L IPID, CMP, T7, TSH #### [facility] [address] [place], [place] [address] Maribell Johanna Cholesterol in LDL [Mass/Vol] 142.4 mg/dL Normal [facility] Comment on above: Performed By: #### L IPID, CMP, T7, TSH #### [facility] [address] [place], [place] [address] Maribell Johanna Cholesterol.total/C holesterol in HDL [Mass ratio] 5.8 {ratio} Normal [facility] Comment on above: Performed By: #### L IPID, CMP, T7, TSH #### [facility] [address] [place], [place] [address] Maribell Johanna HDL NORMAL > or = 60 mg/dl - LO W CARDIOVASCULAR RISK <40 mg/dl - HIGH CARDIOVASCULAR RISK Normal [facility] Comment on above: Performed By: #### L IPID, CMP, T7, TSH #### [facility] [address] [phone] Maribell Johanna LDL CALC NORMAL SEE BELOW Normal [facility] Comment on above: Result Comment: <100 mg/dl OPTIMAL 100 - 129 mg/dl NEAR OR ABOVE OPTIMAL 130 - 159 mg/dl BORDERLINE HIGH 160 - 189 mg/dl HIGH >190 mg/dl VERY HIGH Performed By: #### L IPID, CMP, T7, TSH #### [facility] [address] [place], [place] [address] Maribell Johanna Triglyceride [Mass/Vol] 178 mg/dL Critically high <=150 [facility] Comment on above: Performed By: #### L IPID, CMP, T7, TSH #### [facility] [address] [place], [place] [address] Maribell Johanna VLDL CALC 35.6 mg/dL Normal [facility] Comment on above: Performed By: #### L IPID, CMP, T7, TSH #### [facility] [address] [place], [place] [address] Maribellkhadijah Millsen PROF 14(COMP METB)on 021 Albumin [Mass/Vol] 3.5 g/dL Normal 3.5-5.[address] [facility] Comment on above: Performed By: #### L IPID, CMP, T7, TSH #### [facility] [address] [address] Maribell Johanna Albumin/Globulin [Mass ratio] 0.8 {ratio} Normal [facility] Comment on above: Performed By: #### L IPID, CMP, T7, TSH #### [facility] [address] [place] [address] Maribell Johanna ALP [Catalytic activity/Vol] 62 U/L Normal 38-126 [facility] Comment on above: Performed By: #### L IPID, CMP, T7, TSH #### [facility] [address] [place] [address] Maribell Johanna ALT [Catalytic activity/Vol] 50 U/L Normal 9-52 [facility] Comment on above: Performed By: #### L IPID, CMP, T7, TSH #### [facility] [address] [place], [place] [address] Maribell Johanna Anion gap [Moles/Vol] 14.5 mmol/L Normal [facility] Comment on above: Performed By: #### L IPID, CMP, T7, TSH #### [facility] [address] [place] [address] Maribell Johanna AST [Catalytic activity/Vol] 36 U/L Normal 14-36 [facility] Comment on above: Performed By: #### L IPID, CMP, T7, TSH #### [facility] [address] [place] [address] Maribell Johanna Bilirubin [Mass/Vol] 0.5 mg/dL Normal 0.2-1.3 [facility] Comment on above: Performed By: #### L IPID, CMP, T7, TSH #### [facility] [address] [place] [address] Maribell Johanna Calcium [Mass/Vol] 9.0 mg/dL Normal 8.4-10.2 [facility] Comment on above: Performed By: #### L IPID, CMP, T7, TSH #### [facility] [address] [place] [address] Maribell Johanna Chloride [Moles/Vol] 103 mmol/L Normal 98-107 [facility] Comment on above: Performed By: #### L IPID, CMP, T7, TSH #### [facility] [address] [address] Maribell Johanna CO2 [Moles/Vol] 25.6 mmol/L Normal 22.0-30.0 [facility] Comment on above: Performed By: #### L IPID, CMP, T7, TSH #### [facility] [address] [address] Maribell Johanna Creatinine [Mass/Vol] 0.80 mg/dL Normal 0.52-1.04 [facility] Comment on above: Performed By: #### L IPID, CMP, T7, TSH #### [facility] [address] [address] Maribell Johanna EGFR-AF SAUDI ARABIAN >60 Normal >=60 [facility] Comment on above: Performed By: #### L IPID, CMP, T7, TSH #### [facility] [address] [address] Maribell Johanna EGFR-NON AF SAUDI ARABIAN >60 Normal >=60 [facility] Comment on above: Performed By: #### L IPID, CMP, T7, TSH #### [facility] [address] [address] Maribell Johanna Globulin (S) [Mass/Vol] 4.6 g/dL Normal [facility] Comment on above: Performed By: #### L IPID, CMP, T7, TSH #### [facility] [address] [address] Maribell Johanna Glucose [Mass/Vol] 115 mg/dL Critically high 74-106 T [facility] Comment on above: Performed By: #### L IPID, CMP, T7, TSH #### [facility] [address] [address] Maribell Johanna Potassium [Moles/Vol] 4.1 mmol/L Normal 3.4-5.0 [facility] Comment on above: Performed By: #### L IPID, CMP, T7, TSH #### [facility] [address] [place] [address] Maribell Johanna Protein [Mass/Vol] 8.1 g/dL Normal 6.1-8.2 [facility] Comment on above: Performed By: #### L IPID, CMP, T7, TSH #### [facility] [address] [place] [address] Maribell Johanna Sodium [Moles/Vol] 139 mmol/L Normal 137-145 [facility] Comment on above: Performed By: #### L IPID, CMP, T7, TSH #### [facility] [address] [place] [address] Maribell Johanna Urea nitrogen [Mass/Vol] 9.0 mg/dL Normal 7.0-17.0 [facility] Comment on above: Performed By: #### L IPID, CMP, T7, TSH #### [facility] [address] [place] [address] Maribell Johanna Urea nitrogen/Creatinine [Mass ratio] 11.2 mg/mg Normal [facility] Comment on above: Performed By: #### L IPID, CMP, T7, TSH #### [facility] [address] [place] [address] Maribell Johanna TSHon 08-08-2020 TSH 1.632 uIU/mL Normal 0.470-4.680 [facility] Comment on above: Performed By: #### L IPID, CMP, T7, TSH #### [facility] [address] [place] [address] Maribell Johanna TSH RANGE SEE BELOW Normal [facility] Comment on above: Result Comment: <0.3 4 UIU/ml HYPERTHYROID 0.34-5.60 UIU/ml EUTHYROID >5.60 UIU/ml HYPOTHYROID Performed By: #### L IPID, CMP, T7, TSH #### [facility] [address] [place], [place] [id number] Maribell Johanna XR CHEST AP/PA AND LATon [...] are identified. IMPRESSION: No acute process identified. [employer] Workstation ID: [id number] Dictated by: ISHMAEL KEYS on [place] Feb 17, 2019 10:05:42 AM EST Transcribed by: LEXII HUTCHINSON on [place] Feb 17, 2019 10:06:52 AM EST Finalized by: ISHMAEL KEYS on [place] Feb 17, 2019 10:59:38 AM EST Normal [facility] Comment on above: Order Comment: Injur y/Trauma or Illness?:Illness/Other How long have you had these symptoms (acute/chronic)?:Acute Reason for exam?:cough History of cancer?:no Surgeries, chemotherapy, or radiation?:unk Type of Exam?:Initial Additional signs and symptoms?:Treated for pneumonia around [place]. Started having cough, fever again about 2 days ago. No acute process identified. [facility] Workstation ID: [id number] [facility] EXAMINATION: XR CHES T AP/PA AND LAT 02/17/2019 9:47 AM HISTORY: ORDERING SYSTEM PROVIDED HISTORY: h/o pneumonia/cough/fever , TECHNOLOGIST PROVIDED HISTORY: Illness/Other Reason for exam: cough Cancer History: no Surgery, RadiationHistory: unk Encounter Type: Initial Additional signs and symptoms: Treated for pneumonia around [place]. Started having cough, fever again about 2 days ago. ORDERING SYSTEM PROVIDED DIAGNOSIS CODES: R05 Cough COMPARISON: None. FINDINGS: Cardiomediastinal silhouette is within normal limits. Lungs are clear. No significant pleural or osseous abnormalities are identified. [facility] Interface, Rad In Fuji Speechq [...] acute process identified. [facility] Workstation ID: [id number] [facility] Chlamydia Detection by NAATo n 05-15-2018 Protein mass conc [facility] Microbiology PROCEDURE: Chlamydia Detection by NAAT [...] RESULTS ARE INCONSISTENT WITH CLINICAL FINDINGS Normal [facility] Comment on above: Performed By: #### C D:[id number] #### [facility] [address], [place] Vital Signs Date Time Vital Sign Value Performing Clinician Tana lara 02-15-2019 13:170500 BMI (Body Mass Index) 27.25 kg/m2 [facility] 02-15-2019 13:17-0500 Body Temperature 99.61 [degF] [facility] 02-15-2019 13:17-0500 Body weight 81.28 kg [facility] 02-15-2019 13:17-0500 BP Diastolic 82 mm[Hg] [facility] 02-15-2019 13:17-0500 BP Systolic 131 mm[Hg] [facility] 02-15-2019 13:17-0500 Height 172.7 cm [facility] 02-15-2019 13:17-0500 Pulse (Heart Rate) 89 /min [facility] 02-15-2019 13:17-0500 Pulse Oximetry 96 % [facility] 02-15-2019 13:17-0500 Respiratory Rate 16 /min Summer Steen [facility] Encounters Encounter Date Encounter Type Care [...] Not Available Start: 02-08-2023 End: 02-08-2023 ambulatory [facility] Start: 02-02-2023 End: 02-02-2023 ambulatory [facility] Start: 01-12-2023 End: 01-12-2023 ambulatory VIOLETA MAME Not Available Start: 09-30-2021 End: 09-30-2021 ambulatory Radha Copeland Other [facility] Other Start: 09-30-2021 Nursing evaluation o f patient and report Radha Copeland [facility] Start: 09-21-2020 End: 09-25-2020 ambulatory GRECIA HOY [facility] Start: 08-18-2020 Encounter for genera l adult medical examination without abnormal findings DR GRECIA ARRIAZA [facility] Start: 08-08-2020 End: 08-09-[address] GRECIA ARRIAZA Facility:[facility] Start: 08-08-2020 End: 08-09-2020 Encounter for general adult medical examination without abnormal findings DR GRECIA ARRIAZA Facility:[facility] Start: 02-17-2019 End: 02-18-2019 Patient encounter procedure REMBERTO COELHO [facility] Start: 02-17-2019 End: 02-17-2019 Subsequent hospital visit by physician Remberto Coelho Work Phone: [facility] Comment on above: Arrived Start: 02-15-2019 End: 02-15-2019 Patient encounter procedure SUMMER STEEN [facility] Start: 02-15-2019 End: 02-15-2019 Office outpatient visit 15 minutes Summerelina Abarcayannick Steen Work Phone: [facility] Comment on above: Bronchitis (Primary Dx) Start: 05-16-2018 End: 05-16-2018 Patient encounter procedure GARY ZAMORA Facility:[facility] Procedures Date Procedure Procedure Detail Performing [...] DERM [address] [place] [id number] Meron Muniz MD [address] [place] [address] [facility] Start: 03-14-2023 End: 03-14-2023 Patient encounter procedure 03/14/2023 8:30 AM EST Routine [facility] [address] [place] [id number] Meredith Keane PA [address] [place] [address] [place] [address] Second trimester [facility] Comment on above: Second trimester pre gnancy Start: 04-20-2021 Screening for malign ant neoplasm of cervix [facility] Start: 04-21-2019 Screening for Chlamy luis [...] 1995 Tetanus vaccination TETANUS EVERY 10 YR [facility] Payers Date Payer Category Payer Unknown BCBS BCBS xxxxxx [id number] 2022-Present [phone] [address] [place] [address] [id number] 2022 Unknown [id number] 2018 Unknown NADYA HOWARD/[place]/HMO/PPO xxxxxxxxxxxx 2018-Present xxxxxxxxxxxx [id number] 1995 Unknown [id number] 2.16.840.1.875314.3.579.2.903 1995 Unknown [id number] 2.16.840.1.973332.3.579.2.903 1995 Unknown [id number] 2.16.840.1.987438.3.579.2.903 1995 Unknown [id number] 2.16.840.1.151188.3.579.2.593 1995 Unknown [id number] 2.16.840.1.367034.3.579.2.900 1995 Unknown [id number] 2.16.840.1.070988.3.579.2.175 1995 Unknown [id number] 2.16.840.1.243064.3.579.2.175 1995 Unknown [id number] 2.16.840.1.708613.3.579.2.125 9 1995 Unknown [id number] 2.16.840.1.889530.3.579.2.125 9 1995 Unknown [id number] 2.16.840.1.529874.3.579.2.125 9 1995 Unknown [id number] 2.16.840.1.201033.3.579.2.125 9 1995 Unknown [id number] 2.16.840.1.512677.3.579.2.125 9 1995 Unknown [id number] 2.16.840.1.317654.3.579.2.125 9 1995 Unknown [id number] 2.16.840.1.364901.3.579.2.125 9 1995 Unknown [id number] 2.16.840.1.593971.3.579.2.125 9 1995 Unknown [id number] 2.16.840.1.867761.3.579.2.125 9 1995 Unknown [id number] 2.16.840.1.691790.3.579.2.125 9 1995 Unknown [id number] 2.16.840.1.856246.3.579.2.125 9 1959 Unknown [id number] Social History Date Type Detail Facility Start: 02-15-2019 End: 01-19-2023 Tobacco smoking status [facility] Never smoker [facility] Sex Assigned At Not on file [facility] Start: 01-19-2023 Sex Assigned At [facility] Other Start: 03-10-2023 Alcohol intake Current drinker [...] Exposure to COVID-19 virus (ICD-10 - Z20.822) [facility] Other Summary Purpose Family History No Family History Records FoundNo Family History Records FoundNo Family History Records FoundNo Family History Records FoundNo Family History Records FoundNo Family History Records Found Advance Directives No Advanced Directives Records FoundDocuments on File Type Date 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 Get some extra rest. Take an frza-zdf-ayhsoeu pain medicine, such as acetaminophen (Tylenol), ibuprofen (Advil, Motrin),or naproxen (Aleve) to reduce fever and relieve body aches. Read and follow all instructions on thelabel. Do not take two or more pain medicines at the same time unless the doctor told you to. Many pain medicines have acetaminophen, which is Tylenol. Too much acetaminophen (Tylenol) can be harmful. Take an fcwg-yww-hpiakmx cough medicine that contains dextromethorphan to help [...] Log into your personal health record on [email or web address]://[email or web address].[email or web address] and enter H333 in the Education box to learn more about Bronchitis: Care Instructions. Current as of: July 15, 2018 Content Version: 12.3 6392-8934 [employer]. Care instructions adapted under license by your healthcare professional. If you have questions about a medical condition or this instruction, always ask your healthcare professional. [employer] disclaims any warranty or liability for your use of this information. documented in this encounter History of Present Illness * Summer Steen DO - 02/15/2019 1:22 PM EST PATIENT NAME: Meron Darling [facility] [address] [facility] [id number] : 1995 DATE OF VISIT: 02/15/2019 SS#: [...] slightly. Patient states that a week before [place], approximately 2 to 3 weeks ago patient was treated with an antibiotic. She said he took it for 10 days and twice a day. Likely Augmentin but patient does not remember. Symptoms resolved. Patient is concerned she is got pneumonia again. [place] warm butno objective fevers. Took Tylenol prior [...] file Gets together: Not on file Attends congregational service: Not on file Active member of [...] section and content) DATE CREATED AUTHOR 05/17/2018 [facility] DATE CREATED AUTHOR AUTHOR'S ORGANIZ ATION 02/17/[address] [facility] DATE CREATED AUTHOR AUTHOR'S ORGANIZ ATION 08/19/2020 [facility] DATE CREATED AUTHOR AUTHOR'S ORGANIZ ATION 10/04/2020 [facility] DATE CREATED AUTHOR AUTHOR'S ORGANIZ ATION 07/24/2023 [facility] DATE CREATED AUTHOR AUTHOR'S ORGANLINDY ATION 08/04/2023 [facility] EPIC Reason for Visit (unrecogniz ed section and content) Reason Comments Shortness of Breath Started againaces gregory aguero. Pt was treated for pneumonia around 01/30/2019 and finished tx however today she feelslike it is coming back Care Teams (unrecognized sec tion and content) Cylinder Sander Operator Relationship Specialty Start Date End Date Grecia Arriaza MD [address] [place] [address] PCP - General Family Medicine 01/12/23 FOR [...] BE BASED ON THE PRIMARY CLINICAL RECORDS. [employer] provides no warranty or guarantee of the accuracy or completeness of information in this document.
--- NOTE | 2023-08-25 12:30 | PC.NURSE ---
Meron and Que arrive for support. Meron states it's going really well, we are so excited to show you what we can do Meron recounts story and is very pleased with herself and for baby. States Joshua is very proud and pleased with of son. Infant weight obtained, weight 9-1, up from 8-6 one week ago at peds appointment. Infant to breast eagerly, deep latch, audible swallows noted. Meron reassured of her ability to breastfeed and excitement validated. Finishes feed, confident in ability to continue to breastfeed for as long as baby wants Plans to attend [facility] group and aware to call for questions or concerns.
== END 2023-08-25 12:36 | disposition home or self-care (01) ==
LOC: FBCO 08:19
PROVIDERS: PCP Family Medicine; Visit Provider Obstetrics & Gynecology
DX: Z39.1 Encounter for care and examination of lactating mother (principal)
CPT/HCPCS: G0463

== ENCOUNTER 2024-04-11 15:15 | Outpatient (REF) | payer BC, SELFPAY ==
--- OUTSIDE RECORDS SUMMARY | 2024-04-11 15:34 | XMS_ITS | CCD ---
Author Organization [facility] Care Team Providers Care Air Carrier Inspector Name Role Phone GARY ZAMORA Attending Unavailabl [...] Unavailable Grecia Arriaza MD Primary Care Provider [phone] PERRADHAMES MCCOY Referring Unavailable NONE, NONE Primary Care Unavailable RADHAMES VICTORIA Referring Unavailable NONE, NONE Primary Care Unavailable MAMEGALAY Attending Unavailable MEREDITH VASQUEZ Attending Unavailable MAME, VIOLETA Attending Unavailable PEDRO MEREDITH Attending Unavailable MAME, VIOLETA Attending Unavailable PEDRO MEREDITH Attending Unavailable MAME, VIOLETA Attending Unavailable MAME, VIOLETA Attending Unavailable MAME, VIOLETA Attending Unavailable MAME, VIOLETA Attending Unavailable MAME, VIOLETA Attending Unavailable PEDRO MEREDITH Attending Unavailable Allergies Allergy Classification Reported Allergen(s) Allergy Type Date of Onset Reaction(s) Facility diphenhydrAMINE (1 source) diphenhydrAMINE Drug Allergy 4 [facility] Repository (5 sources) diphenhydrAMINE; Translations: [Unknown] Drug Allergy 0 Other (See Comments) [facility] [place] (1 source) Sulfonamides (Antibiotic) Drug Allergy 4 [...] oral solution (1 source) alpha-Adrenergic Agonist, Uncompetitive E-yocrho-B-aspartat e Receptor Antagonist, Sigma-1 Agonist Start: 02-17-2019 [...] Test Name Value Interpretation Reference Range Facility [facility] 02-09-2023 Send Out Report FORWARD TO [facility] Comment on above: Result Comment: [id number] Performed By: #### C MIS #### [facility] [address] [place], [place] [id number] Serology Technician: MD Maico Whitehead 02-08-2023 Test Name [facility] Comment on above: Performed By: #### C MIS #### [facility] [address] [place], [place] [id number] Serology Technician: Isidro Aguirre MD Maternal Ser 1st [place] 02-03 Cr Rump Lngt, Twin B Not Applicable [facility] Comment on above: Performed By: #### A MSFT #### [address] [address] Serology Technician: Isidro Aguirre MD [address] [address] Serology Technician: Rojas Simpson MD [place] Rump Length 57.2 mm [facility] Comment on above: Performed By: #### A MSFT #### [address] [address] Serology Technician: Isidro Aguirre MD [address] [phone] Serology Technician: Rojas Simpson MD Gestat Age (exact) 12 wks, 1 days Normal [facility] Comment on above: Performed By: #### A MSFT #### [address] [address] Serology Technician: Isidro Aguirre MD [address] [id number] Serology Technician: Rojas Simpson MD Hx Aneuploidy Unknown [facility] Comment on above: Performed By: #### A MSFT #### [address] [address] Serology Technician: Isidro Aguirre MD [address] [address] Serology Technician: Rojas Simpson MD Interpretation Screen Neg Normal [facility] Comment on above: Result Comment: (NOT E) [...] developed and its performance characteristics determined by [facility]. It has not been cleared or approved by the US Food and Drug Administration. This test was performed in a CLIA certified laboratory and is intended for clinical purposes. Performed By: #### A MSFT #### [address] [address] Serology Technician: Isidro Aguirre MD [address] [address] Serology Technician: Rojas Simpson MD [age] [facility] Comment on above: Performed By: #### A MSFT #### [address] [address] Serology Technician: Isidro Aguirre MD [address] [phone] Serology Technician: Rojas Simpson MD Maternal Race Nonblack Normal [facility] Comment on above: Performed By: #### A MSFT #### [address] [address] Serology Technician: Isidro Aguirre MD [address] [phone] Serology Technician: Rojas Simpson MD Maternal Screen, EER See Note [facility] Comment on above: Result Comment: (NOT E) Authorized individuals can access the [facility] Enhanced Report using the following link: [email or web address] Performed By: [facility] [address] [place] [address] Coding Assistant: Rex Moreau MD, PhD CLIA Number: [id number] Performed By: #### A MSFT #### [address] [address] Serology Technician: Isidro Aguirre MD [facility] [address] [place] [address] Serology Technician: Rojas Simpson MD Maternal Weight 191.0 lbs. [facility] Comment on above: Performed By: #### A MSFT #### [address] [address] Serology Technician: Isidro Aguirre MD [facility] [address] [place] [address] Serology Technician: Rojas Simpson MD MoM for HCG 0.70 [facility] Comment on above: Performed By: #### A MSFT #### [address] [address] Serology Technician: Isidro Aguirre MD [address] [phone] Serology Technician: Rojas Simpson MD MoM for NT 1.60 [facility] Comment on above: Performed By: #### A MSFT #### [address] [address] Serology Technician: Isidro Aguirre MD [address] [phone] Serology Technician: Rojas Simpson MD MoM for [place], Twin B Not Applicable Normal [facility] Comment on above: Performed By: #### A MSFT #### [address] [address] Serology Technician: Isidro Aguirre MD [facility] [address] [place] [address] Serology Technician: Rojas Simpson MD MoM for SHONDA-A 0.82 [facility] Comment on above: Performed By: #### A MSFT #### [address] [address] Serology Technician: Isidro Aguirre MD [facility] [address] [place] [address] Serology Technician: Rojas Simpson MD Nuchal Trans, Twin B Not Applicable [facility] Comment on above: Performed By: #### A MSFT #### [address] [address] Serology Technician: Isidro Aguirre MD [address] [address] Serology Technician: Rojas Simpson MD Nuchal Translucency 2.30 mm [facility] Comment on above: Performed By: #### A MSFT #### [address] [address] Serology Technician: Isidro Aguirre MD [address] [address] Serology Technician: Rojas Simpson MD Number of Fetuses [place] Normal [facility] Comment on above: Performed By: #### A MSFT #### [address] [address] Serology Technician: Isidro Aguirre MD [address] [phone] Serology Technician: Rojas Simpson MD SHONDA-A Maternal 479.0 ng/mL [facility] Comment on above: Result Comment: (NOT E) This test was developed and its performance characteristics determined by [facility]. It has not been cleared or approved by the US Food and Drug Administration. This test was performed in a CLIA certified laboratory and is intended for clinical purposes. Performed By: #### A MSFT #### [address] [address] Serology Technician: Isidro Aguirre MD [address] [address] Serology Technician: Rojas Simpson MD Patient's HCG 32501 IU/L [facility] Comment on above: Performed By: #### A MSFT #### [address] [address] Serology Technician: Isidro Aguirre MD [address] [phone] Serology Technician: Rojas Simpson MD Smoking Unknown [facility] Comment on above: Performed By: #### A MSFT #### [address] [address] Serology Technician: Isidro Aguirre MD [address] [phone] Serology Technician: Rojas Simpson MD Police Captain Cert No [id number] [facility] Comment on above: Performed By: #### A MSFT #### [address] [address] Serology Technician: Isidro Aguirre MD [address] [phone] Serology Technician: Rojas Simpson MD Police Captain Name Trisha Saleh [facility] Comment on above: Performed By: #### A MSFT #### [address] [address] Serology Technician: Isidro Aguirre MD [address] [id number] Serology Technician: Rojas Simpson MD Specimen See Note [facility] Comment on above: Result Comment: Init ial sample Performed By: #### A MSFT #### [address] [address] Serology Technician: Isidro Aguirre MD [address] [address] Serology Technician: Rojas Simpson MD Ultrasound Date SEE NOTE [facility] Comment on above: Result Comment: Resu lts for Ultrasound Date: 02 02 23 Performed By: #### A MSFT #### [address] [address] Serology Technician: Isidro Aguirre MD [address] [address] Serology Technician: Rojas Simpson MD Maternal Ser 1st [place] 02-02 [place] Rump Length 57.2 Normal [facility] Comment on above: Performed By: #### A MSFT #### [address] [address] Serology Technician: Isidro Aguirre MD [address] [phone] Serology Technician: Rojas Simpson MD Current Smoking INFORMATION NOT PROVIDED [facility] Comment on above: Performed By: #### A MSFT #### [address] [address] Serology Technician: Isidro Aguirre MD [address] [phone] Serology Technician: Rojas Simpson MD Date of Ultrasound [id number] [facility] Comment on above: Performed By: #### A MSFT #### [address] [address] Serology Technician: Isidro Aguirre MD [address] [phone] Serology Technician: Rojas Simpson MD Donor Egg INFORMATION NOT PROVIDED [facility] Comment on above: Performed By: #### A MSFT #### [address] [address] Serology Technician: Isidro Aguirre MD [address] [address] Serology Technician: Rojas Simpson MD In Vitro Fertalizat INFORMATION NOT PROVIDED [facility] Comment on above: Performed By: #### A MSFT #### [address] [address] Serology Technician: Isidro Aguirre MD [address] [address] Serology Technician: Rojas Simpson MD Maternal date [id number] [facility] Comment on above: Performed By: #### A MSFT #### [address] [address] Serology Technician: Isidro Aguirre MD [address] [address] Serology Technician: Rojas Simpson MD Maternal Weight 191 [facility] Comment on above: Performed By: #### A MSFT #### [address] [address] Serology Technician: Isidro Aguirre MD [address] [address] Serology Technician: Rojas Simpson MD Monochorionic Twins INFORMATION NOT PROVIDED [facility] Comment on above: Performed By: #### A MSFT #### [address] [address] Serology Technician: Isidro Aguirre MD [address] [address] Serology Technician: Rojas Simpson MD Nuchal Transluc (NT) 2.3 [facility] Comment on above: Performed By: #### A MSFT #### [address] [address] Serology Technician: Isidro Aguirre MD [address] [address] Serology Technician: Rojas Simpson MD Number of fetuses 1 Normal [facility] Comment on above: Performed By: #### A MSFT #### [address] [address] Serology Technician: Iisdro Aguirre MD [facility] [address] [place] [address] Serology Technician: Rojas Simpson MD Patient Weight Units LB [facility] Comment on above: Performed By: #### A MSFT #### [address] [address] Serology Technician: Isidro Aguirre MD [address] [address] Serology Technician: Rojas Simpson MD Prev Trisomy Preg INFORMATION NOT PROVIDED [facility] Comment on above: Performed By: #### A MSFT #### [address] [address] Serology Technician: Isidro Aguirre MD [address] [address] Serology Technician: Rojas Simpson MD Race (Maternal) WHITE [facility] Comment on above: Performed By: #### A MSFT #### [address] [address] Serology Technician: Isidro Aguirre MD [address] [address] Serology Technician: MD Shayne Siddiqui MD [facility] [address] [facility] Comment on above: Performed By: #### A MSFT #### [address] [address] Serology Technician: Isidro Aguirre MD [address] [address] Serology Technician: MD Shayne Siddiqui MD Name RADHAMES VICTORIA [facility] Comment on above: Performed By: #### A MSFT #### [address] [address] Serology Technician: Isidro Aguirre MD [facility] [address] [place], [place] [id number] Serology Technician: Rojas Simpson MD Repeat Specimen INFORMATION NOT PROVIDED [facility] Comment on above: Performed By: #### A MSFT #### [address] [address] Serology Technician: Isidro Aguirre MD [address] [address] Serology Technician: Rojas Simpson MD Sonograph Cert Num [id number] [facility] Comment on above: Performed By: #### A MSFT #### [address] [address] Serology Technician: Isidro Aguirre MD [address] [phone] Serology Technician: Rojas Simpson MD Police Captain Name [facility] Comment on above: Performed By: #### A MSFT #### [address] [address] Serology Technician: Isidro Aguirre MD [address] [address] Serology Technician: Rojas Simpson MD SARS-CoV-2 (COVID-19) RNA NA A+probe Ql (Resp)on 09-30-2021 SARS-CoV-2 (COVID-19) RNA CRISTIAN+probe Ql (Unsp spec) Negative [employer] Other INSULINon 08-11-2020 Insulin 10.7 uIU/mL Normal 2.6-24.9 [facility] Comment on above: Performed By: #### I NSULIN #### [facility] [address] [address] Maribell Spencer CBC AUTO DIFFon 08-08-2020 BASO # 0.1 103/ul Normal 0.0-0.1 [place] [facility] Comment on above: Performed By: #### C BC #### [facility] [address] [place], [place] [address] Maribell Johanna Basophils/100 WBC (Bld) 1.1 % Normal 0.2-2.0 [facility] Comment on above: Performed By: #### C BC #### [facility] [address] [id number] Maribell Johanna EO # 0.2 103/ul Normal 0.0-0.7 [facility] Comment on above: Performed By: #### C BC #### [facility] [address] [phone] Maribell Johanna Eosinophils/100 WBC (Bld) 2.5 % Normal 0.9-7.0 [place] [facility] Comment on above: Performed By: #### C BC #### [facility] [address] [place], [place] [phone] Maribell Johanna Erythrocyte distribution width (RBC) [Ratio] 13.6 % Normal 11.0-15.0 [place] [facility] Comment on above: Performed By: #### C BC #### [facility] [address] [place], [place] [phone] Maribell Johanna Hematocrit (Bld) [Volume fraction] 41.1 % Normal 36.0-48.0 [facility] Comment on above: Performed By: #### C BC #### [facility] [address] [place], [place] [phone] Maribell Johanna Hemoglobin (Bld) [Mass/Vol] 13.9 g/dL Normal 12.0-16.0 [facility] Comment on above: Performed By: #### C BC #### [facility] [address] [phone] Maribell Johanna IG # 0.02 10e3/ul Normal 0.00-0.03 [facility] Comment on above: Performed By: #### C BC #### [facility] [address] [phone] Maribell Johanna IG % 0.3 % Normal 0.0-0.5 [facility] Comment on above: Performed By: #### C BC #### [facility] [address] [phone] Maribell Johanna LYMPH # 2.1 103/ul Normal 1.2-3.8 [facility] Comment on above: Performed By: #### C BC #### [facility] [address] [place], [place] [phone] Maribell Johanna Lymphocytes/100 WBC (Bld) 32.4 % Normal 20.5-60.0 [facility] Comment on above: Performed By: #### C BC #### [facility] [address] [place], [place] [phone] Maribell Johanna MANUAL DIFF REQ NO Normal [facility] Comment on above: Performed By: #### C BC #### [facility] [address] [place] [address] Maribell Johanna MCH (RBC) [Entitic mass] 29.5 pg Normal 26.7-34.0 [place] [facility] Comment on above: Performed By: #### C BC #### [facility] [address] [place] [address] Maribell Johanna MCHC (RBC) [Mass/Vol] 33.8 g/dL Normal 29.9-35.2 [facility] Comment on above: Performed By: #### C BC #### [facility] [address] [place], [place] [phone] Maribell Johanna MCV (RBC) [Entitic vol] 87.3 fL Normal 81.0-99.0 [facility] Comment on above: Performed By: #### C BC #### [facility] [address] [place] [address] Maribell Johanna MONO # 0.4 103/ul Normal 0.3-0.8 [facility] Comment on above: Performed By: #### C BC #### [facility] [address] [place], [place] [phone] Maribell Johanna Monocytes/100 WBC (Bld) 6.9 % Normal 1.7-12.0 [facility] Comment on above: Performed By: #### C BC #### [facility] [address] [place] [address] Maribell Spencer NEUT # 3.6 103/ul Normal 1.4-6.5 [facility] Comment on above: Performed By: #### C BC #### [facility] [address] [place], [place] [phone] Maribell Spencer Neutrophils/100 WBC (Bld) 56.8 % Normal 43.0-75.0 [facility] Comment on above: Performed By: #### C BC #### [facility] [address] [place] [address] Maribell Spencer Platelet mean volume (Bld) [Entitic vol] 9.9 fL Normal 9.5-13.5 [facility] Comment on above: Performed By: #### C BC #### [facility] [address] [place] [address] Maribell Spencer PLT 180 103/ul Normal 150-450 [facility] Comment on above: Performed By: #### C BC #### [facility] [address] [place] [address] Maribell Spencer RBC 4.71 106/ul Normal 4.20-5.40 [facility] Comment on above: Performed By: #### C BC #### [facility] [address] [place] [address] Maribell Spencer WBC 6.4 103/ul Normal 4.0-11.0 [facility] Comment on above: Performed By: #### C BC #### [facility] [address] [place] [address] Maribell Spencer FREE THYROXINE INDEX T7on FTI 3.39 Normal [facility] Comment on above: Performed By: #### L IPID, CMP, T7, TSH #### [facility] [address] [place] [address] Maribell Spencer T3U 28.0 % Normal 23.5-40.5 [facility] Comment on above: Performed By: #### L IPID, CMP, T7, TSH #### [facility] [address] [place] [address] Maribell Spencer T4 [Mass/Vol] 12.10 ug/dL Critically high 5.53-11.[address] [facility] Comment on above: Performed By: #### L IPID, CMP, T7, TSH #### [facility] [address] [place], [place] [address] Maribell Spencer GLYCOHEMOGLOBIN A1Con 2020 ADA RECOMMENDATION ADA THERAPEUTIC TARGET 6.0 - 7.0 ACTION SUGGESTED > 7.0 Normal [place] [facility] Comment on above: Performed By: #### A 1C #### [facility] [address] [phone] Maribell Johanna Glucose [Mass/Vol] 123 mg/dL Normal [facility] Comment on above: Performed By: #### A 1C #### [facility] [address] [phone] Maribell Johanna HbA1c (Bld) [Mass fraction] 5.9 % Normal <=6.0 [facility] Comment on above: Performed By: #### A 1C #### [facility] [address] [phone] Maribell Spencer IRONon 08-08-2020 Iron [Mass/Vol] 66.0 ug/dL Normal 37.0-170.0 [facility] Comment on above: Performed By: #### I DUNIA #### [facility] [address] [place], [place] [phone] Maribell Spencer LIPID PROFILEon 08-08-2020 CHOL-HDL RATIO NORM SEE BELOW Normal [facility] Comment on above: Result Comment: 3.3 - 4.4 LOW RISK 4.4 - 7.1 AVERAGE RISK 7.1 - 11.0 MODERATE RISK >11.0 HIGH RISK Performed By: #### L IPID, CMP, T7, TSH #### [facility] [address] [phone] Maribell Johanna Cholesterol [Mass/Vol] 215 mg/dL Critically high <=200 [facility] Comment on above: Performed By: #### L IPID, CMP, T7, TSH #### [facility] [address] [phone] Maribell Johanna Cholesterol in HDL [Mass/Vol] 37 mg/dL Normal [facility] Comment on above: Performed By: #### L IPID, CMP, T7, TSH #### [facility] [address] [phone] Maribell Johanna Cholesterol in LDL [Mass/Vol] 142.4 mg/dL Normal [place] [facility] Comment on above: Performed By: #### L IPID, CMP, T7, TSH #### [facility] [address] [phone] Maribell Johanna Cholesterol.total/C holesterol in HDL [Mass ratio] 5.8 {ratio} Normal [place] [facility] Comment on above: Performed By: #### L IPID, CMP, T7, TSH #### [facility] [address] [phone] Maribell Johanna HDL NORMAL > or = 60 mg/dl - LO W CARDIOVASCULAR RISK <40 mg/dl - HIGH CARDIOVASCULAR RISK Normal [place] [facility] Comment on above: Performed By: #### L IPID, CMP, T7, TSH #### [facility] [address] [address] Maribell Johanna LDL CALC NORMAL SEE BELOW Normal [facility] Comment on above: Result Comment: <100 mg/dl OPTIMAL 100 - 129 mg/dl NEAR OR ABOVE OPTIMAL 130 - 159 mg/dl BORDERLINE HIGH 160 - 189 mg/dl HIGH >190 mg/dl VERY HIGH Performed By: #### L IPID, CMP, T7, TSH #### [facility] [address] [phone] Maribell Johanna Triglyceride [Mass/Vol] 178 mg/dL Critically high <=150 [facility] Comment on above: Performed By: #### L IPID, CMP, T7, TSH #### [facility] [address] [phone] Maribell Johanna VLDL CALC 35.6 mg/dL Normal [facility] Comment on above: Performed By: #### L IPID, CMP, T7, TSH #### [facility] [address] [phone] Maribell Johanna PROF 14(COMP METB)on 021 Albumin [Mass/Vol] 3.5 g/dL Normal 3.5-5.0 [facility] Comment on above: Performed By: #### L IPID, CMP, T7, TSH #### [facility] [address] [place], [place] [phone] Maribell Johanna Albumin/Globulin [Mass ratio] 0.8 {ratio} Normal [facility] Comment on above: Performed By: #### L IPID, CMP, T7, TSH #### [facility] [address] [place] [address] Maribell Johanna ALP [Catalytic activity/Vol] 62 U/L Normal 38-126 [facility] Comment on above: Performed By: #### L IPID, CMP, T7, TSH #### [facility] [address] [place] [address] Maribell Johanna ALT [Catalytic activity/Vol] 50 U/L Normal 9-52 [facility] Comment on above: Performed By: #### L IPID, CMP, T7, TSH #### [facility] [address] [place] [address] Maribell Johanna Anion gap [Moles/Vol] 14.5 mmol/L Normal [facility] Comment on above: Performed By: #### L IPID, CMP, T7, TSH #### [facility] [address] [place] [address] Maribell Johanna AST [Catalytic activity/Vol] 36 U/L Normal 14-36 [place] [facility] Comment on above: Performed By: #### L IPID, CMP, T7, TSH #### [facility] [address] [place] [address] Maribell Johanna Bilirubin [Mass/Vol] 0.5 mg/dL Normal 0.2-1.3 [facility] Comment on above: Performed By: #### L IPID, CMP, T7, TSH #### [facility] [address] [place] [address] Maribell Johanna Calcium [Mass/Vol] 9.0 mg/dL Normal 8.4-10.2 [facility] Comment on above: Performed By: #### L IPID, CMP, T7, TSH #### [facility] [address] [address] Maribell Johanna Chloride [Moles/Vol] 103 mmol/L Normal 98-107 [facility] [facility] Comment on above: Performed By: #### L IPID, CMP, T7, TSH #### [facility] [address] [address] Maribell Johanna CO2 [Moles/Vol] 25.6 mmol/L Normal 22.0-30.0 [facility] Comment on above: Performed By: #### L IPID, CMP, T7, TSH #### [facility] [address] [address] Maribell Johanna Creatinine [Mass/Vol] 0.80 mg/dL Normal 0.52-1.04 [facility] Comment on above: Performed By: #### L IPID, CMP, T7, TSH #### [facility] [address] [place] [address] Maribell Johanna EGFR-AF TRISTANIAN >60 Normal >=60 [facility] Comment on above: Performed By: #### L IPID, CMP, T7, TSH #### [facility] [address] [place] [address] Maribell Johanna EGFR-NON AF TRISTANIAN >60 Normal >=60 [facility] Comment on above: Performed By: #### L IPID, CMP, T7, TSH #### [facility] [address] [place] [address] Maribell Johanna Globulin (S) [Mass/Vol] 4.6 g/dL Normal [facility] Comment on above: Performed By: #### L IPID, CMP, T7, TSH #### [facility] [address] [place] [address] Maribell Johanna Glucose [Mass/Vol] 115 mg/dL Critically high 74-106 T [facility] Comment on above: Performed By: #### L IPID, CMP, T7, TSH #### [facility] [address] [place] [address] Maribell Johanna Potassium [Moles/Vol] 4.1 mmol/L Normal 3.4-5.0 [facility] Comment on above: Performed By: #### L IPID, CMP, T7, TSH #### [facility] [address] [place] [address] Maribell Johanna Protein [Mass/Vol] 8.1 g/dL Normal 6.1-8.2 [facility] Comment on above: Performed By: #### L IPID, CMP, T7, TSH #### [facility] [address] [place] [address] Maribell Johanna Sodium [Moles/Vol] 139 mmol/L Normal 137-145 [facility] Comment on above: Performed By: #### L IPID, CMP, T7, TSH #### [facility] [address] [place] [address] Maribell Johanna Urea nitrogen [Mass/Vol] 9.0 mg/dL Normal 7.0-17.0 [facility] Comment on above: Performed By: #### L IPID, CMP, T7, TSH #### [facility] [address] [place] [address] Maribell Johanna Urea nitrogen/Creatinine [Mass ratio] 11.2 mg/mg Normal [facility] Comment on above: Performed By: #### L IPID, CMP, T7, TSH #### [facility] [address] [place] [address] Maribell Johanna TSHon 08-08-2020 TSH 1.632 uIU/mL Normal 0.470-4.680 [facility] Comment on above: Performed By: #### L IPID, CMP, T7, TSH #### [facility] [address] [place] [address] Maribell Johanna TSH RANGE SEE BELOW Normal [facility] Comment on above: Result Comment: <0.3 4 UIU/ml HYPERTHYROID 0.34-5.60 UIU/ml EUTHYROID >5.60 UIU/ml HYPOTHYROID Performed By: #### L IPID, CMP, T7, TSH #### [facility] [address] [place] [address] Maribell Johanna XR CHEST AP/PA AND LATon [...] are identified. IMPRESSION: No acute process identified. [employer] Workstation ID: [id number] Dictated by: ISHMAEL KEYS on Baird Feb 17, 2019 10:05:42 AM EST Transcribed by: LEXII HUTCHINSON on Baird Feb 17, 2019 10:06:52 AM EST Finalized by: ISHMAEL KEYS on Baird Feb 17, 2019 10:59:38 AM EST Normal [facility] Comment on above: Order Comment: Injur y/Trauma or Illness?:Illness/Other How long have you had these symptoms (acute/chronic)?:Acute Reason for exam?:cough History of cancer?:no Surgeries, chemotherapy, or radiation?:unk Type of Exam?:Initial Additional signs and symptoms?:Treated for pneumonia around [place]. Started having cough, fever again about 2 days ago. No acute process identified. [employer] Workstation ID: [id number] [facility] EXAMINATION: XR CHES T AP/PA AND LAT [...] significant pleural or osseous abnormalities are identified. [facility] Interface, Rad In Fuji Speechq - 02/17/2019 [...] acute process identified. MA/trw Workstation ID: [id number] [facility] Chlamydia Detection by NAATo n 05-15-2018 Protein mass conc [facility] Microbiology PROCEDURE: Chlamydia Detection by NAAT [...] RESULTS ARE INCONSISTENT WITH CLINICAL FINDINGS Normal [facility] Comment on above: Performed By: #### C D:[id number] #### [facility] [address] [place], [place] Vital Signs Date Time Vital Sign Value Performing Clinician Tana lara 02-15-2019 13:17-0500 BMI (Body Mass Index) 27.25 kg/m2 [facility] 02-15-2019 13:17-0500 Body Temperature 99.61 [degF] [facility] 02-15-2019 13:17-0500 Body weight 81.28 kg [facility] 02-15-2019 13:17-0500 BP Diastolic 82 mm[Hg] [facility] 02-15-2019 13:17-0500 BP Systolic 131 mm[Hg] [facility] 02-15-2019 13:17-0500 Height 172.7 cm [facility] 02-15-2019 13:17-0500 Pulse (Heart Rate) 89 /min [facility] 02-15-2019 13:17-0500 Pulse Oximetry 96 % [facility] 02-15-2019 13:17-0500 Respiratory Rate 16 /min Summer Steen [facility] Encounters Encounter Date Encounter Type Care Provider Facility Start: 09-21-2023 End: 09-21-2023 ambulatory MEREDITH PEDRO Not Available Start: 08-03-2023 End: 08-03-2023 ambulatory VIOLETA MAME [...] Not Available Start: 02-08-2023 End: 02-08-2023 ambulatory [facility] Start: 02-02-2023 End: 02-02-2023 ambulatory [facility] Start: 01-12-2023 End: 01-12-2023 ambulatory VIOLETA MAME Not Available Start: 09-30-2021 End: 09-30-2021 ambulatory Radha Copeland Other [employer] Other Start: 09-30-2021 Nursing evaluation o f patient and report Radha Copeland [facility] Start: 09-21-2020 End: 09-25-2020 ambulatory [facility] Start: 08-18-2020 Encounter for genera l adult medical examination without abnormal findings DR GRECIA ARRIAZA [facility] Start: 08-08-2020 End: 08-09-[address] GRECIA ARRIAZA Facility:[facility] Start: 08-08-2020 End: 08-09-2020 Encounter for general adult medical examination without abnormal findings DR GRECIA ARRIAZA Facility:[facility] Start: 02-17-2019 End: 02-18-2019 Patient encounter procedure REMBERTO COELHO [facility] Start: 02-17-2019 End: 02-17-2019 Subsequent hospital visit by physician Remberto Coelho Work Phone: Urgent [facility] Comment on above: Arrived Start: 02-15-2019 End: 02-15-2019 Patient encounter procedure SUMMER STEEN [facility] Start: 02-15-2019 End: 02-15-2019 Office outpatient visit 15 minutes Summer Steen Work Phone: [facility] Comment on above: Bronchitis (Primary Dx) Start: 05-16-2018 End: 05-16-2018 Patient encounter procedure GARY ZAMORA Facility:[facility] Procedures Date Procedure Procedure Detail Performing [...] DERM [address] [place] [phone] Meron Muniz MD [address] [place] [address] [facility] Start: 03-14-2023 End: 03-14-2023 Patient encounter procedure 03/14/2023 8:30 AM EST Routine [facility] [address] [place] [phone] Meredith Vasquez PA [address] [place] [address] Second trimester [facility] Comment on above: Second trimester pre gnancy Start: 04-20-2021 Screening for malign ant neoplasm of cervix PAP SMEAR [facility] Start: 04-21-2019 Screening for Chlamy luis fernando trachomatis Chlamydia Screening [facility] Start: 03-24-2019 Screening for malign ant neoplasm of cervix PAP SMEAR [facility] Start: 10-07-2018 Influenza vaccination given SE QUENTIAL INFLUENZA VACCINE (#1) [facility] Start: 2006 Vaccination for sharri n papillomavirus HPV VACCINES (1 - Female 2-dose series) [facility] Start: 1998 History and physical examination, annual for health maintenance Wellness Visit [facility] Start: 1995 Screening for Chlamy luis fernando trachomatis Chlamydia Screening [facility] Start: 1995 Tetanus vaccination TETANUS EVERY 10 YR [facility] Payers Date Payer Category Payer Unknown BCBS BCBS xxxxxx [id number] 2022-Present [phone] [address] [place] [address] [id number] 2022 Unknown [id number] 2018 Unknown NADYA HOWARD/PREF/HMO/PPO xxxxxxxxxxxx 2018-Present xxxxxxxxxxxx [id number] 1995 Unknown [id number] 2.16.840.1.116072.3.579.2.903 1995 Unknown [id number] 2.16.840.1.038099.3.579.2.903 1995 Unknown [id number] 2.16.840.1.265222.3.579.2.903 1995 Unknown [id number] 2.16.840.1.004468.3.579.2.593 1995 Unknown [id number] 2.16.840.1.312196.3.579.2.900 1995 Unknown [id number] 2.16.840.1.865134.3.579.2.175 1995 Unknown [id number] 2.16.840.1.540136.3.579.2.175 1995 Unknown [id number] 2.16.840.1.671765.3.579.2.125 9 1995 Unknown [id number] 2.16.840.1.982999.3.579.2.125 9 1995 Unknown [id number] 2.16.840.1.603731.3.579.2.125 9 1995 Unknown [id number] 2.16.840.1.574774.3.579.2.125 9 1995 Unknown [id number] 2.16.840.1.599384.3.579.2.125 9 1995 Unknown [id number] 2.16.840.1.079999.3.579.2.125 9 1995 Unknown [id number] 2.16.840.1.696943.3.579.2.125 9 1995 Unknown [id number] 2.16.840.1.499558.3.579.2.125 9 1995 Unknown [id number] 2.16.840.1.472347.3.579.2.125 9 1995 Unknown [id number] 2.16.840.1.566007.3.579.2.125 9 1995 Unknown [id number] 2.16.840.1.082752.3.579.2.125 9 1995 Unknown [id number] 2.16.840.1.339433.3.579.2.125 9 1959 Unknown [id number] Social History Date Type Detail Facility Start: 02-15-2019 End: 01-19-2023 Tobacco smoking status NHIS Never smoker [facility] Sex Assigned At Not on file Malaika luz Start: 01-19-2023 Sex Assigned At [employer] Other Start: 03-10-2023 Alcohol intake Current drinker [...] Exposure to COVID-19 virus (ICD-10 - Z20.822) [employer] Other Summary Purpose Family History No Family History Records FoundNo Family History Records FoundNo Family History Records FoundNo Family History Records FoundNo Family History Records FoundNo Family History Records Found Advance Directives No Advanced Directives Records FoundDocuments on File Type Date Recorded 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 Get some extra rest. Take an uoik-cfp-ozgydmj pain medicine, such as acetaminophen (Tylenol), ibuprofen (Advil, Motrin),or naproxen (Aleve) to reduce fever and relieve body aches. Read and follow all instructions on thelabel. Do not take two or more pain medicines at the same time unless the doctor told you to. Many pain medicines have acetaminophen, which is Tylenol. Too much acetaminophen (Tylenol) can be harmful. Take an qkso-rdg-frrdubk cough medicine that contains dextromethorphan to help [...] Log into your personal health record on [email or web address] [email or web address].[email or web address] centerSimplyBoxlifepoint hospitals and enter H333 in the Education box to learn more about Bronchitis: Care Instructions. Current as of: July 15, 2018 Content Version: 12.3 [employer]. Care instructions adapted under license by your healthcare professional. If you have questions about a medical condition or this instruction, always ask your healthcare professional. [employer] disclaims any warranty or liability for your use of this information. documented in this encounter History of Present Illness * Summer Steen DO - 02/15/2019 1:22 PM EST PATIENT NAME: Meron Darling [facility] [address] [facility] [id number] : 1995 DATE OF VISIT: 02/15/2019 SS#: [...] is concerned she is got pneumonia again. [place] warm butno objective fevers. Took Tylenol prior [...] section and content) DATE CREATED AUTHOR 05/17/2018 [facility] DATE CREATED AUTHOR AUTHOR'S ORGANIZ ATION 02/17/2019 [facility] DATE CREATED AUTHOR AUTHOR'S ORGANIZ ATION 08/19/2020 [facility] DATE CREATED AUTHOR AUTHOR'S ORGANIZ ATION 10/04/2020 [facility] DATE CREATED AUTHOR AUTHOR'S ORGANIZ ATION 07/24/2023 [facility] DATE CREATED AUTHOR AUTHOR'S ORGANIZ ATION 09/23/2023 [facility] EPIC Reason for Visit (unrecogniz ed section and content) Reason Comments Shortness of Breath Started againthis gregory rning. 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 [facility] [address] [facility]. provides no warranty or guarantee of the accuracy or completeness of information in this document.
[2024-04-16 22:07] LABS: Age Gdln ACOG Testing Note (.); IGP, rfx Aptima HPV ASCU Note (.)
== END 2024-04-11 15:16 | disposition home or self-care (01) ==
LOC: LAB 15:15
PROVIDERS: PCP Family Medicine; Visit Provider Obstetrics & Gynecology
DX: Z01.419 Encounter for gynecological examination (general) (routine) without abnormal findings (principal)
CPT/HCPCS: 88175

== ENCOUNTER 2024-11-29 15:24 | Outpatient (OUT) | payer BC, SELFPAY ==
--- OUTSIDE RECORDS SUMMARY | 2024-11-29 15:28 | XMS_ITS | Clinical Summary ---
Author Organization [facility] Address [address] [place] [address] Care Team Providers Care Brand Mgr Name Role Phone Cristhian Arriaza MD Primary Care Provider [phone] Allergies Active AllergyReactionsCriticalityNoted BnmxVxkthwlzChbwmrrwgpvlgxh40/07/2023 Other Reaction(s): Opposite Effect, Unknown Sulfa Cppnkgxoich82/31/2024 Other Reaction(s): childhood Medications MedicationSigDispense QuantityRefillsLast FilledStart DateEnd DateStatus MV-Min-Fe Fum-FA-DHA ( 1 PO) Take 1 each by mouth in the morning.Active Active Problems ProblemNoted DateDiagnosed DateSecond trimester ([facility])04/13/2023 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 ([facility])04/13/2023 Estimated Date of AfnuqbbiQwmiznytCwi22/04/2026ased on Ultrasound Encounters DateTypeDepartmentCare EfgeDnuhchyripm80/26/2025 9:30 AM [place] [address] [place]: 8w4d11/01/2024 9:00 AM EDTAncillary [place] [address] Missed menses; Positive urine test ([facility])10/25/2024Travelfrom Last 3 Months Family History Medical HistoryRelationNameCommentsHeart diseaseFatherThyroid diseaseMaternal GrandmotherDiana GriffinThyroid diseaseMotherKelly GulickRelationNameStatus CommentsFatherMaternal GrandmotherDiana GriffinMotherKelly Morgan Social History Tobacco UseTypesPacks/DayYears UsedDateSmoking Tobacco: NeverSmokeless Tobacco: Never Tobacco Cessation:Counseling Given: Not Answered Alcohol UseStandard Drinks/WeekCommentsNot Currently2 (1 standard drink = 0.6 oz pure alcohol)caffeine: 1-2 cups per dayAUDIT-CAnswerDate RecordedQ1: How often do you have a drink containing alcohol?Monthly or less01/19/2023Q2: How many drinks containing alcohol do you have on a typical day when you are drinking?3 or Frequency of Binge DrinkingNot on file01/19/2023Estimated Date of VukyxproTjoteyhvMfi65/04/2026ased on UltrasoundSex and Gender InformationValueDate RecordedSex Assigned at XsyrpJwczca13/30/2023 8:50 AM EST Legal FzgPwjcvy95/15/2023 7:04 PM EDTGender QdqmhtuqKlidot13/30/2023 8:50 AM EST Sexual YuhakhlhkphLvnnlekd74/30/2023 8:50 AM EST Last Filed Vital Signs Vital SignReadingTime TakenCommentsBlood Elbmbkoy429/7411/01/2024 10:47 AM EDT Pulse--Temperature--Respiratory Rate--Oxygen Saturation--Inhaled Oxygen Concentration--Vgdneq26.8 kg (178 lb 3.2 oz)11/01/2024 10:47 AM KRXYkctdw738.2 cm (5' 7 )06/22/2022 12:00 PM EDTBody Mass Index27.9106/22/2022 12:00 PM EDT Plan of Treatment DateTypeDepartmentCare Team (Latest Contact Info)Frmrjjlbozk19/28/2025 2:40 PM EDTRoutine [facility] [address] [place] [phone] Jake Sanchez DO [address] [place] [place], [place] [id number] 04/15/2025 11:00 AM EDTOffice Visit [facility] [address] [place] [address] Jake Sanchez, [address] [place] [address] Goals GoalPatient Goal TypeAssociated ProblemsRecent ProgressPatient-Stated?Author Reminders Care PlanOB RemindersNoOpen Scheduling, Background Procedures Procedure NamePriorityDate/TimeAssociated DiagnosisCommentsPOCT URINALYSIS LZKIJLSFCgzekti78/26/2025 10:25 AM EDT Missed menses POCT , XQBTHHbticna37/26/2025 10:25 AM EDT Missed menses OB EQVBSZDVIVULSwhxceu18/26/2025 10:12 AM EDT Missed menses Positive urine test ([facility]) from Last 3 Months Results * (ABNORMAL) POCT , urine manually resulted (11/01/2024 10:25 AM EDT) ComponentValueRef RangeTest MethodAnalysis TimePerformed AtPathologist SignaturePreg Test, UrPositiveNegativeSpecimen (Source)Anatomical Location / LateralityCollection Method / VolumeCollection TimeReceived TimeUrine 11/01/2024 10:25 AM EDT Narrative Authorizing ProviderResult TypeResult StatusCorey Laura DOPOINT OF CARE TEST ENTER/EDIT ORDERABLESFinal Result * (ABNORMAL) POCT urinalysis dipstick manually resulted (11/01/2024 10:25 AM EDT)ComponentValueRef RangeTest MethodAnalysis TimePerformed AtPathologist SignatureColor, UAYellowClarity, UAClearGlucose, UANegativeNegative - 2000(110) ++++ mg/dLBilirubin, UANegativeNegative - 4(70) +++ mg/dLKetones, UA NegativeNegative - 160(16) ++++ mg/dLSpec Grav, UA1.0151 - 1.03Blood, UA PositiveNegative - 50 Zak/mcLpH, UA6.05 - 9Protein, UANegativeNegative - 2000(20) ++++ mg/dLUrobilinogen, UA1.00.2 - 12 mg/dLLeukocytes, UA1+Negative - 500+++ [place]/mcLNitrite, UANegativeNegative - PositiveSpecimen (Source) Anatomical Location / LateralityCollection Method / VolumeCollection Time Received IpdeFwoxg56/26/2025 10:25 AM EDT Narrative Authorizing ProviderResult TypeResult StatusCorey Laura DOPOINT OF CARE TEST ENTER/EDIT ORDERABLESFinal Result * US OB transvaginal (11/01/2024 10:12 AM EDT)Anatomical RegionLaterality ModalityBodyUltrasoundSpecimen (Source)Anatomical Location / Laterality Collection Method / VolumeCollection TimeReceived Time11/01/2024 11:37 AM EDT Impressions 11/01/2024 12:25 PM EDT Findings consistent with a live intrauterine gestation, current sonographic age of 8 weeks and 4 days resulting in an estimated date of delivery of June 09, 2025. TRANSCRIBED BY: ? ELECTRONICALLY SIGNED BY: Ulices Hernandez MD Narrative 11/01/2024 12:25 PM EDT FINDINGS: A single intrauterine gestational sac is present. ??No subchorionic hemorrhage. ??A single pole is present. Normal heart rate at 182 beats per minute. ??Yolk sac also is seen. ?? Current sonographic age is 8 ??weeks and 4 days based on the crown-rump length measurement of ??2.0cm. ??Based on this age, current estimated date of delivery is June 09, 2025. ??No pelvic fluid or adnexal masspresent. ??Cervical length is 3.8 cm. Procedure Note Ulices Hernandez MD - 11/01/2024 FINDINGS: A single intrauterine gestational sac is present. No subchorionichemorrhage. A single pole is present. Normal heart rate at182 beats per minute. Yolk sac also is seen. Current sonographic age is8 weeks and 4 days based on the crown-rump length measurement of 2.0cm.Based on this age, current estimated date of delivery is June 09, 2025. Nopelvic fluid or adnexal mass present. Cervical length is 3.8 cm. IMPRESSION: Findings consistent with a live intrauterine gestation, currentsonographic age of 8 weeks and 4 days resulting in an estimated date ofdelivery of June 09, 2025. TRANSCRIBED BY: ELECTRONICALLY SIGNED BY: Ulices Hernandez MD Authorizing ProviderResult TypeResult StatusCorey Laura DOIMG OB US PROCEDURES Final Result from Last 3 Months Additional Health Concerns Active ProblemsNoted DateDiagnosed DateOB Gofbwkewu13/11/2023 Insurance Care Teams Team MemberRelationshipSpecialtyStart DateEnd Date Cristhian Arriaza MD [address] [place] [phone] PCP - GeneralFamily Mdnhylcn50/7/23
--- OUTSIDE RECORDS SUMMARY | 2024-11-29 15:30 | XMS_ITS | CCD ---
Author Organization [facility] Inform ion Partnership [facility] Care Team Providers Care Human Resources Trainee Name Role Phone GARY ZAMORA Attending Unavailabl e Physician, PCP Unknown Primary Care Unavailab Grecia Abdullahi Primary Care Provider DELON STEEN Attending Unavailable GRECIA ARRIAZA Primary Care Unavailable HOYGRECIA Primary Care Unavailable SRIRAM COELHO Attending Unavailabl e SRIRAM COELHO Attending Unavailabl SRIRAM Stauffer Referring Unavailabl e GRECIA ARRIAZA Primary Care Unavailable DR GRECIA ARRIAZA Attending Unavailable LOPEZ, DR PAIGE Consulting Unavailable DR GRECIA ARRIAZA Primary Care Unavailable DR GRECIA ARRIAZA Admitting Unavailable HOY, GRECIA Primary Care Unavailable VALENTINA JOHNS Attending Un available Radha Copeland Unavailable Grecia Arriaza MD Primary Care Provider [phone] RADHAMES VICTORIA Referring Unavailable NONE, NONE Primary Care Unavailable RADHAMES VICTORIA Referring Unavailable NONE, NONE Primary Care Unavailable Grecia Arriaza MD Primary Care Provider [phone] JAKE SANCHEZ Attending Unavailable Allergies Allergy ClassificationReported Allergen(s)Allergy TypeDate of OnsetReaction(s) FacilitydiphenhydrAMINE (1 source)diphenhydrAMINEDrug Tivfuwb07-92-6213[facility] (9 sources)diphenhydrAMINE; Translations: [Unknown]Drug Wttnsit31-48-8157Xlsry (See Comments)[facility] (5 sources)Sulfonamides (Antibiotic)Drug Ywshbru54-83-7936[facility] Medications Current Medications MedicationDrug Class(es)DatesSig (Normalized)Sig (Original)benzonatate 100 mg oral capsule (2 sources)Non-narcotic AntitussiveStart: 02-15-2019 End: 73-40-2608adoe 1 capsule by mouth three times daily as needed for cough benzonatate (TESSALON) 100 MG capsule Indications: Bronchitis Take 1 (one) capsule (100 mg total) by mouth 3 (three) times a day as needed for cough . 20 capsule 0 02/15/2019 02/22/2019 Activebrompheniramine maleate 0.4 mg/ml / dextromethorphan hydrobromide 2 mg/ml / pseudoephedrine hydrochloride 6 mg/ml oral solution (1 source)alpha-Adrenergic Agonist, Uncompetitive H-jxtnkj-S-aspartate Receptor Antagonist, Sigma-1 AgonistStart: 02-17-2019 End: 62-20-9725fncc 5-10 mL by mouth three times daily as needed qqlgkxvdaxumast-frbklflGLUDwghy-HW 2-30-10 mg/5 mL syrup Indications: Cough Take 5-10 mL by mouth 3(three) times a day as needed . 150 mL 0 02/17/2019 02/27/2019 ActiveCholine (1 source)take 1 dose by mouth in the morningCHOLINE PO Take 1 each by mouth in the morning. 0 ActiveEthinyl Estradiol / Ferrous fumarate / Norethindrone (2 sources)Estrogentake 1 tablet by mouth once daily, then take 0.05 tablet by mouth oncenorethindrone-ethinyl estradiol (JUNEL FE 02/25) 1 mg-20 mcg (21)/75 mg (7) per tablet Take 1 tabletby mouth daily . 0 Activeoseltamivir 75 mg oral capsule (1 source)Neuraminidase InhibitorStart: 02-17-2019 End: 37-32-2941hejz 1 capsule by mouth twice dailyoseltamivir (Tamiflu) 75 MG capsule Indications: Influenza Take 1 (one) capsule (75 mg total) by mouth 2 (two) times a day for 5 days . 10 capsule 0 02/17/2019 02/22/2019 Active predniSONE 50 mg oral tablet (2 sources)Start: 02-15-2019 End: 48-51-6992olfd 1 tablet by mouth once dailypredniSONE (DELTASONE) 50 MG tablet Indications: Bronchitis Take 1 (one) tablet (50 mg total) by mouth daily for 5 days . 5 tablet 0 02/15/2019 02/20/2019 ActivePrenatal MV-Min-Fe Fum-FA-DHA ( 1 PO) (5 sources) MV-Min-Fe Fum-FA-DHA ( 1 PO) Take 1 each by mouth in the morning. ActivePrenatal MV-Min-Fe Fum-FA-DHA ( 1 PO) Take 1 each by mouth in the morning. 0 Active Problems Active Problems Problem ClassificationProblemDateDocumented DateEpisodic/ChronicChronic obstructive pulmonary disease and bronchiectasis (1 source)Bronchitis; Translations: [Bronchitis]EpisodicMenstrual disorders (1 source)Missed period; Translations: [Irregular menstruation, unspecified] 47-73-0997XtmzgkaEzqzx and delivery including normal (7 sources)Second trimester ; Translations: [Encounter for supervision of normal , unspecified, second trimester]Onset: 102647-94-0715 EpisodicResidual codes; unclassified (1 source)Gestation period, 8 weeks; Translations: [8 weeks gestation of ]59-63-8283AzexhsasYjijymiunkjv (2 sources)A74.9Onset: 09-10-4926Lfhdhjijolra (1 source)Unclassified (5 sources)OB RemindersOnset: 181105-70-6336 Past or Other Problems Problem ClassificationProblemDateDocumented DateEpisodic/ChronicOther complications of ; puerperium affecting management of mother (4 sources)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; Translations: [Chromosomal abnormalityin fetus affecting obstetrical care]Onset: 290132-51-8110LdwebduhHalzb complications of (2 sources)Supervision of other high risk pregnancies, second trimester; Translations: [Supervision of other high risk pregnancies, second trimester] Onset: 68-85-7356BkrtkdtaBwifx screening for suspected conditions (not mental disorders or infectious disease) (4 sources)Encounter for screening for nuchal translucency; Translations: [Encounter for screening, unspecified]Onset: 02-02-2023 EpisodicResidual codes; unclassified (2 sources)Genetic carrier of other disease; Translations: [Genetic carrier of other disease]Onset: 08-78-6377JwfzrxznPdvcndmpzfcg (1 source)Exposure to COVID-19 virus Z20.822Onset: 09-30-2021 Resolved: 09-30-2021 Results Test NameValueInterpretationReference RangeFacilityHCG ( test) Ql (U)on 41-29-7769Ovooksyaqjcgsm and review of laboratory resultsAbnormalUNIVERSITY OF [facility] Healthcare Preg Test, UrPositiveNegativeNOMS HealthcareNOMS HealthcareUS OB TRANSVAGINALon 03-85-0686PM OB TRANSVAGINALFINDINGS: A single intrauterine gestational sac is present. No subchorionic hemorrhage. A single pole is present. Normal heart rate at 182 beats per minute. Yolk sac also is seen. Current sonographic age is 8 weeks and 4 days based on the crown-rump length measurement of 2.0cm. Based on this age,current estimated date of delivery is June 09, 2025. No pelvic fluid or adnexal mass present. Cervical length is 3.8 cm. IMPRESSION: Findings consistent with a live intrauterine gestation, current sonographic age of 8 weeks and 4 days resulting in an estimated date of delivery of June 09, 2025. TRANSCRIBED BY: ELECTRONICALLY SIGNED BY: Concepcion Strauss AvailableComment on above:Order Comment: US OB TRANSVAGINAL No LMP recorded.Urinalysis macro (dipstick) panel (U)on 36-55-2944Jkhefplbu, UA NegativeNegative - 4(70) +++ mg/dLNOMS HealthcareBlood, UAPositiveNegative - 50 Zak/mcLNOMS HealthcareClarity, UAClearNOMS HealthcareColor, UAYellowNOMS HealthcareGlucose, UANegativeNegative - 1999(110) ++++ mg/dLNOAL Healthcare Interpretation and review of laboratory resultsAbnormalNOAL HealthcareKetones, UANegativeNegative - 160(16) ++++ mg/dLNOMS HealthcareLeukocytes, UA1+Negative - 500+++ Kolton/mcLNOMS HealthcareNitrite, UANegativeNegative - PositiveNOMS HealthcarepH, UA65 - 9NOMS HealthcareProtein, UANegativeNegative - 2000(20) ++++ mg/dLNOMS HealthcareSpec Grav, UA1.0151 - 1.03NOMS HealthcareUrobilinogen, UA1.0 0.2 - 12 mg/dLNOMS HealthcareNOMS HealthcareIGP,APTIMA HPV,AGE GDLNon 04-16-2024 AGE GDLN ACOG TESTINGNote.[facility] HealthcareComment on above:TESTS RESULT FLAG UNITS REF RANGE LAB Clinician Provided Cytology Information Source.............Cervix;Endocervix No. of containers..01 ThinPrep Vial Age Algo ACOG Snehal... FLAG LEGEND: L-Low Normal,H-High Normal,LL-Alert Low,HH-Alert High <-Panic Low,>-Panic High,A-Abnormal,AA-Critical Abnormal Performed at: 01 =[address] [facility] [address] Linda Fishman MD, IGP, RFX APTIMA HPV ASCUNote.[facility]arks Medical CenterComment on above:TESTS RESULT FLAG UNITS REF RANGE LAB DIAGNOSIS: 02 NEGATIVE FOR INTRAEPITHELIAL LESION OR MALIGNANCY. Specimen adequacy: 02 Satisfactory for evaluation. Endocervical and/or squamous metaplastic cells (endocervical component) are present. Performed by: 02 Goldie Moran, Color Corrector ([facility]) . 02 Note: Note 03 The Pap smear is a screening test designed to aid in the detection of premalignant and malignant conditions of the uterine cervix. It is not a diagnostic procedure and should not be used as the sole means of detecting cervical cancer. Both false-positive and false-negative reports do occur. Test Methodology: Note 03 This liquid based ThinPrep(R) pap test was screened with the use of an image guided system. . 02 The HPV DNA reflex criteria were not met with this specimen result therefore, no HPV testing was performed. FLAG LEGEND: L-Low Normal,H-High Normal,LL-Alert Low,HH-Alert High <-Panic Low,>-Panic High,A-Abnormal,AA-Critical Abnormal Performed at: 02 [facility] [address] [place] [address] Devin Pierre MD, 03 WB [facility] [address] [address] Linda Fishman MD, Performed at: =G - [facility] [address] [id number] Reworker: Linda Fishman MD, Phone: [phone] Performed at: [facility] - [facility] [address] [place], [place] [id number] Reworker: Devin Pierre MD, Phone: [phone] BRUSH-SPATULA CERVIX ENDOCERVIX [facility] SYSTEMNCNOSt. Luke's Baptist Hospital 83-80-6181Yevr Out ReportFORWARD TO Children's Hospital of ColumbusComment on above:Result Comment: [id number] By: #### CMIS #### [facility] [address] [place] [address] Reworker: Tena Whitehead 68-31-5491Ravo NameUNITYThe Surgical Hospital At SouthwoodsComment on above:Performed By: #### CMIS #### [facility] [address] [place] [address] Reworker: Lawrence Whiteheadternal Ser 1st [place] 52-47-1235Lu Rump Lngt, Twin BNot ApplicableTrinity Health System Twin City Medical CenterComment on above: Performed By: #### AMSFT #### [facility] [address] [place] [address] Reworker: Isidro Aguirre MD [facility] [address] [place] [address] Reworker: SADIE Siddiquitampa general hospitalyannick [facility] Uxxcrg55.2 [facility] Medical CenterComment on above:Performed By: #### AMSFT #### [facility] [address] [place] [address] Reworker: Isidro Aguirre MD [facility] [address] [place], [place] [id number] Reworker: Rojas Simpson MDGestat Age (exact)12 wks, 1 daysTrinity Health System Twin City Medical CenterComment on above:Performed By: #### AMSFT #### [facility] [address] [place] [address] Reworker: Isidro Aguirre MD [facility] [address] [place], [place] [id number] Reworker: Rojas Simpson MDFuller HospitalUnkTriHealthComment on above:Performed By: #### AMSFT #### [facility] [address] [place] [address] Reworker: Isidro Aguirre MD [address] [address] Reworker: Rojas Simpson MDInterpretationScreen NegTrinity Health System Twin City Medical CenterComment on above:Result Comment: (NOTE) INTERPRETATION: SCREEN NEGATIVE for Down Syndrome and [...] developed and its performance characteristics determined by [facility] [employer]. It has not been cleared or approved by the US Food and Drug Administration. This test was performed in a CLIA certified laboratory and is intended for clinical purposes.Performed By: #### AMSFT #### [facility] [address] Reworker: Isidro Aguirre MD [address] [address] Reworker: Alka Siddiqui Age at Del28.5 yrTrinity Health System Twin City Medical CenterComment on above:Performed By: #### AMSFT #### [facility] [address] Reworker: Isidro Aguirre MD [address] [id number] Reworker: Alka Siddiqui RaceNonblackTrinity Health System Twin City Medical CenterComment on above:Performed By: #### AMSFT #### [address] [address] Reworker: Isidro Aguirre MD [address] [address] Reworker: Alka Siddiqui Screen, EERSee Fulton County Health CenterComment on above:Result Comment: (NOTE) Authorized individuals can access the [facility] Enhanced Report using the following link: [email or web address] Performed By: [address] [address] Creel Cleaner: Rxe Moreau MD, PhD CLIA Number: [id number] By: #### AMSFT #### [address] [address] Reworker: Isidro Aguirre MD [address] [address] Reworker: Lawrence Siddiquisan [facility] Bvmafv063.0 lbs.[facility] Twin City Medical CenterComment on above:Performed By: #### AMSFT #### [address] [address] Reworker: Isidro Aguirre MD [address] [id number] Reworker: Melissa Siddiqui for HCG0.70NoFairfield Medical CenterComment on above:Performed By: #### AMSFT #### [address] [address] Reworker: Isidro Aguirre MD [address] [phone] Reworker: Melissa Siddiqui for NT1.60NoFairfield Medical CenterComment on above:Performed By: #### AMSFT #### [address] [address] Reworker: Isidro Aguirre MD [address] [id number] Reworker: Melissa Siddiqui for [place], Twin BNot ApplicableTrinity Health System Twin City Medical CenterComment on above:Performed By: #### AMSFT #### [address] [address] Reworker: Isidro Aguirre MD [address] [address] Reworker: Melissa Siddiqui for SHONDA-A0.82[facility] Twin City Medical CenterComment on above:Performed By: #### AMSFT #### [facility] [address] [address] Reworker: Isidro Aguirre MD [address] [address] Reworker: Lynn Siddiqui Trans, Twin BNot ApplicableTrinity Health System Twin City Medical CenterComment on above:Performed By: #### AMSFT #### [facility] [address] [address] Reworker: Isidro Aguirre MD [address] [address] Reworker: Lynn Siddiqui Translucency2.30 mmTrinity Health System Twin City Medical CenterComment on above:Performed By: #### AMSFT #### [address] [address] Reworker: Isidro Aguirre MD [address] [address] Reworker: EMANUEL Siddiquiumber of FetusesSingletonTrinity Health System Twin City Medical CenterComment on above:Performed By: #### AMSFT #### [address] [address] Reworker: Isidro Aguirre MD [address] [address] Reworker: FREYA Siddiqui-A Nvvvczzc779.0 ng/mLNormalMercy Health St. Vincent Medical CenterComment on above:Result Comment: (NOTE) This test was developed and its performance characteristics determined by [facility]. It has not been cleared or approved by the [place] Food and Drug Administration. This test was performed in a CLIA certified laboratory and is intended for clinical purposes.Performed By: #### AMSFT #### [facility] [address] [place] [address] Reworker: Isidro Aguirre MD [address] [address] Reworker: Key Siddiqui [id number] IU/LNSamaritan HospitalComment on above:Performed By: #### AMSFT #### [facility] [address] [address] Reworker: Isidro Aguirre MD [address] [address] Reworker: Aileen SiddiquiTriHealthComment on above:Performed By: #### AMSFT #### [facility] [address] [address] Reworker: Isidro Aguirre MD [address] [address] Reworker: Anurag Siddiqui [id number] Health System Twin City Medical CenterComment on above:Performed By: #### AMSFT #### [address] [address] Reworker: Isidro Aguirre MD [facility] [address] [place] [address] Reworker: Anurag Siddiqui DorCincinnati Children's Hospital Medical CenterComment on above:Performed By: #### AMSFT #### [facility] [address] [address] Reworker: Isidro Aguirre MD [address] [address] Reworker: Jim Siddiquiatrium healthSusana Fulton County Health CenterComment on above:Result Comment: Initial samplePerformed By: #### AMSFT #### [facility] [address] [place] [address] Reworker: Isidro Aguirre MD [facility] [address] [place], [place] [id number] Reworker: Rojas Simpson MDMcKenzie-Willamette Medical CenterComment on above:Result Comment: Results for Ultrasound Date: 02 02 23Performed By: #### AMSFT #### [facility] [address] [address] Reworker: Isidro Aguirre MD [address] [id number] Reworker: Lawrence Siddiquisan [facility] Ser 1st [place] 51-92-3136Pboqv Rump Nedvzy21.2NSamaritan HospitalComment on above:Performed By: #### AMSFT #### [facility] [address] [place] [address] Reworker: Isidro Aguirre MD [facility] [address] [place], [place] [id number] Reworker: SADIE Siddiquiurrent SmokingINFORMATION NOT PROVIDEDThe Surgical Hospital At SouthwoodsComment on above:Performed By: #### AMSFT #### [facility] [address] [place] [address] Reworker: Isidro Aguirre MD [facility] [address] [place], [place] [id number] Reworker: Sun Siddiqui of [id number] Health System Twin City Medical CenterComment on above:Performed By: #### AMSFT #### [facility] [address] [place] [address] Reworker: Isidro Aguirre MD [facility] [address] [place] [address] Reworker: DEBORAH Siddiquionor EggINFORMATION NOT [facility] Medical CenterComment on above:Performed By: #### AMSFT #### [facility] [address] [place] [address] Reworker: Isidro Aguirre MD [facility] [address] [place] [address] Reworker: Rojas Simpson MDIn Vitro FertalizatINFORMATION NOT PROVIDEDThe Surgical Hospital At SouthwoodsComment on above:Performed By: #### AMSFT #### [facility] [address] [place] [address] Reworker: Isidro Aguirre MD [address] [address] Reworker: Lawrence Siddiquiternal [id number] Health System Twin City Medical CenterComment on above:Performed By: #### AMSFT #### [facility] [address] [place] [address] Reworker: Isidro Aguirre MD [facility] [address] [place] [address] Reworker: Lawrence Siddiquiternal Bpheob125GoeiwcPciqgTrinity Health System Twin City Medical CenterComment on above:Performed By: #### AMSFT #### [facility] [address] [place] [address] Reworker: Isidro Aguirre MD [facility] [address] [place] [address] Reworker: SATURNINO Siddiquionochorionic TwinsINFORMATION NOT PROVIDEDThe Surgical Hospital At SouthwoodsComment on above:Performed By: #### AMSFT #### [facility] [address] [place] [address] Reworker: Isidro Aguirre MD [facility] [address] [place] [address] Reworker: EMANUEL Siddiquiuchal Transluc (NT)2.3Tr[facility] Twin City Medical CenterComment on above:Performed By: #### AMSFT #### [facility] [address] [place] [address] Reworker: Isidro Aguirre MD [facility] [address] [place] [address] Reworker: Rojas Simpson MDNumber of yjnyqxo9UedbyfYlojtTrinity Health System Twin City Medical CenterComment on above:Performed By: #### AMSFT #### [facility] [address] [place] [address] Reworker: Isidro Aguirre MD [address] [address] Reworker: Laureano Siddiqui Weight UnitsLBNormalMercy Health St. Vincent Medical CenterComment on above:Performed By: #### AMSFT #### [facility] [address] [place] [address] Reworker: Isidro Aguirre MD [address] [address] Reworker: CAMDEN Siddiquirev Trisomy PregINFORMATION NOT PROVIDEDThe Surgical Hospital At SouthwoodsComment on above:Performed By: #### AMSFT #### [facility] [address] [place] [address] Reworker: Isidro Aguirre MD [facility] [address] [place] [address] Reworker: Ulysses Siddiqui (Maternal)[facility] Regional HospitalComment on above:Performed By: #### AMSFT #### [facility] [address] [place] [address] Reworker: Isidro Aguirre MD [facility] [address] [place] [address] Reworker: Kisha Siddqiui MD Cert [id number] Health System Twin City Medical CenterComment on above:Performed By: #### AMSFT #### [address] [address] Reworker: Isidro Aguirre MD [facility] [address] [place] [address] Reworker: Kisha Siddiqui MD NameSRIUPMC MAGEE-WOMENS [facility] PERAdams County Regional Medical CenterComment on above:Performed By: #### AMSFT #### [address] [address] Reworker: Isidro Aguirre MD [address] [address] Reworker: Josh Siddiqui SpecimenINFORMATION NOT [facility] Psychiatric CenterComment on above:Performed By: #### AMSFT #### [address] [address] Reworker: Isidro Aguirre MD [facility] [address] [place] [address] Reworker: Temitope Siddiqui [id number] Health System Twin City Medical CenterComment on above:Performed By: #### AMSFT #### [address] [address] Reworker: Isidro Aguirre MD [facility] [address] [place] [address] Reworker: Anurag Siddiqui [facility] East HospitalComment on above:Performed By: #### AMSFT #### [address] [address] Reworker: Isidro Aguirre MD [facility] [employer] [address] [place] [address] Reworker: SLADE Siddiqui-CoV-2 (COVID-19) RNA CRISTIAN+probe Ql (Resp)on 20-57-2196YQSJ-CoV-2 (COVID-19) RNA CRISTIAN+probe Ql (Unsp spec)NegativeNoresearch medical center-[facility] Layer3 TV Other INSULINon 71-53-9354Apxpmsy15.7 uIU/mLNormal2.6-24.9 The Memorial HospitalComment on above:Performed By: #### INSULIN #### [facility] [address] [place] [address] Maribell KarenCBC AUTO DIFFon 20-74-9747PJHP #0.1 103/ulNormal0.0-0.1The Memorial HospitalComment on above:Performed By: #### CBC #### [facility] [address] [place] [address] Maribell KarenBasophils/100 WBC (Bld)1.1 %Normal0.2-2.0[facility] Comment on above:Performed By: #### CBC #### [facility] [address] [place] [address] Maribell KarenEO #0.2 103/ulNormal0.0-0.7The Memorial HospitalComment on above: Performed By: #### CBC #### [facility] [address] [place] [address] Maribell KarenEosinophils/100 WBC (Bld)2.5 %Normal0.9-7.0[facility] Comment on above:Performed By: #### CBC #### [facility] [address] [place] [address] Maribell KarenErythrocyte distribution width (RBC) [Ratio]13.6 %Fppoji93.0-15.0[facility] Medical CenterComment on above:Performed By: #### CBC #### [facility] [address] [place] [address] Maribell KarenHematocrit (Bld) [Volume fraction]41.1 %Lmtnfx95.0-48.0The Memorial HospitalComment on above:Performed By: #### CBC #### [facility] [address] [place] [address] Maribell KarenHemoglobin (Bld) [Mass/Vol]13.9 g/jFXdqucc44.0-16.0[facility] CenterComment on above:Performed By: #### CBC #### [facility] [address] [place] [address] Maribell KarenIG #0.02 10e3/ulNormal0.00-0.03The Memorial HospitalComment on above:Performed By: #### CBC #### [facility] [address] [place] [address] Maribell KarenIG %0.3 %Normal0.0-0.5The Memorial HospitalComment on above: Performed By: #### CBC #### [facility] [address] [place] [address] Maribell KarenLYMPH #2.1 103/ulNormal1.2-3.8The Memorial HospitalComment on above: Performed By: #### CBC #### [facility] [address] [place] [address] Maribell KarenLymphocytes/100 WBC (Bld)32.4 %Dxuxnn79.5-60.0[facility] Comment on above:Performed By: #### CBC #### [facility] [address] [place] [address] Maribell KarenMANUAL DIFF REQNONormalThe Memorial HospitalComment on above: Performed By: #### CBC #### [facility] [address] [place] [address] Maribell KarenMCH (RBC) [Entitic mass]29.5 coKtdwor11.7-34.0[facility] Comment on above:Performed By: #### CBC #### [facility] [address] [place] [address] Maribell KarenMCHC (RBC) [Mass/Vol]33.8 g/xOJqippi81.9-35.2[facility] Comment on above:Performed By: #### CBC #### [facility] [address] [place] [address] Maribell KarenMCV (RBC) [Entitic vol]87.3 vCIinnjj32.0-99.0[facility] Comment on above:Performed By: #### CBC #### [facility] [address] [place] [address] Maribell KarenMONO #0.4 103/ulNormal0.3-0.8The Memorial HospitalComment on above: Performed By: #### CBC #### [facility] [address] [place] [address] Maribell KarenMonocytes/100 WBC (Bld)6.9 %Normal1.7-12.0[facility] Comment on above:Performed By: #### CBC #### [facility] [address] [place] [address] Maribell KarenNEUT #3.6 103/ulNormal1.4-6.5The Memorial HospitalComment on above: Performed By: #### CBC #### [facility] [address] [place] [address] Maribell KarenNeutrophils/100 WBC (Bld)56.8 %Uprfif40.0-75.0[facility] Comment on above:Performed By: #### CBC #### [facility] [address] [place] [address] Maribell KarenPlatelet mean volume (Bld) [Entitic vol]9.9 fLNormal9.5-13.5The Memorial HospitalComment on above:Performed By: #### CBC #### [facility] [address] [place] [address] Maribell EniomVYW855 103/pmFqlhrm159-315Hbo Memorial HospitalComment on above: Performed By: #### CBC #### [facility] [address] [place] [address] Maribell KarenRBC4.71 106/ulNormal4.20-5.40The [facility] Hospitalment on above: Performed By: #### CBC #### [facility] [address] [place] [address] Maribell KarenWBC6.4 103/ulNormal4.0-11.0The Memorial HospitalComment on above: Performed By: #### CBC #### [facility] [address] [place] [address] Maribell KarenFREE THYROXINE INDEX T7on 86-13-3968XXI3.39NormMercy HospitalComment on above:Performed By: #### LIPID, CMP, T7, TSH #### [facility] [address] [place] [address] Maribell IhznrX4R26.0 %Yxlxst25.5-40.5The Memorial HospitalComment on above: Performed By: #### LIPID, CMP, T7, TSH #### [facility] [address] [place] [address] Maribell KarenT4 [Mass/Vol]12.10 ug/dLCritically high5.53-11.00The Memorial HospitalComment on above:Performed By: #### LIPID, CMP, T7, TSH #### [facility] [address] [place] [address] Maribell KarenGLYCOHEMOGLOBIN A1Con 17-71-3252IIQ RECOMMENDATIONADA THERAPEUTIC TARGET 6.0 - 7.0 ACTION SUGGESTED > 7.0NoMercy Health Springfield Regional Medical CenterComment on above:Performed By: #### A1C #### [facility] [address] [place] [address] Maribell KarenGlucose [Mass/Vol]123 mg/dLNoMercy Health Springfield Regional Medical CenterComment on above:Performed By: #### A1C #### [facility] [address] [place] [address] Maribell NfoljTaK6v (Bld) [Mass fraction]5.9 %Normal<=6.0[facility] Comment on above:Performed By: #### A1C #### [facility] [address] [place] [address] Maribell KarenIRONon 11-13-3787Rrwu [Mass/Vol]66.0 ug/eXZwpido19.0-170.0[facility] CenterComment on above:Performed By: #### IRON #### [facility] [address] [place] [address] Maribell KarenLIPID PROFILEon 97-39-7815DBGJ-HDL RATIO NORMSEE BELOWAdena Regional Medical CenterComment on above:Result Comment: 3.3 - 4.4 LOW RISK 4.4 - 7.1 AVERAGE RISK 7.1 - 11.0 MODERATE RISK >11.0 HIGH RISKPerformed By: #### LIPID, CMP, T7, TSH #### [facility] [address] [place] [address] Maribell KarenCholesterol [Mass/Vol]215 mg/dLCritically high<=200[facility] on above:Performed By: #### LIPID, CMP, T7, TSH #### [facility] [address] [place] [address] Maribell KarenCholesterol in HDL [Mass/Vol]37 mg/dLAdena Regional Medical Center Comment on above:Performed By: #### LIPID, CMP, T7, TSH #### [facility] [address] [place] [address] Maribell KarenCholesterol in LDL [Mass/Vol]142.4 mg/dLAdena Regional Medical Center Comment on above:Performed By: #### LIPID, CMP, T7, TSH #### [facility] [address] [place] [address] Maribell KarenCholesterol.total/Cholesterol in HDL [Mass ratio]5.8 {ratio}Normal The Memorial HospitalComment on above:Performed By: #### LIPID, CMP, T7, TSH #### [facility] [address] [place] [address] Maribell KarenHDL NORMAL> or = 60 mg/dl - LOW CARDIOVASCULAR RISK <40 mg/dl - HIGH CARDIOVASCULAR RISKAdena Regional Medical CenterComment on above:Performed By: #### LIPID, CMP, T7, TSH #### [facility] [address] [place], [place] [address] Maribell KarenLDL CALC NORMALSEE BELOWNoMercy Health Springfield Regional Medical CenterComment on above: Result Comment: <100 mg/dl OPTIMAL 100 - 129 mg/dl NEAR OR ABOVE OPTIMAL 130 - 159 mg/dl BORDERLINE HIGH 160 - 189 mg/dl HIGH >190 mg/dl VERY HIGHPerformed By: #### LIPID, CMP, T7, TSH #### [facility] [address] [place] [address] Maribell KarenTriglyceride [Mass/Vol]178 mg/dLCritically high<=150The Memorial HospitalComment on above:Performed By: #### LIPID, CMP, T7, TSH #### [facility] [address] [address] Maribell KarenVLDL CALC35.6 mg/dLAdena Regional Medical CenterComment on above: Performed By: #### LIPID, CMP, T7, TSH #### [facility] [address] [place] [address] Maribell KarenPROF 14(COMP METB)on 41-11-6641Vcggbwc [Mass/Vol]3.5 g/dLNormal 3.5-5.0[facility] CenterComment on above:Performed By: #### LIPID, CMP, T7, TSH #### [facility] [address] [place] [address] Maribell KarenAlbumin/Globulin [Mass ratio]0.8 {ratio}NormalFisher-Titus Medical Center Comment on above:Performed By: #### LIPID, CMP, T7, TSH #### [facility] [address] [place] [address] Maribell KarenALP [Catalytic activity/Vol]62 U/WChelva08-035EdpFisher-Titus Medical Center Comment on above:Performed By: #### LIPID, CMP, T7, TSH #### [facility] [address] [place] [address] Maribell KarenALT [Catalytic activity/Vol]50 U/LNormal9-52[facility] Comment on above:Performed By: #### LIPID, CMP, T7, TSH #### [facility] [address] [place] [address] Maribell KarenAnion gap [Moles/Vol]14.5 mmol/LNormalFisher-Titus Medical CenterComment on above:Performed By: #### LIPID, CMP, T7, TSH #### [facility] [address] [address] Maribell KarenAST [Catalytic activity/Vol]36 U/OCwllrt50-37PcyFisher-Titus Medical Center Comment on above:Performed By: #### LIPID, CMP, T7, TSH #### [facility] [address] [address] Maribell KarenBilirubin [Mass/Vol]0.5 mg/dLNormal0.2-1.3TTriHealth Good [facility]ar[facility] Comment on above:Performed By: #### LIPID, CMP, T7, TSH #### [facility] [address] [place] [address] Maribell KarenCalcium [Mass/Vol]9.0 mg/dLNormal8.4-10.2[facility] Comment on above:Performed By: #### LIPID, CMP, T7, TSH #### [facility] [address] [place] [address] Maribell KarenChloride [Moles/Vol]103 mmol/WBfadju23-940WquFisher-Titus Medical Center Comment on above:Performed By: #### LIPID, CMP, T7, TSH #### [facility] [address] [place] [address] Maribell KarenCO2 [Moles/Vol]25.6 mmol/RKkatwu53.0-30.0[facility] Comment on above:Performed By: #### LIPID, CMP, T7, TSH #### [facility] [address] [place] [address] Maribell KarenCreatinine [Mass/Vol]0.80 mg/dLNormal0.52-1.04[facility] Comment on above:Performed By: #### LIPID, CMP, T7, TSH #### [facility] [address] [place] [address] Maribell KarenEGFR-AF SENEGALESE>60Normal>=60The Memorial HospitalComment on above: Performed By: #### LIPID, CMP, T7, TSH #### [facility] [address] [address] Maribell KarenEGFR-NON AF SENEGALESE>60Normal>=60The Memorial HospitalComment on above:Performed By: #### LIPID, CMP, T7, TSH #### [facility] [address] [address] Maribell KarenGlobulin (S) [Mass/Vol]4.6 g/dLNormalThe Memorial HospitalComment on above:Performed By: #### LIPID, CMP, T7, TSH #### [facility] [address] [address] Maribell KarenGlucose [Mass/Vol]115 mg/dLCritically nmul80-904Ukm Memorial HospitalComment on above:Performed By: #### LIPID, CMP, T7, TSH #### [facility] [address] [place] [address] Maribell KarenPotassium [Moles/Vol]4.1 mmol/LNormal3.4-5.0[facility] Comment on above:Performed By: #### LIPID, CMP, T7, TSH #### [facility] [address] [address] Maribell KarenProtein [Mass/Vol]8.1 g/dLNormal6.1-8.2The [facility] Hospitalment on above:Performed By: #### LIPID, CMP, T7, TSH #### [facility] [address] [place] [address] Maribell KarenSodium [Moles/Vol]139 mmol/NCtnmyg797-827[facility] Comment on above:Performed By: #### LIPID, CMP, T7, TSH #### [facility] [address] [place] [address] Maribell KarenUrea nitrogen [Mass/Vol]9.0 mg/dLNormal7.0-17.0[facility] Comment on above:Performed By: #### LIPID, CMP, T7, TSH #### [facility] [address] [address] Maribell KarenUrea nitrogen/Creatinine [Mass ratio]11.2 mg/mgNormalThe Peck HospitalComment on above:Performed By: #### LIPID, CMP, T7, TSH #### [facility] [address] [address] Maribell Lamb 61-96-4400ULL8.632 uIU/mLNormal0.470-4.680The Memorial HospitalComment on above:Performed By: #### LIPID, CMP, T7, TSH #### [facility] [address] [address] Maribell PEGUERO BELOWAdena Regional Medical CenterComment on above:Result Comment: <0.34 UIU/ml HYPERTHYROID 0.34-5.60 UIU/ml EUTHYROID >5.60 UIU/ml HYPOTHYROIDPerformed By: #### LIPID, CMP, T7, TSH #### [facility] [address] [place] [address] Maribell MillsXR CHEST AP/PA AND LATon 06-01-3165OI CHEST AP/PA AND LAT EXAMINATION: XR CHEST AP/PA AND LAT 02/17/2019 9:47 AM HISTORY: ORDERING SYSTEM PROVIDED HISTORY: h/o pneumonia/cough/fever, TECHNOLOGIST PROVIDED HISTORY: Illness/Other Reason for exam: cough Cancer History: no Surgery, RadiationHistory: unk Encounter Type: Initial Additional signs and symptoms: Treated for pneumonia around [place]. Started having cough, fever again about 2 days ago. ORDERING SYSTEM PROVIDED DIAGNOSIS CODES: R05 Cough COMPARISON: None. FINDINGS: Cardiomediastinal silhouette is within normal limits. Lungs are clear. No significant pleural or osseous abnormalities are identified. IMPRESSION: No acute process identified. MA/trw Workstation ID: [id number] Dictated by: ISHMAEL KEYS on Kemp Feb 17, 2019 10:05:42 AM EST Transcribed by: LEXII HUTCHINSON on MonFeb 17, 2019 10:06:52 AM EST Finalized by: ISHMAEL KEYS on MonFeb 17, 2019 10:59:38 AM [facility] CareComment on above:Order Comment: Injury/Trauma or Illness?:Illness/Other How long have you had these symptoms (acute/chronic)?:Acute Reason for exam?:cough History of cancer?:no Surgeries, chemotherapy, or radiation?:unk Type of Exam?:Initial Additional signs and symptoms?:Treated for pneumonia around Linne[place]. Started having cough, fever again about 2 days ago.No acute process identified. MA/trHenley-Putnam University Workstation ID: [id number]: XR CHEST AP/PA AND LAT 02/17/2019 9:47 AM HISTORY: ORDERING SYSTEM PROVIDED HISTORY: h/o pneumonia/cough/fever, TECHNOLOGIST PROVIDED HISTORY: Illness/Other Reason for exam: cough Cancer H istory: no Surgery, RadiationHistory: unk Encounter Type: Initial Additional signs and symptoms: Treated for pneumonia around [place]. Started having cough, fever again about 2 days ago. ORDERING SYSTEM PROVIDED DIAGNOSIS CODES: R05 Cough COMPARISON: None. FINDINGS: Cardiomediastinal silhouette is within normal limits. Lungs are clear. No significant pleural or osseous abnormalities are identified.[facility] - 02/17/2019 11:02 AM EST EXAMINATION: XR CHEST AP/PA AND LAT 02/17/2019 9:47 AM HISTORY: ORDERING SYSTEM PROVIDED HISTORY: h/o pneumonia/cough/fever, TECHNOLOGIST PROVIDED HISTORY: Illness/Other Reason for exam: cough Cancer History: no Surgery, RadiationHistory: unk Encounter Type: Initial Additional signs and symptoms: Treated for pneumonia around [place]. Started having cough, fever again about 2 days ago. ORDERING SYSTEM PROVIDED DIAGNOSIS CODES: R05 Cough COMPARISON: None. FINDINGS: Cardiomediastinal silhouette is within normal limits. Lungs are clear. No significant pleural or osseous abnormalities are identified. IMPRESSION: No acute process identified. [employer] Workstation ID: [id number] Detection by NAATon 20-81-4599WpiobvmCascade Valley Hospital Microbiology PROCEDURE: Chlamydia Detection by NAAT SOURCE: Vagina BODY SITE: COLLECTED DATE/TIME: 05/15/2018 09:43 EDT RECEIVED DATE/TIME: 05/15/2018 09:43 EDT START DATE/TIME: 05/15/2018 09:43 EDT FREE TEXT SOURCE: VAGINA-VAG INTERFACED REPORTS Final Report [] Verified Date/Time/Personnel: 05/16/2018 14:04 EDT CONTRIBUTOR_SYSTEM, CO_PN NEGATIVE * C TRACHOMATIS NUCLEIC ACID NOT DETECTED CONTACT LABORATORY FOR RECOMMENDED ADDITIONAL TESTING IF RESULTS ARE INCONSISTENT WITH CLINICAL FINDINGSAvita Health System [facility] Comment on above:Performed By: #### CD:[id number] #### [facility] [address], [place] Vital Signs Date TimeVital SignValuePerforming YtlhsipwaAavjiyxq55-41-5406 10:47-0400Body mass index (BMI) [Ratio]27.91 kg/a6UcmszGood Samaritan Hospital09-26-2025 10:47-0400 Body msghte44.83 kgGood Samaritan Hospital09-26-2025 10:47-0400Diastolic blood mm[Hg][facility]09-26-2025 10:47-0400Systolic blood reetnwca057 mm[Hg][facility]03-06-2025 11:37-0500Body mass index (BMI) [Ratio]28.16 kg/u6Kdskl Laura DO Work Phone: [phone] CenterHqvluzttln24-69-5347 11:37-0500Body oqgrdp60.56 kgCore Aloompa DO Work Phone: [facility] CenterBcatbjktfp69-76-5520 11:37-0500Diastolic blood ljskjetv86 mm[Hg]Jake Laura DO Work Phone: [facility] CenterAzzfwjxneo77-54-1434 11:37-0500Systolic blood zhahxkzs996 mm[Hg]Jake Laura DO Work Phone: [facility] CenterVjcghrvcwq59-78-2166 13:17-0500BMI (Body Mass Index)27.25 kg/b6KotdkWilson Memorial HospitalFcwhlmrPkhdYnzhcv31-51-6954 13:17-0500Body Temperature 99.61 [degF]Delon SiudydyCgmaMcnhnq63-37-5951 13:17-0500Body pgxrug10.28 kgKellyelina ZjrfkpsNcjgMizecr40-45-0939 13:17-0500BP Tjbztnfre15 mm[Hg]Delon [facility] HospitalUbjoIsflnx05-40-2791 13:17-0500BP Xshimqwh531 mm[Hg]Delon [facility] 02-15-2019 13:17-4200Xnpecn738.7 cmDelon SteenVixhxshDxxzIdsolp62-88-7187 13:-0500 Pulse (Heart Rate)89 /minDelon SteenEgvoyvcEuigYnoqnh77-35-7333 13:0500Pulse Occvblwj18 %Delon SteenZzfjinvQclfSmhvan77-21-1096 13:0500Respiratory Rate16 /min Delon [facility]enMer[facility] Health [facility] Encounters Encounter DateEncounter TypeCare ProviderFacilityStart: 11-01-2024 End: 64-29-7712csuvtlswklZzvjd Nurse Noms Bcp ObNOMS Peck OBGYNComment on above:[place]: 3s3hPuhbb: 04-11-2024 End: 79-41-5121Sjtaiy flowsheetCorey Laura DO Work Phone: noms BCP OBStart: 04-11-2024 End: 73-22-5311Cgfcde flowsheetCorey Laura DO Work Phone: noms BCP OBStart: 04-11-2024 End: 66-68-7283Erxfvazdr Result EncounterCorey Laura DO Work Phone: noms External Department UnsolicitedStart: 04-11-2024 End: 14-40-5900gmgbefzgxeQQSBH FAZIONot AvailableStart: 04-11-2024 End: 92-01-6047Nzcyhpw encounter procedureCorey Laura DO Work Phone: noms HealthcareStart: 04-11-2024 End: 44-26-7127Ydwzpwsc preventive med est patient 18-39 yrsCorey Laura DO Work Phone: noms BCP OBComment on above:Well woman exam with routine gynecological examStart: 39-31-7014Vjiyu Itzel VINCENT Work Phone: noMS BCP OBStart: 02-08-2023 End: 27-10-2010jgeelmpzuiMNHEMO [facility] Hospitaltart: 02-02-2023 End: 70-22-2737peontejttxLFTMAFLegacy [facility] Centertart: 09-30-2021 End: 58-14-1428rqumemgcssMlnos Keller Other [place] [employer] Other Start: 38-87-3047Qhnniaz evaluation of patient and reportRadha Monique [facility] ClydeStart: 09-21-2020 End: 76-49-8592bwejketuscGHVLZEI HOYRiverside Orthodox HospitalStart: 52-29-1470Nbxcmhuiz for general adult medical examination without abnormal findingsDR GRECIA HOYThe Peck HospitalStart: 08-08-2020 End: 85-98-6122xpmnfvatcuXI GRECIA HOYFacility:Z9Nlbht: 08-08-2020 End: 18-16-9929Fkfflkilr for general adult medical examination without abnormal findingsDR GRECIA FRANCISCOYFacility:J8Vmxpp: 02-17-2019 End: 32-86-6002Hydkolo encounter procedureSRIRAM COELHOKettering Memorial Hospital Urgent CareStart: 02-17-2019 End: 11-33-4926Aqlrojkcav hospital visit by physicianSriram Coelho Work Phone: [facility] DiagnosticsComment on above:ArrivedStart: 02-15-2019 End: 20-05-8536Jntqghm encounter procedureDELON STENEKettering Memorial Hospital Urgent CareStart: 02-15-2019 End: 28-24-5364Kqphhz outpatient visit 15 minutesDelon Stefanieyannick Steen Work Phone: [facility] [place] BostonComment on above: Bronchitis (Primary Dx)Start: 05-16-2018 End: 10-85-4097Hlkyuyt encounter procedureLINPREMA ALAMOacility:Mateo Khan Procedures DateProcedureProcedure DetailPerforming ClinicianStart: 56-96-1948Ebsyy dip stick/tablet rgnt non-auto w/o micrscpCorey Laura DO Work Phone: Start: 71-15-6885PKT,APTIMA HPV,AGE GDLNCorey Laura DO Work Phone: Start: 47-97-1822Wovwipwa chest X-raySriram Mann [place] Work Phone: Start: 39-70-4235Ghuquxoyxry observation [Identifier] in Cervix by Cyto Jackson Boothtart: 23-68-1110Iqnxbgbxing observation [Identifier] in Cervix by Cyto Natalya Steen Plan of Treatment DateCare ActivityDetailAuthorStart: 04-15-2025 End: 20-28-0159Eprdllv encounter procedureNOMS BCP OBStart: 11-01-2024 End: 15-90-8957CJV/RhABO/Rh Lab Routine Missed menses , unspecified gestational age ([facility]) Expected: 11/01/2024 (Approximate), Expires: 11/01/2025NOAL HealthcareComment on above:Expected: 11/01/2024 (Approximate), Expires: 11/01/2025Start: 11-01-2024 End: 52-03-0411Ghuax type and Indirect antibody screen panel - BloodType and screen Lab Routine Missed menses , unspecified gestational age ([facility]) Expected: 11/01/2024 (Approximate), Expires: 11/01/2025[facility] Work Phone: comment on above:Expected: 11/01/2024 (Approximate), Expires: 11/01/2025Start: 11-01-2024 End: 86-14-9515Wgcwh of abuse panel - Urine by Screen methodRapid drug screen, urine Lab Routine , unspecified gestational age ([facility]) Encounter for supervision of normal first in first trimester ([facility]) Expected: 11/01/2024 (Approximate), Expires: 11/01/2025[facility] HealthcareComment on above: Expected: 11/01/2024 (Approximate), Expires: 11/01/2025Start: 05-23-2023 End: 51-53-2550Vjspols encounter uitrprcjm29/16/2024 9:00 AM EDT Office Visit [facility] [address] [place] [address] Meron Muniz MD [address] [place] [address] NOMS SWS DERMStart: 03-14-2023 End: 83-16-5825Xqslisz encounter haybqkeoe25/06/2024 8:30 AM EST Routine [facility] [address] [id number] Meredith Keane PA [address] [place] [address] Second trimester pregnancyNOMS BCP OB Comment on above:Second trimester pregnancyStart: 26-44-0947Ytwjmbjgl for malignant neoplasm of cervixPAP SMEAROhioHealthStart: 20-86-3604Wajhqrcjz for Chlamydia trachomatisChlamydia ScreeningOhioHealthStart: 66-52-3417Bjzfttanu for malignant neoplasm of cervixPAP SMEAROhioHealthStart: 63-35-9396Rhepjfoud vaccination givenSEQUENTIAL INFLUENZA VACCINE (#1)OhioHealthStart: 2006 Vaccination for human papillomavirusHPV VACCINES (1 - Female 2-dose series) OhioHealthStart: 01-17-3389Phmixef and physical examination, annual for [facility] VisitOhioHealthStart: 63-13-7159Jdkzbzzub for Chlamydia trachomatisChlamydia ScreeningOhioHealthStart: 43-30-0876Sgcxkoo vaccination TETANUS EVERY 10 YROhioHealthBacteria identified in Urine by CultureUrine culture Microbiology Routine Missed menses Ordered: 11/01/2024[facility] Comment on above:Ordered: 11/01/2024BC W Auto Differential panel - BloodCBC and differential Lab Routine Missed menses , unspecified gestational age ([facility]) Ordered: 11/01/2024[facility] CenterComment on above:Ordered: 11/01/2024 Cytology Cervical or vaginal smear or scraping studyPap Smear Pathology and Cytology Routine Well woman exam with routine gynecological exam Ordered: [facility] Work Phone: comment on above:Ordered: 04/11/2024Hemoglobin A1c/Hemoglobin.total in BloodHemoglobin A1c Lab Routine Missed menses , unspecified gestational age ([facility]) Ordered: 11/01/2024NOMS HealthcareComment on above:Ordered: 11/01/2024Hepatitis B virus surface Ag [Presence] in Serum or Plasma by ImmunoassayHepatitis B surface antigen Lab Routine Missed menses , unspecified gestational age ([facility]) Ordered: 11/01/2024[facility] HealthcareComment on above:Ordered: 11/01/2024Hepatitis C virus Ab [Presence] in Serum or Plasma by ImmunoassayHepatitis C antibody Lab Routine Missed menses , unspecified gestational age ([facility]) Ordered: 11/01/2024[facility] HealthcareComment on above:Ordered: 11/01/2024HIV-1/HIV-2 antigen/antibody combination immunoassayHIV-1 and HIV-2 antibodies Lab Routine Missed menses , unspecified gestational age ([facility]) Ordered: 11/01/2024[facility] HealthcareComment on above:Ordered: 11/01/2024Reagin Ab [Presence] in Serum by RPRRPR Lab Routine Missed menses , unspecified gestational age ([facility]) Ordered: 11/01/2024[facility] HealthcareComment on above:Ordered: 11/01/2024 Rubella antibody, IgGRubella antibody, IgG Lab Routine Missed menses , unspecified gestational age ([facility]) Ordered: 11/01/2024[facility] CenterComment on above:Ordered: 11/01/2024 Payers DatePayer CategoryPayerPolicy [id number] [facility] [id number] BCBS [id number] 2022-Present [phone] [address] [place] [address] [id number] UnknownANTHEM ANTHEM BLUE/PREF/HMO/PPO xxxxxxxxxxxx 2018-Presentxxxxxxxxxxxx [id number] [id number] 2.16.840.1.673692.3.57[id number] 2.16.840.1.504950.3.57[id number] 2.16.840.1.251246.3.57[id number] 2.16.840.1.472633.3.57[id number] 2.16.840.1.054004.3.57[id number] 2.16.840.1.477549.3.57[id number] 2.16.840.1.197293.3.57[id number] 2.16.840.1.219198.3.57[id number] 2.16840.1.033248.3.579.2.[id number] Social History DateTypeDetailFacilityStart: 02-15-2019 End: 25-72-5519Ksaoqsk smoking status NHISNever smokerNOAL HealthcareSex Assigned At BirthNot on Barnesville HospitalHealthStart: 01-19-2023 End: 93-55-2687Ofc Assigned At [facility] [employer] Other Start: 70-93-9131Fthjiiu intakeCurrent drinker of alcohol (finding)[facility] HealthcareStart: 01-19-2023 End: 12-37-6624Lbyflzk of Social functionNOMS HealthcareHow often to you have a drink containing alcohol?Monthly or lessNOMS HealthcareHow many standard drinks containing alcohol do you have on a typical day?3 or 4NOAL HealthcareFrequency of Binge DrinkingNot on fileUNIVERSITY OF UTAH HOSPITAL HealthcareStart: 36-33-2754Nhqebqc Comment caffeine: 1-2 cups per dayNOAL HealthcareStart: 52-30-6577YfhpdlthfMUXM HealthcareStart: 53-30-0610Bfd Assigned At [facility] HospitalFeLawrence General Hospital HealthcareStart: 98-69-2526Hsdarm identityIdentifies as female gender (finding)[facility] Healthcare Start: 19-75-0873Hfadbe orientationHeterosexual (finding)[facility] HealthcareStart: 96-33-2915Sywdnwy use and exposureSmokeless tobacco non-userNOAL Healthcare Start: 09-21-2023 End: 97-40-1836Sgbzplfxs beverage intakeEx-drinker (finding)[facility] Healthcare Goals DatePatient GoalDesired Activity/StatePersonal health goal History of Present illness Narrative 11-01-2024 Note Date & [id number] History of Present illness Narrative* Regine Paniagua MA - 11/01/2024 9:30 AM EDT Reason for Appointment: Patient ID: Meron Rodriguez is a 29 y.o. female who presents for Amenorrhea Patient presents today for a Nurse OB Intake appointment. Patient is 8w4d with a Estimated Date of Delivery: 06/09/25 OB History Para Term AB Living 2 1 1 1 SAB IAB Ectopic Multiple Live Births 1 # Outcome Date GA Lbr Jerry/2nd Weight Sex Type Anes PTL Lv 2 Current 1 Term 08/06/23 39w0d Vag-Spont AMARI Obstetric Comments Last pap smear date 09/2020 wn in [facility], Dr. Montejo Current Medications: has a current medication list which includes the following prescription(s): mv-min-fe fum-fa-dha. 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 ([facility]) 04/13/2023 Resolved Ambulatory Problems Diagnosis Date Noted No Resolved Ambulatory Problems Past Medical History: Diagnosis Date Abnormal Pap smear of cervix 2017 Allergies Chlamydia 2017 History of abnormal cervical Pap smear 2017 HPV (human papilloma virus) infection 2017 Family History Problem Relation Name Age of Onset Thyroid disease Mother Bhargavi Mora Heart disease Father Thyroid disease Maternal Grandmother Yaritza Aviles Social History Tobacco Use Smoking status: Never Smokeless tobacco: Never Substance Use Topics Alcohol use: Not Currently Alcohol/week: 2.0 standard drinks of alcohol Types: 1 Glasses of wine, 1 Standard drinks or equivalent per week Comment: caffeine: 1-2 cups per day Drug use: Never Past Surgical History: Procedure Laterality Date CERVICAL BIOPSY W/ LOOP ELECTRODE EXCISION 06/30/2016 Allergies Allergen Reactions Diphenhydramine Other Reaction(s): Opposite Effect, Unknown Sulfa Antibiotics Other Reaction(s): childhood Vitals: Estimated body mass index is 27.91 kg/m as calculated from the following: Height as of 06/22/22: 5' 7 . Weight as of this encounter: 178 lb 3.2 oz. BP: 118/74 Patient's last menstrual period was 08/26/2024. Assessment/Plan Diagnoses and all orders for this visit: First trimester ([facility]) 8 weeks gestation of ([facility]) Missed menses - Type and screen; Future - ABO/Rh; Future - CBC and differential - Hemoglobin A1c - RPR - Rubella antibody, IgG - Hepatitis B surface antigen - Hepatitis C antibody - HIV-1 and HIV-2 antibodies - Urine culture - POCT , urine manually resulted - POCT urinalysis dipstick manually resulted , unspecified gestational age ([facility]) - Type and screen; Future - ABO/Rh; Future - CBC and differential - Hemoglobin A1c - RPR - Rubella antibody, IgG - Hepatitis B surface antigen - Hepatitis C antibody - HIV-1 and HIV-2 antibodies - Rapid drug screen, urine; Future Encounter for supervision of normal first in first trimester ([facility]) - Rapid drug screen, urine; Future Nurse Note: Patient declined [employer] to one. Pt was given folder and labs to obtain. Follow Up: Patient is to have labs drawn at directed and return to office for initial OB appointment with provider. Patient may call office as needed with any concerns or questions. Nurse Visit Completed by: Regine Paniagua MA documented in this [facility] History of Present illness Narrative 04-11-2024 Note Date & [id number] History of Present illness Narrative* Ilda Weiner LPN - 04/11/2024 11:00 AM EST Reason for Appointment: Patient ID: Meron Rodriguez is a 29 y.o. female who presents for Well Women Visit Patient presents today for Annual Exam. 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 Resolved Ambulatory Problems Diagnosis Date Noted No Resolved Ambulatory Problems Past Medical History: Diagnosis Date Abnormal Pap smear of cervix 2017 Allergies Chlamydia 2017 History of abnormal cervical Pap smear 2017 HPV (human papilloma virus) infection 2017 HISTORY PAST MEDICAL HISTORY SOCIAL HISTORY Past Medical History: Diagnosis Date Abnormal Pap smear of cervix 2017 Allergies Chlamydia 2017 History of abnormal cervical Pap smear 2017 positive HPV had LEEP procedure HPV (human papilloma virus) infection 2017 Social History Tobacco Use Smoking status: Never Smokeless tobacco: Never Substance Use Topics Alcohol use: Not Currently Alcohol/week: 2.0 standard drinks of alcohol Types: 1 Glasses of wine, 1 Standard drinks or equivalent per week Comment: caffeine: 1-2 cups per day Drug use: Never FAMILY HISTORY Family History Problem Relation Name Age of Onset Thyroid disease Mother Bhargavi Mora Heart disease Father Thyroid disease Maternal Grandmother Yaritza Aviles SURGICAL HISTORY Past Surgical History: Procedure Laterality Date CERVICAL BIOPSY W/ LOOP ELECTRODE EXCISION 06/30/2016 REVIEW OF SYSTEMS Review of Systems: Review of Systems All other systems reviewed and are negative. OBJECTIVE Objective: Physical Exam Constitutional: Appearance: Normal appearance. She is well-developed. Genitourinary: Vulva normal. Breasts: Breasts are soft. Right: Normal. Left: Normal. Cardiovascular: Rate and Rhythm: Normal rate and regular rhythm. Pulmonary: Effort: Pulmonary effort is normal. Breath sounds: Normal breath sounds. Abdominal: General: Bowel sounds are normal. There is no distension. Palpations: Abdomen is soft. Tenderness: There is no abdominal tenderness. There is no guarding or rebound. Musculoskeletal: General: No swelling. Normal range of motion. Right lower leg: No edema. Left lower leg: No edema. Neurological: Mental Status: She is alert and oriented to person, place, and time. Skin: General: Skin is warm and dry. Psychiatric: Mood and Affect: Mood normal. Behavior: Behavior normal. Vitals and nursing note reviewed. Exam conducted with a foot and ankle surgeon present. Vitals: Estimated body mass index is 28.16 kg/m as calculated from the following: Height as of 06/22/22: 5' 7 . Weight as of this encounter: 179 lb 12.8 oz. BP: 112/80 No LMP recorded. ASSESSMENT & PLAN ICD-10-CM 1. Well woman exam with routine gynecological exam Z01.419 Pap Smear Annual Exam: Patient presents today for an annual exam. Patient states she is doing well and has no complaints. Pap was obtained without difficulty. Follow Up: Patient is to return in one year for annual unless needed otherwise. Documented by Ilda Weiner LPN on behalf of: Jake Sanchez DO documented in this encounterNOAL Healthcare Evaluation note 09-30-2021 Note Date & [id number] Evaluation note* Encounter Date Diagnosis Assessment Notes Treatment Notes Treatment Clinical Notes Sep, Exposure to COVID-19 virus (ICD- 10 - Z20.822) [employer] Other Evaluation note Note Date & TypeNoteFacilityEvaluation note* Diagnosis Well woman exam with routine gynecological exam Routine gynecological examination documented in this encounter [facility] Evaluation note Note Date & TypeNoteFacilityEvaluation note* Diagnosis First trimester ([facility]) state, incidental 8 weeks gestation of ([facility]) Missed menses , unspecified gestational age ([facility]) Encounter for supervision of normal first in first trimester ([facility]) documented in this encounter [facility] Summary Purpose Family History No Family History Records FoundNo Family History Records FoundNo Family History Records FoundNo Family History Records FoundNo Family History Records FoundNo Family History Records Found Advance Directives No Advanced Directives Records FoundDocuments on File TypeDate RecordedPatient RepresentativeExplanationAdvance Directives and Living Will Instructions * Patient Instructions* Delon Steen, - 02/15/2019 1:39 PM EST Symptoms [...] medicine. Get some extra rest. Take an ypyq-ojq-ajqsjrj pain medicine, such as acetaminophen (Tylenol), ibuprofen (Advil, Motrin),or naproxen (Aleve) to reduce fever and relieve body aches. Read and follow all instructions on thelabel. Do not take two or more pain medicines at the same time unless the doctor told you to. Many pain medicines have acetaminophen, which is Tylenol. Too much acetaminophen (Tylenol) can be harmful. Take an sray-zzw-exwngsz cough medicine that contains dextromethorphan to help [...] Log into your personal health record on https://[email or web address] and enter H333 in the Education box to learn more about Bronchitis: Care Instructions. Current as of: July 15, 2018 Content Version: 12.3 7267-8857 [employer]. Care instructions adapted under license by your healthcare professional. If you have questions about a medical condition or this instruction, always ask your healthcare professional. [employer] disclaims any warranty or liability for your use of this information. documented in this encounter History of Present Illness * Delon Steen DO - 02/15/2019 1:22 PM EST PATIENT NAME: Meron Darling [facility] [address] [place] [address] [address] [place] [address] : 1995 DATE OF VISIT: 02/15/2019 SS#: [id number] PROVIDER: Delon Steen DO Chief Complaint Patient presents with [...] is concerned she is got pneumonia again. [place] warm butno objective fevers. Took Tylenol prior [...] file Gets together: Not on file Attends restorationist service: Not on file Active member of [...] section and content) DATE CREATED AUTHOR 05/17/2018 [facility] DATE CREATED AUTHOR AUTHOR'S ORGANIZ ATION 02/17/2019 [facility] DATE CREATED AUTHOR AUTHOR'S ORGANIZ ATION 08/19/2020 [facility] DATE CREATED AUTHOR AUTHOR'S ORGANIZ ATION 10/04/2020 [facility] DATE CREATED AUTHOR AUTHOR'S ORGANIZ ATION 07/24/[address] [facility] DATE CREATED AUTHOR AUTHOR'S ORGANIZ ATION 11/08/2024 [facility] EPIC Reason for Visit (unrecogniz ed section and content) ReasonCommentsShortness of BreathStarted againthis morning. Pt was treated for pneumonia around 01/30/2019 and finished tx however today she feelslike it is coming backReasonCommentsWell Women VisitReasonCommentsAmenorrhea Care Teams (unrecognized sec tion and content) Team MemberRelationshipSpecialtyStart DateEnd Date Grecia Arriaza MD [address] [place] [address] PCP - GeneralFamily Ceweamgh36/7/23Te MemberRelationshipSpecialtyStart DateEnd Date Grecia Arriaza MD [address] [facility] [place] [address] PCP - [facility]01/12/23Te MemberRelationshipSpecialtyStart DateEnd Date Grecia Arriaza MD [address] [facility] [place] [address] [facility] - [facility]01/12/23Te MemberRelationshipSpecialtyStart DateEnd Date Grecia Arriaza MD [address] [place] [facility] [place] [address] PCP - [facility]01/12/23 FOR RECORDS PERTAINING TO PATIENTS WHO ARE [...] BE BASED ON THE PRIMARY CLINICAL RECORDS. [facility] [employer] [facility]. provides no warranty or guarantee of the accuracy or completeness of information in this document.
[2024-11-29 16:01] LABS: Hematocrit 41.5 % (36.0-48.0); Hemoglobin 14.1 g/dL (12.0-16.0); Immature Granulocytes Abs Auto 0.01 10^3/uL (0.00-0.03); Immature Granulocytes Pct Auto 0.1 % (0.0-0.5); Lymphocytes Absolute Auto 2.4 10^3/uL (1.2-3.8); Mean Corpuscular HGB Conc 34.0 g/dL (29.9-35.2); Mean Corpuscular Hemoglobin 29.6 pg (26.7-34.0); Mean Corpuscular Volume 87.2 fL (81.0-99.0); Platelet Count 273 10^3/uL (150-450); Red Blood Count 4.76 10^6/uL (4.20-5.40); White Blood Count 9.0 10^3/uL (4.0-11.0)
[2024-11-29 16:19] LABS: Cannabinoid Screen Urine NEGATIVE (NEGATIVE); Methamphetamines Screen Urine NEGATIVE (NEGATIVE); Tricyclic Antidepressant Urine NEGATIVE (NEGATIVE)
[2024-12-01 07:07] LABS: Rubella Antibodies, IgG 2.91 index (Immune >0.99)
[2024-12-01 08:08] LABS: Rapid Plasma Reagin, Quant Non Reactive titer (NonRea<1:1)
== END 2024-11-29 15:25 | disposition home or self-care (01) ==
LOC: LAB 15:25
PROVIDERS: PCP Family Medicine; Visit Provider Obstetrics & Gynecology
DX: Z34.01 Encounter for supervision of normal first pregnancy, first trimester (principal); N92.6 Irregular menstruation, unspecified
CPT/HCPCS: 36415; 80307; 83036; 85025; 86592; 86762; 86803; 86850; 86900; 86901; 87086; 87340; 87389

== ENCOUNTER 2025-01-23 09:28 | Outpatient (OUT) | payer BC, SELFPAY ==
--- OUTSIDE RECORDS SUMMARY | 2025-01-23 08:00 | XMS_ITS | Encounter Summary ---
Author Organization [facility] Address [address] [place] [address] Care Team Providers Care Terminal Operator Name Role Phone Cristhian Arriaza MD Primary Care Provider [phone] Encounter Details DateTypeDepartmentCare Team (Latest Contact Info)Xecmeuldcjt26/18/2025 8:00 AM ESTAncillary Procedure [facility] [address] [place] [address] [place] [phone] Social History Tobacco UseTypesPacks/DayYears UsedDateSmoking Tobacco: NeverSmokeless Tobacco: NeverAlcohol UseStandard Drinks/WeekCommentsNot Currently2 (1 standard drink = 0.6 oz pure alcohol)caffeine: 1-2 cups per dayAUDIT-CAnswerDate RecordedQ1: How often do you have a drink containing alcohol?Monthly or less01/19/2023Q2: How many drinks containing alcohol do you have on a typical day when you are drinking?3 or Frequency of Binge DrinkingNot on file01/19/2023 Estimated Date of TdbklrumAufcecynYjm93/04/2026ased on UltrasoundSex and Gender InformationValueDate RecordedSex Assigned at GrwewYqmdob09/30/2023 8:50 AM ESTLegal FqhCwyjge90/15/2023 7:04 PM EDTGender GnjntpmdVmqbud78/30/2023 8:50 AM ESTSexual TkcszrwihseSlzqfwkk97/30/2023 8:50 AM ESTdocumented as of this encounter Plan of Treatment DateTypeDepartmentCare Team (Latest Contact Info)Npnqyzsewba89/23/2025 10:40 AM ESTRoutine [facility] [address] [place] [phone] Jake Sanchez, DO [address] [place] [address] 04/15/2025 11:00 AM EDTOffice Visit [facility] [address] [place] [phone] Jake Sanchez, DO [address] [place] [address] NameTypePriorityAssociated DiagnosesDate/TimeUS OB 14+ weeks anatomy scanImaging Routine Screening, , for anatomic survey ([facility]) 01/23/2025 9:22 AM ESTdocumented as of this encounter Goals GoalPatient Goal TypeAssociated ProblemsRecent ProgressPatient-Stated?Author Reminders Care PlanOB RemindersNoOpen Scheduling, Backgrounddocumented as of this encounter Visit Diagnoses Not on filedocumented in this encounter Additional Health Concerns Active ProblemsNoted DateDiagnosed DateOB Djgpmiheu89/11/2023 documented as of this encounter Care Teams Team MemberRelationshipSpecialtyStart DateEnd Date Cristhian Arriaza MD [address] [facility] [place] [address] PCP - GeneralFamily Vrxsnwuw86/7/23documented as of this encounter
--- OUTSIDE RECORDS SUMMARY | 2025-01-23 09:31 | XMS_ITS | Clinical Summary ---
Author Organization [facility] Address [address] [place] [address] Care Team Providers Care Crystal Cutter Name Role Phone Cristhian Arriaza MD Primary Care Provider [phone] Allergies Active AllergyReactionsCriticalityNoted IyctLjpesrisUfpkttbpmmmwmgb43/07/2023 Other Reaction(s): Opposite Effect, Unknown Sulfa Zerkzmnheix34/31/2024 Other Reaction(s): childhood Medications MedicationSigDispense QuantityRefillsLast FilledStart DateEnd DateStatus MV-Min-Fe Fum-FA-DHA ( 1 PO) Take 1 each by mouth in the morning.Active Active Problems ProblemNoted DateDiagnosed DateSecond trimester ([facility])04/13/2023 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 ([facility])04/13/2023 Estimated Date of CgrsnnsuUsnjykniUen43/04/2026ased on Ultrasound Encounters DateTypeDepartmentCare CgeeQcefjinhymd08/18/2025 8:00 AM ESTAncillary Procedure [facility] FRYE [address] [place] [phone] 01/22/20253731Zsotmv96/03/2025 9:30 AM ESTAncillary [place] [phone] Suspected shortening of cervix not found12/31/2024 11:20 AM ESTRoutine [facility] [place] [address] Meredith Keane PA Screening, , for anatomic survey ([facility]); Second trimester ([facility]); 17 weeks gestation of ([facility])12/31/2024amboo flowsheet [facility] OBAMMONN [address] [place] [phone] Meredith Keane PA 12/25/2024 9:00 AM ESTAncillary Procedure [facility] OBGYN [address] [facility] [place] [address] H/O LEEP (loop electrosurgical excision procedure) of cervix complicating , unspecified trimester ([facility])12/09/2024 9:30 AM ESTAncillary Procedure [facility] PHILIPPEN [address] [facility] [place] [address] H/O LEEP (loop electrosurgical excision procedure) of cervix complicating , unspecified trimester ([facility])12/03/2024 2:40 PM EDTRoutine [facility] FRYE [address] [place] [address] Jake Sanchez, 13 weeks gestation of ([facility]); Second trimester ([facility]); Exposure to STD; Vaginal discharge; H/O LEEP (loop electrosurgical excision procedure) of cervix complicating , unspecified trimester ([facility])12/03/2024External Result Encounter [facility] External Department Unsolicited Jake Sanchez, DO 12/03/2024amboo flowsheet [facility] FRYE [address] [place] [phone] Jake Sanchez, DO 12/02/20248918Bivesw04/24/2025Clinisync Result Encounter [facility] External Department Unsolicited Jake Sanchez, 11/01/2024 9:30 AM EDTInitial [facility] [address] [place] [place] [phone] GA: 8w4d11/01/2024 9:00 AM EDTAncillary Procedure [facility] OBGYN [address] [place] [address] [place] [address] Missed menses; Positive urine test ([facility])10/25/2024Travelfrom Last 3 Months Family History Medical HistoryRelationNameCommentsHeart [...] of Binge DrinkingNot on file01/19/2023Estimated Date of EhucrbpaYhowmyvxKxu91/04/2026ased on UltrasoundSex and Gender InformationValueDate RecordedSex Assigned at IfxddImwcgn26/30/2023 8:50 AM EST Legal LhrRkssbj57/15/2023 7:04 PM EDTGender OhizuqvsHquvtb95/30/2023 8:50 AM EST Sexual XhvduzekybgWpkusvkg01/30/2023 8:50 AM EST Last Filed Vital Signs Vital SignReadingTime TakenCommentsBlood Jcfdxevd788/8412/31/2024 11:54 AM EST Pulse--Temperature--Respiratory Rate--Oxygen Saturation--Inhaled Oxygen Concentration--Fcjfvy89.6 kg (186 lb 8 oz)12/31/2024 11:54 AM HJUNwssgt179.2 cm (5' 7 )06/22/2022 12:00 PM EDTBody Mass Index29.21006/22/2022 12:00 PM EDT Plan of Treatment DateTypeDepartmentCare Team (Latest Contact Info)Yfglcbpsktq31/23/2025 10:40 AM ESTRoutine [facility] CRUZGYN [address] [facility] [place] [phone] Jake Sanchez, DO [address] [place] [address] 04/15/2025 11:00 AM EDTOffice Visit [facility] FRYE [address] [facility] [place] [phone] Jake Sanchez, DO [address] [place] [address] Goals GoalPatient Goal TypeAssociated ProblemsRecent ProgressPatient-Stated?Author Reminders Care PlanOB RemindersNoOpen Scheduling, Background Procedures Procedure NamePriorityDate/TimeAssociated DiagnosisCommentsUS OB TRANSVAGINAL Poviowe6701/08/2025 9:39 AM EST Suspected shortening of cervix not found POCT URINALYSIS EUJEOWMVKuunnav66/25/2025 2:23 PM EST 17 weeks gestation of ([facility]) URINARY TRACT INFECTION (HTRX)Tjgvbmn2012/31/2024 12:20 PM EST OB FKPYPTLCVVXEDvlygud16/19/2025 9:24 AM EST H/O LEEP (loop electrosurgical excision procedure) of cervix complicating , unspecified trimester ([facility]) OB UHKUCPNJACIDRzsbivu69/03/2025 9:53 AM EST H/O LEEP (loop electrosurgical excision procedure) of cervix complicating , unspecified trimester ([facility]) CULTURE, URINE, OJEFBCBUdxdhgq39/28/2025 4:14 PM EDT Missed menses RECURRENT VAGINITIS (HTRX)Kmxmpxp0012/03/2024 3:37 PM EDT POCT URINALYSIS KADXFWCFHglfgmg25/28/2025 3:11 PM EDT 13 weeks gestation of ([facility]) Second trimester ([facility]) HBSAG PGRIZNZoutatl89/24/2025 3:47 PM EDT RAPID PLASMA REAGIN, EWCEYFjoimed63/24/2025 3:47 PM EDT HIV AB/P24 AG WITH IMWXHTNpxkldx08/24/2025 3:47 PM EDT HCV ANTIBODY RFX TO QUANT VOIFlxdodh37/24/2025 3:47 PM EDT ALL RUBELLA IGG PFAjauqtz67/24/2025 3:47 PM EDT ALL TYPE AND QAEDYZEetexne67/24/2025 3:47 PM EDT ALL CBC WITH AUTO KQZXXwmskbd37/24/2025 3:47 PM EDT MLR HEMOGLOBIN V2SMfpbpob39/24/2025 3:47 PM EDT URINE CULTURE, DKXKFWHKvtsbjy34/24/2025 3:30 PM EDT [facility] DRUG SCREEN RAPID (URINE)Uehmmmv8111/29/2024 3:30 PM EDT POCT URINALYSIS GSDDDMHTOktkygu27/26/2025 10:25 AM EDT Missed menses POCT , DWATXPjlkgzj17/26/2025 10:25 AM EDT Missed menses US OB DFYFCKRUSLPSRndxpap90/26/2025 10:12 AM EDT Missed menses Positive urine test ([facility]) from Last 3 Months Results * US OB transvaginal (01/08/2025 9:39 AM EST) Only the most recent of4 resultswithin the time period is included. Anatomical RegionLateralityModalityBodyUltrasoundSpecimen (Source)Anatomical Location / LateralityCollection Method / VolumeCollection TimeReceived Time 01/08/2025 5:45 PM EST Impressions 01/09/2025 7:59 AM EST 1. Single viable intrauterine . 2. ??Closed cervix 4.3 cm length. TRANSCRIBED BY: ? ELECTRONICALLY SIGNED BY: Ulices Hernandez MD Narrative 01/09/2025 7:59 AM EST FINDINGS: Single viable intrauterine , normal cardiac and ??activity, 134 bpm. Cephalic presentation. Closed cervix, 4.3 cm length. Procedure Note Ulices Hernandez MD - 01/09/2025 FINDINGS: Single viable intrauterine , normal cardiac and activity,134 bpm. Cephalic presentation. Closed cervix, 4.3 cm length. IMPRESSION: 1. Single viable intrauterine . 2. Closed cervix 4.3 cm length. TRANSCRIBED BY: ELECTRONICALLY SIGNED BY: Ulices Hernandez MD Authorizing ProviderResult TypeResult StatusCorey Laura DOIMG OB US PROCEDURES Final Result * POCT urinalysis dipstick manually resulted (12/31/2024 2:23 PM EST) Only the most recent of3 resultswithin the time period is included. ComponentValueRef RangeTest MethodAnalysis TimePerformed AtPathologist Signature Color, UAYellowClarity, UAClearGlucose, UANegativeNegative - 1999(110) ++++ mg/dLBilirubin, UANegativeNegative - 4(70) +++ mg/dLKetones, UANegativeNegative - 160(16) ++++ mg/dLSpec Grav, UA1.0201 - 1.03Blood, UANegativeNegative - 50 Zak/mcLpH, UA6.05 - 9Protein, UANegativeNegative - 2000(20) ++++ mg/dL Urobilinogen, UA0.20.2 - 12 mg/dLLeukocytes, UANegativeNegative - 500+++ [place]/mcL Nitrite, UANegativeNegative - PositiveSpecimen (Source)Anatomical Location / LateralityCollection Method / VolumeCollection TimeReceived QikrNecbh96/25/2025 2:23 PM EST Narrative Authorizing ProviderResult TypeResult StatusAmy [facility] TEST ENTER/EDIT ORDERABLESFinal Result * URINARY TRACT INFECTION (HTRX) (12/31/2024 12:20 PM EST)ComponentValueRef RangeTest MethodAnalysis TimePerformed AtPathologist SignatureACINETOBACTER TXURLRDO054.961 - 24.689 ppm01/01/2025 8:24 AM ESTHealthTrackRx at [facility] ACINETOBACTER BAUMANIINot Gymtdvqo18.961 - 24.689 ppm01/01/2025 8:24 AM EST [facility] at LabPortCITROBACTER MGZNTOSA073.000 - 32.015 ppm01/01/2025 8:24 AM ESTHealthTrackRx at LabPortCITROBACTER FREUNDIINot Qzbwnbhp13.000 - 32.015 ppm01/01/2025 8:24 AM ESTHealthTrackRx at LabPortENTEROBACTER AEROGENES, MQRNPMI316.000 - 32.290 ppm01/01/2025 8:24 AM ESTHealthTrackRx at LabPortENTEROBACTER AEROGENES, CLOACAENot Xybiorlv78.000 - 32.290 ppm 01/01/2025 8:24 AM ESTHealthTrackRx at LabPortENTEROCOCCUS FAECALIS, FAECIUM0 26.000 - 33.043 ppm01/01/2025 8:24 AM ESTHealthTrackRx at LabPortENTEROCOCCUS FAECALIS, FAECIUMNot Qwryxrsj58.000 - 33.043 ppm01/01/2025 8:24 AM EST [facility] at LabPortESCHERICHIA QDGM243.000 - 28.500 ppm01/01/2025 8:24 AM ESTHealthTrackRx at LabPortESCHERICHIA COLINot Xglumucn26.000 - 28.500 ppm 01/01/2025 8:24 AM ESTHealthTrackRx at LabPortKLEBSIELLA PNEUMONIAE, OXYTOCA0 23.000 - 31.865 ppm01/01/2025 8:24 AM ESTHealthTrackRx at LabPortKLEBSIELLA PNEUMONIAE, OXYTOCANot Brsmjcfi87.000 - 31.865 ppm01/01/2025 8:24 AM EST [facility] at LabPortMORGANELLA DKOILOFM752.961 - 24.689 ppm01/01/2025 8:24 AM ESTHealthTrackRx at LabPortMORGANELLA MORGANIINot Byupyrzn90.961 - 24.689 ppm01/01/2025 8:24 AM ESTHealthTrackRx at LabPortPROTEUS MIRABILIS, VULGARIS0 23.000 - 28.500 ppm01/01/2025 8:24 AM ESTHealthTrackRx at LabPortPROTEUS MIRABILIS, VULGARISNot Xgoyfvxz28.000 - 28.500 ppm01/01/2025 8:24 AM EST [facility] at LabPortPSEUDOMONAS NERRIFKCKV680.000 - 31.801 ppm01/01/2025 8:24 AM ESTHealthTrackRx at LabPortPSEUDOMONAS AERUGINOSANot Ywystkmf91.000 - 31.801 ppm01/01/2025 8:24 AM ESTHealthTrackRx at LabPortSTAPHYLOCOCCUS AUREUS0 26.000 - 31.595 ppm01/01/2025 8:24 AM ESTHealthTrackRx at [facility] STAPHYLOCOCCUS AUREUSNot Ynvqwnnd15.000 - 31.595 ppm01/01/2025 8:24 AM EST [facility] at LabPortSTREPTOCOCCUS AGALACTIAE (GROUP B STREP)026.000 - 32.435 ppm01/01/2025 8:24 AM ESTHealthTrackRx at LabPortSTREPTOCOCCUS AGALACTIAE (GROUP B STREP)Not Cmcuqwwx26.000 - 32.435 ppm01/01/2025 8:24 AM ESTHealthTrackRx at LabPortCANDIDA ALBICANS, PARAPSILOSIS, YDPJJSPVIP845.000 - 30.347 ppm01/01/2025 8:24 AM ESTHealthTrackRx at LabPortCANDIDA ALBICANS, PARAPSILOSIS, TROPICALISNot Ipouovsw66.000 - 30.347 ppm01/01/2025 8:24 AM EST [facility] LabPortCANDIDA BGYDWKII222.000 - 31.618 ppm01/01/2025 8:24 AM ESTHealthTrackRx at LabPortCANDIDA GLABRATANot Oemhewwh43.000 - 31.618 ppm 01/01/2025 8:24 AM ESTHealthTrackRx at LabPortCANDIDA SVVXCN436.000 - 30.873 ppm01/01/2025 8:24 AM ESTHealthTrackRx at LabPortCANDIDA KRUSEINot Detected 23.000 - 30.873 ppm01/01/2025 8:24 AM ESTHealthTrackRx at LabPortSERRATIA CVENWRERMM026.000 - 31.581 ppm01/01/2025 8:24 AM ESTHealthTrackRx at [facility] SERRATIA MARCESCENSNot Yolihgxp56.000 - 31.581 ppm01/01/2025 8:24 AM EST [facility] at LabPortSTREPTOCOCCUS PYOGENES (GROUP A STREP)019.961 - 24.689 ppm01/01/2025 8:24 AM ESTHealthTrackRx at LabPortSTREPTOCOCCUS PYOGENES (GROUP A STREP)Not Jgsltybo64.961 - 24.689 ppm01/01/2025 8:24 AM ESTHealthTrackRx at LabPortSTAPHYLOCOCCUS EPIDERMIDIS, HAEMOLYTICUS, LUGDUNENSIS, SAPROPHYTICUS (QVPYF496.961 - 24.689 ppm01/01/2025 8:24 AM ESTHealthTrackRx at [facility] STAPHYLOCOCCUS EPIDERMIDIS, HAEMOLYTICUS, LUGDUNENSIS, SAPROPHYTICUS (URINANot Edxraalp64.961 - 24.689 ppm01/01/2025 8:24 AM ESTHealthTrackRx at [facility] STAPHYLOCOCCUS EPIDERMIDIS, HAEMOLYTICUS, LUGDUNENSIS, SAPROPHYTICUS (URINA0 19.961 - 24.689 ppm01/01/2025 8:24 AM ESTHealthTrackRx at [facility] STAPHYLOCOCCUS EPIDERMIDIS, HAEMOLYTICUS, LUGDUNENSIS, SAPROPHYTICUS (URINANot Mhvvsktk51.961 - 24.689 ppm01/01/2025 8:24 AM ESTHealthTrackRx at [facility] Specimen (Source)Anatomical Location / LateralityCollection Method / Volume Collection TimeReceived OktnFpsos84/25/2025 12:20 PM EST01/01/2025 2:10 AM EST Narrative Authorizing ProviderResult TypeResult StatusAmy Diya PALAB BLOOD ORDERABLES Final ResultPerforming OrganizationAddressCity/State/ZIP CodePhone Number [facility] [address] [address] * Urine culture (12/03/2024 4:14 PM EDT)Specimen (Source)Anatomical Location / LateralityCollection Method / VolumeCollection TimeReceived TimeUrineUrine specimen obtained by clean catch procedure / Unknown Narrative Authorizing ProviderResult TypeResult StatusCorey Laura DOLAB MICROBIOLOGY - GENERAL ORDERABLESFinal ResultPerforming OrganizationAddressCity/State/ZIP Code Phone Number EXTERNAL LAB * RECURRENT VAGINITIS (HTRX) (12/03/2024 3:37 PM EDT)ComponentValueRef RangeTest MethodAnalysis TimePerformed AtPathologist SignatureATOPOBIUM STXCTUV251.961 - 24.689 ppm12/04/2024 6:40 AM EDTHealthTrackRx at [facility] CenterATOPOBIUM VAGINAENot Fnibydrl91.961 - 24.689 ppm12/04/2024 6:40 AM EDTHealthTrackRx at LabPortBVAB 2,3 (BACTERIAL VAGINOSIS ASSOCIATED BACTERIA 2, 3); MOBILUNCUS RHK079.961 - 24.689 ppm12/04/2024 6:40 AM EDTHealthTrackRx at LabPortBVAB 2,3 (BACTERIAL VAGINOSIS ASSOCIATED BACTERIA 2, 3); MOBILUNCUS SPPNot Eeakkneg45.961 - 24.689 ppm12/04/2024 6:40 AM EDTHealthTrackRx at LabPortCANDIDA ALBICANS, PARAPSILOSIS, ZAKEPMPGHX490.000 - 30.347 ppm12/04/2024 6:40 AM EDT [facility] LabPortCANDIDA ALBICANS, PARAPSILOSIS, TROPICALISNot Detected 23.000 - 30.347 ppm12/04/2024 6:40 AM EDTHealthTrackRx at LabPortCANDIDA NHIIYUEA552.000 - 31.618 ppm12/04/2024 6:40 AM EDTHealthTrackRx at [facility] TIFF GLABRATANot Hmijnofc65.000 - 31.618 ppm10/ 6:40 AM EDT [facility] LabPortCANDIDA GFEXVU910.000 - 30.873 ppm12/04/2024 6:40 AM EDTHealthTrackRx at LabPortCANDIDA KRUSEINot Ulkugnon52.000 - 30.873 ppm 12/04/2024 6:40 AM EDTHealthTrackRx at LabPortCHLAMYDIA DTBJHIGEFRB037.000 - 31.586 ppm12/04/2024 6:40 AM EDTHealthTrackRx at [facility]CH[facility]YDIA TRACHOMATIS Not Ecujfhgm84.000 - 31.586 ppm12/04/2024 6:40 AM EDTHealthTrackRx at [facility] GARDNERELLA TJNMBNGCW118.961 - 24.689 ppm12/04/2024 6:40 AM EDTHealthTrackRx at [facility] CenterGARDNERELLA VAGINALISNot Kxxfryph34.961 - 24.689 ppm12/04/2024 6:40 AM EDTHealthTrackRx at [facility] HospitalPortMEGASPHAERA (TYPES 1, 2)019.961 - 24.689 ppm 12/04/2024 6:40 AM EDTHealthTrackRx at [facility] CenterMEGASPHAERA (TYPES 1, 2)Not Qniozbsy20.961 - 24.689 ppm12/04/2024 6:40 AM EDTHealthTrackRx at [facility] NEISSERIA TYLHUOZJPAZ122.000 - 32.587 ppm12/04/2024 6:40 AM EDTHealthTrackRx at [facility] CenterNEISSERIA GONORRHOEAENot Bmbslkus98.000 - 32.587 ppm12/04/2024 6:40 AM EDTHealthTrackRx at [facility] CenterTRICHOMONAS VGGKUKVTU871.000 - 31.995 ppm 12/04/2024 6:40 AM EDTHealthTrackRx at [facility] CenterTRICHOMONAS VAGINALISNot Jflqivaw28.000 - 31.995 ppm12/04/2024 6:40 AM EDTHealthTrackRx at [facility] MYCOPLASMA AERMNSNAXU703.961 - 24.689 ppm12/04/2024 6:40 AM EDTHealthTrackRx at [facility] CenterMYCOPLASMA GENITALIUMNot Rettbjxt17.961 - 24.689 ppm12/04/2024 6:40 AM EDTHealthTrackRx at [facility] CenterSpecimen (Source)Anatomical Location / LateralityCollection Method / VolumeCollection TimeReceived TimeTissue 12/03/2024 3:37 PM EDT1 1:26 AM EDT Narrative Authorizing ProviderResult TypeResult StatusCorey Laura DOLAB BLOOD ORDERABLES Final ResultPerforming OrganizationAddressCity/State/ZIP CodePhone Number [facility] [address] [address] * HBSAG SCREEN (11/29/2024 3:47 PM EDT)ComponentValueRef RangeTest Method Analysis TimePerformed AtPathologist SignatureHBSAG SCREENNegativeNegativeTBH Comment: Performed at: ??CB - [facility] [address] ??[id number] Cab Station Attendant: Nish Aldrich PhD, Phone: ??[phone] Specimen (Source)Anatomical Location / LateralityCollection Method / Volume Collection TimeReceived Time11/29/2024 3:47 PM EDT1 3:50 PM EDT Narrative [facility] - 12/01/2024 8:08 AM EDT Authorizing ProviderResult TypeResult StatusCorey Laura DOLAB BLOOD ORDERABLES Final ResultPerforming OrganizationAddressCity/State/ZIP CodePhone Number [facility] * RAPID PLASMA REAGIN, QUANT (11/29/2024 3:47 PM EDT)ComponentValueRef RangeTest MethodAnalysis TimePerformed AtPathologist SignatureRAPID PLASMA REAGIN, QUANT Non ReactiveNonRea<1:1 titerTBHComment: Please Note: This test does not meet current guidelines for screening and diagnosis of syphilis. This test is intended for following treatment response in patients being treated for syphilis infection. To screen for syphilis infection, a reflex cascade that includes both RPR and a treponema-specific assay should be utilized, such as Treponema pallidum (Syphilis) Screening [place] (26[address]) or Rapid Plasma Reagin (RPR) Test With Reflex to Quantitative RPR and Confirmatory Treponema pallidum Antibodies (504655). Specimen (Source)Anatomical Location / LateralityCollection Method / Volume Collection TimeReceived Time11/29/2024 3:47 PM EDT1 3:50 PM EDT [facility] - 12/01/2024 8:08 AM EDT Authorizing ProviderResult TypeResult StatusCorey Laura DOLAB BLOOD ORDERABLES Final ResultPerforming OrganizationAddKindred Hospital [place]/State/[facility] CodePhone Number [facility] * HIV AB/P24 AG WITH REFLEX (11/29/2024 3:47 PM EDT)ComponentValueRef RangeTest MethodAnalysis TimePerformed AtPathologist SignatureHIV AB/P24 AG SCREENNon ReactiveNon ReactiveTBHComment: HIV-1/HIV-2 antibodies and HIV-1 p24 antigen were NOT detected. There is no laboratory evidence of HIV infection. HIV Negative Performed at: ?? - [facility] ??[id number] Cab Station Attendant: Nish Aldrich PhD, Phone: ??[phone] Specimen (Source)Anatomical Location / LateralityCollection Method / Volume Collection TimeReceived Time11/29/2024 3:47 PM EDT1 3:50 PM EDT Narrative [facility] 12/01/2024 7:07 AM EDT Authorizing ProviderResult TypeResult StatusCorey Laura DOLAB BLOOD ORDERABLES Final ResultPerforming OrganizationAddKindred Hospital [place]/[facility] CodePhone Number [facility] * HCV ANTIBODY RFX TO QUANT PCR (11/29/2024 3:47 PM EDT)ComponentValueRef Range Test MethodAnalysis TimePerformed AtPathologist SignatureHCV ABNon ReactiveNon ReactiveTBHINTERPRETATION:Comment.TBHComment: Not infected with HCV unless early or acute infection is suspected (which may be delayed in an immunocompromised individual), or other evidence exists to indicate HCV infection. Specimen (Source)Anatomical Location / LateralityCollection Method / Volume Collection TimeReceived Time11/29/2024 3:47 PM EDT1 3:50 PM EDT Narrative [facility] 12/01/2024 7:07 AM EDT Authorizing ProviderResult TypeResult StatusCorey Lauar KAPLAN BLOOD ORDERABLES Final ResultPerforming OrganizationAddressCity/State/ZIP CodePhone Number [facility] * MLR HEMOGLOBIN A1C (11/29/2024 3:47 PM EDT)ComponentValueRef RangeTest Method Analysis TimePerformed AtPathologist SignatureGLYCOHEMOGLOBIN A1C5.54.5 - 6.2 %TBHComment: ADA RECOMMENDED LIMIT 4.0 - 6.0 ADA THERAPEUTIC TARGET < 7.0 ACTION SUGGESTED > 7.0 ESTIMATED AVERAGE DUYZXNT675uh/dLTBHSpecimen (Source)Anatomical Location / LateralityCollection Method / VolumeCollection TimeReceived Time11/29/2024 3:47 PM EDT1 3:50 PM EDT Narrative [facility] - 11/29/2024 4:26 PM EDT Authorizing ProviderResult TypeResult StatusCorey [facility] DOCLINISYNCFinal Result Performing OrganizationAddressCity/State/ZIP CodePhone Number [facility] * ALL TYPE AND SCREEN (11/29/2024 3:47 PM EDT)ComponentValueRef RangeTest Method Analysis TimePerformed AtPathologist SignatureBLOOD TYPEO NegativeTBHANTIBODY SCREENNEGATIVETBHSpecimen (Source)Anatomical Location / LateralityCollection Method / VolumeCollection TimeReceived Time11/29/2024 3:47 PM EDT1 3:50 PM EDT Narrative [facility] - 11/29/2024 5:01 PM EDT [facility] , ?? Authorizing ProviderResult TypeResult StatusCorey [facility] DOCLINISYNCFinal Result Performing OrganizationAddGeisinger Encompass Health Rehabilitation Hospitalty/State/ZIP CodePhone Number [facility] * ALL RUBELLA IGG AB (11/29/2024 3:47 PM EDT)ComponentValueRef RangeTest Method Analysis TimePerformed AtPathologist SignatureRUBELLA ANTIBODIES, IGG2.91 Immune >0.99 indexTBHComment: Non-immune <0.90 ?Equivocal ??0.90 - 0.99 Immune >0.99 Performed at: ??CB - [facility] [address] ??[id number] Cab Station Attendant: Nish Aldrich PhD, Phone: ??[phone] Specimen (Source)Anatomical Location / LateralityCollection Method / Volume Collection TimeReceived Time11/29/2024 3:47 PM EDT1 3:50 PM EDT Narrative [facility] - 12/01/2024 7:07 AM EDT Authorizing ProviderResult TypeResult StatusCorey Laura DOCLINISYNCFinal Result Performing OrganizationAddressCity/State/ZIP CodePhone Number [facility] * ALL CBC WITH AUTO DIFF (11/29/2024 3:47 PM EDT)ComponentValueRef RangeTest MethodAnalysis TimePerformed AtPathologist SignatureTBH WBC9.04.0 - 11.0 10 3/uLTBHTBH RBC4.764.20 - 5.40 10 6/uLTBHTBH HGB14.112.0 - 16.0 g/dLTBHTBH HCT 41.536.0 - 48.0 %TBHTBH MCV87.281.0 - 99.0 fLTBHTBH MCH29.626.7 - 34.0 pgTBH TBH MCHC34.029.9 - 35.2 g/dLTBHTBH RDW12.611.0 - 15.0 %TBHTBH VPL793540 - 450 10 3/uLTBHTBH MPV10.29.5 - 13.5 fLTBHNEUTROPHILS PERCENT AUTO66.743.0 - 75.0 % TBHLYMPHOCYTES PERCENT AUTO26.920.5 - 60.0 %TBHMONOCYTES PERCENT AUTO5.01.7 - 12.0 %TBHTBH EO %1.00.9 - 7.0 %TBHBASOPHILS PERCENT AUTO0.30.2 - 2.0 %TBH IMMATURE GRANULOCYTES PCT AUTO0.10.0 - 0.5 %TBHNEUTROPHILS ABSOLUTE AUTO6.01.4 - 6.5 10 3/uLTBHLYMPHOCYTES ABSOLUTE AUTO2.41.2 - 3.8 10 3/uLTBHMONOCYTES ABSOLUTE AUTO0.50.3 - 0.8 10 3/uLTBHTBH EO #0.10.0 - 0.7 10 3/uLTBHBASOPHILS ABSOLUTE AUTO0.00.0 - 0.1 10 3/uLTBHIMMATURE GRANULOCYTES ABS AUTO0.010.00 - 0.03 10 3/uLTBHSpecimen (Source)Anatomical Location / LateralityCollection Method / VolumeCollection TimeReceived Time11/29/2024 3:47 PM EDT1 3:50 PM EDT Narrative [facility] - 11/29/2024 4:30 PM EDT Authorizing ProviderResult TypeResult StatusCorey Laura DOCLINISYNCFinal Result Performing OrganizationAddressCity/State/ZIP CodePhone Number [facility] * URINE CULT[facility], ROUTINE (11/29/2024 3:30 PM EDT)ComponentValueRef RangeTest MethodAnalysis TimePerformed AtPathologist SignatureURINE CULTURE, ROUTINE ??Urine Culture, Routine TBHURINE CULTURE, ROUTINEMixed urogenital floraTBHURINE CULTURE, [id number]- 50,000 colony forming units per mLTBHURINE CULTURE, ROUTINEPerformed at: [facility] LabC.S. Mott Children's HospitalTBRINE CULTURE, [id number] [place], [place] [id number] URINE CULTURE, ROUTINELab Director: Nish Aldrich PhD, Phone: [phone] Specimen (Source)Anatomical Location / LateralityCollection Method / Volume Collection TimeReceived Time11/29/2024 3:30 PM EDT1 3:50 PM EDT Narrative CLINISYNC - 11/30/2024 9:12 PM EDT Authorizing ProviderResult TypeResult StatusCorey Laura DOLAB BLOOD ORDERABLES Final ResultPerforming OrganizationAddressCity/State/ZIP CodePhone Number [facility] * [facility] DRUG SCREEN RAPID (URINE) (11/29/2024 3:30 PM EDT)ComponentValueRef Range Test MethodAnalysis TimePerformed AtPathologist SignatureCANNABINOID SCREEN URINENEGATIVENEGATIVETBHPHENCYCLIDINE SCREEN URINENEGATIVENEGATIVETBHCOCAINE SCREEN URINENEGATIVENEGATIVETBHMETHAMPHETAMINES SCREEN URINENEGATIVENEGATIVE TBHOPIATE SCREEN URINENEGATIVENEGATIVETBHAMPHETAMINE SCREEN URINENEGATIVE NEGATIVETBHBENZODIAZEPINES SCREEN URINENEGATIVENEGATIVETBHTRICYCLIC ANTIDEPRESSANT URINENEGATIVENEGATIVETBHMETHADONE SCREEN URINENEGATIVENEGATIVE TBHBARBITURATES SCREEN URINENEGATIVENEGATIVETBHOXYCODONE SCREEN URINENEGATIVE NEGATIVETBHBUPRENORPHINE SCREEN URINENEGATIVENEGATIVETBHComment: DRUG CLASS TEST SYSTEM CUT-OFF CONCENTRATIONS ARE FOLLOWS: AMP (Amphetamine): 500 ng/mL BAR (Barbiturates): 200 ng/mL BZO (Benzodiazepines): 150 ng/mL BUP (Buprenorphine): 10 ng/mL KAMILAH (Cocaine): 150 ng/mL mAMP (Methamphetamine): 500 ng/mL MTD (Methadone): 200 ng/mL OPI (Opiates): 100 ng/mL OXY (Oxycodone): 100 ng/mL PCP (Phencyclidine): 25 ng/mL THC (Cannabinoids): 50 ng/mL TCA (Trycyclic Antidepressants): 300 ng/mL Specimen (Source)Anatomical Location / LateralityCollection Method / Volume Collection TimeReceived Time11/29/2024 3:30 PM EDT1 3:50 PM EDT Narrative [facility] - 11/29/2024 4:19 PM EDT Authorizing ProviderResult TypeResult StatusCorey Laura DOCLINISYNCFinal Result Performing OrganizationAddressCity/State/ZIP CodePhone Number CLINISYNC TB * (ABNORMAL) POCT , urine manually resulted (11/01/2024 10:25 AM EDT) ComponentValueRef RangeTest MethodAnalysis TimePerformed AtPathologist SignaturePreg Test, UrPositiveNegativeSpecimen (Source)Anatomical Location / LateralityCollection Method / VolumeCollection TimeReceived TimeUrine 11/01/2024 10:25 AM EDT Narrative Authorizing ProviderResult TypeResult StatusCorey Laura DOPOINT OF CARE TEST ENTER/EDIT ORDERABLESFinal Result from Last 3 Months Additional Health Concerns Active ProblemsNoted DateDiagnosed DateOB Xserhossl07/11/2023 Insurance Care Teams Team MemberRelationshipSpecialtyStart DateEnd Date Cristhian Arriaza MD [address] [place] [phone] PCP - GeneralFamily Nyqqdfcv14/7/23
--- OUTSIDE RECORDS SUMMARY | 2025-01-23 09:31 | XMS_ITS | Encounter Summary ---
Author Organization [facility] Address [address] [place] [address] Care Team Providers Care Sap Pi Developer Name Role Phone Cristhian Arriaza MD Primary Care Provider [phone] Encounter Details DateTypeDepartmentCare Team (Latest Contact Info)Rzmzyciisod48/17/2025Travel Social History Tobacco UseTypesPacks/DayYears UsedDateSmoking Tobacco: NeverSmokeless Tobacco: NeverAlcohol UseStandard Drinks/WeekCommentsNot Currently2 (1 standard drink = 0.6 oz pure alcohol)caffeine: 1-2 cups per dayAUDIT-CAnswerDate RecordedQ1: How often do you have a drink containing alcohol?Monthly or less01/19/2023Q2: How many drinks containing alcohol do you have on a typical day when you are drinking?3 or Frequency of Binge DrinkingNot on file01/19/2023 Estimated Date of BrfxrdyiApnceaxuEat26/04/2026ased on UltrasoundSex and Gender InformationValueDate RecordedSex Assigned at PmdgwWewmcl97/30/2023 8:50 AM ESTLegal HicCshnhd57/15/2023 7:04 PM EDTGender CddprxtvFmrygo56/30/2023 8:50 AM ESTSexual YauqmcxizgrHeartfnf63/30/2023 8:50 AM ESTdocumented as of this encounter Plan of Treatment DateTypeDepartmentCare Team (Latest Contact Info)Mxzahwwqujm85/23/2025 10:40 AM ESTRoutine [facility] [address] [place] [address] [place] [address] Jake Sanchez, DO [address] [place] [address] 04/15/2025 11:00 AM EDTOffice Visit [facility] [address] [place] [phone] Jake Sanchez, DO [address] [place] [address] documented as of this encounter Goals GoalPatient Goal TypeAssociated ProblemsRecent ProgressPatient-Stated?Author Reminders Care PlanOB RemindersNoOpen Scheduling, Backgrounddocumented as of this encounter Visit Diagnoses Not on filedocumented in this encounter Additional Health Concerns Active ProblemsNoted DateDiagnosed DateOB Urgehbsot78/11/2023 documented as of this encounter Care Teams Team MemberRelationshipSpecialtyStart DateEnd Date Cristhian Arriaza MD [address] [facility] [place] [address] PCP - GeneralFamily Ofmceqgp22/7/23documented as of this encounter
--- OUTSIDE RECORDS SUMMARY | 2025-01-23 09:31 | XMS_ITS | Clinical Summary ---
Author Organization [facility] Address [address], [address] [place] [address] Care Team Providers Care Chief Of Hospital Medicine Name Role Phone None, None Primary Care Provider Unavailabl e Allergies No known active allergies Medications MedicationSigDispense QuantityRefillsLast FilledStart DateEnd DateStatus Vit-Fe Fumarate-FA ( VITAMIN PO) Take 1 tablet by mouthActive aspirin 81 MG EC tablet Take 1 tablet by mouth dailyActive Active Problems ProblemNoted DateDiagnosed DateMarginal Cord Xjnobmevy03/22/2024 Overview (03/30/2023): Noted [facility] 03/30/23 Declined consult Social History Tobacco UseTypesPacks/DayYears UsedDateSmoking Tobacco: NeverSmokeless Tobacco: Never Tobacco Cessation:Counseling Given: No Alcohol UseStandard Drinks/WeekCommentsNot Currently0 (1 standard drink = 0.6 oz pure alcohol)CommentsNoSex and Gender InformationValueDate RecordedSex Assigned at NradbVkwyqz40/28/2023 8:22 AM ESTLegal IxeQxxfrz75/26/2023 9:50 AM ESTGender VimxjkmrTecnom02/28/2023 8:22 AM ESTSexual OrientationNot on file Last Filed Vital Signs Vital SignReadingTime TakenCommentsBlood Dqcwugnt251/8306 7:00 AM EDT Rucar7225 7:00 AM FGIQbeftycmysi74.7 ??C (98 ??F)07/24/2023 7:00 AM EDT Respiratory Vplx122307/24/2023 7:00 AM EDTOxygen Saturation--Inhaled Oxygen Concentration--Flmchj53.8 kg (220 lb)07/24/2023 7:00 AM FWQNbfkel974.2 cm (5' 7 )07/24/2023 7:00 AM EDTBody Mass Index34.46007/24/2023 7:00 AM EDT Plan of Treatment Health MaintenanceDue DateLast DoneCommentsDepression Dgdqny7802/03/2007Varicella vaccine (1 of 2 - 13+ 2-dose series)02/04/2008HIV lialqt6802/03/2010Hepatitis C ywaliz4402/03/2013DTaP/Tdap/Td vaccine (1 - Tdap)2014Hepatitis B vaccine (1 of 3 - 19+ 3-dose series)2014Pap smear02/04/2016Flu vaccine (#1)09/06/2024 COVID-19 Vaccine ( season)2024HPV vaccine (No Doses Required) CompletedHepatitis A vaccineAged OutNo longer eligible based on patient's age to complete this topicHib vaccineAged OutNo longer eligible based on patient's age to complete this topicMeningococcal (ACWY) vaccineAged OutNo longer eligible based on patient's age to complete this topicMeningococcal B vaccineAged OutNo longer eligible based on patient's age to complete this topicPneumococcal 0-49 years VaccineAged OutNo longer eligible based on patient's age to complete this topicPolio vaccineAged OutNo longer eligible based on patient's age to complete this topic Insurance Care Teams Team MemberRelationshipSpecialtyStart DateEnd Date None, None PCP - Nltqwhi25/28/23
== END 2025-01-23 09:29 | disposition home or self-care (01) ==
LOC: LAB 09:29
PROVIDERS: PCP Family Medicine; Visit Provider Physician Assistant
DX: Z34.92 Encounter for supervision of normal pregnancy, unspecified, second trimester (principal)
CPT/HCPCS: 36415; 82105